=== PATIENT | female | born 1995 | race Caucasian/White ===

== ENCOUNTER 2019-05-27 12:17 | Inpatient (IN) | payer BC, MEDICAID, SELFPAY ==
[2019-05-27] VITALS (9 sets, daily range): BP systolic 90–124; BP diastolic 60–85; PULSE 72–114; RESP 14–21; TEMP 36.8–38.2; O2SAT 94–100; BMI 23.8
--- NOTE | 2019-05-27 12:23 | ED_ITS ---
Documented by User: ERIN Kee 06/01/19 07:03 HPI - Nausea/Vomiting/Diarrhea General: Chief complaint: Nausea/Vomiting/Diarrhea Stated complaint: Sick, weak, throwing up Time Seen by Provider: 05/27/19 12:22 Source: patient and family Mode of arrival: ambulatory Limitations: no limitations History of Present Illness: HPI Narrative: Patient is a 24-year-old female with a history of lupus who presents to ED today along with her mother for complaints of nausea, vomiting, diarrhea, and pain all over that has been present over the past week; patient was apparently recently evaluated by her PCP Dr. Ramirez who diagnosed her with gastroenteritis and prescribed her Zofran; patient states she has had 7-8 episodes of vomiting so far today; she reports a diarrhea stool every 30 to 45 minutes over the past week MD elicited complaint: nausea, vomiting, diarrhea and abdominal pain Pertinent past history: other (lupus) Onset (ago): day(s) Description of diarrhea: watery Associated nausea: Yes Associated abdominal pain: Yes Location of pain: Diffuse Pain consistency: constant Quality: cramping and aching Relieving factors: none Associated symtoms: Reports no associated symptoms and nausea; Denies change in vision, chest pain, dysuria, headache(s), palpitations or syncope Review of Systems Const: Reports: body aches; Denies: fever, chills or night sweats Eyes: Denies: change in vision or blurry vision ENMT: Denies: throat pain, enlarged tonsils or painful swallowing Card: Denies: chest pain, palpitations, irregular heart rhythm, edema, lightheadedness, syncope or pre-syncope Resp: Denies: shortness of breath or productive cough GI: Reports: abdominal pain, nausea, vomiting and diarrhea; Denies: vomiting blood, coffee grounds in vomit, difficulty swallowing, heartburn/indigestion, constipation, excessive passing of gas or painful bowel movements : Denies: flank pain, difficulty urinating, painful urination, urinary frequency, urinary urgency or urinary hesitancy Musc: Reports: other (Patient reports she hurts everywhere ) Neuro: Denies: headache PFSH ED PFSH: Statuses (acute, chronic, etc) shown below reflect problem list status as previously entered and may not be historically accurate Social History Smoking and tobacco status: never smoked Alcohol intake: never Substance/Drug Use: never Household members: family Housing: House Physical Exam Const: COMMON NORMALS: average body habitus, oriented x3, no limitations, healthy appearing, alert and well nourished GENERAL APPEARANCE: in distress (Pain/anxiety) HENMT: COMMON NORMALS: normocephalic, head/scalp atraumatic, EAC's normal and TM's normal bilaterally HEAD & SCALP: normocephalic and atraumatic EXTERNAL AUDITORY CANAL: EAC's normal TYMPANIC MEMBRANE: TM's normal bilaterally THROAT: posterior oropharynx normal, tonsils normal and uvula midline Eye: COMMON NORMALS: PERRL and EOMs intact bilaterally PUPIL: Yes PERRL Neck/C-Spine: COMMON NORMALS: no lymphadenopathy Chest: COMMONS NORMALS: inspection of chest normal Resp: COMMON NORMALS: normal respiratory effort and clear to auscultation bilaterally AUSCULTATION: clear to auscultation bilaterally Cardio: COMMON NORMALS: regular rhythm RATE: tachycardic (mild) RHYTHM: regular rhythm GI: AUSCULTATION: Yes normoactive bowel sounds PALPATION: Yes tender (diffuse with guarding) : COMMON NORMALS: Yes no CVA tenderness BLADDER/KIDNEY EXAM: Yes no CVA tenderness Back/Pelvis: COMMON NORMALS: no CVA tenderness Extremity: COMMON NORMALS: normal to inspection Neuro: COMMON NORMALS: oriented x3 SENSORIUM/ORIENTATION: Yes alert Skin: COMMON NORMALS: no rashes or lesions noted GENERAL SKIN EXAM: no rashes or lesions noted Course Vital Signs: Vital signs: Vital Signs Temperature 98.3 F 05/30/19 10:10 Pulse Rate 77 05/30/19 10:10 Respiratory Rate 20 H 05/30/19 10:10 Blood Pressure 95/58 05/30/19 10:10 Pulse Oximetry 98 05/30/19 04:00 MDM - Nausea/Vomiting/Diarrhea MDM Narrative: Medical decision making narrative: pts nausea/abdominal pain improved after nausea meds and pain meds; she has had two liters of fluids and remains tachycardic; CT showing diffuse distention of her colon; CT also commented on bilateral small pleural effusions and bilateral pneumonia; will obtain CXR; spoke to Dr. Alexandra who feels given her hx of lupus, might need an obs stay; he will evaluate her and speak to hospitalist if necessary Lab Data: Labs: Lab Results 05/27/19 05/27/19 05/27/19 Range/Units 12:45 12:45 12:45 WBC 11.1 H (4.0-10.0) 10^3/ uL RBC 4.80 (4.1-5.3) 10^6/u L Hgb 13.5 (11.5-15.3) g/dL Hct 40.6 (37.0-47.0) % MCV 84.6 (81-99) fL MCH 28.1 (28.0-34.0) pg MCHC 33.3 (30.0-36.0) g/dL RDW 13.4 (12.1-15.1) % Plt Count 296 (130-400) 10^3/c mm MPV 10.4 (7.4-10.4) fL Neut % (Auto) 90.7 % Lymph % (Auto) 4.4 % Carter % (Auto) 4.2 % Eos % (Auto) 0.2 % Baso % (Auto) 0.3 % Neut # (Auto) 10.1 H (1.8-7.7) 10^3/u L Lymph # (Auto) 0.5 L (0.8-4.8) 10^3/u L Carter # (Auto) 0.5 (0.2-0.9) 10^3/u L Eos # (Auto) 0.0 (0.0-0.8) 10^3/u L Baso # (Auto) 0.0 (0.0-0.1) 10^3/u L Nucleated RBC % (a uto) 0 % Nucleated RBCs # 0.0 /100WBC Sodium 139 (136-145) mmol/L Potassium 3.3 L (3.5-5.1) mmol/L Chloride 103 (98-107) mmol/L Carbon Dioxide 19 L (22-29) mmol/L Anion Gap 20.3 H (5-19) BUN 8 (6-20) mg/dL Creatinine 0.9 (0.5-0.9) mg/dL GFR Calculation 76.9 L (90-130) mL/min Glucose 105 (74-109) mg/dL Calcium 10.2 H (8.6-10.0) mg/Dl Magnesium 1.7 (1.7-2.3) mg/dL Total Bilirubin 0.5 (0.15-1.2) mg/dL AST 16 (0-32) U/L ALT 7 (0-33) U/L Alkaline Phosphata se 76 (35-105) IU/L Total Protein 7.4 (6.6-8.7) g/dL Albumin 4.8 (3.5-5.2) g/dL Globulin 2.6 (1.3-4.6) g/dL Lipase 46 (13-60) U/L Urine Color (Yellow) Urine Appearance (CLEAR) Urine pH (5-7) Ur Specific Gravit y (1.005-1.030) Urine Protein (Negative) Urine Glucose (UA) (Normal) Urine Ketones (Negative) Urine Occult Blood (Negative) Urine Nitrate (Negative) Urine Bilirubin (NEGATIVE) Urine Urobilinogen (Negative) mg/dL Ur Leukocyte Natalie ase (Negative) Urine RBC (0-2) /hpf Urine WBC (0-5) /hpf Ur Squamous Epith Cells (0-5) Urine Bacteria (NONE) Urine Mucus Urine HCG, Qual (Negative) Influenza Type A A g (Negative) POC Influenza B Ag (Negative) 05/27/19 05/27/19 05/27/19 Range/Units 12:52 12:52 13:55 WBC (4.0-10.0) 10^3/ uL RBC (4.1-5.3) 10^6/u L Hgb (11.5-15.3) g/dL Hct (37.0-47.0) % MCV (81-99) fL MCH (28.0-34.0) pg MCHC (30.0-36.0) g/dL RDW (12.1-15.1) % Plt Count (130-400) 10^3/c mm MPV (7.4-10.4) fL Neut % (Auto) % Lymph % (Auto) % Carter % (Auto) % Eos % (Auto) % Baso % (Auto) % Neut # (Auto) (1.8-7.7) 10^3/u L Lymph # (Auto) (0.8-4.8) 10^3/u L Carter # (Auto) (0.2-0.9) 10^3/u L Eos # (Auto) (0.0-0.8) 10^3/u L Baso # (Auto) (0.0-0.1) 10^3/u L Nucleated RBC % (a uto) % Nucleated RBCs # /100WBC Sodium (136-145) mmol/L Potassium (3.5-5.1) mmol/L Chloride (98-107) mmol/L Carbon Dioxide (22-29) mmol/L Anion Gap (5-19) BUN (6-20) mg/dL Creatinine (0.5-0.9) mg/dL GFR Calculation (90-130) mL/min Glucose (74-109) mg/dL Calcium (8.6-10.0) mg/Dl Magnesium (1.7-2.3) mg/dL Total Bilirubin (0.15-1.2) mg/dL AST (0-32) U/L ALT (0-33) U/L Alkaline Phosphata se (35-105) IU/L Total Protein (6.6-8.7) g/dL Albumin (3.5-5.2) g/dL Globulin (1.3-4.6) g/dL Lipase (13-60) U/L Urine Color Yellow (Yellow) Urine Appearance Cloudy (CLEAR) Urine pH 5 (5-7) Ur Specific Gravit y 1.020 (1.005-1.030) Urine Protein 1+ H (Negative) Urine Glucose (UA) Norm (Normal) Urine Ketones 2+ H (Negative) Urine Occult Blood 3+ H (Negative) Urine Nitrate Negative (Negative) Urine Bilirubin Neg (NEGATIVE) Urine Urobilinogen Norm (Negative) mg/dL Ur Leukocyte Natalie ase Negative (Negative) Urine RBC 25-40 H (0-2) /hpf Urine WBC None (0-5) /hpf Ur Squamous Epith Cells 10-15 H (0-5) Urine Bacteria 2+ H (NONE) Urine Mucus 2+ Urine HCG, Qual Negative (Negative) Influenza Type A A g Negative (Negative) POC Influenza B Ag Negative (Negative) 05/28/19 05/28/19 Range/Units 05:42 05:42 WBC 3.8 L (4.0-10.0) 10^3/ uL RBC 3.58 L (4.1-5.3) 10^6/u L Hgb 10.0 L (11.5-15.3) g/dL Hct 29.9 L (37.0-47.0) % MCV 83.5 (81-99) fL MCH 27.9 L (28.0-34.0) pg MCHC 33.4 (30.0-36.0) g/dL RDW 13.1 (12.1-15.1) % Plt Count 244 (130-400) 10^3/c mm MPV 10.8 H (7.4-10.4) fL Neut % (Auto) 72.2 % Lymph % (Auto) 19.4 % Carter % (Auto) 7.3 % Eos % (Auto) 0.3 % Baso % (Auto) 0.5 % Neut # (Auto) 2.8 (1.8-7.7) 10^3/u L Lymph # (Auto) 0.7 L (0.8-4.8) 10^3/u L Carter # (Auto) 0.3 (0.2-0.9) 10^3/u L Eos # (Auto) 0.0 (0.0-0.8) 10^3/u L Baso # (Auto) 0.0 (0.0-0.1) 10^3/u L Nucleated RBC % (a uto) 0 % Nucleated RBCs # 0.0 /100WBC Sodium 138 (136-145) mmol/L Potassium 3.4 L (3.5-5.1) mmol/L Chloride 108 H (98-107) mmol/L Carbon Dioxide 19 L (22-29) mmol/L Anion Gap 14.4 (5-19) BUN 4 L (6-20) mg/dL Creatinine 0.5 (0.5-0.9) mg/dL GFR Calculation 151.6 H (90-130) mL/min Glucose 99 (74-109) mg/dL Calcium 8.7 (8.6-10.0) mg/Dl Magnesium (1.7-2.3) mg/dL Total Bilirubin (0.15-1.2) mg/dL AST (0-32) U/L ALT (0-33) U/L Alkaline Phosphata se (35-105) IU/L Total Protein (6.6-8.7) g/dL Albumin (3.5-5.2) g/dL Globulin (1.3-4.6) g/dL Lipase (13-60) U/L Urine Color (Yellow) Urine Appearance (CLEAR) Urine pH (5-7) Ur Specific Gravit y (1.005-1.030) Urine Protein (Negative) Urine Glucose (UA) (Normal) Urine Ketones (Negative) Urine Occult Blood (Negative) Urine Nitrate (Negative) Urine Bilirubin (NEGATIVE) Urine Urobilinogen (Negative) mg/dL Ur Leukocyte Natalie ase (Negative) Urine RBC (0-2) /hpf Urine WBC (0-5) /hpf Ur Squamous Epith Cells (0-5) Urine Bacteria (NONE) Urine Mucus Urine HCG, Qual (Negative) Influenza Type A A g (Negative) POC Influenza B Ag (Negative) Imaging Data^: CT Abd/Pel: Radiologist's impression: [place] [address] CT Scan Report Signed Patient: Joe Eisenberg Unit #: [id number] : 1995 Age/Sex: 24 / F ADM Date: 05/27/19 Loc: ER Room/Bed: Attending Dr: Ordering Provider/Ordering MD: Maegan Chapman Date of Service: 05/27/19 Procedure(s): CT abdomen pelvis w con* [id number] Accession Number(s): [id number] Report Number: [id number] WS: [id number] CT ABDOMEN AND PELVIS WITH CONTRAST HISTORY: pain, N/V/D TECHNIQUE: Imaging performed of the abdomen and pelvis with IV contrast. Single phase imaging of the abdomen. Coronal and sagittal reformats are submitted. All CT scans at [facility] use at least one of these dose optimization techniques: automated exposure control; mA and/or kV adjustment per patient size (includes targeted exams where dose is matched to clinical indication); or iterative reconstruction. IV CONTRAST: Visipaque 320; 95 mL IV. Oral contrast: No DLP: 591.64 mGy.cm COMPARISON: 10/23/2018 Lower thorax: Bilateral lower lobe opacifications are new. Very small pleural effusion noted anteriorly. Small hiatal hernia. Liver/biliary system: Normal size liver with mild intrahepatic duct dilatation which is probably physiologic. Gallbladder: Prior cholecystectomy. Pancreas: Normal. Spleen: Normal. Adrenal glands: Normal. Right kidney: Normal. Left kidney: Normal. Aorta: Normal. Lymphadenopathy: None. Free fluid: None. GI tract: There is diffuse fluid distention of the colon. No wall thickening. Mildly distended central small bowel loops with no obstructive pattern. There are a few areas of luminal narrowing involving the small bowel which could be due to peristalsis. The most significant as noted on image 61 of series 2. No obstruction. The appendix is not identified. Abdominal wall: Unremarkable abdominal wall. No hernia. Pelvis: Urinary bladder is negative. Visualized uterus and adnexa within normal limits by CT. Bones: Unremarkable. Notified ERIN Kee at 05/27/2019 3:[address]/CT abdomen pelvis w con* [id number] IMPRESSION: 1. Moderate diffuse distention of the colon with fluid. Probably due to gastroenteritis. At this time there is no obstruction or significant wall thickening. To a lesser extent mild fluid distention of small bowel. 2. Bibasilar lower lobe opacifications likely pneumonia. 3. Prior cholecystectomy. 4. The appendix is not visualized. 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 Resume sulfamethoxazole following completion of Levaquin Discharge Date/Time: 05/27/19 21:17 Sign Out Sign Out Data: Patient Sign Out occurred on 05/27/19 at 17:19. Patient's care was discussed, and care was transferred from to Preet Alexandra DO. Coding Level of Care Code ED Fire Technology Instructor for Chg Fwd Documented by User: Preet Alexandra DO 05/28/19 08:20 HPI - Nausea/Vomiting/Diarrhea General: Chief complaint: Nausea/Vomiting/Diarrhea Stated complaint: Sick, weak, throwing up Time Seen by Provider: 05/27/19 12:22 PFSH ED PFSH: Statuses (acute, chronic, etc) shown below reflect problem list status as previously entered and may not be historically accurate Social History Smoking and tobacco status: never smoked Alcohol intake: never Substance/Drug Use: never Household members: family Housing: House Course ED course: Reviewed case with ERIN Chapman. Given her history of lupus and her findings of pneumonia and diffuse distention of her colon with diarrhea nausea and vomiting unable to maintain fluid intakes recommend that she be placed on observation IV antibiotics and fluid support discussed Dr. Werner. Vital Signs: Vital signs: Vital Signs Temperature 98.3 F 05/30/19 10:10 Pulse Rate 77 05/30/19 10:10 Respiratory Rate 20 H 05/30/19 10:10 Blood Pressure 95/58 05/30/19 10:10 Pulse Oximetry 98 05/30/19 04:00 MDM - Nausea/Vomiting/Diarrhea Lab Data: Labs: Lab Results 05/27/19 05/27/19 05/27/19 Range/Units 12:45 12:45 12:45 WBC 11.1 H (4.0-10.0) 10^3/ uL RBC 4.80 (4.1-5.3) 10^6/u L Hgb 13.5 (11.5-15.3) g/dL Hct 40.6 (37.0-47.0) % MCV 84.6 (81-99) fL MCH 28.1 (28.0-34.0) pg MCHC 33.3 (30.0-36.0) g/dL RDW 13.4 (12.1-15.1) % Plt Count 296 (130-400) 10^3/c mm MPV 10.4 (7.4-10.4) fL Neut % (Auto) 90.7 % Lymph % (Auto) 4.4 % Carter % (Auto) 4.2 % Eos % (Auto) 0.2 % Baso % (Auto) 0.3 % Neut # (Auto) 10.1 H (1.8-7.7) 10^3/u L Lymph # (Auto) 0.5 L (0.8-4.8) 10^3/u L Carter # (Auto) 0.5 (0.2-0.9) 10^3/u L Eos # (Auto) 0.0 (0.0-0.8) 10^3/u L Baso # (Auto) 0.0 (0.0-0.1) 10^3/u L Nucleated RBC % (a uto) 0 % Nucleated RBCs # 0.0 /100WBC Sodium 139 (136-145) mmol/L Potassium 3.3 L (3.5-5.1) mmol/L Chloride 103 (98-107) mmol/L Carbon Dioxide 19 L (22-29) mmol/L Anion Gap 20.3 H (5-19) BUN 8 (6-20) mg/dL Creatinine 0.9 (0.5-0.9) mg/dL GFR Calculation 76.9 L (90-130) mL/min Glucose 105 (74-109) mg/dL Calcium 10.2 H (8.6-10.0) mg/Dl Magnesium 1.7 (1.7-2.3) mg/dL Total Bilirubin 0.5 (0.15-1.2) mg/dL AST 16 (0-32) U/L ALT 7 (0-33) U/L Alkaline Phosphata se 76 (35-105) IU/L Total Protein 7.4 (6.6-8.7) g/dL Albumin 4.8 (3.5-5.2) g/dL Globulin 2.6 (1.3-4.6) g/dL Lipase 46 (13-60) U/L Urine Color (Yellow) Urine Appearance (CLEAR) Urine pH (5-7) Ur Specific Gravit y (1.005-1.030) Urine Protein (Negative) Urine Glucose (UA) (Normal) Urine Ketones (Negative) Urine Occult Blood (Negative) Urine Nitrate (Negative) Urine Bilirubin (NEGATIVE) Urine Urobilinogen (Negative) mg/dL Ur Leukocyte Natalie ase (Negative) Urine RBC (0-2) /hpf Urine WBC (0-5) /hpf Ur Squamous Epith Cells (0-5) Urine Bacteria (NONE) Urine Mucus Urine HCG, Qual (Negative) Influenza Type A A g (Negative) POC Influenza B Ag (Negative) 05/27/19 05/27/19 05/27/19 Range/Units 12:52 12:52 13:55 WBC (4.0-10.0) 10^3/ uL RBC (4.1-5.3) 10^6/u L Hgb (11.5-15.3) g/dL Hct (37.0-47.0) % MCV (81-99) fL MCH (28.0-34.0) pg MCHC (30.0-36.0) g/dL RDW (12.1-15.1) % Plt Count (130-400) 10^3/c mm MPV (7.4-10.4) fL Neut % (Auto) % Lymph % (Auto) % Carter % (Auto) % Eos % (Auto) % Baso % (Auto) % Neut # (Auto) (1.8-7.7) 10^3/u L Lymph # (Auto) (0.8-4.8) 10^3/u L Carter # (Auto) (0.2-0.9) 10^3/u L Eos # (Auto) (0.0-0.8) 10^3/u L Baso # (Auto) (0.0-0.1) 10^3/u L Nucleated RBC % (a uto) % Nucleated RBCs # /100WBC Sodium (136-145) mmol/L Potassium (3.5-5.1) mmol/L Chloride (98-107) mmol/L Carbon Dioxide (22-29) mmol/L Anion Gap (5-19) BUN (6-20) mg/dL Creatinine (0.5-0.9) mg/dL GFR Calculation (90-130) mL/min Glucose (74-109) mg/dL Calcium (8.6-10.0) mg/Dl Magnesium (1.7-2.3) mg/dL Total Bilirubin (0.15-1.2) mg/dL AST (0-32) U/L ALT (0-33) U/L Alkaline Phosphata se (35-105) IU/L Total Protein (6.6-8.7) g/dL Albumin (3.5-5.2) g/dL Globulin (1.3-4.6) g/dL Lipase (13-60) U/L Urine Color Yellow (Yellow) Urine Appearance Cloudy (CLEAR) Urine pH 5 (5-7) Ur Specific Gravit y 1.020 (1.005-1.030) Urine Protein 1+ H (Negative) Urine Glucose (UA) Norm (Normal) Urine Ketones 2+ H (Negative) Urine Occult Blood 3+ H (Negative) Urine Nitrate Negative (Negative) Urine Bilirubin Neg (NEGATIVE) Urine Urobilinogen Norm (Negative) mg/dL Ur Leukocyte Natalie ase Negative (Negative) Urine RBC 25-40 H (0-2) /hpf Urine WBC None (0-5) /hpf Ur Squamous Epith Cells 10-15 H (0-5) Urine Bacteria 2+ H (NONE) Urine Mucus 2+ Urine HCG, Qual Negative (Negative) Influenza Type A A g Negative (Negative) POC Influenza B Ag Negative (Negative) 05/28/19 05/28/19 Range/Units 05:42 05:42 WBC 3.8 L (4.0-10.0) 10^3/ uL RBC 3.58 L (4.1-5.3) 10^6/u L Hgb 10.0 L (11.5-15.3) g/dL Hct 29.9 L (37.0-47.0) % MCV 83.5 (81-99) fL MCH 27.9 L (28.0-34.0) pg MCHC 33.4 (30.0-36.0) g/dL RDW 13.1 (12.1-15.1) % Plt Count 244 (130-400) 10^3/c mm MPV 10.8 H (7.4-10.4) fL Neut % (Auto) 72.2 % Lymph % (Auto) 19.4 % Carter % (Auto) 7.3 % Eos % (Auto) 0.3 % Baso % (Auto) 0.5 % Neut # (Auto) 2.8 (1.8-7.7) 10^3/u L Lymph # (Auto) 0.7 L (0.8-4.8) 10^3/u L Carter # (Auto) 0.3 (0.2-0.9) 10^3/u L Eos # (Auto) 0.0 (0.0-0.8) 10^3/u L Baso # (Auto) 0.0 (0.0-0.1) 10^3/u L Nucleated RBC % (a uto) 0 % Nucleated RBCs # 0.0 /100WBC Sodium 138 (136-145) mmol/L Potassium 3.4 L (3.5-5.1) mmol/L Chloride 108 H (98-107) mmol/L Carbon Dioxide 19 L (22-29) mmol/L Anion Gap 14.4 (5-19) BUN 4 L (6-20) mg/dL Creatinine 0.5 (0.5-0.9) mg/dL GFR Calculation 151.6 H (90-130) mL/min Glucose 99 (74-109) mg/dL Calcium 8.7 (8.6-10.0) mg/Dl Magnesium (1.7-2.3) mg/dL Total Bilirubin (0.15-1.2) mg/dL AST (0-32) U/L ALT (0-33) U/L Alkaline Phosphata se (35-105) IU/L Total Protein (6.6-8.7) g/dL Albumin (3.5-5.2) g/dL Globulin (1.3-4.6) g/dL Lipase (13-60) U/L Urine Color (Yellow) Urine Appearance (CLEAR) Urine pH (5-7) Ur Specific Gravit y (1.005-1.030) Urine Protein (Negative) Urine Glucose (UA) (Normal) Urine Ketones (Negative) Urine Occult Blood (Negative) Urine Nitrate (Negative) Urine Bilirubin (NEGATIVE) Urine Urobilinogen (Negative) mg/dL Ur Leukocyte Natalie ase (Negative) Urine RBC (0-2) /hpf Urine WBC (0-5) /hpf Ur Squamous Epith Cells (0-5) Urine Bacteria (NONE) Urine Mucus Urine HCG, Qual (Negative) Influenza Type A A g (Negative) POC Influenza B Ag (Negative) Discharge Plan Discharge Patient Disposition: Admitted As Inpatient Admit Provider: Federica Roberson Clinical Impression: Gastroenteritis Pneumonia Qualifiers: Pneumonia type: due to unspecified organism Laterality: left Lung location: lower lobe of lung Qualified Code(s): J18.9 - Pneumonia, unspecified organism Lupus (systemic lupus erythematosus) Qualifiers: Systemic lupus erythematosus type: other 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 Qualified Code(s): 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 Resume sulfamethoxazole following completion of Levaquin Discharge Date/Time: 05/27/19 21:17 Sign Out Sign Out Data: Patient Sign Out occurred on 05/27/19 at 17:19. Patient's care was discussed, and care was transferred from to Preet Alexandra DO. Coding Level of Care Code ED Fire Technology Instructor for Erin Machado
[2019-05-27 12:51] LABS: Basophils % 0.3 %; Eosinophils % 0.2 %; Hematocrit 40.6 % (37.0-47.0); Hemoglobin 13.5 g/dL (11.5-15.3); Lymphocytes # 0.5 10^3/uL (0.8-4.8); Lymphocytes % 4.4 %; Mean Corpuscular HGB Conc 33.3 g/dL (30.0-36.0); Mean Corpuscular Hemoglobin 28.1 pg (28.0-34.0); Mean Corpuscular Volume 84.6 fL (81-99); Mean Platelet Volume 10.4 fL (7.4-10.4); Monocytes # 0.5 10^3/uL (0.2-0.9); Monocytes % 4.2 %; Neutrophils # 10.1 10^3/uL (1.8-7.7); Neutrophils % 90.7 %; Nucleated Red Blood Cells % 0 %; Platelet Count 296 10^3/cmm (130-400); Red Cell Distribution Width 13.4 % (12.1-15.1); White Blood Count 11.1 10^3/uL (4.0-10.0)
[2019-05-27 13:02] LABS: Add Urine Microscopic? YES; Bilirubin Urine Neg (NEGATIVE); Blood Urine 3+ (Negative); Glucose Urine UA Norm (Normal); Ketones Urine 2+ (Negative); Leukocyte Esterase Urine Negative (Negative); Nitrate Urine Negative (Negative); Protein Urine 1+ (Negative); Urine Appearance Cloudy (CLEAR); Urine Color Yellow (Yellow); Urobilinogen Urine Norm (Negative); pH Urine 5 (5-7)
[2019-05-27] MEDS: sodium chloride 0.9% 1,000 ML 999 ML IV ×2 (13:10→14:43)
[2019-05-27] MEDS: ondansetron 2 mg/ML SDV 2 mL 4 MG IVP ×3 (13:10→23:22)
[2019-05-27 13:19] LABS: Alanine Aminotransferase 7 U/L (0-33); Albumin Level 4.8 g/dL (3.5-5.2); Alkaline Phosphatase 76 IU/L (35-105); Anion Gap 20.3 (5-19); Aspartate Amino Transferase 16 U/L (0-32); Blood Urea Nitrogen 8 mg/dL (6-20); Calcium 10.2 mg/Dl (8.6-10.0); Carbon Dioxide 19 mmol/L (22-29); Chloride 103 mmol/L (98-107); Globulin 2.6 g/dL (1.3-4.6); Glomerular Filtration Rate 76.9 mL/min (90-130); Glucose 105 mg/dL (74-109); Lipase 46 U/L (13-60); Potassium 3.3 mmol/L (3.5-5.1); Sodium 139 mmol/L (136-145); Total Bilirubin 0.5 mg/dL (0.15-1.2); Total Protein 7.4 g/dL (6.6-8.7)
[2019-05-27 13:20] LABS: Add Urine Culture? No; Bacteria Urine 2+; Mucus Urine 2+; RBC Urine 25-40 /hpf (0-2)
[2019-05-27 13:51] LABS: Magnesium 1.7 mg/dL (1.7-2.3)
[2019-05-27] MEDS: fentaNYL 50 mcg/mL INJ 2mL IVP (13:56)
--- NOTE | 2019-05-27 14:48 | CT_ITS ---
WS: [id number] CT ABDOMEN AND PELVIS WITH CONTRAST HISTORY: pain, N/V/D TECHNIQUE: Imaging performed of the abdomen and pelvis with IV contrast. Single phase imaging of the abdomen. Coronal and sagittal reformats are submitted. All CT scans at [facility] use at least one of these dose optimization techniques: automated exposure control; mA and/or kV adjustment per patient size (includes targeted exams where dose is matched to clinical indication); or iterativ e reconstruction. IV CONTRAST: Visipaque 320; 95 mL IV. Oral contrast: No DLP: 591.64 mGy.cm COMPARISON: 10/23/2018 Lower thorax: Bilateral lower lobe opacifications are new. Very small pleural effusion noted anterior ly. Small hiatal hernia. Liver/biliary system: Normal size liver with mild intrahepatic duct dilatation which is probably phys iologic. Gallbladder: Prior cholecystectomy. Pancreas: Normal. Spleen: Normal. Adrenal glands: Normal. Right kidney: Normal. Left kidney: Normal. Aorta: Normal. Lymphadenopathy: None. Free fluid: None. GI tract: There is diffuse fluid distention of the colon. No wall thickening. Mildly distended centra l small bowel loops with no obstructive pattern. There are a few areas of luminal narrowing involving the small bowel which could be due to peristalsis. The most significant as noted on image 61 of seri es 2. No obstruction. The appendix is not identified. Abdominal wall: Unremarkable abdominal wall. No hernia. Pelvis: Urinary bladder is negative. Visualized uterus and adnexa within normal limits by CT. Bones: Unremarkable. Notified ERIN Kee at 05/27/2019 3:[address]/CT abdomen pelvis w con* [id number] IMPRESSION: 1. Moderate diffuse distention of the colon with fluid. Probably due to gastro enteritis. At this time there is no obstruction or significant wall thickening. To a lesser extent mild fluid distention of small bowel. 2. Bibasilar lower lobe opacifications likely pneumonia. 3. Prior cholecystectomy. 4. The appendix is not visualized.
[2019-05-27 15:01] LABS: Influenza A by IFA Negative (Negative); Influenza B by IFA Negative (Negative)
[2019-05-27] MEDS: fentaNYL 50 mcg/mL INJ 2mL 25 MCG IVP (15:01)
[2019-05-27] MEDS: iodixanol 320 mg/mL 100mL Btl IV (15:32)
--- NOTE | 2019-05-27 16:19 | XR_ITS ---
WS: [id number] Portable AP upright chest, 05/27/2019 Clinical Data: cough/congestion Comparison: PA and lateral chest, 04/20/2019 Findings: No nodules, masses or effusions are seen. The heart is normal. The pulmonary vascularity is not increased. Is a patchy opacity in the left lower lobe which could represent minimal pneumonia. N o pneumothorax is seen. Contrast material in the kidneys is from a prior CT abdomen pelvis. XR/XR chest 1V portable [id number] Impression: Patchy left lower lobe opacification could represent minimal pneumonia.
[2019-05-27] MEDS: cefTRIAXone 1,000 MG in sodium chloride 0.9% (plus) 50 ML 100 MG IV (17:43)
[2019-05-27] MEDS: azithromycin 500 MG in sodium chloride 0.9% 250 ML 250 MG IV (18:15)
[2019-05-27] MEDS: LORazepam 2 mg/mL INJ 1 mL 1 MG IVP (18:26)
[2019-05-27] MEDS: levofloxacin-dextrose 5 % 750 MG/150 ML PREMIX 150 MG IV (19:45)
--- NOTE | 2019-05-27 20:10 | ECG_ITS ---
Measurements Intervals [place] Rate: 118 P: 45 GA: 157 QRS: 21 QRSD: 93 T: -11 QT: 340 QTc: 478 SINUS TACHYCARDIA NONSPECIFIC T-WAVE ABNORMALITY ABNORMAL RHYTHM ECG Compared to ECG 10/27/2017 10:48:14 T-wave abnormality now present Electronically Signed On 05-27-2019 22:25:57 CONCRETE SWIMMING POOL INSTALLER by La Pop M.D. [email or web address]
--- NOTE | 2019-05-27 20:24 | PM.HP ---
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 Patient is seen in the ER with parents at bedside. Due to her history of SLE she follows up at [facility]. She does states that her lupus has been complicated by kidney disease though details are unavailable currently. She appears quite weak and somewhat ill-appearing. Has a persistent dry cough particularly during my respiratory examination. Has had loose and watery stool, denies any blood. Appetite has been mediocre so oral intake has been minimal. She has had chest pain with cough, and cough has been dry. Her medication list reflects that she is on prophylactic dose of Bactrim. She denies any sick contacts. Her labs indicate mild leukocytosis with a white count of 11.1, normal hemoglobin at 13.5, potassium of 3.3, normal renal function, anion gap of 20.3, calcium of 10.2, magnesium of 1.7, urinalysis that is positive for ketones and blood. She had a chest x-ray which shows patchy left lower lobe opacification and a CT of the abdomen and pelvis showing moderate fluid distention of the colon and bibasilar lower lobe opacifications reflective of a pneumonia. Stool studies have been ordered and are pending though FOBT is negative. She has received doses of ceftriaxone, azithromycin, Levaquin as well as 2 L normal saline boluses. She has not had any urine output so far and is minimally hypotensive, tachycardic in the 120s. She is currently on room air and saturating at 95%. Her clinical presentation seems more consistent with bronchitis and gastroenteritis. Due to her history of immunocompromise secondary to lupus as well as persistent nausea and vomiting patient has been admitted for further hydration and antibiotic treatment. Review of Systems Const: Reports: chills, body aches, change in appetite (decreased appetite), fatigue and malaise; Denies: fever Eyes: Denies: change in vision ENMT: Reports: dry mouth Card: Denies: chest pain, swelling of feet/ankles or lightheadedness Resp: Reports: shortness of breath, non-productive cough and other (Pleuritic pain); Denies: coughing up blood GI: Reports: abdominal pain, nausea, vomiting and diarrhea; Denies: vomiting blood or blood in stool : Denies: difficulty urinating, painful urination or urinary frequency Musc: Reports: extremity pain (Bilateral lower extremities); Denies: back pain Skin/Breast: Denies: rash Neuro: Denies: numbness in extremities or weakness in extremities Psych: Denies: anxiety Medications/Allergies Home Medications Medication Instructions Recorded Confirmed Last Taken Type calcium carbonate-vitamin D3 1 tab PO DAILY 05/27/19 05/27/19 05/26/19 History [Calcium 500 + D] ergocalciferol (vitamin D2) See Rx Instructions .ROUTE .COMPLEX 05/27/19 05/27/19 05/26/19 History [Vitamin D2] hydroxychloroquine 200 mg PO BID 05/27/19 05/27/19 05/26/19 History iron aspgly,[id number] 150 cap PO BID 05/27/19 05/27/19 05/26/19 History [Ferrex 150 Forte Plus] lorazepam 1 mg PO BID PRN 05/27/19 05/27/19 Unknown History mycophenolate mofetil See Rx Instructions .ROUTE .COMPLEX 05/27/19 05/27/19 05/26/19 History ondansetron HCl 8 mg PO Q6H PRN 05/27/19 05/27/19 Unknown History pantoprazole 40 mg PO DAILY 05/27/19 05/27/19 05/26/19 History paroxetine HCl 20 mg PO BEDTIME 05/27/19 05/27/19 05/26/19 History sulfamethoxazole-trimethoprim See Rx Instructions .ROUTE .COMPLEX 05/27/19 05/27/19 05/25/19 History Allergies Allergy/AdvReac Type Severity Reaction Status Date / Time metoclopramide [From Reglan] Allergy ADR-Anxiety Verified 05/27/19 12:32 morphine Allergy ADR-Chest Verified 05/27/19 12:32 Pain PFSH Acute PFSH: Statuses (acute, chronic, etc) shown below reflect problem list status as previously entered and may not be historically accurate Medical History (Updated 05/27/19 @ 20:32 by Federica Roberson MD) Lupus (systemic lupus erythematosus) (Acute) complicated by nephropathy, follows up at [facility] Surgical History (Updated 05/27/19 @ 20:26 by Federica Roberson MD) History of appendectomy (Acute) Hx of cholecystectomy (Acute) Status post tonsillectomy and adenoidectomy (Acute) Family History (Updated 05/27/19 @ 20:26 by Federica Roberson MD) Mother Juvenile rheumatoid arthritis Social History (Updated 05/27/19 @ 20:27 by Federica Roberson MD) Smoking and tobacco status: never smoked Alcohol intake: never Substance/Drug Use: never Household members: family Housing: House Female Reporductive History: Date of last menstrual period: 05/27/19 Vitals/I&O/Wt Last Vital Signs Temp 98.5 F 05/27/19 12:24 Pulse 102 H 05/27/19 13:45 Resp 16 05/27/19 18:44 BP 113/82 05/27/19 18:44 Pulse Ox 99 05/27/19 18:44 05/27/19 05/27/19 05/27/19 06:59 14:59 22:59 Intake Total 2300 / 2300 Balance 2300 / 2300 Weight last 48 hrs Weight 58.967 kg Physical Exam Const: COMMON NORMALS: oriented x3 GENERAL APPEARANCE: cooperative and anxious; not comfortable NUTRITIONAL APPEARANCE: thin ORIENTATION/CONSCIOUSNESS: Yes awake HENMT: COMMON NORMALS: normocephalic, head/scalp atraumatic and hearing grossly normal bilaterally HEAD & SCALP: normocephalic and atraumatic MOUTH: moist mucous membranes abnormal Details: parched Eye: COMMON NORMALS: PERRL, EOMs intact bilaterally and conjunctivae normal CONJUNCTIVA: Yes conjunctivae normal PUPIL: Yes PERRL Neck/C-Spine: COMMON NORMALS: full ROM GENERAL: Yes normal visual inspection and Yes trachea midline Resp: COMMON NORMALS: normal respiratory effort, no retractions, no use of accessory muscles and clear to auscultation bilaterally EFFORT & INSPECTION: Yes able to speak in complete sentences, Yes symmetric chest movement, No tachypneic and Yes actively coughing dry AUSCULTATION: clear to auscultation bilaterally OTHER: -Pleuritic pain Cardio: COMMON NORMALS: regular rate, regular rhythm, S1 normal heart sound, S2 normal heart sound and no murmurs RATE: regular rate RHYTHM: regular rhythm HEART SOUNDS: S1 normal and S2 normal GI: COMMON NORMALS: normal to inspection, nondistended, normoactive bowel sounds, soft to palpation and non-tender PALPATION: Yes soft Back/Pelvis: COMMON NORMALS: thoracic and lumbar spine normal to inspection Extremity: COMMON NORMALS: normal to inspection, full ROM and no clubbing, cyanosis or edema; negative for no pedal edema Neuro: COMMON NORMALS: oriented x3, moves all extremities, no focal motor deficits and no sensory deficits noted Psych: COMMON NORMALS: mental status grossly normal, thought process normal, cooperative, affect normal and speech normal SPEECH: Yes normal speech THOUGHT PROCESS: normal thought process Skin: COMMON NORMALS: no rashes or lesions noted, no jaundice, no petechiae and no mottling GENERAL SKIN EXAM: no rashes or lesions noted Data : 05/27/19 12:45 05/27/19 12:45 Micro: Microbiology 05/27/19 17:37 Stool Lactoferrin - Final Stool Occult Blood (FIT) - Final A&P Assessment and plan (1) Pneumonia: -Noted findings of a left lower lobe opacifications on imaging; appears to be more consistent with bronchitis but due to underlying immunocompromised state secondary to SLE will treat like pneumonia -Has received dose of ceftriaxone, azithromycin, Levaquin. We will continue Levaquin for now -Influenza negative; Legionella screening ordered -Noted mild leukocytosis, repeat labs in a.m. -Slightly hypotensive and tachycardic likely secondary to dehydration. Continue to monitor vital signs -Continue IV fluid hydration, has received 2 L NS boluses so far -Currently not requiring oxygen, supplemental oxygen as needed -Continue to monitor respiratory status Status: Acute Qualifiers: Laterality: left Lung location: lower lobe of lung Pneumonia type: due to unspecified organism Qualified Code(s): J18.9 - Pneumonia, unspecified organism Code(s): J18.9 - Pneumonia, unspecified organism (2) Lupus (systemic lupus erythematosus): -Patient has known SLE complicated by nephropathy; details unclear. 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 difficile. FOBT negative -Per medication list patient has been on Bactrim for prophylaxis; hold this for now -Clear liquid diet for now; advance diet as tolerated -IV fluid hydration -Replace electrolytes as needed particularly potassium -Antiemetics, pain control as needed Status: Acute Code(s): K52.9 - Noninfective gastroenteritis and colitis, unspecified Additional A&P Information -GI ppx with PPI -low risk for DVT so no ppx needed -fall precautions as is quite weak currently -Dispo: home, lives with parents -Code status: FULL code Attestations Medical Necessity Statement*: Joe Eisenberg's hospital stay will be less than 2 midnights for management of gastroenteritis and pneumonia in immunocompromised state requiring close monitoring of hemodynamic and respiratory status as well as IV fluid hydration and antibiotics. Time Spent in Patient Care: Greater than 35 minutes (>than 50% of time spent in counselling and/or direct pt care on unit). 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
--- NOTE | 2019-05-27 20:56 | PC.NURSE ---
Report given to KARAN Barrera
[2019-05-27] MEDS: sodium chlor 0.45% +KCl 20 mEq 20 MEQ/1,000 ML BAG 100 MEQ IV (22:22)
[2019-05-27] MEDS: PARoxetine 20 mg Tablet PO (22:23)
[2019-05-28 04:00] VITALS: BP 104/65; PULSE 88; RESP 18; TEMP 36.9; O2SAT 96
[2019-05-28 05:17] VITALS: BMI 23.8
[2019-05-28 06:26] LABS: Basophils % 0.5 %; Eosinophils % 0.3 %; Hematocrit 29.9 % (37.0-47.0); Lymphocytes # 0.7 10^3/uL (0.8-4.8); Lymphocytes % 19.4 %; Mean Corpuscular HGB Conc 33.4 g/dL (30.0-36.0); Mean Corpuscular Hemoglobin 27.9 pg (28.0-34.0); Mean Corpuscular Volume 83.5 fL (81-99); Mean Platelet Volume 10.8 fL (7.4-10.4); Monocytes # 0.3 10^3/uL (0.2-0.9); Monocytes % 7.3 %; Neutrophils # 2.8 10^3/uL (1.8-7.7); Neutrophils % 72.2 %; Nucleated Red Blood Cells % 0 %; Platelet Count 244 10^3/cmm (130-400); Red Blood Count 3.58 10^6/uL (4.1-5.3); Red Cell Distribution Width 13.1 % (12.1-15.1); White Blood Count 3.8 10^3/uL (4.0-10.0)
[2019-05-28 06:51] LABS: Anion Gap 14.4 (5-19); Blood Urea Nitrogen 4 mg/dL (6-20); Calcium 8.7 mg/Dl (8.6-10.0); Carbon Dioxide 19 mmol/L (22-29); Chloride 108 mmol/L (98-107); Glomerular Filtration Rate 151.6 mL/min (90-130); Glucose 99 mg/dL (74-109); Potassium 3.4 mmol/L (3.5-5.1); Sodium 138 mmol/L (136-145)
[2019-05-28 07:49] VITALS: BP 90/56; PULSE 77; RESP 17; TEMP 37.1; O2SAT 95
[2019-05-28] MEDS: sodium chlor 0.45% +KCl 20 mEq 20 MEQ/1,000 ML BAG 100 MEQ IV ×2 (09:01→21:16)
[2019-05-28] MEDS: pantoprazole DR 40 mg Tablet PO (09:01)
[2019-05-28] MEDS: ondansetron 2 mg/ML SDV 2 mL 4 MG IVP ×2 (09:01→14:37)
--- NOTE | 2019-05-28 11:26 | P.PN_ITS ---
Subjective Subjective: Interval history: History and physical was reviewed in detail. Patient reports still continued loose stools and has had 3-4 already this morning. She feels nauseated but has been drinking liquids. She reports she coughs quite frequently. Medications: Reviewed: Yes Vitals/I&O/Wt Last Vital Signs Temp 98.7 F 05/28/19 07:49 Pulse 77 05/28/19 07:49 Resp 17 05/28/19 07:49 BP 90/56 05/28/19 07:49 Pulse Ox 95 05/28/19 07:49 05/27/19 05/28/19 05/28/19 22:59 06:59 14:59 Intake Total 2400 / 2400 100 / 2500 1000 / 1000 Output Total 400 / 400 Balance 2400 / 2400 -300 / 2100 1000 / 1000 Weight last 48 hrs Weight 58.967 kg Weight 58.967 kg Physical Exam Narrative: EXAM NARRATIVE: General exam is an ill-appearing white female in no apparent distress Cardiovascular regular rate and rhythm without murmur Lungs clear, coughs with full inspiration Abdomen is soft, positive bowel sounds Extremities no cyanosis clubbing or edema Data : 05/28/19 05:42 05/28/19 05:42 Micro: Microbiology 05/27/19 17:37 Stool Lactoferrin - Final Stool Enteric Pathogens (PCR) - Final C.difficile Toxin B Gene (PCR) - Final Occult Blood (FIT) - Final 05/27/19 23:10 Legionella Urinary Antigen - Final Urine,Voided A&P Assessment and plan (1) Pneumonia: Left lower lobe pneumonia. Legionella urinary antigen negative. Placed on Levaquin. Influenza screening negative. Status: Acute Qualifiers: Laterality: left Lung location: lower lobe of lung Pneumonia type: due to unspecified organism Qualified Code(s): J18.9 - Pneumonia, unspecified organism Code(s): J18.9 - Pneumonia, unspecified organism (2) Lupus (systemic lupus erythematosus): Renal function currently stable. 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 On Levaquin for pneumonia. C. difficile negative Status: Acute Code(s): K52.9 - Noninfective gastroenteritis and colitis, unspecified Additional A&P Information Dehydration, resolved Anemia, leukopenia likely related to lupus, immunosuppressant drugs, infection Mild hypokalemia Low risk, no DVT prophylaxis ordered Attestations Medical Necessity Statement*: Needs continued hospitalization for IV anti biotics related to pneumonia. At this time persistent diarrhea and high risk for recurrent dehydration. 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
[2019-05-28 12:00] VITALS: BP 97/62; PULSE 74; RESP 18; TEMP 36.7; O2SAT 94
[2019-05-28] MEDS: HYDROmorphone 1 mg/mL INJ 1 mL 0.4 MG IVP ×3 (13:57→22:23)
[2019-05-28] MEDS: ibuprofen 600 mg Tablet PO (14:19)
[2019-05-28 15:59] VITALS: BP 105/70; PULSE 83; RESP 18; TEMP 37.1; O2SAT 97
[2019-05-28] MEDS: levofloxacin-dextrose 5 % 750 MG/150 ML PREMIX 150 MG IV (17:51)
[2019-05-28 19:54] VITALS: BP 102/66; PULSE 69; RESP 20; TEMP 36.6; O2SAT 99
[2019-05-28] MEDS: LORazepam 1 mg Tablet PO (21:15)
[2019-05-28 22:23] VITALS: RESP 16
[2019-05-28] MEDS: PARoxetine 20 mg Tablet PO (22:23)
[2019-05-29] VITALS (8 sets, daily range): BP systolic 101–112; BP diastolic 50–75; PULSE 61–88; RESP 16–19; TEMP 36.4–36.8; O2SAT 96–99
[2019-05-29] MEDS: sodium chlor 0.45% +KCl 20 mEq 20 MEQ/1,000 ML BAG 100 MEQ IV ×2 (02:31→15:55)
[2019-05-29] MEDS: HYDROmorphone 1 mg/mL INJ 1 mL 0.4 MG IVP ×3 (02:35→22:17)
[2019-05-29 06:14] LABS: Basophils % 0.8 %; Eosinophils # 0.1 10^3/uL (0.0-0.8); Eosinophils % 3.4 %; Hematocrit 31.1 % (37.0-47.0); Hemoglobin 10.4 g/dL (11.5-15.3); Lymphocytes # 1.3 10^3/uL (0.8-4.8); Lymphocytes % 49.2 %; Mean Corpuscular HGB Conc 33.4 g/dL (30.0-36.0); Mean Corpuscular Hemoglobin 29.1 pg (28.0-34.0); Mean Corpuscular Volume 87.1 fL (81-99); Mean Platelet Volume 10.5 fL (7.4-10.4); Monocytes # 0.3 10^3/uL (0.2-0.9); Monocytes % 10.3 %; Neutrophils % 35.9 %; Nucleated Red Blood Cells % 0 %; Platelet Count 261 10^3/cmm (130-400); Red Blood Count 3.57 10^6/uL (4.1-5.3); Red Cell Distribution Width 13.3 % (12.1-15.1); White Blood Count 2.6 10^3/uL (4.0-10.0)
[2019-05-29 06:23] LABS: Neutrophils # 0.9 10^3/uL (1.8-7.7)
[2019-05-29 06:36] LABS: Anion Gap 13.1 (5-19); Blood Urea Nitrogen 2 mg/dL (6-20); Calcium 8.8 mg/Dl (8.6-10.0); Carbon Dioxide 20 mmol/L (22-29); Chloride 111 mmol/L (98-107); Glomerular Filtration Rate 122.8 mL/min (90-130); Glucose 96 mg/dL (74-109); Potassium 4.1 mmol/L (3.5-5.1); Sodium 140 mmol/L (136-145)
[2019-05-29] MEDS: pantoprazole DR 40 mg Tablet PO (08:36)
--- NOTE | 2019-05-29 13:37 | PM.PN ---
Subjective Subjective: Interval history: Oliva reports she feels a little bit better. She is still having some diarrhea. Slight nausea. No vomiting. Tolerating clear liquids. She does not feel like she can keep hydrated at this point. Medications: Reviewed: Yes Vitals/I&O/Wt Last Vital Signs Temp 97.9 F 05/29/19 11:42 Pulse 68 05/29/19 11:42 Resp 18 05/29/19 11:42 BP 109/73 05/29/19 11:42 Pulse Ox 98 05/29/19 11:42 05/28/19 05/29/19 05/29/19 22:59 06:59 14:59 Intake Total 1000 / 2460 525 / 2985 Output Total 600 / 900 350 / 1250 Balance 400 / 1560 175 / 1735 Weight last 48 hrs Weight 60.146 kg Weight 58.967 kg Physical Exam Narrative: EXAM NARRATIVE: General exam is an ill-appearing white female in no apparent distress Cardiovascular regular rate and rhythm without murmur Lungs clear, no cough with inspiring Abdomen is soft, positive bowel sounds Extremities no cyanosis clubbing or edema Data : 05/29/19 05:54 05/29/19 05:54 Micro: Microbiology 05/27/19 17:37 Stool Lactoferrin - Final Stool Enteric Pathogens (PCR) - Final Parasite Antigen Panel - Final C.difficile Toxin B Gene (PCR) - Final Occult Blood (FIT) - Final A&P Assessment and plan (1) Pneumonia: Left lower lobe pneumonia. Legionella urinary antigen negative. Placed on Levaquin. Influenza screening negative. Improving Status: Acute Qualifiers: Laterality: left Lung location: lower lobe of lung Pneumonia type: due to unspecified organism Qualified Code(s): J18.9 - Pneumonia, unspecified organism Code(s): J18.9 - Pneumonia, unspecified organism (2) Lupus (systemic lupus erythematosus): Renal function currently stable. 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 On Levaquin for pneumonia. C. difficile negative. Still with diarrhea. Concerned she may not be able to keep hydrated Status: Acute Code(s): K52.9 - Noninfective gastroenteritis and colitis, unspecified Additional A&P Information Dehydration, resolved Anemia, leukopenia likely related to lupus, immunosuppressant drugs, infection Mild hypokalemia Low risk, no DVT prophylaxis ordered Attestations Medical Necessity Statement*: Needs continued hospitalization for IV fluids, supportive treatment for gastroenteritis/Campylobacter. Will review course again this afternoon but I suspect she will need to be in the hospital until tomorrow. Coding Level of Care Code Acute Psychiatric Mental Health Nurse for g Fwd Diagnoses Pneumonia J18.9 Laterality: left Lung location: lower lobe of lung Pneumonia type: due to unspecified organism Lupus (systemic lupus erythematosus) M32.15 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 Systemic lupus erythematosus type: other Gastroenteritis K52.9
[2019-05-29] MEDS: ondansetron 2 mg/ML SDV 2 mL 4 MG IVP ×2 (15:56→20:14)
[2019-05-29 15:58] LABS: Basophils % 0.7 %; Eosinophils # 0.1 10^3/uL (0.0-0.8); Eosinophils % 1.8 %; Hematocrit 32.4 % (37.0-47.0); Hemoglobin 10.8 g/dL (11.5-15.3); Lymphocytes # 0.9 10^3/uL (0.8-4.8); Lymphocytes % 30.5 %; Mean Corpuscular HGB Conc 33.3 g/dL (30.0-36.0); Mean Corpuscular Hemoglobin 27.8 pg (28.0-34.0); Mean Corpuscular Volume 83.5 fL (81-99); Mean Platelet Volume 10.6 fL (7.4-10.4); Monocytes # 0.2 10^3/uL (0.2-0.9); Monocytes % 7.1 %; Neutrophils # 1.7 10^3/uL (1.8-7.7); Neutrophils % 59.9 %; Nucleated Red Blood Cells % 0 %; Platelet Count 276 10^3/cmm (130-400); Red Blood Count 3.88 10^6/uL (4.1-5.3); Red Cell Distribution Width 13.2 % (12.1-15.1); White Blood Count 2.8 10^3/uL (4.0-10.0)
[2019-05-29] MEDS: levofloxacin-dextrose 5 % 750 MG/150 ML PREMIX 150 MG IV (17:17)
[2019-05-29] MEDS: PARoxetine 20 mg Tablet PO (22:17)
[2019-05-30] VITALS (7 sets, daily range): BP systolic 95–116; BP diastolic 58–78; PULSE 67–88; RESP 16–20; TEMP 36.7–37; O2SAT 97–99
[2019-05-30] MEDS: LORazepam 1 mg Tablet PO (00:32)
[2019-05-30] MEDS: alum-mag-hydroxide-sime 30 mL UDC 15 ML PO (02:11)
[2019-05-30] MEDS: HYDROmorphone 1 mg/mL INJ 1 mL 0.4 MG IVP (02:11)
[2019-05-30 06:46] LABS: Anion Gap 14.3 (5-19); Blood Urea Nitrogen 2 mg/dL (6-20); Calcium 9.1 mg/Dl (8.6-10.0); Carbon Dioxide 22 mmol/L (22-29); Chloride 105 mmol/L (98-107); Glomerular Filtration Rate 102.8 mL/min (90-130); Glucose 104 mg/dL (74-109); Potassium 3.3 mmol/L (3.5-5.1); Sodium 138 mmol/L (136-145)
[2019-05-30] MEDS: sodium chlor 0.45% +KCl 20 mEq 20 MEQ/1,000 ML BAG 100 MEQ IV (07:50)
[2019-05-30] MEDS: pantoprazole DR 40 mg Tablet PO (09:54)
--- NOTE | 2019-05-30 09:55 | P.DS_ITS ---
Discharge Providers Date of Admission: 05/28/19 11:33 Date of Discharge: 05/30/19 Attending Provider at Admission: Federica Roberson MD Attending Provider at Discharge: Alfie Werner MD Primary Care Provider: Kam Ramirez MD Diagnoses at Discharge Discharge Diagnosis (1) Pneumonia: Status: Acute Problem details: Will complete 6 more days of Levaquin Qualifiers: Laterality: left Lung location: lower lobe of lung Pneumonia type: due to unspecified organism Qualified Code(s): J18.9 - Pneumonia, unspecified organism (2) Lupus (systemic lupus erythematosus): Status: Acute Problem details: complicated by nephropathy, follows up at [facility] Qualifiers: 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 Systemic lupus erythematosus type: other Qualified Code(s): M32.15 - Tubulo-interstitial nephropathy in systemic lupus erythematosus (3) Gastroenteritis: Status: Acute Problem details: To resume her medications when cleared by primary care provider Reason for Visit Reason for Visit: Reason For Visit: BRONCHITIS, GASTROENTERITIS Hospital Course Hospital Course: Patient presented to hospital with diarrhea, as well as cough. She was found to have a left lower lobe pneumonia. Stool culture ultimately came back positive for Campylobacter. She was placed on Levaquin and followed closely in the hospital. C. difficile was negative. During her hospital stay she slowly recovered. By time of discharge she was afebrile for greater than 48 hours, and diarrhea had slowed down substantially. She was able to take p.o. It was thought it was time to discharge. She was instructed to hold her mycophenolate, Bactrim, hydroxychloroquine on discharge. She can resume her Bactrim when Levaquin is discontinued. Other medications I asked that her primary care provider clear her prior to restarting. Physical Exam Narrative: EXAM NARRATIVE: General exam no apparent distress Cardiovascular regular in rhythm without murmur Lungs clear Abdomen is soft positive bowel sounds Extremities no cyanosis clubbing or edema Discharge Data Data Completed and Pending: Completed Studies During Hospitalization Category Date Time Status CT abdomen pelvis w con* [id number] Urge nt Cat Scan 05/27/19 14:48 Completed XR chest 1V gisela ble [id number] Urgent Exams 05/27/19 16:19 Completed Pending at discharge Category Date Time Status C. DIFF BY PCR Ro utine Lab 05/27/19 17:37 Results Enteric Bacterial Panel by PCR Rout ine Lab 05/27/19 17:37 Results Enteric Parasite Panel Routine Lab 05/27/19 17:37 Results Immunochemical Fe ysabel OCB Routine Lab 05/27/19 17:37 Results Lactoferrin Routi ne Lab 05/27/19 17:37 Results Ova and Parasite Exam Routine Lab 05/27/19 17:37 Results Labs from last 24 hours 05/30/19 05/29/19 06:02 15:23 WBC 2.8 L RBC 3.88 L Hgb 10.8 L Hct 32.4 L MCV 83.5 MCH 27.8 L MCHC 33.3 RDW 13.2 Plt Count 276 MPV 10.6 H Neut % (Auto) 59.9 Lymph % (Auto) 30.5 [place] % (Auto) 7.1 Eos % (Auto) 1.8 Baso % (Auto) 0.7 Neut # (Auto) 1.7 L Lymph # (Auto) 0.9 [place] # (Auto) 0.2 Eos # (Auto) 0.1 Baso # (Auto) 0.0 Nucleated RBC % (a uto) 0 Nucleated RBCs # 0.0 Sodium 138 Potassium 3.3 L Chloride 105 Carbon Dioxide 22 Anion Gap 14.3 BUN 2 L Creatinine 0.7 GFR Calculation 102.8 Glucose 104 Calcium 9.1 Vitals: Last Vital Signs Temp 98.3 F 05/30/19 07:20 Pulse 77 05/30/19 07:20 Resp 20 H 05/30/19 07:20 BP 95/58 05/30/19 07:20 Pulse Ox 98 05/30/19 04:00 Discharge Plan Discharge Patient Disposition: Home, Self-Care Condition: Stable Prescriptions: New levofloxacin [Levaquin] 750 mg tablet 750 mg PO DAILY 6 Days Qty: 6 RF: 0 Continued ondansetron HCl 8 mg tablet 8 mg PO Q6H PRN (Reason: Nausea) RF: 0 paroxetine HCl 20 mg tablet 20 mg PO BEDTIME RF: 0 pantoprazole 40 mg tablet,delayed release (DR/EC) 40 mg PO DAILY RF: 0 Vitamin D2 50,000 unit capsule See Rx Instructions .ROUTE .COMPLEX RF: 0 lorazepam 1 mg tablet 1 mg PO BID PRN (Reason: Nausea) RF: 0 Ferrex 150 Forte Plus 150-60-25-1 cj-ni-tau-mg capsule 150 cap PO BID RF: 0 Calcium 500 + D 500 mg(1,250mg) -400 unit Tablet 1 tab PO DAILY RF: 0 Discontinued sulfamethoxazole-trimethoprim 400-80 mg tablet See Rx Instructions .ROUTE .COMPLEX RF: 0 mycophenolate mofetil 500 mg tablet See Rx Instructions .ROUTE .COMPLEX RF: 0 hydroxychloroquine 200 mg Tablet 200 mg PO BID RF: 0 Referrals: Kam Ramirez MD [Primary Care Provider] - 4-7 days Discharge Diet: Advance as tolerated Discharge Activity: Resume usual activity Activity Restrictions/Additional Instructions: Hold your mycophenolate, hydroxychloroquine until primary care provider or search manager restarts, secondary to recent pneumonia. Resume sulfamethoxazole following completion of Levaquin Discharge Attestations Time Spent in Discharge Care*: greater than 30 min Quality Metrics Clinical Quality Measures During this hospital stay, did patient experience: None Coding Level of Care Code Acute Computational Chemist for [facility] Fwd Diagnoses Pneumonia J18.9 Laterality: left Lung location: lower lobe of lung Pneumonia type: due to unspecified organism Lupus (systemic lupus erythematosus) M32.15 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 Systemic lupus erythematosus type: other Gastroenteritis K52.9
== END 2019-05-30 11:52 | disposition home or self-care (01) | DRG 194 ==
LOC: ER 18:23 → MEDSURG 20:52
PROVIDERS: Physician Assistant; Admitting Provider Family Medicine; Emergency Provider Family Medicine; Family Provider Family Medicine; PCP Family Medicine; Visit Provider Internal Medicine
DX: J18.9 Pneumonia, unspecified organism (principal); A04.5 Campylobacter enteritis; M32.15 Tubulo-interstitial nephropathy in systemic lupus erythematosus; Z79.899 Other long term (current) drug therapy; Z88.5 Allergy status to narcotic agent; Z88.8 Allergy status to other drugs, medicaments and biological substances; E86.0 Dehydration; D63.8 Anemia in other chronic diseases classified elsewhere; D64.81 Anemia due to antineoplastic chemotherapy; T45.1X5A Adverse effect of antineoplastic and immunosuppressive drugs, initial encounter; E87.6 Hypokalemia; D72.819 Decreased white blood cell count, unspecified
CPT/HCPCS: 12345; 36415; 71045; 74177; 80048; 80053; 81003; 81025; 82274; 83630; 83690; 83735; 85025; 87177; 87209; 87449; 87493; 87505; 87804; 93005; 94640; 96361; 96365; 96366; 96374; 96375; 99283; A9270; G0378; J0456; J0696; J1170; J1956; J2060; J2405; J3010; J7030; J7050; J7611; Q9967

== ENCOUNTER 2019-06-22 09:43 | Outpatient (CLI) | payer BC, MEDICAID, SELFPAY ==
--- NOTE | 2019-06-22 | XR_ITS ---
WS: [id number] CHEST 2 VIEWS HISTORY: COUGH COMPARISON: 05/27/2019 Lungs: Clear with no abnormality. No pleural effusion or pneumothorax. Cardiac size: Normal. Mediastinum/Aorta: Normal mediastinum. Bones: Normal. XR/XR chest 2V* [id number] IMPRESSION: Normal chest.
== END 2019-06-22 09:44 | disposition home or self-care (01) ==
LOC: RADOUTREAD 10:53
PROVIDERS: Family Provider Family Medicine; PCP Family Medicine; Visit Provider Family Medicine
DX: Z76.89 Persons encountering health services in other specified circumstances (principal)

== ENCOUNTER → 2019-07-13 09:24 | Outpatient (BNVA) | payer BC, MEDICAID, SELFPAY | PROVIDERS: Family Provider Family Medicine; PCP Family Medicine; Visit Provider Nurse Practitioner | DX: F41.1 Generalized anxiety disorder (principal); F41.0 Panic disorder [episodic paroxysmal anxiety] | CPT/HCPCS: 99213 ==

== ENCOUNTER 2019-09-22 00:01 | Emergency (ER) | payer BC, MEDICAID, SELFPAY ==
[2019-09-22 00:28] VITALS: BP 129/96; PULSE 81; RESP 16; TEMP 36.9; O2SAT 98; BMI 22.8
--- NOTE | 2019-09-22 00:56 | ED_ITS ---
HPI - Nausea/Vomiting/Diarrhea General: Chief complaint: Nausea/Vomiting/Diarrhea Stated complaint: severe nausea Time Seen by Provider: 09/22/19 00:39 Source: patient Mode of arrival: ambulatory Limitations: no limitations History of Present Illness: HPI Narrative: 24-year-old female has a history of lupus that she states caused vomiting diarrhea and chronic abdominal pain. She states she has had nausea over the last 2 days it is been severe in nature with no vomiting. She states she had diarrhea along with abdominal cramping. She denies any worsening improving factors. She denies any fevers. MD elicited complaint: nausea, diarrhea and abdominal pain Onset (ago): day(s) Associated nausea: Yes Location of pain: Diffuse Severity: mild Quality: cramping Exacerbating factors: none Relieving factors: none Associated symtoms: Reports nausea; Denies chest pain, dysuria or headache(s) Review of Systems Const: Denies: fever, chills, body aches or change in appetite Eyes: Denies: blurry vision or eye discomfort ENMT: Denies: throat pain or dental pain Card: Denies: chest pain Resp: Denies: shortness of breath GI: Reports: abdominal pain, nausea and diarrhea : Denies: painful urination Musc: Denies: neck pain or back pain Skin/Breast: Denies: rash Neuro: Denies: headache Psych: Denies: depression Bobby/Lymph: Denies: easy bruising All/Imm: Denies: hives PFSH ED PFSH: Medical History Generalized anxiety disorder 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, follows up at [facility] Panic disorder [episodic paroxysmal anxiety] Surgical History History of appendectomy Hx of cholecystectomy Status post tonsillectomy and adenoidectomy Family History Mother Juvenile rheumatoid arthritis Social History Smoking and tobacco status: never smoked Alcohol intake: never Household members: family Housing: House Female Reproductive History: Date of last menstrual period: 08/22/19 Physical Exam Const: COMMON NORMALS: no apparent distress, oriented x3 and healthy appearing HENMT: COMMON NORMALS: normocephalic and head/scalp atraumatic HEAD & SCALP: normocephalic and atraumatic Eye: COMMON NORMALS: PERRL and EOMs intact bilaterally PUPIL: Yes PERRL Neck/C-Spine: COMMON NORMALS: full ROM and supple Chest: COMMONS NORMALS: inspection of chest normal and palpation of chest normal Resp: COMMON NORMALS: normal respiratory effort, no retractions, no use of accessory muscles and clear to auscultation bilaterally AUSCULTATION: clear to auscultation bilaterally Cardio: COMMON NORMALS: regular rate, regular rhythm and no murmurs RATE: regular rate RHYTHM: regular rhythm GI: COMMON NORMALS: normal to inspection, nondistended, normoactive bowel sounds, soft to palpation, non-tender and no masses PALPATION: Yes soft Extremity: COMMON NORMALS: normal to inspection and full ROM Neuro: COMMON NORMALS: oriented x3, moves all extremities and no focal motor deficits Psych: COMMON NORMALS: mental status grossly normal, thought process normal and cooperative THOUGHT PROCESS: normal thought process Skin: COMMON NORMALS: no rashes or lesions noted and no wounds GENERAL SKIN EXAM: no rashes or lesions noted Course Vital Signs: Vital signs: Vital Signs Temperature 98.4 F 09/22/19 00:28 Pulse Rate 81 09/22/19 00:28 Respiratory Rate 16 09/22/19 00:28 Blood Pressure 129/96 09/22/19 00:28 Pulse Oximetry 98 09/22/19 00:28 MDM - Nausea/Vomiting/Diarrhea MDM Narrative: Medical decision making narrative: Patient presents with nausea along with diarrhea. Patient does have dehydration and given 2 L of IV fluids. Patient has no signs of infectious diarrhea and white count is normal. She feels improved after Zofran and pain meds. Patient is stable for discharge at this time. She is to follow-up with her primary care doctor in 3 to 5 days return if worsening. Lab Data: Labs: Lab Results 09/22/19 09/22/19 09/22/19 Range/Units 01:15 01:15 01:15 WBC 6.3 (4.0-10.0) 10^3/ uL RBC 4.30 (4.1-5.3) 10^6/u L Hgb 12.6 (11.5-15.3) g/dL Hct 37.5 (37.0-47.0) % MCV 87.2 (81-99) fL MCH 29.3 (28.0-34.0) pg MCHC 33.6 (30.0-36.0) g/dL RDW 12.9 (12.1-15.1) % Plt Count 354 (130-400) 10^3/c mm MPV 10.9 H (7.4-10.4) fL Neut % (Auto) 55.1 % Lymph % (Auto) 37.4 % [place] % (Auto) 5.8 % Eos % (Auto) 0.8 % Baso % (Auto) 0.6 % Neut # (Auto) 3.5 (1.8-7.7) 10^3/u L Lymph # (Auto) 2.4 (0.8-4.8) 10^3/u L [place] # (Auto) 0.4 (0.2-0.9) 10^3/u L Eos # (Auto) 0.1 (0.0-0.8) 10^3/u L Baso # (Auto) 0.0 (0.0-0.1) 10^3/u L Nucleated RBC % (a uto) 0 % Nucleated RBCs # 0.0 /100WBC Sodium 137 (136-145) mmol/L Chloride 102 (98-107) mmol/L Carbon Dioxide 18 L (22-29) mmol/L BUN 10 (6-20) mg/dL Creatinine 0.7 (0.5-0.9) mg/dL GFR Calculation 102.8 (90-130) mL/min Glucose 95 (65-115) mg/dL Calculated Osmolal ity 280 L (285-295) mOsm/k g Calcium 9.1 (8.5-10.5) mg/dL Total Bilirubin 0.4 (0.15-1.2) mg/dL Alkaline Phosphata se 43 (35-105) IU/L Total Protein 6.5 L (6.6-8.7) g/dL Albumin 4.5 (3.5-5.2) g/dL Globulin 2.0 (1.3-4.6) g/dL Lipase 76 H (13-60) U/L HCG, Qual Negative (Negative) Urine Color (Yellow) Urine Appearance (CLEAR) Urine pH (5-7) Ur Specific Gravit y (1.005-1.030) Urine Protein (Negative) Urine Glucose (UA) (Normal) Urine Ketones (Negative) Urine Blood (Negative) Urine Nitrate (Negative) Urine Bilirubin (NEGATIVE) Urine Urobilinogen (Negative) mg/dL Ur Leukocyte Natalie ase (Negative) Urine RBC (0-2) /hpf Urine WBC (0-5) /hpf Ur Squamous Epith Cells (0-5) Calcium Oxalate Cr ystal /hpf Urine Bacteria (NONE) Urine Mucus 09/22/19 Range/Units 01:15 WBC (4.0-10.0) 10^3/ uL RBC (4.1-5.3) 10^6/u L Hgb (11.5-15.3) g/dL Hct (37.0-47.0) % MCV (81-99) fL MCH (28.0-34.0) pg MCHC (30.0-36.0) g/dL RDW (12.1-15.1) % Plt Count (130-400) 10^3/c mm MPV (7.4-10.4) fL Neut % (Auto) % Lymph % (Auto) % [place] % (Auto) % Eos % (Auto) % Baso % (Auto) % Neut # (Auto) (1.8-7.7) 10^3/u L Lymph # (Auto) (0.8-4.8) 10^3/u L [place] # (Auto) (0.2-0.9) 10^3/u L Eos # (Auto) (0.0-0.8) 10^3/u L Baso # (Auto) (0.0-0.1) 10^3/u L Nucleated RBC % (a uto) % Nucleated RBCs # /100WBC Sodium (136-145) mmol/L Chloride (98-107) mmol/L Carbon Dioxide (22-29) mmol/L BUN (6-20) mg/dL Creatinine (0.5-0.9) mg/dL GFR Calculation (90-130) mL/min Glucose (65-115) mg/dL Calculated Osmolal ity (285-295) mOsm/k g Calcium (8.5-10.5) mg/dL Total Bilirubin (0.15-1.2) mg/dL Alkaline Phosphata se (35-105) IU/L Total Protein (6.6-8.7) g/dL Albumin (3.5-5.2) g/dL Globulin (1.3-4.6) g/dL Lipase (13-60) U/L HCG, Qual (Negative) Urine Color Yellow (Yellow) Urine Appearance Sl hazy (CLEAR) Urine pH 6 (5-7) Ur Specific Gravit y 1.020 (1.005-1.030) Urine Protein 1+ H (Negative) Urine Glucose (UA) Norm (Normal) Urine Ketones 1+ H (Negative) Urine Blood 2+ H (Negative) Urine Nitrate Negative (Negative) Urine Bilirubin Neg (NEGATIVE) Urine Urobilinogen Norm (Negative) mg/dL Ur Leukocyte Natalie ase Negative (Negative) Urine RBC 0-4 H (0-2) /hpf Urine WBC 0-4 H (0-5) /hpf Ur Squamous Epith Cells 0-4 H (0-5) Calcium Oxalate Cr ystal 0-4 H /hpf Urine Bacteria 1+ H (NONE) Urine Mucus 1+ Discharge Plan Discharge Patient Disposition: Home, Self-Care Clinical Impression: Nausea Diarrhea Qualifiers: Diarrhea type: unspecified type Qualified Code(s): R19.7 - Diarrhea, unspecified Abdominal pain Qualifiers: Abdominal location: generalized Qualified Code(s): R10.84 - Generalized abdominal pain Condition: Stable Prescriptions: New Zofran 4 mg tablet 4 mg PO QID PRN (Reason: nausea and vomiting) Qty: 14 RF: 0 No Action paroxetine HCl 20 mg tablet 20 mg PO BEDTIME Qty: 30 RF: 2 lorazepam 1 mg tablet 1 mg PO BID PRN (Reason: Nausea) Qty: 45 RF: 2 ondansetron HCl 8 mg tablet 8 mg PO Q6H PRN (Reason: Nausea) RF: 0 pantoprazole 40 mg tablet,delayed release (DR/EC) 40 mg PO DAILY RF: 0 Vitamin D2 50,000 unit capsule See Rx Instructions .ROUTE .COMPLEX RF: 0 Ferrex 150 Forte Plus 150-60-25-1 gj-[id number]-mg capsule 150 cap PO BID RF: 0 Calcium 500 + D 500 mg(1,250mg) -400 unit Tablet 1 tab PO DAILY RF: 0 Discharge Orders: Discharge Order (Routine); Ordered 09/22/19 Ordered By: Mela Johnson Referrals: Kam Ramirez MD [Primary Care Provider] - 4-7 days Discharge Diet: Advance as tolerated Discharge Activity: Resume usual activity Patient Instructions: Acute Diarrhea (ED), Abdominal Pain (ED) Coding Level of Care Code ED Head Gauge Unit Operator for Chg Fwd Exam Comprehensive
[2019-09-22] MEDS: diphenhydrAMINE 50 mg/mL SDV 1mL IVP (01:10)
[2019-09-22] MEDS: sodium chloride 0.9% 1,000 ML 999 ML IV ×2 (01:10→02:25)
[2019-09-22] MEDS: ondansetron 2 mg/ML SDV 2 mL 4 MG IVP (01:18)
[2019-09-22 01:51] LABS: Basophils % 0.6 %; Eosinophils # 0.1 10^3/uL (0.0-0.8); Eosinophils % 0.8 %; Hematocrit 37.5 % (37.0-47.0); Hemoglobin 12.6 g/dL (11.5-15.3); Lymphocytes # 2.4 10^3/uL (0.8-4.8); Lymphocytes % 37.4 %; Mean Corpuscular HGB Conc 33.6 g/dL (30.0-36.0); Mean Corpuscular Hemoglobin 29.3 pg (28.0-34.0); Mean Corpuscular Volume 87.2 fL (81-99); Mean Platelet Volume 10.9 fL (7.4-10.4); Monocytes # 0.4 10^3/uL (0.2-0.9); Monocytes % 5.8 %; Neutrophils # 3.5 10^3/uL (1.8-7.7); Neutrophils % 55.1 %; Nucleated Red Blood Cells % 0 %; Platelet Count 354 10^3/cmm (130-400); Red Cell Distribution Width 12.9 % (12.1-15.1); White Blood Count 6.3 10^3/uL (4.0-10.0)
[2019-09-22 02:01] LABS: Add Urine Microscopic? YES; Bilirubin Urine Neg (NEGATIVE); Blood Urine 2+ (Negative); Glucose Urine UA Norm (Normal); Ketones Urine 1+ (Negative); Leukocyte Esterase Urine Negative (Negative); Nitrate Urine Negative (Negative); Protein Urine 1+ (Negative); Urine Appearance SL Hazy (CLEAR); Urine Color Yellow (Yellow); Urobilinogen Urine Norm (Negative); pH Urine 6 (5-7)
[2019-09-22 02:02] LABS: Bacteria Urine 1+; Calcium Oxalate Crystals Urine 0-4 /hpf; HCG Qualitative Urine. Negative (Negative); Mucus Urine 1+; RBC Urine 0-4 /hpf (0-2); Squamous Epithelial Cell Urine 0-4 (0-5); WBC Urine 0-4 /hpf (0-5)
[2019-09-22 02:07] LABS: Albumin Level 4.5 g/dL (3.5-5.2); Alkaline Phosphatase 43 IU/L (35-105); Blood Urea Nitrogen 10 mg/dL (6-20); Calcium 9.1 mg/dL (8.5-10.5); Carbon Dioxide 18 mmol/L (22-29); Chloride 102 mmol/L (98-107); Glomerular Filtration Rate 102.8 mL/min (90-130); Glucose 95 mg/dL (65-115); Lipase 76 U/L (13-60); Osmolality Calculated 280 mOsm/kg (285-295); Sodium 137 mmol/L (136-145); Total Bilirubin 0.4 mg/dL (0.15-1.2); Total Protein 6.5 g/dL (6.6-8.7)
[2019-09-22 02:30] LABS: Alanine Aminotransferase 7 U/L (0-33); Anion Gap 20.5 (5-19); Aspartate Amino Transferase 19 U/L (0-32); Potassium 3.5 mmol/L (3.5-5.1)
[2019-09-22] MEDS: LORazepam 2 mg/mL INJ 1 mL 1 MG IVP (02:39)
== END 2019-09-22 03:55 | disposition home or self-care (01) ==
PROVIDERS: Emergency Provider Emergency Medicine; PCP Family Medicine
DX: R11.0 Nausea (principal); R19.7 Diarrhea, unspecified; R10.84 Generalized abdominal pain
CPT/HCPCS: 12345; 36415; 80053; 81001; 81025; 83690; 85025; 96361; 96374; 96375; 99282; 99284; J1200; J2060; J2405; J7030

== ENCOUNTER 2019-10-05 20:21 | Emergency (ER) | payer BC, MEDICAID, SELFPAY | END 2019-10-05 20:45 | disposition left against medical advice (07) | LOC: ER 21:09 | PROVIDERS: Emergency Provider Emergency Medicine; PCP Family Medicine | DX: Z53.21 Procedure and treatment not carried out due to patient leaving prior to being seen by health care provider (principal) | CPT/HCPCS: 99281 ==

== ENCOUNTER → 2019-10-12 08:27 | Outpatient (BNVA) | payer BC, MEDICAID, SELFPAY | PROVIDERS: PCP Family Medicine; Visit Provider Nurse Practitioner | DX: F41.0 Panic disorder [episodic paroxysmal anxiety] (principal); F41.1 Generalized anxiety disorder | CPT/HCPCS: 99213 ==

== ENCOUNTER → 2019-10-13 08:04 | Outpatient (BNVA) | payer BC, MEDICAID, SELFPAY | PROVIDERS: PCP Family Medicine; Visit Provider Counselor Professional | DX: F41.0 Panic disorder [episodic paroxysmal anxiety] (principal); F41.1 Generalized anxiety disorder | CPT/HCPCS: 90834 ==

== ENCOUNTER 2019-11-03 07:48 | Outpatient (CLI) | payer MEDICARE, MEDICAID, SELFPAY ==
--- NOTE | 2019-11-03 08:01 | MR_ITS ---
WS: [id number] MRI HEAD AND ORBITS WITHOUT AND WITH GADOLINIUM ENHANCEMENT TECHNIQUE: Noncontrast axial T1, axial T2 FSE fat sat, coronal T2 fat sat, coronal T1, coronal T1 fat sat, sagittal T2 fat sat, plus contrast enhanced coronal, sagittal, and axial T1 fat sat images obta ined. Pre and post gadolinium imaging with attention to the orbits with fat saturation technique. Hig h-resolution coronal T1 and T2 imaging. CLINICAL INFORMATION: MIGRAINES COMPARISON: None. FINDINGS: No evidence of restricted diffusion to suggest acute ischemia. Ventricular system and basal cisterns are patent. A few tiny foci of T2 hyperintensity in the periventricular white matter can be seen with migraine headaches. No suspicious intracranial signal abnormalities. No hemosiderin on the susceptib ly weighted images. Paranasal sinuses and mastoid air cells are well aerated. Normal vascular flow vo ids at the skull base. Normal optic chiasm and pituitary infundibulum. Meckel's cave and cavernous sinuses are normal in dominic earance. Prechiasmatic and intraorbital optic nerves are normal in appearance. No evidence of optic n euritis. Rectus muscles are symmetric and normal in appearance. Normal lacrimal glands. Normal intrac onal fat. The globes are symmetric and normal in appearance. No abnormal intracranial enhancement. Normal dural venous sinuses. MR/MR orbit face neck wo/w* [id number] IMPRESSION: 1. No evidence of optic nerve edema or optic neuritis. 2. Normal optic chiasm and pituitary infundibulum. Normal prechiasmatic and in traorbital optic nerves. Optic nerves are symmetric and normal in appearance. 3. Normal intraorbital contents. Normal rectus muscles. Normal symmetric globe s. 4. Meckel's cave and cavernous sinuses are normal in appearance. Normal pituit soco infundibulum. 5. 2 or 3 tiny foci of T2 hyperintensity in the periventricular white matter c an be seen with migraine headaches. No suspicious intracranial signal abnormali ties. 6. No abnormal intracranial enhancement.
== END 2019-11-03 07:49 | disposition home or self-care (01) ==
LOC: RADWPI 07:55
PROVIDERS: Family Provider Family Medicine; PCP Family Medicine; Visit Provider Ophthalmology
DX: G43.909 Migraine, unspecified, not intractable, without status migrainosus (principal)
CPT/HCPCS: 70543; A9579

== ENCOUNTER 2019-11-05 13:56 | Outpatient (CLI) | payer BC, MEDICARE, MEDICAID, SELFPAY | END 2019-11-05 13:57 | disposition home or self-care (01) | LOC: LAB 14:03 | PROVIDERS: PCP Family Medicine; Visit Provider Family Medicine | DX: R19.7 Diarrhea, unspecified (principal) | CPT/HCPCS: 83630; 87493; 87506 ==

== ENCOUNTER 2019-11-08 09:22 | Emergency (ER) | payer BC, MEDICARE, MEDICAID, SELFPAY ==
[2019-11-08 09:26] VITALS: BP 139/87; PULSE 79; RESP 16; TEMP 37.2; O2SAT 97; BMI 23.8
--- NOTE | 2019-11-08 09:43 | W.ED.NAVMDI ---
HPI - Nausea/Vomiting/Diarrhea General: Chief complaint: Abdominal Pain Stated complaint: nausea/diarrhea Time Seen by Provider: 11/08/19 09:25 History of Present Illness: HPI Narrative: Patient presents here was referred by urgent care because she had a fever this past weekend. Patient says she feels nauseous aches and has had some diarrhea. Said fevers been up to 101 at home couple days ago. She is able to eat and drink. Denies any other problems. No COVID exposure history Campylobacter infection has had some blood in stool x3 weeks MD elicited complaint: nausea and diarrhea Pertinent past history: other (Diarrhea) Onset (ago): day(s) Description of diarrhea: semi-solid Associated nausea: Yes Associated abdominal pain: No Associated symtoms: Reports nausea; Denies anxiety, change in vision, chest pain or headache(s) Review of Systems Const: Reports: fever(s); Denies: chills or body aches Eyes: Denies: change in vision or blurry vision ENMT: Denies: throat pain or nasal congestion Card: Denies: chest pain or dyspnea on exertion Resp: Denies: dyspnea, productive cough or non-productive cough GI: Reports: abdominal pain (Mild), nausea, diarrhea and hematochezia Musc: Denies: extremity pain Skin/Breast: Denies: rash Neuro: Denies: headache(s) Psych: Denies: anxiety or depression Bobby/Lymph: Denies: easy bruising PFS ED PFSH: Medical History (Updated 09/30/19 @ 00:00 by ) Generalized anxiety disorder 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, follows up at [facility] Panic disorder [episodic paroxysmal anxiety] Surgical History History of appendectomy Hx of cholecystectomy Status post tonsillectomy and adenoidectomy Family History Mother Juvenile rheumatoid arthritis Social History Smoking and tobacco status: never smoked Alcohol intake: never Household members: family Housing: House Female Reproductive History: Date of last menstrual period: 10/22/19 Physical Exam Const: COMMON NORMALS: no acute distress, average body habitus and patient oriented x3 HENMT: COMMON NORMALS: normocephalic HEAD & SCALP: normal to inspection and normocephalic FACE & SINUS: normal facial exam Eye: COMMON NORMALS: conjunctivae normal GENERAL EYE: appearance normal, both eyes and all related structures CONJUNCTIVA: Yes conjunctivae normal Neck/C-Spine: COMMON NORMALS: no JVD Chest: COMMONS NORMALS: normal inspection of the chest Resp: COMMON NORMALS: normal respiratory effort and clear to auscultation bilaterally AUSCULTATION: clear to auscultation bilaterally Cardio: COMMON NORMALS: no JVD, regular rate and regular rhythm RATE: regular rate RHYTHM: regular rhythm GI: COMMON NORMALS: Normal to inspection, nondistended, normoactive bowel sounds present Extremity: COMMON NORMALS: normal to inspection and full ROM Neuro: COMMON NORMALS: patient oriented x3 Course Vital Signs: Vital signs: Vital Signs Temperature 98.9 F 11/08/19 09:26 Pulse Rate 79 11/08/19 09:26 Respiratory Rate 16 11/08/19 09:26 Blood Pressure 139/87 11/08/19 09:26 Pulse Oximetry 97 11/08/19 09:26 Discharge Plan Discharge Prescriptions: No Action lorazepam 1 mg tablet 1 mg PO BID PRN (Reason: Nausea) Qty: 45 RF: 2 paroxetine HCl 20 mg tablet 20 mg PO BEDTIME Qty: 30 RF: 2 Zofran 4 mg tablet 4 mg PO QID PRN (Reason: nausea and vomiting) Qty: 14 RF: 0 ondansetron HCl 8 mg tablet 8 mg PO Q6H PRN (Reason: Nausea) RF: 0 pantoprazole 40 mg tablet,delayed release (DR/EC) 40 mg PO DAILY RF: 0 Vitamin D2 50,000 unit capsule See Rx Instructions .ROUTE .COMPLEX RF: 0 Ferrex 150 Forte Plus 150-60-25-1 fu-[id number]-yxy-mg capsule 150 cap PO BID RF: 0 Calcium 500 + D 500 mg(1,250mg) -400 unit Tablet 1 tab PO DAILY RF: 0 Coding Level of Care Code ED Strategic Sourcing Specialist for Chg Fwd Exam Comprehensive
[2019-11-08] MEDS: ondansetron 4 MG Tablet PO (10:17)
[2019-11-08 10:31] LABS: Basophils # 0.1 10^3/uL (0.0-0.1); Basophils % 1.3 %; Eosinophils % 0.8 %; Hematocrit 38.7 % (37.0-47.0); Hemoglobin 12.5 g/dL (11.5-15.3); Lymphocytes # 1.1 10^3/uL (0.8-4.8); Lymphocytes % 23.5 %; Mean Corpuscular HGB Conc 32.3 g/dL (30.0-36.0); Mean Corpuscular Hemoglobin 28.7 pg (28.0-34.0); Mean Platelet Volume 10.8 fL (7.4-10.4); Monocytes # 0.3 10^3/uL (0.2-0.9); Monocytes % 7.1 %; Neutrophils # 3.2 10^3/uL (1.8-7.7); Neutrophils % 67.1 %; Nucleated Red Blood Cells % 0 %; Platelet Count 267 10^3/cmm (130-400); Red Blood Count 4.35 10^6/uL (4.1-5.3); Red Cell Distribution Width 11.9 % (12.1-15.1); White Blood Count 4.8 10^3/uL (4.0-10.0)
[2019-11-08] MEDS: ciprofloxacin 500 mg Tablet PO (10:34)
[2019-11-08] MEDS: HYDROcodone-acetaminophen 5-325 mg Tablet 1 TAB PO (10:34)
[2019-11-08 10:36] LABS: HCG, Serum Qual Negative (Negative)
[2019-11-08 10:42] LABS: Alanine Aminotransferase < 5 U/L (0-33); Albumin Level 4.3 g/dL (3.5-5.2); Alkaline Phosphatase 44 IU/L (35-105); Anion Gap 13.9 (5-19); Aspartate Amino Transferase 11 U/L (0-32); Blood Urea Nitrogen 10 mg/dL (6-20); Calcium 9.3 mg/dL (8.5-10.5); Carbon Dioxide 25 mmol/L (22-29); Chloride 107 mmol/L (98-107); Creatinine Clr Calc Pharmacy 104.9519; Globulin 2.1 g/dL (1.3-4.6); Glomerular Filtration Rate 102.8 mL/min (90-130); Glucose 88 mg/dL (65-115); Osmolality Calculated 289 mOsm/kg (285-295); Potassium 3.9 mmol/L (3.5-5.1); Sodium 142 mmol/L (136-145); Total Bilirubin 0.3 mg/dL (0.15-1.2); Total Protein 6.4 g/dL (6.6-8.7)
[2019-11-08 11:27] VITALS: BP 110/80; PULSE 76; RESP 18; O2SAT 97
[2019-11-08 11:37] LABS: Add Urine Microscopic? YES; Bilirubin Urine Neg (NEGATIVE); Blood Urine Neg (Negative); Glucose Urine UA Norm (Normal); Ketones Urine Negative (Negative); Leukocyte Esterase Urine Negative (Negative); Nitrate Urine Negative (Negative); Protein Urine Trace (Negative); Urine Appearance Clear (CLEAR); Urine Color Yellow (Yellow); Urobilinogen Urine Norm (Negative); WBC Urine 0-4 /hpf (0-5)
[2019-11-08 11:38] LABS: Add Urine Culture? No; Bacteria Urine 1+; Mucus Urine 2+
[2019-11-08 11:41] LABS: Amphetamines Screen Urine Negative (Negative); Barbiturates Screen Urine Negative (Negative); Benzodiazepines Screen Urine Positive (Negative); Cocaine Screen Urine Negative (Negative); Opiate Screen Urine Negative (Negative); PCP Screen Urine Negative (Negative); THC Screen Urine Negative (Negative)
== END 2019-11-08 11:29 | disposition home or self-care (01) ==
PROVIDERS: Emergency Provider Nurse Practitioner Family; PCP Family Medicine
DX: R10.9 Unspecified abdominal pain (principal); R50.9 Fever, unspecified; M32.9 Systemic lupus erythematosus, unspecified
CPT/HCPCS: 12345; 36415; 80053; 80306; 81001; 84703; 85025; 99282; 99283; Q0162

== ENCOUNTER 2019-11-18 10:31 | Emergency (ER) | payer BC, MEDICARE, MEDICAID, SELFPAY ==
[2019-11-18 11:00] VITALS: BP 123/81; PULSE 83; RESP 16; TEMP 36.7; O2SAT 100; BMI 24.1
[2019-11-18 11:55] LABS: Basophils # 0.1 10^3/uL (0.0-0.1); Basophils % 0.9 %; Eosinophils % 0.2 %; Hematocrit 40.1 % (37.0-47.0); Hemoglobin 13.3 g/dL (11.5-15.3); Lymphocytes # 0.7 10^3/uL (0.8-4.8); Lymphocytes % 10.4 %; Mean Corpuscular HGB Conc 33.2 g/dL (30.0-36.0); Mean Corpuscular Hemoglobin 29.1 pg (28.0-34.0); Mean Corpuscular Volume 87.7 fL (81-99); Mean Platelet Volume 11.3 fL (7.4-10.4); Monocytes # 0.4 10^3/uL (0.2-0.9); Neutrophils % 82.2 %; Nucleated Red Blood Cells % 0 %; Platelet Count 259 10^3/cmm (130-400); Red Blood Count 4.57 10^6/uL (4.1-5.3); Red Cell Distribution Width 12.1 % (12.1-15.1); White Blood Count 6.5 10^3/uL (4.0-10.0)
[2019-11-18 12:12] LABS: Alanine Aminotransferase 6 U/L (0-33); Albumin Level 4.6 g/dL (3.5-5.2); Alkaline Phosphatase 46 IU/L (35-105); Anion Gap 15.5 (5-19); Aspartate Amino Transferase 15 U/L (0-32); Blood Urea Nitrogen 6 mg/dL (6-20); Calcium 9.6 mg/dL (8.5-10.5); Carbon Dioxide 20 mmol/L (22-29); Chloride 109 mmol/L (98-107); Globulin 1.9 g/dL (1.3-4.6); Glomerular Filtration Rate 122.8 mL/min (90-130); Glucose 105 mg/dL (65-115); Osmolality Calculated 288 mOsm/kg (285-295); Potassium 3.5 mmol/L (3.5-5.1); Sodium 141 mmol/L (136-145); Total Bilirubin 0.4 mg/dL (0.15-1.2); Total Protein 6.5 g/dL (6.6-8.7)
[2019-11-18 12:41] LABS: Add Urine Microscopic? YES; Bilirubin Urine Neg (NEGATIVE); Blood Urine 2+ (Negative); Glucose Urine UA Norm (Normal); Ketones Urine Negative (Negative); Leukocyte Esterase Urine Negative (Negative); Nitrate Urine Negative (Negative); Protein Urine 1+ (Negative); Specific Gravity, Urine 1.015 (1.005-1.030); Urine Appearance Clear (CLEAR); Urine Color Yellow (Yellow); Urobilinogen Urine Norm (Negative); pH Urine 6.5 (5-7)
[2019-11-18 12:52] LABS: Add Urine Culture? Yes; Bacteria Urine 2+; Mucus Urine TRACE; RBC Urine 15-25 /hpf (0-2); Squamous Epithelial Cell Urine 0-4 (0-5); WBC Urine 0-4 /hpf (0-5)
--- NOTE | 2019-11-18 13:31 | W.ED.GENADLT ---
HPI - General Adult General: Chief complaint: Nausea/Vomiting/Diarrhea Stated complaint: N/V Time Seen by Provider: 11/18/19 13:31 Source: patient Mode of arrival: ambulatory Limitations: no limitations History of Present Illness: HPI narrative: Patient is a 24-year-old female who presents to ED today with complaints of abdominal pain, nausea, vomiting that began around midnight last night. Patient states she has had about 10 episodes of nonbloody vomit since onset. She complains of mid abdominal pain. She has some lower abdominal cramping that she attributes to currently being on her menstrual cycle. Patient tells me she feels weak and worn out . She 1 point tells me she is having normal bowel movements however later tells me that she is alternating between diarrhea and constipation which is not overly abnormal however does report some dark red blood mixed in with her stools. Patient tells me she recently underwent stool sampling which came back completely normal. Patient is not having any fevers. Denies urinary symptoms. Pain Consistency: constant Relieving factors: none Associated symptoms: Reports nausea and vomiting; Deny chest pain, dyspnea, headache(s), rash, palpitations or syncope Review of Systems Const: Reports: fever(s) ( all last week but states afebrile for the last two days) Eyes: Denies: change in vision, blurry vision, photophobia, floaters or seeing flashes ENMT: Denies: throat pain or odynophagia Card: Denies: chest pain, palpitations, irregular heart rhythm, edema, swelling of feet/ankles, lightheadedness, syncope, pre-syncope, dyspnea on exertion, orthopnea or leg pain with exertion Resp: Denies: dyspnea, productive cough, non-productive cough, hemoptysis or chest congestion GI: Reports: abdominal pain, nausea, vomiting, diarrhea, constipation, GI cramping and hematochezia; Denies: hematemesis, coffee ground emesis, rectal pain or melena : Reports: vaginal bleeding (currently on menstrual cycle); Denies: flank pain, difficulty voiding, dysuria, urinary frequency, urinary urgency, urinary hesitancy, hematuria, genital lesions, genital pruritis, vaginal odor or vaginal discharge Musc: Denies: neck pain, back pain, extremity pain, extremity swelling, joint pain or joint swelling Skin/Breast: Denies: rash Neuro: Denies: headache(s), numbness in extremities, weakness in extremities or sensory changes PFSH ED PFSH: Medical History (Updated 11/18/19 @ 15:54 by ERIN Kee) Generalized anxiety disorder 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, follows up at [facility] Panic disorder [episodic paroxysmal anxiety] Surgical History History of appendectomy Hx of cholecystectomy Status post tonsillectomy and adenoidectomy Family History Mother Juvenile rheumatoid arthritis Social History Smoking and tobacco status: never smoked Alcohol intake: never Household members: family Housing: House Female Reproductive History: Date of last menstrual period: 11/17/19 Physical Exam Const: COMMON NORMALS: no acute distress, average body habitus, patient oriented x3, no limitations, healthy appearing, alert and well nourished ORIENTATION/CONSCIOUSNESS: Yes oriented to person, Yes oriented to place and Yes oriented to time HENMT: COMMON NORMALS: normocephalic and atraumatic HEAD & SCALP: normocephalic and atraumatic Neck/C-Spine: COMMON NORMALS: full ROM, no lymphadenopathy and no meningeal signs Resp: COMMON NORMALS: normal respiratory effort and clear to auscultation bilaterally AUSCULTATION: clear to auscultation bilaterally Cardio: COMMON NORMALS: regular rate and regular rhythm RATE: regular rate RHYTHM: regular rhythm GI: COMMON NORMALS: Normal to inspection, nondistended, normoactive bowel sounds present, No hepatosplenomegaly present and no masses PALPATION: Yes Tenderness to palpation present (GI) (diffuse), Yes Guarding due to palpation present (GI) and Yes No hepatosplenomegaly present : COMMON NORMALS: Yes no CVA tenderness BLADDER/KIDNEY EXAM: Yes no CVA tenderness Back/Pelvis: COMMON NORMALS: no CVA tenderness Extremity: COMMON NORMALS: normal to inspection, capillary refill normal, no clubbing, cyanosis or edema and no pedal edema Neuro: COMMON NORMALS: patient oriented x3, moves all extremities, no focal motor deficits, no sensory deficits noted and gait normal SENSORIUM/ORIENTATION: Yes alert, Yes oriented to person, Yes oriented to place and Yes oriented to time MENINGEAL SIGNS: Yes no meningeal signs Skin: COMMON NORMALS: no rashes or lesions noted and turgor normal GENERAL SKIN EXAM: no rashes or lesions noted and turgor normal Course Vital Signs: Vital signs: Vital Signs Temperature 98.1 F 11/18/19 11:00 Pulse Rate 85 11/18/19 15:41 Respiratory Rate 18 11/18/19 15:41 Blood Pressure 121/84 11/18/19 15:41 Pulse Oximetry 100 11/18/19 15:41 MDM - General Adult MDM Narrative: Medical decision making narrative: Patient reporting relief from pain and nausea with medications here. She has not had any active episodes of vomiting throughout her stay. Patient's labs look non-concerning at this time. Urine does have some blood in it however patient is currently on her menstrual cycle. She is negative leuks/nitrites. She has absolutely no UTI symptoms. Her vital signs are completely stable. Patient seen here a few times since May for intermittent abdominal pain, bloody stools, nausea, vomiting. CT scan today showing possible mild acute inflammatory bowel disease such as Crohn's. She states Dr. Ramirez has set her up with a GI specialty appointment in [place] for Friday. Recommend she keep this appointment for further evaluation. Patient states she has Zofran at home she may use for the nausea. She is not requesting pain medications to go home with. Do not feel we need to place patient on antibiotics at this time. I will place her on a small tapering steroid dose for the possible inflammatory bowel disease flare. Return to ED precautions given. Lab Data: Labs: Lab Results 11/18/19 11/18/19 11/18/19 Range/Units 11:10 11:36 11:36 WBC 6.5 (4.0-10.0) 10^3/ uL RBC 4.57 (4.1-5.3) 10^6/u L Hgb 13.3 (11.5-15.3) g/dL Hct 40.1 (37.0-47.0) % MCV 87.7 (81-99) fL MCH 29.1 (28.0-34.0) pg MCHC 33.2 (30.0-36.0) g/dL RDW 12.1 (12.1-15.1) % Plt Count 259 (130-400) 10^3/c mm MPV 11.3 H (7.4-10.4) fL Neut % (Auto) 82.2 % Lymph % (Auto) 10.4 % Caroline % (Auto) 6.0 % Eos % (Auto) 0.2 % Baso % (Auto) 0.9 % Neut # (Auto) 5.30 (1.8-7.7) 10^3/u L Lymph # (Auto) 0.7 L (0.8-4.8) 10^3/u L Caroline # (Auto) 0.4 (0.2-0.9) 10^3/u L Eos # (Auto) 0.0 (0.0-0.8) 10^3/u L Baso # (Auto) 0.1 (0.0-0.1) 10^3/u L Nucleated RBC % (a uto) 0 % Nucleated RBCs # 0.0 /100WBC Sodium 141 (136-145) mmol/L Potassium 3.5 (3.5-5.1) mmol/L Chloride 109 H (98-107) mmol/L Carbon Dioxide 20 L (22-29) mmol/L Anion Gap 15.5 (5-19) BUN 6 (6-20) mg/dL Creatinine 0.6 (0.5-0.9) mg/dL GFR Calculation 122.8 (90-130) mL/min Glucose 105 (65-115) mg/dL Calculated Osmolal ity 288 (285-295) mOsm/k g Calcium 9.6 (8.5-10.5) mg/dL Total Bilirubin 0.4 (0.15-1.2) mg/dL AST 15 (0-32) U/L ALT 6 (0-33) U/L Alkaline Phosphata se 46 (35-105) IU/L Total Protein 6.5 L (6.6-8.7) g/dL Albumin 4.6 (3.5-5.2) g/dL Globulin 1.9 (1.3-4.6) g/dL Lipase (13-60) U/L Urine Color Yellow (Yellow) Urine Appearance Clear (CLEAR) Urine pH 6.5 (5-7) Ur Specific Gravit y 1.015 (1.005-1.030) Urine Protein 1+ H (Negative) Urine Glucose (UA) Norm (Normal) Urine Ketones Negative (Negative) Urine Blood 2+ H (Negative) Urine Nitrate Negative (Negative) Urine Bilirubin Neg (NEGATIVE) Urine Urobilinogen Norm (Negative) mg/dL Ur Leukocyte Natalie ase Negative (Negative) Urine RBC 15-25 H (0-2) /hpf Urine WBC 0-4 H (0-5) /hpf Ur Squamous Epith Cells 0-4 H (0-5) Amorphous Sediment Not Reportable Urine Bacteria 2+ H (NONE) Urine Mucus Trace 11/18/19 Range/Units 11:36 WBC (4.0-10.0) 10^3/ uL RBC (4.1-5.3) 10^6/u L Hgb (11.5-15.3) g/dL Hct (37.0-47.0) % MCV (81-99) fL MCH (28.0-34.0) pg MCHC (30.0-36.0) g/dL RDW (12.1-15.1) % Plt Count (130-400) 10^3/c mm MPV (7.4-10.4) fL Neut % (Auto) % Lymph % (Auto) % Caroline % (Auto) % Eos % (Auto) % Baso % (Auto) % Neut # (Auto) (1.8-7.7) 10^3/u L Lymph # (Auto) (0.8-4.8) 10^3/u L Caroline # (Auto) (0.2-0.9) 10^3/u L Eos # (Auto) (0.0-0.8) 10^3/u L Baso # (Auto) (0.0-0.1) 10^3/u L Nucleated RBC % (a uto) % Nucleated RBCs # /100WBC Sodium (136-145) mmol/L Potassium (3.5-5.1) mmol/L Chloride (98-107) mmol/L Carbon Dioxide (22-29) mmol/L Anion Gap (5-19) BUN (6-20) mg/dL Creatinine (0.5-0.9) mg/dL GFR Calculation (90-130) mL/min Glucose (65-115) mg/dL Calculated Osmolal ity (285-295) mOsm/k g Calcium (8.5-10.5) mg/dL Total Bilirubin (0.15-1.2) mg/dL AST (0-32) U/L ALT (0-33) U/L Alkaline Phosphata se (35-105) IU/L Total Protein (6.6-8.7) g/dL Albumin (3.5-5.2) g/dL Globulin (1.3-4.6) g/dL Lipase 54 (13-60) U/L Urine Color (Yellow) Urine Appearance (CLEAR) Urine pH (5-7) Ur Specific Gravit y (1.005-1.030) Urine Protein (Negative) Urine Glucose (UA) (Normal) Urine Ketones (Negative) Urine Blood (Negative) Urine Nitrate (Negative) Urine Bilirubin (NEGATIVE) Urine Urobilinogen (Negative) mg/dL Ur Leukocyte Natalie ase (Negative) Urine RBC (0-2) /hpf Urine WBC (0-5) /hpf Ur Squamous Epith Cells (0-5) Amorphous Sediment Urine Bacteria (NONE) Urine Mucus Imaging Data^: CT Abd/Pel: Radiologist's impression: [place] [address] CT Scan Report Signed Patient: Joe Eisenberg Unit #: [id number] : 1995 Age/Sex: 24 / F ADM Date: 11/18/19 Loc: ER Room/Bed: Attending Dr: Ordering Provider/Ordering MD: Maegan Chapman Date of Service: 11/18/19 Procedure(s): CT abdomen pelvis w con* [id number] Accession Number(s): [id number] Report Number: [id number] WS: [id number] CT ABDOMEN AND PELVIS WITH CONTRAST HISTORY: abdominal pain, N/V, bloody stools TECHNIQUE: Imaging performed of the abdomen and pelvis with IV contrast. Single phase imaging of the abdomen. Coronal and sagittal reformats are submitted. All CT scans at [facility] use at least one of these dose optimization techniques: automated exposure control; mA and/or kV adjustment per patient size (includes targeted exams where dose is matched to clinical indication); or iterative reconstruction. IV CONTRAST: Omnipaque 300; 95 mL IV. Oral contrast: No DLP: 546.24 mGy.cm COMPARISON: 05/27/2019 Lower thorax: Mild patchy opacifications at the lung bases, RIGHT greater than LEFT. Mild groundglass attenuation with improvement since 05/27/2019. Heart is normal size. No hiatal hernia. Liver/biliary system: Mild bile duct dilatation with no mass. Gallbladder: Status post cholecystectomy. Pancreas: Normal. Spleen: Normal. Adrenal glands: Normal. Right kidney: Wedge-shaped areas of decreased attenuation in the mid to lower RIGHT kidney. There is no obstruction or stone. Left kidney: Normal. Aorta: Normal. Lymphadenopathy: None. Free fluid: None. GI tract: The appendix has been removed. There is mild thickening of the terminal ileum and very mild fluid distention of the more proximal small bowel. There is no obstruction. Mild mucosal edema due to the transverse colon. Increased fecal material in the RIGHT colon. Abdominal wall: Small umbilical hernia. Pelvis: RIGHT ovarian cyst measures 2.1 cm. There is a small amount of adjacent soft tissue thickening and fluid. Bones: Unremarkable. CT/CT abdomen pelvis w con* [id number] IMPRESSION: 1. Mild thickening of the terminal ileum. Correlate for possible mild acute inflammatory bowel disease such as Crohn's. No obstruction. Additional mild mucosal edema in the transverse colon. 2. Wedge-shaped areas of decreased attenuation in the RIGHT kidney. Suspect polynephritis. 3. Prior cholecystectomy. 4. RIGHT ovarian cyst. Dictated By: Kim Duff DO Signed By: Kim Duff DO Signed Date/Time: 11/18/19 1525 DD/ 1517 Discharge Plan Discharge Patient Disposition: Home, Self-Care Clinical Impression: Bowel disease, inflammatory Lupus (systemic lupus erythematosus) Qualifiers: Systemic lupus erythematosus type: unspecified Systemic lupus erythematosus organ involvement: unspecified Qualified Code(s): M32.9 - Systemic lupus erythematosus, unspecified Condition: Stable Prescriptions: New methylprednisolone [Medrol (Ever)] 4 mg tablets,dose pack See Rx Instructions .ROUTE .COMPLEX Qty: 21 RF: 0 No Action lorazepam 1 mg tablet 1 mg PO BID PRN (Reason: Nausea) Qty: 45 RF: 2 paroxetine HCl 20 mg tablet 20 mg PO BEDTIME Qty: 30 RF: 2 ondansetron HCl [Zofran] 4 mg tablet 4 mg PO QID PRN (Reason: nausea and vomiting) Qty: 14 RF: 0 mycophenolate mofetil 500 mg tablet 1,500 mg PO BID RF: 0 Aleve 220 mg Tablet 440 mg PO PRN RF: 0 amoxicillin-pot clavulanate 875-125 mg tablet 1 tab PO BID RF: 0 Vitamin D3 50 mcg (2,000 unit) Tablet 50 mcg PO DAILY RF: 0 ondansetron HCl 8 mg tablet 8 mg PO Q6H PRN (Reason: Nausea) RF: 0 pantoprazole 40 mg tablet,delayed release (DR/EC) 40 mg PO DAILY RF: 0 ergocalciferol (vitamin D2) [Vitamin D2] 50,000 unit capsule See Rx Instructions .ROUTE .COMPLEX RF: 0 Ferrex 150 Forte Plus 150-60-25-1 pf-ha-jds-mg capsule 150 cap PO BID RF: 0 calcium carbonate-vitamin D3 [Calcium 500 + D] 500 mg(1,250mg) -400 unit Tablet 1 tab PO DAILY RF: 0 hydrocodone-acetaminophen 5-325 mg tablet 1 tab PO Q6H PRN (Reason: pain) Qty: 7 RF: 0 Discharge Orders: Discharge Order (Routine); Ordered 11/18/19 Ordered By: Maegan Chapman Referrals: Kam Ramirez MD [Primary Care Provider] - Activity Restrictions/Additional Instructions: You may take your Zofran as needed for nausea/vomiting. As discussed please keep your appointment with GI on Friday for further evaluation. Return to the emergency department for worsening pain, intractable vomiting or diarrhea, fevers, or any other concerns you may have. Coding Level of Care Code ED [employer]er for Eirn Fwd Exam Comprehensive
[2019-11-18 13:34] VITALS: BP 139/87; PULSE 80; RESP 18; O2SAT 100
--- NOTE | 2019-11-18 14:06 | CT_ITS ---
WS: [id number] CT ABDOMEN AND PELVIS WITH CONTRAST HISTORY: abdominal pain, N/V, bloody stools TECHNIQUE: Imaging performed of the abdomen and pelvis with IV contrast. Single phase imaging of the abdomen. Coronal and sagittal reformats are submitted. All CT scans at [facility] use at least one of these dose optimization techniques: automated exposure control; mA and/or kV adjustment per patient size (includes targeted exams where dose is matched to clinical indication); or iterativ e reconstruction. IV CONTRAST: Omnipaque 300; 95 mL IV. Oral contrast: No DLP: 546.24 mGy.cm COMPARISON: 05/27/2019 Lower thorax: Mild patchy opacifications at the lung bases, RIGHT greater than LEFT. Mild groundglass attenuation with improvement since 05/27/2019. Heart is normal size. No hiatal hernia. Liver/biliary system: Mild bile duct dilatation with no mass. Gallbladder: Status post cholecystectomy. Pancreas: Normal. Spleen: Normal. Adrenal glands: Normal. Right kidney: Wedge-shaped areas of decreased attenuation in the mid to lower RIGHT kidney. There is no obstruction or stone. Left kidney: Normal. Aorta: Normal. Lymphadenopathy: None. Free fluid: None. GI tract: The appendix has been removed. There is mild thickening of the terminal ileum and very mild fluid distention of the more proximal small bowel. There is no obstruction. Mild mucosal edema due t o the transverse colon. Increased fecal material in the RIGHT colon. Abdominal wall: Small umbilical hernia. Pelvis: RIGHT ovarian cyst measures 2.1 cm. There is a small amount of adjacent soft tissue thickenin g and fluid. Bones: Unremarkable. CT/CT abdomen pelvis w con* [id number] IMPRESSION: 1. Mild thickening of the terminal ileum. Correlate for possible mild acute in flammatory bowel disease such as Crohn's. No obstruction. Additional mild mucos al edema in the transverse colon. 2. Wedge-shaped areas of decreased attenuation in the RIGHT kidney. Suspect po lynephritis. 3. Prior cholecystectomy. 4. RIGHT ovarian cyst.
[2019-11-18] MEDS: fentaNYL 50 mcg/mL INJ 2mL IVP ×2 (14:23→15:39)
[2019-11-18] MEDS: sodium chloride 0.9% 1,000 ML 999 ML IV (14:23)
[2019-11-18] MEDS: promethazine 25 mg/mL SDV 1 mL IM (14:23)
[2019-11-18 14:35] LABS: Lipase 54 U/L (13-60)
[2019-11-18] MEDS: iohexol 300 mg/mL 100 mL Btl IV (15:15)
[2019-11-18 15:39] VITALS: RESP 18; O2SAT 100
[2019-11-18 15:41] VITALS: BP 121/84; PULSE 85; RESP 18; O2SAT 100
[2019-11-18 16:07] VITALS: BP 116/79; PULSE 89; RESP 18; O2SAT 98
== END 2019-11-18 16:14 | disposition home or self-care (01) ==
PROVIDERS: Family Medicine; Emergency Provider Physician Assistant; PCP Family Medicine
DX: K63.89 Other specified diseases of intestine (principal); M32.9 Systemic lupus erythematosus, unspecified
CPT/HCPCS: 12345; 36415; 74177; 80053; 81001; 81003; 83690; 85025; 87086; 96361; 96372; 96374; 96375; 96376; 99283; 99284; J2550; J3010; J7030; Q9967

== ENCOUNTER 2019-12-25 08:50 | Emergency (ER) | payer BC, MEDICARE, MEDICAID, SELFPAY ==
[2019-12-25 08:53] VITALS: BMI 23.8
[2019-12-25 08:58] VITALS: BP 126/88; PULSE 91; RESP 16; TEMP 36.6; O2SAT 99
--- NOTE | 2019-12-25 09:10 | W.ED.NAVMDI ---
HPI - Nausea/Vomiting/Diarrhea General: Chief complaint: Nausea/Vomiting/Diarrhea Stated complaint: N/V Time Seen by Provider: 12/25/19 08:57 History of Present Illness: HPI Narrative: 24-year-old female patient presents to the emergency department with onset of dysuria, urinary frequency, nausea vomiting diarrhea that started around midnight last night. Last ate at 11 PM last night. Attempted Zofran without improvement at home. She denies hematochezia, hematemesis. Reports last menstrual cycle 12/11/2019. Reports history of lupus. Previous appendectomy and cholecystectomy. States has history of lupus, denies ill exposures or family members with similar symptoms. MD elicited complaint: nausea, vomiting, diarrhea and abdominal pain Pertinent past history: anorexia Onset (ago): hour(s) (8-9) Description of vomiting: food contents and bilious Description of diarrhea: semi-solid and lose Associated nausea: Yes Associated abdominal pain: Yes Location of pain: Suprapubic Pain consistency: intermittent Severity: moderate Quality: cramping Relieving factors: vomiting Associated symtoms: Reports nausea; Denies chest pain, diaphoresis, dysuria, headache(s) or palpitations Treatment prior to arrival: other (Zofran) Review of Systems General: Reports: 10 or more systems reviewed and unremarkable except in HPI and below Const: Denies: fever(s), chills or diaphoresis Eyes: Denies: blurry vision or eye redness ENMT: Denies: throat pain, dental pain or disequilibrium Card: Denies: chest pain, palpitations or irregular heart rhythm Resp: Denies: dyspnea, productive cough, non-productive cough or wheezing GI: Reports: abdominal pain, nausea and vomiting : Denies: difficulty voiding or dysuria Musc: Denies: back pain Skin/Breast: Denies: rash or pruritus Neuro: Denies: headache(s), weakness in extremities or behavioral changes Bobby/Lymph: Denies: easy bruising PFSH ED PFSH: Medical History Generalized anxiety disorder 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, follows up at [facility] Panic disorder [episodic paroxysmal anxiety] Surgical History History of appendectomy Hx of cholecystectomy Status post tonsillectomy and adenoidectomy Family History Mother Juvenile rheumatoid arthritis Social History Smoking and tobacco status: never smoked Alcohol intake: never Household members: family Housing: House Female Reproductive History: Date of last menstrual period: 12/11/19 Physical Exam Const: COMMON NORMALS: no acute distress, patient oriented x3, healthy appearing and alert GENERAL APPEARANCE: cooperative and well developed HENMT: COMMON NORMALS: normocephalic, Normal external nose present and moist oral mucous membranes HEAD & SCALP: normocephalic NOSE: Normal external nose present Eye: COMMON NORMALS: Equal, round and reactive pupils present and EOMs intact bilaterally GENERAL EYE: appearance normal, both eyes and all related structures PUPIL: Yes Equal, round and reactive pupils present Neck/C-Spine: COMMON NORMALS: full ROM and no lymphadenopathy GENERAL: Yes normal visual inspection and Yes trachea midline CERVICAL SPINE: Yes cervical ROM normal Lymph: LYMPHATIC: no lymphadenopathy noted Chest: COMMONS NORMALS: normal inspection of the chest Resp: COMMON NORMALS: normal respiratory effort and clear to auscultation bilaterally AUSCULTATION: clear to auscultation bilaterally Cardio: COMMON NORMALS: regular rhythm, S1 normal heart sound present and S2 normal heart sound present RHYTHM: regular rhythm HEART SOUNDS: S1 normal heart sound present and S2 normal heart sound present GI: COMMON NORMALS: Soft to palpation INSPECTION: Yes normal to inspection and No abdominal distension AUSCULTATION: Yes normoactive bowel sounds PALPATION: Yes Soft to palpation and Yes Tenderness to palpation present (GI) Details: other (Suprapubic) PERCUSSION: normal to percussion : COMMON NORMALS: Yes no CVA tenderness BLADDER/KIDNEY EXAM: Yes no CVA tenderness Back/Pelvis: COMMON NORMALS: no CVA tenderness and thoracic and lumbar spine normal to inspection Extremity: COMMON NORMALS: normal to inspection and capillary refill normal Neuro: COMMON NORMALS: patient oriented x3 and no focal motor deficits SENSORIUM/ORIENTATION: Yes alert Psych: COMMON NORMALS: mental status grossly normal, Normal thought process present and cooperative ACTIVITY/MOTOR BEHAVIOR: Yes appropriate eye contact THOUGHT PROCESS: Normal thought process present Skin: COMMON NORMALS: no rashes or lesions noted and turgor normal GENERAL SKIN EXAM: no rashes or lesions noted and turgor normal Course ED course: 24-year-old female patient presents to the emergency department with complaints of nausea vomiting and lower suprapubic pain, urine positive for urinary tract infection, was administered Rocephin IV, she was able to tolerate p.o. fluids in the emergency department, she has not exhibited vomiting here in the ED, she request refill of Zofran, nausea improved - received IV fluid. She reports wants to go home and is willing to follow-up with her primary care provider this week. Vital Signs: Vital signs: Vital Signs Temperature 97.8 F 12/25/19 08:58 Pulse Rate 88 12/25/19 12:05 Respiratory Rate 18 12/25/19 12:05 Blood Pressure 122/81 12/25/19 12:05 Pulse Oximetry 98 12/25/19 12:05 MDM - Nausea/Vomiting/Diarrhea Lab Data: Labs: Lab Results 12/25/19 12/25/19 12/25/19 Range/Units 09:15 09:15 09:23 WBC 8.0 (4.0-10.0) 10^3/ uL RBC 4.52 (4.1-5.3) 10^6/u L Hgb 13.1 (11.5-15.3) g/dL Hct 38.2 (37.0-47.0) % MCV 84.5 (81-99) fL MCH 29.0 (28.0-34.0) pg MCHC 34.3 (30.0-36.0) g/dL RDW 12.5 (12.1-15.1) % Plt Count 344 (130-400) 10^3/c mm MPV 10.6 H (7.4-10.4) fL Neut % (Auto) 79.2 % Lymph % (Auto) 12.9 % [place] % (Auto) 6.5 % Eos % (Auto) 0.0 % Baso % (Auto) 1.0 % Neut # (Auto) 6.31 (1.8-7.7) 10^3/u L Lymph # (Auto) 1.0 (0.8-4.8) 10^3/u L [place] # (Auto) 0.5 (0.2-0.9) 10^3/u L Eos # (Auto) 0.0 (0.0-0.8) 10^3/u L Baso # (Auto) 0.1 (0.0-0.1) 10^3/u L Nucleated RBC % (a uto) 0 % Nucleated RBCs # 0.0 /100WBC Sodium (136-145) mmol/L Potassium (3.5-5.1) mmol/L Chloride (98-107) mmol/L Carbon Dioxide (22-29) mmol/L Anion Gap (5-19) BUN (6-20) mg/dL Creatinine (0.5-0.9) mg/dL GFR Calculation (90-130) mL/min Glucose (65-115) mg/dL Calculated Osmolal ity (285-295) mOsm/k g Calcium (8.5-10.5) mg/dL Total Bilirubin (0.15-1.2) mg/dL AST (0-32) U/L ALT (0-33) U/L Alkaline Phosphata se (35-105) IU/L Total Protein (6.6-8.7) g/dL Albumin (3.5-5.2) g/dL Globulin (1.3-4.6) g/dL Lipase (13-60) U/L Urine Color Yellow (Yellow) Urine Appearance Sl hazy (CLEAR) Urine pH 7 (5-7) Ur Specific Gravit y 1.025 (1.005-1.030) Urine Protein 1+ H (Negative) Urine Glucose (UA) Trace H (Normal) Urine Ketones Negative (Negative) Urine Blood Neg (Negative) Urine Nitrate Positive H (Negative) Urine Bilirubin Neg (NEGATIVE) Urine Urobilinogen Norm (Negative) mg/dL Ur Leukocyte Natalie ase 1+ H (Negative) Urine RBC None (0-2) /hpf Urine WBC 10-15 H (0-5) /hpf Ur Squamous Epith Cells 0-4 H (0-5) Calcium Oxalate Cr ystal 0-4 H /hpf Amorphous Sediment Not Reportable Urine Bacteria 2+ H (NONE) Urine Mucus 1+ Urine HCG, Qual Negative (Negative) 12/25/19 Range/Units 09:23 WBC (4.0-10.0) 10^3/ uL RBC (4.1-5.3) 10^6/u L Hgb (11.5-15.3) g/dL Hct (37.0-47.0) % MCV (81-99) fL MCH (28.0-34.0) pg MCHC (30.0-36.0) g/dL RDW (12.1-15.1) % Plt Count (130-400) 10^3/c mm MPV (7.4-10.4) fL Neut % (Auto) % Lymph % (Auto) % [place] % (Auto) % Eos % (Auto) % Baso % (Auto) % Neut # (Auto) (1.8-7.7) 10^3/u L Lymph # (Auto) (0.8-4.8) 10^3/u L [place] # (Auto) (0.2-0.9) 10^3/u L Eos # (Auto) (0.0-0.8) 10^3/u L Baso # (Auto) (0.0-0.1) 10^3/u L Nucleated RBC % (a uto) % Nucleated RBCs # /100WBC Sodium 139 (136-145) mmol/L Potassium 3.5 (3.5-5.1) mmol/L Chloride 105 (98-107) mmol/L Carbon Dioxide 20 L (22-29) mmol/L Anion Gap 17.5 (5-19) BUN 10 (6-20) mg/dL Creatinine 0.7 (0.5-0.9) mg/dL GFR Calculation 102.8 (90-130) mL/min Glucose 98 (65-115) mg/dL Calculated Osmolal ity 284 L (285-295) mOsm/k g Calcium 9.2 (8.5-10.5) mg/dL Total Bilirubin 0.3 (0.15-1.2) mg/dL AST 15 (0-32) U/L ALT 7 (0-33) U/L Alkaline Phosphata se 47 (35-105) IU/L Total Protein 6.5 L (6.6-8.7) g/dL Albumin 4.5 (3.5-5.2) g/dL Globulin 2.0 (1.3-4.6) g/dL Lipase 66 H (13-60) U/L Urine Color (Yellow) Urine Appearance (CLEAR) Urine pH (5-7) Ur Specific Gravit y (1.005-1.030) Urine Protein (Negative) Urine Glucose (UA) (Normal) Urine Ketones (Negative) Urine Blood (Negative) Urine Nitrate (Negative) Urine Bilirubin (NEGATIVE) Urine Urobilinogen (Negative) mg/dL Ur Leukocyte Natalie ase (Negative) Urine RBC (0-2) /hpf Urine WBC (0-5) /hpf Ur Squamous Epith Cells (0-5) Calcium Oxalate Cr ystal /hpf Amorphous Sediment Urine Bacteria (NONE) Urine Mucus Urine HCG, Qual (Negative) Discharge Plan Discharge Patient Disposition: Home Clinical Impression: UTI (urinary tract infection) Qualifiers: Urinary tract infection type: acute cystitis Hematuria presence: without hematuria Qualified Code(s): N30.00 - Acute cystitis without hematuria Nausea & vomiting Qualifiers: Vomiting type: unspecified Vomiting Intractability: unspecified Qualified Code(s): R11.2 - Nausea with vomiting, unspecified Condition: Stable Prescriptions: New cefdinir 300 mg capsule 300 mg PO BID 10 Days Qty: 20 RF: 0 Pyridium 200 mg tablet 200 mg PO Q8H PRN (Reason: pain) Qty: 7 RF: 0 Zofran 4 mg tablet 4 mg PO Q6H PRN (Reason: nausea and vomiting) Qty: 10 RF: 0 No Action lorazepam 1 mg tablet 1 mg PO BID PRN (Reason: Nausea) Qty: 45 RF: 2 paroxetine HCl 20 mg tablet 20 mg PO BEDTIME Qty: 30 RF: 2 mycophenolate mofetil 500 mg tablet See Rx Instructions .ROUTE .COMPLEX RF: 0 naproxen sodium [Aleve] 220 mg Tablet 440 mg PO Q6H PRN (Reason: Pain) RF: 0 cholecalciferol (vitamin D3) [Vitamin D3] 50 mcg (2,000 unit) Tablet 50 mcg PO DAILY RF: 0 ondansetron HCl 8 mg tablet 8 mg PO Q6H PRN (Reason: Nausea) RF: 0 pantoprazole 40 mg tablet,delayed release (DR/EC) 40 mg PO DAILY RF: 0 ergocalciferol (vitamin D2) [Vitamin D2] 50,000 unit capsule See Rx Instructions .ROUTE .COMPLEX RF: 0 Ferrex 150 Forte Plus 150-60-25-1 pf-ub-fns-mg capsule 150 cap PO BID RF: 0 calcium carbonate-vitamin D3 [Calcium 500 + D] 500 mg(1,250mg) -400 unit Tablet 1 tab PO DAILY RF: 0 sulfamethoxazole-trimethoprim 400-80 mg tablet See Rx Instructions .ROUTE .COMPLEX RF: 0 hydroxychloroquine 200 mg Tablet 200 mg PO BID RF: 0 loratadine 10 mg Tablet 10 mg PO DAILY RF: 0 Discharge Orders: Discharge Order (Routine); Ordered 12/25/19 Ordered By: Jayda Kearney Referrals: Kam Ramirez MD [Primary Care Provider] - Discharge Diet: Advance as tolerated and Clear Liquid Discharge Activity: Limit activity as instructed Patient Instructions: Urinary Tract Infection in Women (ED), Acute Nausea and Vomiting (ED), Dysuria (ED) Activity Restrictions/Additional Instructions: Rest at home today and tomorrow. May take 24 hours for antibiotics to start working. If bacteria in the urine is not sensitive to antibiotic prescribed today, you will be contacted and antibiotic will be changed. If you develop worsening abdominal pain, nausea vomiting that does not resolve with use of Zofran, visible blood in your urine, fever that is not controlled with Tylenol or Motrin, you will need to return to the emergency department for reevaluation. Make sure you follow-up with your primary care physician this week without fail, a repeat urinalysis will be needed. Stand Alone Forms: Work/School Release Discharge Date/Time: 12/25/19 12:06 Coding Level of Care Code ED Public Administration Teacher for Erin Fwd Exam Comprehensive
[2019-12-25 09:33] LABS: Basophils # 0.1 10^3/uL (0.0-0.1); Hematocrit 38.2 % (37.0-47.0); Hemoglobin 13.1 g/dL (11.5-15.3); Lymphocytes % 12.9 %; Mean Corpuscular HGB Conc 34.3 g/dL (30.0-36.0); Mean Corpuscular Volume 84.5 fL (81-99); Mean Platelet Volume 10.6 fL (7.4-10.4); Monocytes # 0.5 10^3/uL (0.2-0.9); Monocytes % 6.5 %; Neutrophils # 6.31 10^3/uL (1.8-7.7); Neutrophils % 79.2 %; Nucleated Red Blood Cells % 0 %; Platelet Count 344 10^3/cmm (130-400); Red Blood Count 4.52 10^6/uL (4.1-5.3); Red Cell Distribution Width 12.5 % (12.1-15.1)
[2019-12-25 09:42] LABS: Add Urine Microscopic? YES; Bilirubin Urine Neg (NEGATIVE); Blood Urine Neg (Negative); Glucose Urine UA Trace (Normal); Ketones Urine Negative (Negative); Leukocyte Esterase Urine 1+ (Negative); Nitrate Urine Positive (Negative); Protein Urine 1+ (Negative); Specific Gravity, Urine 1.025 (1.005-1.030); Urine Appearance SL Hazy (CLEAR); Urine Color Yellow (Yellow); Urobilinogen Urine Norm (Negative); pH Urine 7 (5-7)
[2019-12-25 09:44] LABS: Add Urine Culture? Yes; Bacteria Urine 2+; Calcium Oxalate Crystals Urine 0-4 /hpf; Mucus Urine 1+; Squamous Epithelial Cell Urine 0-4 (0-5)
[2019-12-25 09:59] LABS: Alanine Aminotransferase 7 U/L (0-33); Albumin Level 4.5 g/dL (3.5-5.2); Alkaline Phosphatase 47 IU/L (35-105); Anion Gap 17.5 (5-19); Aspartate Amino Transferase 15 U/L (0-32); Blood Urea Nitrogen 10 mg/dL (6-20); Calcium 9.2 mg/dL (8.5-10.5); Carbon Dioxide 20 mmol/L (22-29); Chloride 105 mmol/L (98-107); Creatinine Clr Calc Pharmacy 104.9519; Glomerular Filtration Rate 102.8 mL/min (90-130); Glucose 98 mg/dL (65-115); Lipase 66 U/L (13-60); Osmolality Calculated 284 mOsm/kg (285-295); Potassium 3.5 mmol/L (3.5-5.1); Sodium 139 mmol/L (136-145); Total Bilirubin 0.3 mg/dL (0.15-1.2); Total Protein 6.5 g/dL (6.6-8.7)
[2019-12-25] MEDS: ondansetron 2 mg/ML SDV 2 mL 4 MG IVP (10:00)
[2019-12-25] MEDS: sodium chloride 0.9% 500 ML 999 ML IV (10:07)
[2019-12-25] MEDS: cefTRIAXone 1,000 MG in sodium chloride 0.9% (plus) 50 ML 100 MG IV (10:08)
[2019-12-25] MEDS: ketorolac 30 mg/mL INJ IVP (10:24)
[2019-12-25 12:05] VITALS: BP 122/81; PULSE 88; RESP 18; O2SAT 98
== END 2019-12-25 12:06 | disposition home or self-care (01) ==
PROVIDERS: Emergency Provider Nurse Practitioner Family; PCP Family Medicine
DX: N30.00 Acute cystitis without hematuria (principal); R11.2 Nausea with vomiting, unspecified; M32.9 Systemic lupus erythematosus, unspecified
CPT/HCPCS: 12345; 80053; 81001; 81025; 83690; 85025; 87086; 96365; 96375; 99282; 99283; J0696; J1885; J2405; J7040

== ENCOUNTER 2019-12-29 20:55 | Emergency (ER) | payer BC, MEDICARE, MEDICAID, SELFPAY ==
[2019-12-29 21:08] VITALS: BP 114/85; PULSE 100; RESP 18; TEMP 36.8; O2SAT 97; BMI 23.8
[2019-12-29 21:46] LABS: Add Urine Microscopic? NO
[2019-12-29 22:06] LABS: Bilirubin Urine Neg (NEGATIVE); Blood Urine Neg (Negative); Glucose Urine UA Norm (Normal); Ketones Urine Negative (Negative); Leukocyte Esterase Urine Negative (Negative); Nitrate Urine Negative (Negative); Protein Urine Neg (Negative); Urine Appearance Clear (CLEAR); Urine Color Yellow (Yellow); Urobilinogen Urine Norm (Negative); pH Urine 7 (5-7)
== END 2019-12-29 22:43 | disposition left against medical advice (07) ==
LOC: ER 21:03
PROVIDERS: Emergency Provider Emergency Medicine; PCP Family Medicine
DX: Z53.21 Procedure and treatment not carried out due to patient leaving prior to being seen by health care provider (principal)
CPT/HCPCS: 81003; 99281

== ENCOUNTER 2020-01-20 05:29 | Inpatient (IN) | payer BC, MEDICARE, MEDICAID, SELFPAY ==
[2020-01-20] VITALS (9 sets, daily range): BP systolic 112–144; BP diastolic 57–86; PULSE 43–107; RESP 14–17; TEMP 36.4–37; O2SAT 97–100
--- NOTE | 2020-01-20 05:45 | W.ED.NAVMDI ---
HPI - Nausea/Vomiting/Diarrhea General: Chief complaint: Nausea/Vomiting/Diarrhea Stated complaint: nausea/dizziness Time Seen by Provider: 01/20/20 05:42 Source: patient Mode of arrival: ambulatory Limitations: no limitations History of Present Illness: HPI Narrative: 24-year-old female presents to the emergency room with complaints of nausea vomiting. Began about 4 hours ago. No hematochezia melena hematemesis or coffee-ground emesis. She has a history of inflammatory bowel disease. She been seen several times this year for abdominal pain nausea follow-up type visits. 2 months ago she had a CT that was suggestive of an inflammatory bowel process and she was referred to GI by her primary care doctor. MD elicited complaint: nausea and vomiting Pertinent past history: other (Possible inflammatory bowel disease evaluation is pending) Onset (ago): day(s) Description of vomiting: watery and blood-streaked Description of diarrhea: semi-solid Associated nausea: Yes Associated abdominal pain: Yes Location of pain: Diffuse Pain consistency: constant Severity: moderate Quality: cramping and stabbing Exacerbating factors: eating Relieving factors: none Associated symtoms: Reports nausea; Denies anxiety, change in vision, chest pain, cough, diaphoresis, decreased urine output, dizziness, dysuria, epistaxis, fatigue, fecal incontinence, fevers/chills, headache(s), anorexia, malaise, myalgias, numbness, palpitations, rash, short of breath, syncope, tenesmus, tinnitus or weakness Review of Systems Const: Denies: fatigue, malaise or diaphoresis Eyes: Denies: change in vision ENMT: Denies: tinnitus or epistaxis Card: Denies: chest pain, palpitations or syncope Resp: Denies: dyspnea, productive cough, non-productive cough or wheezing GI: Reports: abdominal pain, nausea, vomiting and diarrhea; Denies: fecal incontinence : Denies: dysuria Musc: Denies: neck pain, back pain, extremity pain, extremity swelling, joint pain or joint swelling Skin/Breast: Denies: rash, pruritus or erythema Neuro: Denies: headache(s) or dizziness Psych: Denies: anxiety, depression, loss of interest, visual hallucinations, auditory hallucinations, suicidal ideation or homicidal ideation Endo: Denies: polyuria, polydipsia, tired all the time or cold intolerance Bobby/Lymph: Denies: easy bruising, easy bleeding, petechiae, enlarged lymph nodes or tender lymph nodes PFSH ED PFSH: Medical History (Updated 01/21/20 @ 14:07 by Preet Alexandra DO) Generalized anxiety disorder Inflammatory bowel disease 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, follows up at [facility] Lupus nephritis Panic disorder [episodic paroxysmal anxiety] Surgical History (Updated 01/21/20 @ 11:28 by John Fabian MD) History of appendectomy [place] Hx of cholecystectomy [place] Status post biopsy of kidney Multiple percutaneous biopsies Status post tonsillectomy and adenoidectomy Family History Mother Juvenile rheumatoid arthritis Social History Smoking and tobacco status: never smoked Alcohol intake: never Substance/Drug Use: never Household members: family Housing: House Sexually active: Yes Female Reproductive History: Date of last menstrual period: 12/11/19 Physical Exam Const: COMMON NORMALS: no acute distress GENERAL APPEARANCE: cooperative and comfortable ORIENTATION/CONSCIOUSNESS: Yes awake, Yes oriented to person, Yes oriented to place and Yes oriented to time HENMT: COMMON NORMALS: normocephalic, atraumatic and hearing grossly normal bilaterally HEAD & SCALP: normocephalic and atraumatic Eye: COMMON NORMALS: Equal, round and reactive pupils present, EOMs intact bilaterally, conjunctivae normal and no scleral icterus CONJUNCTIVA: Yes conjunctivae normal PUPIL: Yes Equal, round and reactive pupils present Neck/C-Spine: COMMON NORMALS: full ROM, no lymphadenopathy, supple and no JVD Lymph: LYMPHATIC: no lymphadenopathy noted and no lymphedema noted Resp: COMMON NORMALS: normal respiratory effort, No retractions, No use of accessory muscles and clear to auscultation bilaterally AUSCULTATION: clear to auscultation bilaterally Cardio: COMMON NORMALS: no JVD, regular rate, regular rhythm and No murmurs present (Cardio) RATE: regular rate RHYTHM: regular rhythm GI: COMMON NORMALS: Soft to palpation and No hepatosplenomegaly present AUSCULTATION: Yes normoactive bowel sounds PALPATION: Yes Soft to palpation, No Tenderness to palpation present (GI), No Guarding due to palpation present (GI) and Yes No hepatosplenomegaly present Extremity: COMMON NORMALS: normal to inspection, capillary refill normal, no clubbing, cyanosis or edema, no calf tenderness and no pedal edema Neuro: SENSORIUM/ORIENTATION: Yes oriented to person, Yes oriented to place and Yes oriented to time Skin: COMMON NORMALS: no rashes or lesions noted GENERAL SKIN EXAM: no rashes or lesions noted Course Vital Signs: Vital signs: Vital Signs Temperature 98.1 F 01/21/20 07:46 Pulse Rate 63 01/21/20 07:46 Respiratory Rate 15 01/21/20 07:46 Blood Pressure 113/63 01/21/20 07:46 Pulse Oximetry 98 01/21/20 07:46 MDM - Nausea/Vomiting/Diarrhea MDM Narrative: Medical decision making narrative: Attempted to rehydrate patient discharged home however she had difficulty with persistent nausea vomiting abdominal pain and then began develop vomiting with streaks of blood. We will go ahead and admit her given her history of lupus with the persistent nausea and vomiting Lab Data: Labs: Lab Results 01/20/20 01/20/20 01/20/20 Range/Units 06:06 06:06 06:06 WBC 9.0 (4.0-10.0) 10^3/ uL RBC 4.93 (4.1-5.3) 10^6/u L Hgb 14.6 (11.5-15.3) g/dL Hct 42.2 (37.0-47.0) % MCV 85.6 (81-99) fL MCH 29.6 (28.0-34.0) pg MCHC 34.6 (30.0-36.0) g/dL RDW 12.3 (12.1-15.1) % Plt Count 332 (130-400) 10^3/c mm MPV 11.0 H (7.4-10.4) fL Neut % (Auto) 86.5 % Lymph % (Auto) 7.2 % [place] % (Auto) 5.1 % Eos % (Auto) 0.3 % Baso % (Auto) 0.6 % Neut # (Auto) 7.81 H (1.8-7.7) 10^3/u L Lymph # (Auto) 0.7 L (0.8-4.8) 10^3/u L [place] # (Auto) 0.5 (0.2-0.9) 10^3/u L Eos # (Auto) 0.0 (0.0-0.8) 10^3/u L Baso # (Auto) 0.1 (0.0-0.1) 10^3/u L Nucleated RBC % (a uto) 0 % Nucleated RBCs # 0.0 /100WBC Sodium 135 L (136-145) mmol/L Potassium 3.4 L (3.5-5.1) mmol/L Chloride 103 (98-107) mmol/L Carbon Dioxide 18 L (22-29) mmol/L Anion Gap 17.4 (5-19) BUN 11 (6-20) mg/dL Creatinine 0.7 (0.5-0.9) mg/dL GFR Calculation 102.8 (90-130) mL/min Glucose 120 H (65-115) mg/dL Calculated Osmolal ity 277 L (285-295) mOsm/k g Lactic Acid 1.5 (0.5-2.2) mmol/L Calcium 9.2 (8.5-10.5) mg/dL Total Bilirubin 0.6 (0.15-1.2) mg/dL AST 14 (0-32) U/L ALT 7 (0-33) U/L Alkaline Phosphata se 53 (35-105) IU/L Total Protein 7.4 (6.6-8.7) g/dL Albumin 4.7 (3.5-5.2) g/dL Globulin 2.7 (1.3-4.6) g/dL Lipase 58 (13-60) U/L Procalcitonin (0-0.5) ng/mL TSH (0.27-4.20) uIU/ mL HCG, Qual (Negative) Urine Color (Yellow) Urine Appearance (CLEAR) Urine pH (5-7) Ur Specific Gravit y (1.005-1.030) Urine Protein (Negative) Urine Glucose (UA) (Normal) Urine Ketones (Negative) Urine Blood (Negative) Urine Nitrate (Negative) Urine Bilirubin (Negative) Urine Urobilinogen (Negative) mg/dL Ur Leukocyte Natalie ase (Negative) Urine RBC (0-2) /hpf Urine WBC (0-5) /hpf Ur Squamous Epith Cells (0-5) /hpf Amorphous Sediment Urine Bacteria (NONE) /hpf Urine Mucus /hpf SARS-CoV-2 Ag (Rap id) (Negative) 01/20/20 01/20/20 01/20/20 Range/Units 06:06 06:06 06:06 WBC (4.0-10.0) 10^3/ uL RBC (4.1-5.3) 10^6/u L Hgb (11.5-15.3) g/dL Hct (37.0-47.0) % MCV (81-99) fL MCH (28.0-34.0) pg MCHC (30.0-36.0) g/dL RDW (12.1-15.1) % Plt Count (130-400) 10^3/c mm MPV (7.4-10.4) fL Neut % (Auto) % Lymph % (Auto) % [place] % (Auto) % Eos % (Auto) % Baso % (Auto) % Neut # (Auto) (1.8-7.7) 10^3/u L Lymph # (Auto) (0.8-4.8) 10^3/u L [place] # (Auto) (0.2-0.9) 10^3/u L Eos # (Auto) (0.0-0.8) 10^3/u L Baso # (Auto) (0.0-0.1) 10^3/u L Nucleated RBC % (a uto) % Nucleated RBCs # /100WBC Sodium (136-145) mmol/L Potassium (3.5-5.1) mmol/L Chloride (98-107) mmol/L Carbon Dioxide (22-29) mmol/L Anion Gap (5-19) BUN (6-20) mg/dL Creatinine (0.5-0.9) mg/dL GFR Calculation (90-130) mL/min Glucose (65-115) mg/dL Calculated Osmolal ity (285-295) mOsm/k g Lactic Acid (0.5-2.2) mmol/L Calcium (8.5-10.5) mg/dL Total Bilirubin (0.15-1.2) mg/dL AST (0-32) U/L ALT (0-33) U/L Alkaline Phosphata se (35-105) IU/L Total Protein (6.6-8.7) g/dL Albumin (3.5-5.2) g/dL Globulin (1.3-4.6) g/dL Lipase (13-60) U/L Procalcitonin 0.02 (0-0.5) ng/mL TSH 2.30 (0.27-4.20) uIU/ mL HCG, Qual Negative (Negative) Urine Color Yellow (Yellow) Urine Appearance Clear (CLEAR) Urine pH 5.0 (5-7) Ur Specific Gravit y 1.020 (1.005-1.030) Urine Protein 1+ H (Negative) Urine Glucose (UA) Norm (Normal) Urine Ketones 1+ H (Negative) Urine Blood 2+ H (Negative) Urine Nitrate Negative (Negative) Urine Bilirubin Neg (Negative) Urine Urobilinogen Norm (Negative) mg/dL Ur Leukocyte Natalie ase Trace (Negative) Urine RBC 5-10 H (0-2) /hpf Urine WBC 5-10 H (0-5) /hpf Ur Squamous Epith Cells 0-4 H (0-5) /hpf Amorphous Sediment Not Reportable Urine Bacteria 1+ H (NONE) /hpf Urine Mucus 1+ /hpf SARS-CoV-2 Ag (Rap id) (Negative) 01/20/20 Range/Units 10:50 WBC (4.0-10.0) 10^3/ uL RBC (4.1-5.3) 10^6/u L Hgb (11.5-15.3) g/dL Hct (37.0-47.0) % MCV (81-99) fL MCH (28.0-34.0) pg MCHC (30.0-36.0) g/dL RDW (12.1-15.1) % Plt Count (130-400) 10^3/c mm MPV (7.4-10.4) fL Neut % (Auto) % Lymph % (Auto) % [place] % (Auto) % Eos % (Auto) % Baso % (Auto) % Neut # (Auto) (1.8-7.7) 10^3/u L Lymph # (Auto) (0.8-4.8) 10^3/u L [place] # (Auto) (0.2-0.9) 10^3/u L Eos # (Auto) (0.0-0.8) 10^3/u L Baso # (Auto) (0.0-0.1) 10^3/u L Nucleated RBC % (a uto) % Nucleated RBCs # /100WBC Sodium (136-145) mmol/L Potassium (3.5-5.1) mmol/L Chloride (98-107) mmol/L Carbon Dioxide (22-29) mmol/L Anion Gap (5-19) BUN (6-20) mg/dL Creatinine (0.5-0.9) mg/dL GFR Calculation (90-130) mL/min Glucose (65-115) mg/dL Calculated Osmolal ity (285-295) mOsm/k g Lactic Acid (0.5-2.2) mmol/L Calcium (8.5-10.5) mg/dL Total Bilirubin (0.15-1.2) mg/dL AST (0-32) U/L ALT (0-33) U/L Alkaline Phosphata se (35-105) IU/L Total Protein (6.6-8.7) g/dL Albumin (3.5-5.2) g/dL Globulin (1.3-4.6) g/dL Lipase (13-60) U/L Procalcitonin (0-0.5) ng/mL TSH (0.27-4.20) uIU/ mL HCG, Qual (Negative) Urine Color (Yellow) Urine Appearance (CLEAR) Urine pH (5-7) Ur Specific Gravit y (1.005-1.030) Urine Protein (Negative) Urine Glucose (UA) (Normal) Urine Ketones (Negative) Urine Blood (Negative) Urine Nitrate (Negative) Urine Bilirubin (Negative) Urine Urobilinogen (Negative) mg/dL Ur Leukocyte Natalie ase (Negative) Urine RBC (0-2) /hpf Urine WBC (0-5) /hpf Ur Squamous Epith Cells (0-5) /hpf Amorphous Sediment Urine Bacteria (NONE) /hpf Urine Mucus /hpf SARS-CoV-2 Ag (Rap id) Negative (Negative) Discharge Plan Discharge Patient Disposition: Admitted As Inpatient Admit Provider: Luna Kamara Clinical Impression: Inflammatory bowel disease, Lupus (systemic lupus erythematosus), Lupus nephritis, Abnormal CT scan, gastrointestinal tract, Hematochezia, Abdominal pain Condition: Stable Interventions: ED Discharge Assessment Last Done: 01/20/20 13:21 ED Charges Last Done: 01/20/20 13:21 Discharge Date/Time: 01/20/20 13:23 Coding Level of Care Code ED Television Station Manager for Erin Machado
[2020-01-20] MEDS: sodium chloride 0.9% 1,000 ML 999 ML IV ×2 (06:20→08:00)
[2020-01-20] MEDS: ondansetron 2 mg/ML SDV 2 mL 4 MG IVP ×2 (06:20→07:44)
[2020-01-20 06:44] LABS: Basophils # 0.1 10^3/uL (0.0-0.1); Basophils % 0.6 %; Eosinophils % 0.3 %; Hematocrit 42.2 % (37.0-47.0); Hemoglobin 14.6 g/dL (11.5-15.3); Lymphocytes # 0.7 10^3/uL (0.8-4.8); Lymphocytes % 7.2 %; Mean Corpuscular HGB Conc 34.6 g/dL (30.0-36.0); Mean Corpuscular Hemoglobin 29.6 pg (28.0-34.0); Mean Corpuscular Volume 85.6 fL (81-99); Monocytes # 0.5 10^3/uL (0.2-0.9); Monocytes % 5.1 %; Neutrophils # 7.81 10^3/uL (1.8-7.7); Neutrophils % 86.5 %; Nucleated Red Blood Cells % 0 %; Platelet Count 332 10^3/cmm (130-400); Red Blood Count 4.93 10^6/uL (4.1-5.3); Red Cell Distribution Width 12.3 % (12.1-15.1)
[2020-01-20 07:02] LABS: Lactic Sepsis W/Reflex 1.5 mmol/L (0.5-2.2)
[2020-01-20 07:07] LABS: HCG, Serum Qual Negative (Negative)
[2020-01-20 07:24] LABS: Add Urine Culture? No; Add Urine Microscopic? YES; Bacteria Urine 1+ /hpf; Bilirubin Urine Neg (Negative); Blood Urine 2+ (Negative); Glucose Urine UA Norm (Normal); Ketones Urine 1+ (Negative); Leukocyte Esterase Urine Trace (Negative); Mucus Urine 1+ /hpf; Nitrate Urine Negative (Negative); Protein Urine 1+ (Negative); Squamous Epithelial Cell Urine 0-4 /hpf (0-5); Urine Appearance Clear (CLEAR); Urine Color Yellow (Yellow); Urobilinogen Urine Norm (Negative)
[2020-01-20] MEDS: cefTRIAXone 1,000 MG in sodium chloride 0.9% (plus) 50 ML 100 MG IV ×2 (07:43→18:03)
[2020-01-20] MEDS: ketorolac 30 mg/mL INJ IVP (07:51)
[2020-01-20 07:56] LABS: Alanine Aminotransferase 7 U/L (0-33); Albumin Level 4.7 g/dL (3.5-5.2); Alkaline Phosphatase 53 IU/L (35-105); Anion Gap 17.4 (5-19); Aspartate Amino Transferase 14 U/L (0-32); Carbon Dioxide 18 mmol/L (22-29); Chloride 103 mmol/L (98-107); Globulin 2.7 g/dL (1.3-4.6); Glucose 120 mg/dL (65-115); Lipase 58 U/L (13-60); Potassium 3.4 mmol/L (3.5-5.1); Sodium 135 mmol/L (136-145); Total Bilirubin 0.6 mg/dL (0.15-1.2); Total Protein 7.4 g/dL (6.6-8.7)
[2020-01-20 08:02] LABS: Blood Urea Nitrogen 11 mg/dL (6-20); Glomerular Filtration Rate 102.8 mL/min (90-130); Osmolality Calculated 277 mOsm/kg (285-295)
[2020-01-20 08:03] LABS: Calcium 9.2 mg/dL (8.5-10.5)
--- NOTE | 2020-01-20 08:35 | CT_ITS ---
WS: [id number] CT ABDOMEN PELVIS TECHNIQUE: Contrast-enhanced CT of the abdomen and pelvis with coronal and sagittal reformatted image s. CLINICAL INFORMATION: abd pain with vomitting COMPARISON: CT abdomen pelvis November 18, 2019 DLP: 398.[address] scans at [facility] use at least one of these dose optimization techniques: automat ed exposure control; mA and/or kV adjustment per patient size (includes targeted exams where dose is matched to clinical indication); or iterative reconstruction. FINDINGS: Normal liver. Prior cholecystectomy. Normal portal vein and splenic vein. Normal spleen. Adrenal glan ds are normal. Normal GE junction. Lung bases are well aerated. Normal caliber abdominal aorta. Normal sigmoid colon. Prior appendectomy. Heterogeneously enhancing uterus and cervix likely physiolo gic. Peripheral enhancing left ovarian cyst measuring 12 mm. Right adnexal cyst measuring 2.1 CCM. Previous described striated renal parenchymal enhancement is again seen today and can be seen with py elonephritis. Recommend correlation for UTI.Again seen is mild thickening involving the terminal ileu m and transverse colon. This is nonspecific but can be seen with inflammatory bowel disease. No evide nce of small or large bowel obstruction. CT/CT abdomen pelvis w con* [id number] IMPRESSION: 1. Bilateral enhancing ovarian cysts larger on the right measuring 2.1 CM. Thi s can be followed up with ultrasound. 2. Prior appendectomy. 3. Again seen is mild thickening involving the terminal ileum and transverse c olon. This is nonspecific but can be seen with inflammatory bowel disease. 4. Persistent striated enhancement involving both kidneys can be seen with pul monary nephritis. Recommend correlation for UTI. 5. Prior cholecystectomy. Notified Preet Alexandra DO at 01/20/2020 10:20 AM.
[2020-01-20] MEDS: pantoprazole 40 mg SDV IVP (09:02)
--- NOTE | 2020-01-20 09:20 | PC.NURSE ---
pt to CT by stretcher with tech
[2020-01-20] MEDS: iohexol 300 mg/mL 100 mL Btl IV (09:28)
[2020-01-20] MEDS: morphine 4 mg/mL SDV 1 mL IVP (10:48)
[2020-01-20 11:17] LABS: SARS Covid-2 Antigen Negative (Negative)
--- NOTE | 2020-01-20 12:12 | P.HP_ITS ---
Providers/Chief Complaint Primary Care Provider: Kam Ramirez MD Chief Complaint: nausea/dizziness History of Present Illness Joe Eisenberg is a 24 year old female with a past medical history of systemic lupus erythematosus and immunocompromise state that is undergoing work- up in an outside facility for Crohn's disease that presented to the emergency department for abdominal pain intractable nausea vomiting. She reported that her symptoms started suddenly last night, accompanied with body aches and generalized malaise. She reports that she has had increased mucus in her stools occasional bright red blood per rectum, occasional dark and tarry like stools that have intermittently occurred over the past several months. She reports that she has gastroenterology follow-up scheduled in [place] in [place], has not seen them. She reports being diagnosed with lupus and on Plaquenil and CellCept. She reports that she is followed by center line cutter operator, demurrage clerk and evaluation engineer in [place]. 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 She reports following up with her primary care provider last week had started on Mucinex for sinus congestion. Patient reports that she has not had any fevers or chills. No exposure to anyone under investigation are positive for COVID-19. Patient was seen and evaluated in the emergency department tested for COVID-19. Given IV fluids and IV opioids for pain control. She was admitted for observation due to concern for intractable nausea vomiting and diarrhea Review of Systems Const: Reports: body aches and malaise; Denies: fever(s) or chills Eyes: Denies: change in vision ENMT: Denies: nasal congestion Card: Denies: chest pain, palpitations or edema Resp: Denies: dyspnea, productive cough or hemoptysis GI: Reports: abdominal pain, nausea, vomiting, diarrhea, hematochezia and melena; Denies: constipation : Denies: dysuria or hematuria Musc: Denies: extremity pain or muscle cramps Skin/Breast: Denies: rash or new lesions Neuro: Denies: headache(s) or dizziness Psych: Denies: anxiety or depression Endo: Denies: polyuria or hot flashes Bobby/Lymph: Denies: easy bruising or easy bleeding Medications/Allergies Home Medications Medication Instructions Recorded Confirmed Last Taken Type Ferrex 150 Forte Plus 150 cap PO BID 05/27/19 01/20/20 01/20/20 History calcium carbonate-vitamin D3 1 tab PO DAILY 05/27/19 01/20/20 01/20/20 History [Calcium 500 + D] ergocalciferol (vitamin D2) See Rx Instructions .ROUTE .COMPLEX 05/27/19 01/20/20 01/19/20 History [Vitamin D2] ondansetron HCl 8 mg PO Q6H PRN 05/27/19 01/20/20 11/16/19 History pantoprazole 40 mg PO DAILY 05/27/19 01/20/20 01/20/20 History lorazepam 1 mg tablet 1 mg PO BID PRN #45 tab 10/12/19 01/20/20 01/20/20 Rx paroxetine HCl 20 mg tablet 20 mg PO BEDTIME #30 tab 10/12/19 01/20/20 01/19/20 Rx cholecalciferol (vitamin D3) 50 mcg PO DAILY 11/18/19 01/20/20 01/20/20 History [Vitamin D3] mycophenolate mofetil See Rx Instructions .ROUTE .COMPLEX 11/18/19 01/20/20 01/20/20 History naproxen sodium [Aleve] 440 mg PO Q6H PRN 11/18/19 01/20/20 11/16/19 History hydroxychloroquine 200 mg PO BID 12/25/19 01/20/20 01/20/20 History loratadine 10 mg PO DAILY 12/25/19 01/20/20 01/20/20 History sulfamethoxazole-trimethoprim See Rx Instructions .ROUTE .COMPLEX 12/25/1901/1901/20/20 History pseudoephedrine-guaifenesin [Mucus 1 tab PO BID PRN 01/20/20 01/20/20 Unknown History D] Allergies Allergy/AdvReac Type Severity Reaction Status Date / Time metoclopramide [From Reglan] Allergy ADR-Anxiety Verified 12/25/19 08:59 morphine Allergy ADR-Chest Verified 12/25/19 08:59 Pain PFSH Acute PFSH: Medical History (Updated 01/20/20 @ 12:15 by Luna Kamara DO) Generalized anxiety disorder Inflammatory bowel disease 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, follows up at [facility] Lupus nephritis Panic disorder [episodic paroxysmal anxiety] Surgical History History of appendectomy Hx of cholecystectomy Status post tonsillectomy and adenoidectomy Family History Mother Juvenile rheumatoid arthritis Social History (Updated 01/20/20 @ 12:16 by Luna Kamara DO) Smoking and tobacco status: never smoked Alcohol intake: never Substance/Drug Use: never Household members: family Housing: House Sexually active: Yes Female Reproductive History: Date of last menstrual period: 01/11/20 Vitals/I&O/Wt Last Vital Signs Temp 97.6 F 01/20/20 05:38 Pulse 98 01/20/20 10:58 Resp 14 01/20/20 08:35 BP 128/76 01/20/20 10:58 Pulse Ox 100 01/20/20 10:58 01/19/20 01/20/20 01/20/20 22:59 06:59 14:59 Intake Total 3050 / 3050 Balance 3050 / 3050 Weight last 48 hrs Weight 45.359 kg Physical Exam Const: COMMON NORMALS: patient oriented x3 and alert GENERAL APPEARANCE: cooperative ORIENTATION/CONSCIOUSNESS: Yes awake, Yes oriented to person, Yes oriented to place and Yes oriented to time HENMT: COMMON NORMALS: normocephalic and atraumatic HEAD & SCALP: normocep halic and atraumatic Eye: COMMON NORMALS: Equal, round and reactive pupils present PUPIL: Yes E qual, round and reactive pupils present Neck/C-Spine: COMMON NORMALS: supple GENERAL: Yes normal visual inspection Resp: COMMON NORMALS: normal respiratory effort and clear to auscultation bilaterally EFFORT & INSPECTION: Yes able to speak in complete sentences AUSCULTATION: clear to auscultation bilaterally, no rhonchi and no wheezes Cardio: COMMON NORMALS: regular rate, regular rhythm and No murmurs present (Cardio) RATE: regular rate RHYTHM: regular rhythm GI: COMMON NORMALS: Soft to palpation INSPECTION: No abdominal distension AUSCULTATION: Yes normoactive bowel sounds PALPATION: Yes Soft to palpation OTHER: Tenderness to palpation in the epigastric region, no guarding or rigidity : COMMON NORMALS: Yes no CVA tenderness BLADDER/KIDNEY EXAM: Yes no CVA t enderness Back/Pelvis: COMMON NORMALS: no CVA tenderness Extremity: COMMON NORMALS: no clubbing, cyanosis or edema and no calf tenderness Neuro: COMMON NORMALS: patient oriented x3, CN's II-XII intact bilaterally, moves all extremities and no focal motor deficits SENSORIUM/ORIENTATION: Yes alert, Yes oriented to person, Yes oriented to place and Yes oriented to time SPEECH: speech normal Psych: COMMON NORMALS: mental status grossly normal and cooperative Skin: COMMON NORMALS: no rashes or lesions noted GENERAL SKIN EXAM: no rashes or lesions noted Data : 01/20/20 14:15 01/20/20 06:06 CT Abd/Pel: I personally reviewed and interpreted this imaging study as follows: Radiologist's impression: 1. Bilateral enhancing ovarian cysts larger on the right measuring 2.1 CM. This can be followed up with ultrasound. 2. Prior appendectomy. 3. Again seen is mild thickening involving the terminal ileum and transverse colon. This is nonspecific but can be seen with inflammatory bowel disease. 4. Persistent striated enhancement involving both kidneys can be seen with pulmonary nephritis. Recommend correlation for UTI. 5. Prior cholecystectomy. A&P Assessment and plan (1) Inflammatory bowel disease: With concern for an acute flare, concern for underlying Crohn's disease Would recommend further outpatient follow-up, scheduled at [facility] We will start on steroid burst Monitoring stools and nausea closely, IV fluids and antiemetics Status: Acute (2) Lupus nephritis: History of lupus nephritis Chronic findings on CT scan, will continue to monitor closely and continue on IV Rocephin until urine culture returns Followed by nephrology in [place] Status: Acute (3) Lupus (systemic lupus erythematosus): Currently on Plaquenil, continued but will continue to monitor QT closely Holding CellCept due to concern for COVID testing and did not wish to continue with immunocompromising medications Status: Acute Qualifiers: Systemic lupus erythematosus organ involvement: unspecified Systemic lupus erythematosus type: unspecified Qualified Code(s): M32.9 - Systemic lupus erythematosus, unspecified Additional A&P Information Patient with myalgias, nasal congestion and diarrhea: Testing for COVID-19, rapid is negative however will remain on contact and isolation precautions with PCR testing ordered and pending DVT prophylaxis: SCDs Diet: Clear liquid, gradually increase as tolerated CODE STATUS: Full code Attestations Medical Necessity Statement*: Observation placement due to concern for intractable nausea vomiting abdominal pain with concern for flare of inf lammatory bowel disease, expected stay less than 2 midnights Coding Level of Care Code Acute Hide Selector for Chg Fwd Exam Comprehensive Diagnoses Inflammatory bowel disease K52.9 Lupus nephritis M32.14 Lupus (systemic lupus erythematosus) M32.9 Systemic lupus erythematosus organ involvement: unspecified Systemic lupus erythematosus type: unspecified
[2020-01-20 13:03] LABS: Procalcitonin 0.02 ng/mL (0-0.5)
[2020-01-20 14:33] LABS: Hematocrit 34.5 % (37.0-47.0); Hemoglobin 11.8 g/dL (11.5-15.3)
[2020-01-20] MEDS: sulfamethoxazole-trimeth DS 160-800 mg Tablet 0.5 TAB PO (15:00)
[2020-01-20] MEDS: prochlorperazine 10 mg Tablet 5 MG PO (15:00)
[2020-01-20] MEDS: HYDROcodone-acetaminophen 5-325 mg Tablet 1 TAB PO ×2 (15:00→22:04)
[2020-01-20] MEDS: iron complex forte Capsule 1 EACH PO (18:02)
[2020-01-20] MEDS: hydroxychloroquine 200 mg Tablet PO (18:02)
[2020-01-20] MEDS: predniSONE 20 mg Tablet 40 MG PO (18:02)
[2020-01-20] MEDS: PARoxetine 20 mg Tablet PO (20:18)
[2020-01-20] MEDS: LORazepam 1 mg Tablet PO (20:18)
[2020-01-20 21:47] LABS: Hematocrit 37.6 % (37.0-47.0); Hemoglobin 12.6 g/dL (11.5-15.3)
[2020-01-21] VITALS: BP 119/75; PULSE 87; RESP 17; TEMP 37.1; O2SAT 98
[2020-01-21 02:32] LABS: Alanine Aminotransferase 6 U/L (0-33); Albumin Level 3.8 g/dL (3.5-5.2); Alkaline Phosphatase 42 IU/L (35-105); Blood Urea Nitrogen 6 mg/dL (6-20); Calcium 8.6 mg/dL (8.5-10.5); Carbon Dioxide 18 mmol/L (22-29); Chloride 112 mmol/L (98-107); Glomerular Filtration Rate 122.8 mL/min (90-130); Glucose 145 mg/dL (65-115); Osmolality Calculated 284 mOsm/kg (285-295); Sodium 138 mmol/L (136-145); Total Bilirubin 0.3 mg/dL (0.15-1.2); Total Protein 5.8 g/dL (6.6-8.7)
[2020-01-21 02:33] LABS: Anion Gap 12.4 (5-19); Aspartate Amino Transferase 15 U/L (0-32); Potassium 4.4 mmol/L (3.5-5.1)
[2020-01-21 04:00] VITALS: BP 105/58; PULSE 60; RESP 16; TEMP 36.7; O2SAT 95
[2020-01-21 06:05] LABS: Basophils % 0.3 %; Hematocrit 37.4 % (37.0-47.0); Hemoglobin 12.1 g/dL (11.5-15.3); Lymphocytes # 0.6 10^3/uL (0.8-4.8); Lymphocytes % 9.4 %; Mean Corpuscular HGB Conc 32.4 g/dL (30.0-36.0); Mean Corpuscular Hemoglobin 29.3 pg (28.0-34.0); Mean Corpuscular Volume 90.6 fL (81-99); Mean Platelet Volume 10.9 fL (7.4-10.4); Monocytes # 0.3 10^3/uL (0.2-0.9); Monocytes % 4.5 %; Neutrophils # 5.53 10^3/uL (1.8-7.7); Neutrophils % 85.6 %; Nucleated Red Blood Cells % 0 %; Platelet Count 271 10^3/cmm (130-400); Red Blood Count 4.13 10^6/uL (4.1-5.3); Red Cell Distribution Width 12.5 % (12.1-15.1); White Blood Count 6.5 10^3/uL (4.0-10.0)
[2020-01-21] MEDS: cefTRIAXone 1,000 MG in sodium chloride 0.9% (plus) 50 ML 100 MG IV ×2 (06:35→18:12)
[2020-01-21 07:46] VITALS: BP 113/63; PULSE 63; RESP 15; TEMP 36.7; O2SAT 98
[2020-01-21] MEDS: calcium carb-vit d 500mg-200unit 1 Tablet 1 EACH PO (08:34)
[2020-01-21] MEDS: hydroxychloroquine 200 mg Tablet PO ×2 (08:34→18:12)
[2020-01-21] MEDS: ergocalciferol (vitamin D2) 50,000 Unit Capsule 50000 UNIT PO (08:34)
[2020-01-21] MEDS: predniSONE 20 mg Tablet 40 MG PO (08:34)
[2020-01-21] MEDS: cholecalciferol (vitamin D3) 1,000 unit Tablet 2000 UNIT PO (08:35)
[2020-01-21] MEDS: iron complex forte Capsule 1 EACH PO ×2 (08:35→18:12)
--- NOTE | 2020-01-21 10:29 | PM.PN ---
Subjective Subjective: Interval history: Patient resting in bed at time of exam this morning. Reported that her abdominal pain is slowly improving, reports continued intermittent nausea. Discussed with patient conversation with her primary care provider about the possibility of inpatient EGD and colonoscopy due to her continued issues with abdominal pain intermittently, she verbalized understanding and agreed with plan. Patient denied any chest pain or shortness of breath Vitals/I&O/Wt Last Vital Signs Temp 98.1 F 01/21/20 07:46 Pulse 63 01/21/20 07:46 Resp 15 01/21/20 07:46 BP 113/63 01/21/20 07:46 Pulse Ox 98 01/21/20 07:46 01/20/20 01/21/20 01/21/20 22:59 06:59 14:59 Intake Total 290 / 3340 250 / 250 Output Total 200 / 200 500 / 500 Balance 290 / 3340 -200 / 3140 -250 / -250 Weight last 48 hrs Weight 62.766 kg Weight 45.359 kg Physical Exam Const: COMMON NORMALS: patient oriented x3 and alert GENERAL APPEARANCE: cooperative ORIENTATION/CONSCIOUSNESS: Yes awake, Yes oriented to person, Yes oriented to place and Yes oriented to time HENMT: COMMON NORMALS: normocephalic and atraumatic HEAD & SCALP: normocephalic and atraumatic Eye: COMMON NORMALS: Equal, round and reactive pupils present PUPIL: Yes Equal, round and reactive pupils present Neck/C-Spine: COMMON NORMALS: supple GENERAL: Yes normal visual inspection Resp: COMMON NORMALS: normal respiratory effort and clear to auscultation bilaterally EFFORT & INSPECTION: Yes able to speak in complete sentences AUSCULTATION: clear to auscultation bilaterally, no rhonchi and no wheezes Cardio: COMMON NORMALS: regular rate, regular rhythm and No murmurs present (Cardio) RATE: regular rate RHYTHM: regular rhythm GI: COMMON NORMALS: Soft to palpation INSPECTION: No abdominal distension AUSCULTATION: Yes normoactive bowel sounds PALPATION: Yes Soft to palpation OTHER: Soft, nontender, nondistended, normal bowel sounds, tenderness to palpation in the epigastric region has now improved Extremity: COMMON NORMALS: no clubbing, cyanosis or edema and no calf tenderness Neuro: COMMON NORMALS: patient oriented x3, CN's II-XII intact bilaterally, moves all extremities and no focal motor deficits SENSORIUM/ORIENTATION: Yes alert, Yes oriented to person, Yes oriented to place and Yes oriented to time SPEECH: speech normal Psych: COMMON NORMALS: mental status grossly normal and cooperative Skin: COMMON NORMALS: no rashes or lesions noted GENERAL SKIN EXAM: no rashes or lesions noted Data : 01/21/20 05:28 01/21/20 01:56 A&P Assessment and plan (1) Inflammatory bowel disease: With concern for an acute flare, concern for underlying Crohn's disease Would recommend further outpatient follow-up, scheduled at [facility], discussed with Dr. Ramirez, her primary care provider Discussion with Dr. Fabian today for consultation after discussion with PCP to consider inpatient EGD and colonoscopy due to continued issues with intermittent abdominal pain and nausea. Stool studies ordered, however diarrhea has improved with no reported bowel movements overnight. Appreciate consultation and assistance in patient's care Remains on prednisone burst treatment Status: Acute (2) Lupus nephritis: History of lupus nephritis Chronic findings on CT scan, will continue to monitor closely and continue on IV Rocephin until urine culture returns Followed by nephrology in [place] Status: Acute (3) Lupus (systemic lupus erythematosus): Currently on Plaquenil, continued but will continue to monitor QT closely Holding CellCept due to concern for COVID testing and did not wish to continue with immunocompromising medications Status: Acute Qualifiers: Systemic lupus erythematosus organ involvement: unspecified Systemic lupus erythematosus type: unspecified Qualified Code(s): M32.9 - Systemic lupus erythematosus, unspecified Additional A&P Information Patient with myalgias, nasal congestion and diarrhea: Testing for COVID-19, rapid is negative however will remain on contact and isolation precautions with PCR testing remains pending history of campylobacter in May with repeat testing in October that was negative. Repeat stool studies ordered. DVT prophylaxis: SCDs Diet: Full liquid CODE STATUS: Full code Attestations Medical Necessity Statement*: Continued hospitalization due to concern for inflammatory bowel disease with acute flare up. Coding Level of Care Code Acute Benefit Specialist for Chg Fwd Diagnoses Inflammatory bowel disease K52.9 Lupus nephritis M32.14 Lupus (systemic lupus erythematosus) M32.9 Systemic lupus erythematosus organ involvement: unspecified Systemic lupus erythematosus type: unspecified
--- NOTE | 2020-01-21 11:15 | PM.CONSULT ---
Providers/Reason For Consult Consulting Physican/Specialty*: General Surgery John Fabian MD Reason for Consult*: Request for EGD and colonoscopy. Attending Physician: Luna Kamara DO Primary Care Provider: Kam Ramirez MD History of Present Illness History of Present Illness Joe Eisenberg is a 24 year old female with a past medical history of systemic lupus erythematosus and associated nephritis who was admitted yesterday with nausea and vomiting. She feels much better today. She has apparently been worked up as an outpatient for possible inflammatory bowel disease. She was set up with a ergonomist at [facility] in [place] last month and a colonoscopy was attempted. She says the endoscopist told her her colon was twisted and he wanted her to return the next day for another attempt at colonoscopy. She got frustrated and never went back. She was thinking about trying to get set up with a ergonomist at [facility] in [place] where her therapeutic dietitian and bakery and deli sales manager are. Apparently this has taken some time and I have been asked to discuss possible endoscopy with the patient while she is currently hospitalized. On admission yesterday she had a CAT scan which showed changes of terminal ileum thickening as well as some possible similar changes in the transverse colon. At least some of these changes have been seen on previous imaging. She does admit that over the past 5 or 6 months she has had episodic abdominal pain and points to her epigastrium as well as her suprapubic region. In addition, she says she has had some bright red blood with bowel movements very regularly over the past 6 months, although interestingly she has not seen any now for about 10 days. She also has dark stools at times, but denies that these are as dark as black in color. She does have a history of gastric irritation but she says that has been attributed to the immunologic agents that she has to take for her lupus; she has been on Protonix for about 3 years. She denies any evidence of hematemesis. Review of Systems General: Reports: 10 or more systems reviewed and unremarkable except in HPI and below Const: Denies: fever(s) GI: Reports: abdominal pain, nausea, vomiting and hematochezia Psych: Reports: anxiety Meds/Allergies Home Medications and Allergies Home Medications Medication Instructions Recorded Confirmed Last Taken Type Ferrex 150 Forte Plus 150 cap PO BID 05/27/19 01/20/20 01/20/20 History calcium carbonate-vitamin D3 1 tab PO DAILY 05/27/19 01/20/20 01/20/20 History [Calcium 500 + D] ergocalciferol (vitamin D2) See Rx Instructions .ROUTE .COMPLEX 05/27/19 01/20/20 01/19/20 History [Vitamin D2] ondansetron HCl 8 mg PO Q6H PRN 05/27/19 01/20/20 11/16/19 History pantoprazole 40 mg PO DAILY 05/27/19 01/20/20 01/20/20 History lorazepam 1 mg tablet 1 mg PO BID PRN #45 tab 10/12/19 01/20/20 01/20/20 Rx paroxetine HCl 20 mg tablet 20 mg PO BEDTIME #30 tab 10/12/19 01/20/20 01/19/20 Rx cholecalciferol (vitamin D3) 50 mcg PO DAILY 11/18/19 01/20/20 01/20/20 History [Vitamin D3] mycophenolate mofetil See Rx Instructions .ROUTE .COMPLEX 11/18/19 01/20/20 01/20/20 History naproxen sodium [Aleve] 440 mg PO Q6H PRN 11/18/19 01/20/20 11/16/19 History hydroxychloroquine 200 mg PO BID 12/25/19 01/20/20 01/20/20 History loratadine 10 mg PO DAILY 12/25/19 01/20/20 01/20/20 History sulfamethoxazole-trimethoprim See Rx Instructions .ROUTE .COMPLEX 12/25/19 01/20/20 01/20/20 History pseudoephedrine-guaifenesin [Mucus 1 tab PO BID PRN 01/20/20 01/20/20 Unknown History D] Allergies Allergy/AdvReac Type Severity Reaction Status Date / Time metoclopramide [From Reglan] Allergy ADR-Anxiety Verified 12/25/19 08:59 morphine Allergy ADR-Chest Verified 12/25/19 08:59 Pain Current Medications Current Medications Generic Name Dose Route Start Last Admin Trade Name Freq PRN Reason Stop Dose Admin Hydrocodone Bitart/Acetaminophen 1 tab 01/20/20 12:04 01/20/20 22:04 [place] 5-325 Mg PO 1 tab Q4H PRN Administration MODERATE TO SEVERE PAIN Calcium Carbonate 1 each 01/21/20 09:00 01/21/20 08:34 Oyster Shell 500mg-Vit D 200unit PO 1 each DAILY RHIANNON Administration Ergocalciferol 50,000 unit 01/21/20 09:00 01/21/20 08:34 Vitamin D2 PO 50,000 unit [id number] RHIANNON Administration Folic Acid/Iron/Vitamin B12 1 each 01/20/20 18:00 01/21/20 08:35 Ferrex 150 Forte PO 1 each BID RHIANNON Administration Hydroxychloroquine Sulfate 200 mg 01/20/20 18:00 01/21/20 08:34 Plaquenil PO 200 mg BID RHIANNON Administration Ceftriaxone Sodium 1,000 mg/ 50 mls @ 100 mls/hr 01/20/20 19:00 01/21/20 07:05 Sodium Chloride IV Infused Q12H RHIANNON Infusion Protocol Lorazepam 1 mg 01/20/20 12:01 01/20/20 20:18 Ativan PO 1 mg BID PRN Administration Nausea Paroxetine HCl 20 mg 01/20/20 21:00 01/20/20 20:18 Paxil PO 20 mg BEDTIME RHIANNON Administration Prednisone 40 mg 01/20/20 16:40 01/21/20 08:34 Prednisone PO 40 mg DAILY RHIANNON Administration Prochlorperazine 5 mg 01/20/20 12:04 01/20/20 15:00 Compazine PO 5 mg Q8H PRN Administration N/V Trimethoprim/Sulfamethoxazole 0.5 tab 01/20/20 15:00 01/20/20 15:00 Bactrim Ds PO 0.5 tab TuThSa RHIANNON Administration Vitamin D 2,000 unit 01/21/20 09:00 01/21/20 08:35 Vitamin D3 PO 2,000 unit DAILY RHIANNON Administration PFSH Acute PFSH: Medical History Generalized anxiety disorder Inflammatory bowel disease 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, follows up at [facility] Lupus nephritis Panic disorder [episodic paroxysmal anxiety] Surgical History (Updated 01/21/20 @ 11:28 by John Fabian MD) History of appendectomy [place] Hx of cholecystectomy [place] Status post biopsy of kidney Multiple percutaneous biopsies Status post tonsillectomy and adenoidectomy Family History Mother Juvenile rheumatoid arthritis Social History Smoking and tobacco status: never smoked Alcohol intake: never Substance/Drug Use: never Household members: family Housing: House Sexually active: Yes Female Reproductive History: Date of last menstrual period: 01/12/20 Vitals/I&O/Wt Last Vital Signs Temp 98.1 F 01/21/20 07:46 Pulse 63 01/21/20 07:46 Resp 15 01/21/20 07:46 BP 113/63 01/21/20 07:46 Pulse Ox 98 01/21/20 07:46 01/20/20 01/21/20 01/21/20 22:59 06:59 14:59 Intake Total 290 / 3340 250 / 250 Output Total 200 / 200 500 / 500 Balance 290 / 3140 -200 / 3140 -250 / -250 Weight last 48 hrs Weight 138 lb 6 oz Weight 100 lb Physical Exam Narrative: EXAM NARRATIVE: The patient was examined in her hospital room. She was initially sleeping but was easily arousable. She is in no distress. The pupils are equal. No neck masses are palpated. The chest is clear anteriorly. The heart is regular. The abdomen reveals bowel sounds and is soft. She does not have any significant tenderness on my exam. No obvious masses are palpated. The extremities reveal no edema. Neurologically the patient appears to be grossly intact. Data Imaging^: CT Abd/Pel: Radiologist's impression: CT abdomen/pelvis 01/20/2020 iMPRESSION: 1. Bilateral enhancing ovarian cysts larger on the right measuring 2.1 CM. This can be followed up with ultrasound. 2. Prior appendectomy. 3. Again seen is mild thickening involving the terminal ileum and transverse colon. This is nonspecific but can be seen with inflammatory bowel disease. 4. Persistent striated enhancement involving both kidneys can be seen with pulmonary nephritis. Recommend correlation for UTI. 5. Prior cholecystectomy. A&P Assessment and plan (1) Abnormal CT scan, gastrointestinal tract: CT reviewed. I agree with the finding of changes of the terminal ileum, but the transverse colon changes are little bit more difficult for me to identify. Obviously, both of these areas could be consistent with inflammatory bowel disease. The patient has been counseled regarding an EGD and colonoscopy. Endoscopic risks of bleeding, perforation, possible need for surgery, etc. were all gone over. The patient seems to understand and is agreeable to proceeding with an EGD and colonoscopy tomorrow morning. Status: Acute (2) Hematochezia: This has been going on fairly regularly for 5 to 6 months, but the patient says she has not had any bleeding over the past week and a half or so. Status: Acute (3) Abdominal pain: This has been intermittent over the past 5 to 6 months. Currently she is feeling well, but has had some steroids, etc. Status: Acute Consult Attestations Medical Necessity Statement: See admitting service's notation. Coding Level of Care Code Acute Customer Care Manager for [facility] Jeannette Diagnoses Abnormal CT scan, gastrointestinal tract R93.3 Hematochezia K92.1 Abdominal pain R10.9
[2020-01-21 12:00] VITALS: BP 112/60; PULSE 63; RESP 15; TEMP 36.7; O2SAT 98
[2020-01-21] MEDS: LORazepam 1 mg Tablet PO (12:10)
--- NOTE | 2020-01-21 12:32 | P.ANESASSM_ITS ---
Pre-Anesthetic Assessment Pre-Anesthetic Assessment: Height/Weight: Height 1.57 m Weight 62.766 kg Temp Pulse Resp BP Pulse Ox 98.1 F 63 15 113/63 98 01/21/20 07:46 01/21/20 07:46 01/21/20 07:46 01/21/20 07:46 01/21/20 07:46 Preop Diagnosis: Abdominal pain Proposed Procedure: Operation Date: 01/22/20 08:00 Proposed Procedures p EGD(Not Applicable) - John Fabian MD s Colonoscopy(Not Applicable) - John Fabian MD Familial anesthetic complications: none Was Beta Lena taken within 24 hours: N/A Social: Social History: No alcohol and No tobacco Exam: Pre-Anes Outpt Exam: alert, oriented x 3, clear to auscultation bilaterally and regular rate & rhythm Airway: Cervical ROM: WNL MP: 1 Dentition: Full : : Chronic renal Insufficiency Comments: lupus Anesthetic Plan: ASA status: 2 Anesthesia: MAC Risk of > 500 ml blood loss (7ml/kg in children): No Meds/Allergies Current Medications: Current Medications Generic Name Dose Route Start Last Admin Trade Name Freq PRN Reason Stop Dose Admin Hydrocodone Bitart /Acetaminophen 1 tab 01/20/20 12:04 01/20/20 22:04 [place] 5-325 Mg PO 1 tab Q4H PRN Administration MODERATE TO SEVER E PAIN Calcium Carbonate 1 each 01/21/20 09:00 01/21/20 08:34 Oyster Shell 500 mg-Vit D 200unit PO 1 each DAILY RHIANNON Administration Ergocalciferol 50,000 unit 01/21/20 09:00 01/21/20 08:34 Vitamin D2 PO 50,000 unit [id number] RHIANNON Administration Folic Acid/Iron/Vi tamin B12 1 each 01/20/20 18:00 01/21/20 08:35 Ferrex 150 Forte PO 1 each BID RHIANNON Administration Hydroxychloroquine Sulfate 200 mg 01/20/20 18:00 01/21/20 08:34 Plaquenil PO 200 mg BID RHIANNON Administration Ceftriaxone Sodium 1,000 mg/ 50 mls @ 100 mls/ hr 01/20/20 19:00 01/21/20 07:05 Sodium Chloride IV Infused Q12H RHIANNON Infusion Protocol Lorazepam 1 mg 01/20/20 12:01 01/21/20 12:10 Ativan PO 1 mg BID PRN Administration Nausea Paroxetine HCl 20 mg 01/20/20 21:00 01/20/20 20:18 Paxil PO 20 mg BEDTIME RHIANNON Administration Prednisone 40 mg 01/20/20 16:40 01/21/20 08:34 Prednisone PO 40 mg DAILY RHIANNON Administration Prochlorperazine 5 mg 01/20/20 12:04 01/20/20 15:00 Compazine PO 5 mg Q8H PRN Administration N/V Trimethoprim/Sulfa methoxazole 0.5 tab 01/20/20 15:00 01/20/20 15:00 Bactrim Ds PO 0.5 tab TuThSa RHIANNON Administration Vitamin D 2,000 unit 01/21/20 09:00 01/21/20 08:35 Vitamin D3 PO 2,000 unit DAILY RHIANNON Administration PFSH Anesthesia PFSH: Medical History Generalized anxiety disorder Inflammatory bowel disease 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, follows up at [facility] Lupus nephritis Panic disorder [episodic paroxysmal anxiety] Surgical History (Updated 01/21/20 @ 11:28 by John Fabian MD) History of appendectomy [place] Hx of cholecystectomy Christina Status post biopsy of kidney Multiple percutaneous biopsies Status post tonsillectomy and adenoidectomy Family History Mother Juvenile rheumatoid arthritis Social History Smoking and tobacco status: never smoked Alcohol intake: never Substance/Drug Use: never Household members: family Housing: House Sexually active: Yes Female Reproductive History: Date of last menstrual period: 01/12/20 Data Anesthesia CBC & Chem 7: 01/21/20 05:28 01/21/20 01:56 Other Labs: Laboratory Results - last 48 hr 01/20/20 01/20/20 01/20/20 06:06 06:06 06:06 WBC 9.0 Corrected WBC RBC 4.93 Hgb 14.6 Hct 42.2 MCV 85.6 MCH 29.6 MCHC 34.6 RDW 12.3 Plt Count 332 MPV 11.0 H Gran % Neut % (Auto) 86.5 Lymph % (Auto) 7.2 [place] % (Auto) 5.1 Eos % (Auto) 0.3 Baso % (Auto) 0.6 Neut # (Auto) 7.81 H Lymph # (Auto) 0.7 L [place] # (Auto) 0.5 Eos # (Auto) 0.0 Baso # (Auto) 0.1 Absolute Gran (auto) Nucleated RBC % (auto) 0 Nucleated RBCs # 0.0 Sodium 135 L Potassium 3.4 L Chloride 103 Carbon Dioxide 18 L Anion Gap 17.4 BUN 11 Creatinine 0.7 GFR Calculation 102.8 Glucose 120 H Calculated Osmolality 277 L Lactic Acid 1.5 Calcium 9.2 Total Bilirubin 0.6 AST 14 ALT 7 Alkaline Phosphatase 53 Total Protein 7.4 Albumin 4.7 Globulin 2.7 Lipase 58 Procalcitonin TSH HCG, Qual Urine Color Urine Appearance Urine pH Ur Specific [place] Urine Protein Urine Glucose (UA) Urine Ketones Urine Blood Urine Nitrate Urine Bilirubin Urine Urobilinogen Ur Leukocyte Esterase Urine RBC Urine WBC Ur Squamous Epith Cells Amorphous Sediment Urine Bacteria Urine Mucus SARS-CoV-2 Ag (Rapid) 01/20/20 01/20/20 01/20/20 06:06 06:06 06:06 WBC Corrected WBC RBC Hgb Hct MCV MCH MCHC RDW Plt Count MPV Gran % Neut % (Auto) Lymph % (Auto) [place] % (Auto) Eos % (Auto) Baso % (Auto) Neut # (Auto) Lymph # (Auto) [place] # (Auto) Eos # (Auto) Baso # (Auto) Absolute Gran (auto) Nucleated RBC % (auto) Nucleated RBCs # Sodium Potassium Chloride Carbon Dioxide Anion Gap BUN Creatinine GFR Calculation Glucose Calculated Osmolality Lactic Acid Calcium Total Bilirubin AST ALT Alkaline Phosphatase Total Protein Albumin Globulin Lipase Procalcitonin 0.02 TSH 2.30 HCG, Qual Negative Urine Color Yellow Urine Appearance Clear Urine pH 5.0 Ur Specific [place] 1.020 Urine Protein 1+ H Urine Glucose (UA) Norm Urine Ketones 1+ H Urine Blood 2+ H Urine Nitrate Negative Urine Bilirubin Neg Urine Urobilinogen Norm Ur Leukocyte Esterase Trace Urine RBC 5-10 H Urine WBC 5-10 H Ur Squamous Epith Cells 0-4 H Amorphous Sediment Not Reportable Urine Bacteria 1+ H Urine Mucus 1+ SARS-CoV-2 Ag (Rapid) 01/20/20 01/20/20 01/20/20 10:50 14:15 21:41 WBC Corrected WBC RBC Hgb 11.8 12.6 Hct 34.5 L 37.6 MCV MCH MCHC RDW Plt Count MPV Gran % Neut % (Auto) Lymph % (Auto) [place] % (Auto) Eos % (Auto) Baso % (Auto) Neut # (Auto) Lymph # (Auto) [place] # (Auto) Eos # (Auto) Baso # (Auto) Absolute Gran (auto) Nucleated RBC % (auto) Nucleated RBCs # Sodium Potassium Chloride Carbon Dioxide Anion Gap BUN Creatinine GFR Calculation Glucose Calculated Osmolality Lactic Acid Calcium Total Bilirubin AST ALT Alkaline Phosphatase Total Protein Albumin Globulin Lipase Procalcitonin TSH HCG, Qual Urine Color Urine Appearance Urine pH Ur Specific [place] Urine Protein Urine Glucose (UA) Urine Ketones Urine Blood Urine Nitrate Urine Bilirubin Urine Urobilinogen Ur Leukocyte Esterase Urine RBC Urine WBC Ur Squamous Epith Cells Amorphous Sediment Urine Bacteria Urine Mucus SARS-CoV-2 Ag (Rapid) Negative 01/21/20 01/21/20 01/21/20 01:56 01:56 05:28 WBC Cancelled 6.5 Corrected WBC Cancelled RBC Cancelled 4.13 Hgb Cancelled 12.1 Hct Cancelled 37.4 MCV Cancelled 90.6 D MCH Cancelled 29.3 MCHC Cancelled 32.4 D RDW Cancelled 12.5 Plt Count Cancelled 271 MPV Cancelled 10.9 H Gran % Cancelled Neut % (Auto) Cancelled 85.6 Lymph % (Auto) Cancelled 9.4 [place] % (Auto) Cancelled 4.5 Eos % (Auto) Cancelled 0.0 Baso % (Auto) Cancelled 0.3 Neut # (Auto) Cancelled 5.53 Lymph # (Auto) Cancelled 0.6 L [place] # (Auto) Cancelled 0.3 Eos # (Auto) Cancelled 0.0 Baso # (Auto) Cancelled 0.0 Absolute Gran (auto) Cancelled Nucleated RBC % (auto) Cancelled 0 Nucleated RBCs # Cancelled 0.0 Sodium 138 Potassium 4.4 Chloride 112 H Carbon Dioxide 18 L Anion Gap 12.4 BUN 6 Creatinine 0.6 GFR Calculation 122.8 Glucose 145 H Calculated Osmolality 284 L Lactic Acid Calcium 8.6 Total Bilirubin 0.3 AST 15 ALT 6 Alkaline Phosphatase 42 Total Protein 5.8 L D Albumin 3.8 Globulin 2.0 Lipase Procalcitonin TSH HCG, Qual Urine Color Urine Appearance Urine pH Ur Specific [place] Urine Protein Urine Glucose (UA) Urine Ketones Urine Blood Urine Nitrate Urine Bilirubin Urine Urobilinogen Ur Leukocyte Esterase Urine RBC Urine WBC Ur Squamous Epith Cells Amorphous Sediment Urine Bacteria Urine Mucus SARS-CoV-2 Ag (Rapid) Cardiac Studies: No Data to Display
[2020-01-21] MEDS: magnesium citrate Btl 296 mL PO ×2 (12:34→16:26)
[2020-01-21] MEDS: HYDROcodone-acetaminophen 5-325 mg Tablet 1 TAB PO ×3 (14:24→22:58)
[2020-01-21 16:00] VITALS: BP 123/79; PULSE 85; RESP 18; TEMP 36.8; O2SAT 97
[2020-01-21] MEDS: morphine 4 mg/mL SDV 1 mL 2 MG IVP (16:32)
[2020-01-21] MEDS: prochlorperazine 10 mg Tablet 5 MG PO (18:07)
--- NOTE | 2020-01-21 18:31 | PC.NURSE ---
END OF SHIFT SUMMARY pt has been able to rest well today. pt has voiced complaints of nausea and pain. pain has been controlled with hydro and morphine. nausea has been controlled with ativan and compazine. pt is a/ox4 and has been very pleasant.
[2020-01-21 20:00] VITALS: BP 118/75; PULSE 70; RESP 18; TEMP 37; O2SAT 98
[2020-01-21] MEDS: PARoxetine 20 mg Tablet PO (20:53)
[2020-01-21] MEDS: acetaminophen 325 mg Tablet 650 MG PO (20:53)
[2020-01-21 22:17] LABS: Quest SARS-CoV-2 RNA NOT DETECTED (NOT DETECTED)
[2020-01-22] VITALS (10 sets, daily range): BP systolic 97–130; BP diastolic 59–78; PULSE 57–74; RESP 16–18; TEMP 36.4–36.9; O2SAT 96–100
[2020-01-22] MEDS: morphine 4 mg/mL SDV 1 mL 2 MG IVP (00:32)
[2020-01-22 04:10] LABS: Basophils # 0.1 10^3/uL (0.0-0.1); Basophils % 0.9 %; Eosinophils # 0.1 10^3/uL (0.0-0.8); Eosinophils % 1.8 %; Hematocrit 35.8 % (37.0-47.0); Hemoglobin 11.8 g/dL (11.5-15.3); Lymphocytes # 2.1 10^3/uL (0.8-4.8); Lymphocytes % 30.4 %; Mean Corpuscular Hemoglobin 29.5 pg (28.0-34.0); Mean Corpuscular Volume 89.5 fL (81-99); Mean Platelet Volume 11.2 fL (7.4-10.4); Monocytes # 0.5 10^3/uL (0.2-0.9); Neutrophils # 3.96 10^3/uL (1.8-7.7); Neutrophils % 58.8 %; Nucleated Red Blood Cells % 0 %; Platelet Count 246 10^3/cmm (130-400); Red Cell Distribution Width 12.5 % (12.1-15.1); White Blood Count 6.7 10^3/uL (4.0-10.0)
[2020-01-22 04:31] LABS: Alanine Aminotransferase 6 U/L (0-33); Albumin Level 3.8 g/dL (3.5-5.2); Alkaline Phosphatase 37 IU/L (35-105); Aspartate Amino Transferase 12 U/L (0-32); Blood Urea Nitrogen 7 mg/dL (6-20); Calcium 8.6 mg/dL (8.5-10.5); Carbon Dioxide 23 mmol/L (22-29); Chloride 108 mmol/L (98-107); Glomerular Filtration Rate 102.8 mL/min (90-130); Glucose 103 mg/dL (65-115); Osmolality Calculated 286 mOsm/kg (285-295); Sodium 140 mmol/L (136-145); Total Bilirubin 0.2 mg/dL (0.15-1.2); Total Protein 5.8 g/dL (6.6-8.7)
[2020-01-22 04:35] LABS: Anion Gap 12.4 (5-19); Potassium 3.4 mmol/L (3.5-5.1)
[2020-01-22] MEDS: cefTRIAXone 1,000 MG in sodium chloride 0.9% (plus) 50 ML 100 MG IV (06:14)
--- NOTE | 2020-01-22 07:20 | PC.NURSE ---
Pt stated she had six to seven bowel movements last night that were not observed. Pt stated her bowels were pretty clear and it was wuite a bit each time she went.
[2020-01-22] MEDS: sodium chloride 0.9% 1,000 ML 30 ML IV (07:39)
--- NOTE | 2020-01-22 07:50 | PM.PN ---
Subjective Subjective: Interval history: The patient says her bowel prep yesterday seemed to work well. She is still feeling well this morning and is ready to proceed with endoscopy. Vitals/I&O/Wt Last Vital Signs Temp 98.4 F 01/22/20 07:39 Pulse 60 01/22/20 07:39 Resp 18 01/22/20 07:39 BP 119/74 01/22/20 07:39 Pulse Ox 96 01/22/20 07:39 01/21/20 01/22/20 01/22/20 22:59 06:59 14:59 Intake Total 150 / 600 Output Total 1050 / 1630 80 / 1630 Balance -900 / -1030 -80 / -1030 Weight last 48 hrs Weight 136 lb Weight 138 lb 6 oz Physical Exam Narrative: EXAM NARRATIVE: Abdomen remains with no significant appreciable tenderness.. Data : 01/22/20 03:45 01/22/20 03:45 A&P Assessment and plan (1) Abnormal CT scan, gastrointestinal tract: CT reviewed. I agree with the finding of changes of the terminal ileum, but the transverse colon changes are little bit more difficult for me to identify. Obviously, both of these areas could be consistent with inflammatory bowel disease. Proceeding with upper and lower endoscopy today. Status: Acute (2) Hematochezia: This has been going on fairly regularly for 5 to 6 months, but the patient says she has not had any bleeding over the past week and a half or so. Status: Acute (3) Abdominal pain: This has been intermittent over the past 5 to 6 months. Currently she is feeling well, but has had some steroids, etc. Status: Acute Attestations Medical Necessity Statement*: See admitting service's notation. Coding Level of Care Code Acute Veterinary Surgery Technologist for [facility] Jeannette Diagnoses Abnormal CT scan, gastrointestinal tract R93.3 Hematochezia K92.1 Abdominal pain R10.9
--- NOTE | 2020-01-22 08:29 | ANE.PACU2 ---
Inpatient post-anesthesia follow up: Airway intact: Yes Vital signs: Temperature 98.4 F Pulse Rate [Monito r] 107 Pulse Rate 60 Respiratory Rate 18 Blood Pressure [Ri ght Arm] 144/84 Blood Pressure 119/74 Pulse Oximetry 96 Oxygen Delivery Me thod Room Air Oxygen Flow Rate Fraction of Inspir ed Oxygen Hydration adequate: Yes Nausea and vomiting: No Pain level: 1 Mental status: Baseline (drowsy) Additional Comments: Return to floor
--- NOTE | 2020-01-22 08:35 | SUR.PHASEI ---
DR BOONE AT BEDSIDE TALKATIVE WITH PT, PT AWAKE ALERT ASKING QUIESTONS PT HAD HICCUPS ON ARRIVAL BUT ARE GONE NOW, IV PATENT REPORT CALLED TO FLOOR NURSE KASH.
[2020-01-22] MEDS: pantoprazole DR 40 mg Tablet PO (10:44)
--- NOTE | 2020-01-22 12:29 | P.DS_ITS ---
Discharge Providers Date of Admission: 01/21/20 15:51 Date of Discharge: January 22, 2020 Attending Provider at Admission: Luna Kamara DO Attending Provider at Discharge: Luna Kamara DO Primary Care Provider: Kam Ramirez MD Diagnoses at Discharge Discharge Diagnosis (1) Abnormal CT scan, gastrointestinal tract: Status: Acute (2) Hematochezia: Status: Acute (3) Abdominal pain: Status: Acute (4) Lupus (systemic lupus erythematosus): Status: Chronic Problem details: complicated by nephropathy, follows up at [facility] (5) Lupus nephritis: Status: Chronic Reason for Visit Reason for Visit: nausea/dizziness Hospital Course Hospital Course: 24 year old female with a past medical history of systemic lupus erythematosus and immunocompromise state that is undergoing work-up in an outside facility for Crohn's disease that presented to the emergency department for abdominal pain intractable nausea vomiting. She was managed for possible Crohn's flare she was started on steroids to which she responded well. At the time of discharge she was not complaining of any nausea, vomiting, diarrhea abdominal pain. She also received an EGD and colonoscopy while inpatient. EGD was suggestive of antral gastritis. Antral biopsies were taken.Colonoscopy revealed limited area of very mild inflammation in the transverse colon. Biopsies taken. Random biopsies were also taken of the terminal ileum, although no appreciable mucosal abnormalities were present. CT abdomen pelvis w con was done mild thickening involving the terminal ileum and transverse colon. This is nonspecific but can be seen with inflammatory bowel disease. She will continue to follow Dr. Ramirez as outpatient. They are trying to set up an appointment with a GI doc [facility]. Patient is being discharged in stable condition Physical Exam Const: COMMON NORMALS: patient oriented x3 HENMT: COMMON NORMALS: normocephalic, atraumatic, hearing grossly normal bilaterally and external ears normal HEAD & SCALP: normocephalic and atraumatic EXTERNAL EAR: Yes external ears normal Eye: COMMON NORMALS: no scleral icterus GENERAL EYE: appearance normal, both eyes and all related structures Chest: COMMONS NORMALS: normal inspection of the chest and normal palpation of entire chest wall CHEST: Yes Symmetrical chest wall rise Resp: COMMON NORMALS: normal respiratory effort, No retractions, No use of accessory muscles and clear to auscultation bilaterally EFFORT & INSPECTION: Yes symmetric chest movement AUSCULTATION: clear to auscultation bilaterally Cardio: COMMON NORMALS: regular rate, regular rhythm, S1 normal heart sound present, S2 normal heart sound present, No gallops present (Cardio), No murmurs present (Cardio), No rub (Cardio) and Peripheral pulses 2+ throughout RATE: regular rate RHYTHM: regular rhythm HEART SOUNDS: S1 normal heart sound present and S2 normal heart sound present PERIPHERAL PULSES: Peripheral pulses 2+ throughout GI: COMMON NORMALS: Normal to inspection, nondistended, normoactive bowel sounds present, Soft to palpation, non-tender, No hepatosplenomegaly present and no masses AUSCULTATION: Yes normoactive bowel sounds PALPATION: Yes Soft to palpation and Yes No hepatosplenomegaly present RECTAL EXAM: deferred : COMMON NORMALS: Yes no CVA tenderness BLADDER/KIDNEY EXAM: Yes no CVA tenderness Back/Pelvis: COMMON NORMALS: no CVA tenderness Extremity: COMMON NORMALS: no clubbing, cyanosis or edema and no pedal edema Neuro: COMMON NORMALS: patient oriented x3 Discharge Data Data Completed and Pending: Completed Studies During Hospitalization Category Date Time Status CT abdomen pelvis w con* [id number] Urge nt Cat Scan 01/20/20 08:35 Completed Pending at discharge Category Date Time Status ES surgery / GI i mages Routine Exams 01/22/20 10:08 Ordered COVID [Coronaviru s Lab Test PTC] Ro utine Lab 01/20/20 12:05 Received Clostridioides Di fficile PCR Routin e Lab 01/21/20 10:28 Ordered Complete Blood Co unt w/Auto AM LABS Lab 01/23/20 04:00 Ordered Comprehensive Met abolic Panel AM LA BS Lab 01/23/20 04:00 Ordered Enteric Bacterial Panel by PCR Rout ine Lab 01/21/20 10:28 Ordered Enteric Parasite Panel by PCR Routi ne Lab 01/21/20 10:28 Ordered Gastricult Occult BLD Stat Lab 01/20/20 08:34 Ordered H. Pylori / TAINA T est Routine Lab 01/22/20 07:57 Ordered Immunochemical Fe ysabel OCB Routine Lab 01/21/20 10:28 Ordered Lactoferrin Routi ne Lab 01/21/20 10:28 Ordered Pathology: Surgic al [PTH] Routine Pth 01/22/20 08:29 Ordered Labs from last 24 hours 01/22/20 01/22/20 01/20/20 03:45 03:45 06:15 WBC 6.7 RBC 4.00 L Hgb 11.8 Hct 35.8 L MCV 89.5 MCH 29.5 MCHC 33.0 RDW 12.5 Plt Count 246 MPV 11.2 H Neut % (Auto) 58.8 Lymph % (Auto) 30.4 Trigg % (Auto) 8.0 Eos % (Auto) 1.8 Baso % (Auto) 0.9 Neut # (Auto) 3.96 Lymph # (Auto) 2.1 Trigg # (Auto) 0.5 Eos # (Auto) 0.1 Baso # (Auto) 0.1 Nucleated RBC % (a uto) 0 Nucleated RBCs # 0.0 Sodium 140 Potassium 3.4 L Chloride 108 H Carbon Dioxide 23 Anion Gap 12.4 BUN 7 Creatinine 0.7 GFR Calculation 102.8 Glucose 103 Calculated Osmolal ity 286 Calcium 8.6 Total Bilirubin 0.2 AST 12 ALT 6 Alkaline Phosphata se 37 Total Protein 5.8 L Albumin 3.8 Globulin 2.0 SARS-CoV-2 RNA (RT -PCR) Not detected Vitals: Last Vital Signs Temp 97.6 F 01/22/20 08:30 Pulse 57 L 01/22/20 08:30 Resp 18 01/22/20 08:30 BP 119/72 01/22/20 08:30 Pulse Ox 99 01/22/20 08:30 Discharge Plan Discharge Patient Disposition: Home Condition: Stable Prescriptions: Continued lorazepam 1 mg tablet 1 mg PO BID PRN (Reason: Nausea) Qty: 45 RF: 2 paroxetine HCl 20 mg tablet 20 mg PO BEDTIME Qty: 30 RF: 2 mycophenolate mofetil 500 mg tablet See Rx Instructions .ROUTE .COMPLEX RF: 0 naproxen sodium [Aleve] 220 mg Tablet 440 mg PO Q6H PRN (Reason: Pain) RF: 0 cholecalciferol (vitamin D3) [Vitamin D3] 50 mcg (2,000 unit) Tablet 50 mcg PO DAILY RF: 0 Mucus D 60-600 mg Tablet Extended Release 12 Hr 1 tab PO BID PRN (Reason: Congestion) RF: 0 ondansetron HCl 8 mg tablet 8 mg PO Q6H PRN (Reason: Nausea) RF: 0 pantoprazole 40 mg tablet,delayed release (DR/EC) 40 mg PO DAILY RF: 0 ergocalciferol (vitamin D2) [Vitamin D2] 50,000 unit capsule See Rx Instructions .ROUTE .COMPLEX RF: 0 Ferrex 150 Forte Plus 150-60-25-1 xw-qf-mvw-mg capsule 150 cap PO BID RF: 0 calcium carbonate-vitamin D3 [Calcium 500 + D] 500 mg(1,250mg) -400 unit Tablet 1 tab PO DAILY RF: 0 sulfamethoxazole-trimethoprim 400-80 mg tablet See Rx Instructions .ROUTE .COMPLEX RF: 0 hydroxychloroquine 200 mg Tablet 200 mg PO BID RF: 0 loratadine 10 mg Tablet 10 mg PO DAILY RF: 0 Discharge Orders: Discharge Order (Routine); Ordered 01/22/20 Ordered By: Arian Angeles Discharge Diet: Advance as tolerated Discharge Activity: Resume usual activity Discharge Attestations Time Spent in Discharge Care*: greater than 30 min Specific Discharge Activities: Specific discharge activities: educating patient, discussing with wrapper caser/social workers/dc planners, documenting/other paperwork and evaluating patient/reviewing data Quality Metrics Clinical Quality Measures During this hospital stay, did patient experience: None Coding Level of Care Code Acute Machine Operator Hop Worker for jovanna Fwd Exam Comprehensive Diagnoses Abnormal CT scan, gastrointestinal tract R93.3 Hematochezia K92.1 Abdominal pain R10.9 Lupus (systemic lupus erythematosus) M32.9 Lupus nephritis M32.14
[2020-01-22] MEDS: sulfamethoxazole-trimeth DS 160-800 mg Tablet 0.5 TAB PO (15:38)
[2020-01-22] MEDS: acetaminophen 325 mg Tablet 650 MG PO (15:38)
[2020-01-22 17:29] LABS: Coronavirus Lab Test PTC Negative
[2020-01-24 07:13] LABS: H. Pylori / CLO Test Negative
== END 2020-01-22 17:18 | disposition home or self-care (01) | DRG 392 ==
LOC: ER 05:42 → MEDSURG 13:14
PROVIDERS: Family Medicine; Surgery; Admitting Provider Family Medicine; PCP Family Medicine; Visit Provider Family Medicine
PROC: 0DJ08ZZ Inspection of Upper Intestinal Tract, Via Natural or Artificial Opening Endoscopic (ICD-10-PCS; CPT 43235; principal; 2020-01-22 08:00)
PROC: 0DJD8ZZ Inspection of Lower Intestinal Tract, Via Natural or Artificial Opening Endoscopic (ICD-10-PCS; CPT 45378; 2020-01-22 08:00)
DX: K29.70 Gastritis, unspecified, without bleeding (principal); K92.1 Melena; M32.15 Tubulo-interstitial nephropathy in systemic lupus erythematosus; F41.1 Generalized anxiety disorder; F41.0 Panic disorder [episodic paroxysmal anxiety]; M32.14 Glomerular disease in systemic lupus erythematosus; R93.3 Abnormal findings on diagnostic imaging of other parts of digestive tract; K64.8 Other hemorrhoids; K52.9 Noninfective gastroenteritis and colitis, unspecified; K21.9 Gastro-esophageal reflux disease without esophagitis
CPT/HCPCS: 12345; 36415; 43239; 45380; 74177; 80053; 81001; 83605; 83690; 84145; 84443; 84703; 85014; 85018; 85025; 87077; 87086; 87426; 87635; 88305; 96375; 99283; C9113; G0378; J0696; J1885; J2270; J2405; J2704; J7030; J7512; Q0164; Q9967

== ENCOUNTER → 2020-01-24 08:22 | Outpatient (BNVA) | payer BC, MEDICARE, MEDICAID, SELFPAY | PROVIDERS: PCP Family Medicine; Visit Provider Nurse Practitioner | DX: F41.0 Panic disorder [episodic paroxysmal anxiety] (principal); F41.1 Generalized anxiety disorder | CPT/HCPCS: 99213 ==

== ENCOUNTER → 2020-01-27 08:30 | Outpatient (BNVA) | payer BC, MEDICARE, MEDICAID, SELFPAY | PROVIDERS: PCP Family Medicine; Visit Provider Counselor Professional | DX: F41.0 Panic disorder [episodic paroxysmal anxiety] (principal); F41.1 Generalized anxiety disorder | CPT/HCPCS: 90834 ==

== ENCOUNTER 2020-02-03 21:45 | Emergency (ER) | payer BC, MEDICARE, MEDICAID, SELFPAY ==
[2020-02-03 21:56] VITALS: BP 120/80; PULSE 93; RESP 16; TEMP 36.4; O2SAT 98; BMI 24.7
--- NOTE | 2020-02-03 22:13 | XR_ITS ---
WS: [id number] Portable AP upright chest, 02/03/2020 Clinical Data: cough, wheezing Comparison: PA and lateral chest, 06/22/2019. Findings: No nodules, masses or effusions are seen. The heart is normal. The pulmonary vascularity is not increased. No pneumonia or pneumothorax is seen. There are clips in the right upper quadrant fro m a cholecystectomy. XR/XR chest 1V portable [id number] Impression: Negative chest.
--- NOTE | 2020-02-03 22:13 | W.ED.SOB ---
HPI - SOB/Dyspnea General: Chief Complaint: Shortness of Breath/Dyspnea Stated Complaint: covid symptoms Time Seen by Provider: 02/03/20 22:03 Source: patient Mode of arrival: ambulatory Limitations: no limitations History of Present Illness: HPI Narrative: Patient comes in with a two-week history of cough and wheezing. Patient has a history of asthma and allergic rhinitis. Patient appears well. No acute distress is noted. Patient appears in no pain. Review of Systems General: Reports: 10 or more systems reviewed and unremarkable except in HPI and below Resp: Reports: dyspnea and wheezing PFSH ED PFSH: Medical History (Updated 02/03/20 @ 22:21 by MAI Wolfe) Generalized anxiety disorder Inflammatory bowel disease 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, follows up at [facility] Lupus nephritis Panic disorder [episodic paroxysmal anxiety] Surgical History (Updated 01/21/20 @ 11:28 by John Fabian MD) History of appendectomy [place]x of cholecystectomy [place] Status post biopsy of kidney Multiple percutaneous biopsies Status post tonsillectomy and adenoidectomy Family History Mother Juvenile rheumatoid arthritis Social History Smoking and tobacco status: never smoked Alcohol intake: never Household members: family Housing: House Sexually active: Yes Female Reproductive History: Date of last menstrual period: 01/31/20 Physical Exam Const: COMMON NORMALS: no acute distress and patient oriented x3 GENERAL APPEARANCE: cooperative HENMT: COMMON NORMALS: normocephalic, TM's normal bilaterally and Normal external nose present HEAD & SCALP: normal to inspection and normocephalic NOSE: Normal external nose present TYMPANIC MEMBRANE: TM's normal bilaterally MOUTH: Normal oral and palatal mucosa present Eye: GENERAL EYE: appearance normal, both eyes and all related structures Neck/C-Spine: COMMON NORMALS: full ROM Chest: COMMONS NORMALS: normal inspection of the chest Resp: COMMON NORMALS: normal respiratory effort EFFORT & INSPECTION: Yes able to speak in complete sentences Cardio: COMMON NORMALS: regular rate and regular rhythm RATE: regular rate RHYTHM: regular rhythm GI: COMMON NORMALS: non-tender : COMMON NORMALS: Yes no CVA tenderness BLADDER/KIDNEY EXAM: Yes no CVA tenderness Back/Pelvis: COMMON NORMALS: no CVA tenderness and thoracic and lumbar spine normal to inspection Extremity: COMMON NORMALS: normal to inspection Neuro: COMMON NORMALS: patient oriented x3 and moves all extremities Psych: COMMON NORMALS: mental status grossly normal and cooperative Skin: COMMON NORMALS: no rashes or lesions noted GENERAL SKIN EXAM: no rashes or lesions noted Course Vital Signs: Vital signs: Vital Signs Temperature 97.6 F 02/03/20 21:56 Pulse Rate 93 02/03/20 21:56 Respiratory Rate 16 02/03/20 21:56 Blood Pressure 120/80 02/03/20 21:56 Pulse Oximetry 98 02/03/20 21:56 MDM - SOB/Dyspnea MDM Narrative: Medical decision making narrative: Patient presents with 2-week history of cough and wheezing. On exam patient has wheezing on inspiratory and expiration. Patient has some mild rhonchi. Vital signs are normal. Differential diagnosis includes pneumonia, bronchitis, exacerbation of asthma. Reviewed exam with patient with recommendations for treatment and follow-up. Chest x-ray noted no pneumonia. Recommended continued medications with use of albuterol, steroid, and azithromycin. Patient reported understanding agreed to plan. Discharge Plan Discharge Patient Disposition: Home Clinical Impression: Bronchitis Condition: Stable Prescriptions: New azithromycin 250 mg tablet 250 mg PO DAILY 4 Days Qty: 4 RF: 0 albuterol sulfate 90 mcg/actuation HFA aerosol inhaler 2 inh INHALATION Q4H PRN (Reason: shortness of breath or wheezing) Qty: 8.5 RF: 0 prednisone 20 mg tablet 20 mg PO BID Qty: 6 RF: 0 No Action lorazepam 1 mg tablet 1 mg PO BID PRN (Reason: Nausea) Qty: 45 RF: 2 paroxetine HCl 20 mg tablet 20 mg PO BEDTIME Qty: 30 RF: 2 mycophenolate mofetil 500 mg tablet See Rx Instructions .ROUTE .COMPLEX RF: 0 naproxen sodium [Aleve] 220 mg Tablet 440 mg PO Q6H PRN (Reason: Pain) RF: 0 cholecalciferol (vitamin D3) [Vitamin D3] 50 mcg (2,000 unit) Tablet 50 mcg PO DAILY RF: 0 Mucus D 60-600 mg Tablet Extended Release 12 Hr 1 tab PO BID PRN (Reason: Congestion) RF: 0 ondansetron HCl 8 mg tablet 8 mg PO Q6H PRN (Reason: Nausea) RF: 0 pantoprazole 40 mg tablet,delayed release (DR/EC) 40 mg PO DAILY RF: 0 ergocalciferol (vitamin D2) [Vitamin D2] 50,000 unit capsule See Rx Instructions .ROUTE .COMPLEX RF: 0 Ferrex 150 Forte Plus 150-60-25-1 vo-ju-hds-mg capsule 150 cap PO BID RF: 0 calcium carbonate-vitamin D3 [Calcium 500 + D] 500 mg(1,250mg) -400 unit Tablet 1 tab PO DAILY RF: 0 sulfamethoxazole-trimethoprim 400-80 mg tablet See Rx Instructions .ROUTE .COMPLEX RF: 0 hydroxychloroquine 200 mg Tablet 200 mg PO BID RF: 0 loratadine 10 mg Tablet 10 mg PO DAILY RF: 0 Discharge Orders: Discharge Order (Routine); Ordered 02/03/20 Ordered By: Aryan Gale Referrals: Kam Ramirez MD [Primary Care Provider] - Discharge Diet: Usual diet Discharge Activity: Increase activity as tolerated Patient Instructions: Acute Bronchitis (ED) Activity Restrictions/Additional Instructions: Drink plenty of fluids. Medications as directed. Follow-up with primary care for worsening symptoms. Return to the emergency department as needed. Coding Level of Care Code ED Door Frame Assembler Machine for Erin Fwdamian Exam Comprehensive
[2020-02-03] MEDS: azithromycin 250 mg Tablet 500 MG PO (22:30)
[2020-02-03] MEDS: dexamethasone 4 mg Tablet 8 MG PO (22:36)
== END 2020-02-03 22:58 | disposition home or self-care (01) ==
PROVIDERS: Emergency Provider Nurse Practitioner Family; PCP Family Medicine
DX: J40 Bronchitis, not specified as acute or chronic (principal); M32.9 Systemic lupus erythematosus, unspecified
CPT/HCPCS: 12345; 71045; 99281; 99283; J3535; J8540; Q0144

== ENCOUNTER 2020-03-04 15:15 | Emergency (ER) | payer BC, MEDICARE, MEDICAID, SELFPAY ==
[2020-03-04 16:01] VITALS: BP 113/72; PULSE 117; RESP 18; TEMP 36.8; O2SAT 96; BMI 23.8
[2020-03-04 16:52] LABS: Basophils # 0.1 10^3/uL (0.0-0.1); Eosinophils % 0.4 %; Hematocrit 40.5 % (37.0-47.0); Hemoglobin 13.7 g/dL (11.5-15.3); Lymphocytes # 0.1 10^3/uL (0.8-4.8); Lymphocytes % 2.7 %; Mean Corpuscular HGB Conc 33.8 g/dL (30.0-36.0); Mean Corpuscular Volume 88.6 fL (81-99); Mean Platelet Volume 10.8 fL (7.4-10.4); Monocytes # 0.4 10^3/uL (0.2-0.9); Monocytes % 7.5 %; Neutrophils # 4.21 10^3/uL (1.8-7.7); Neutrophils % 88.2 %; Nucleated Red Blood Cells % 0 %; Platelet Count 222 10^3/cmm (130-400); Red Blood Count 4.57 10^6/uL (4.1-5.3); Red Cell Distribution Width 12.3 % (12.1-15.1); White Blood Count 4.8 10^3/uL (4.0-10.0)
[2020-03-04 17:09] LABS: HCG, Serum Qual Negative (Negative)
[2020-03-04 17:14] LABS: Alanine Aminotransferase 8 U/L (0-33); Albumin Level 4.5 g/dL (3.5-5.2); Alkaline Phosphatase 57 IU/L (35-105); Anion Gap 13.6 (5-19); Aspartate Amino Transferase 13 U/L (0-32); Blood Urea Nitrogen 14 mg/dL (6-20); Calcium 9.7 mg/dL (8.5-10.5); Carbon Dioxide 21 mmol/L (22-29); Chloride 108 mmol/L (98-107); Globulin 2.3 g/dL (1.3-4.6); Glomerular Filtration Rate 76.9 mL/min (90-130); Glucose 124 mg/dL (65-115); Lipase 60 U/L (13-60); Osmolality Calculated 290 mOsm/kg (285-295); Potassium 3.6 mmol/L (3.5-5.1); Sodium 139 mmol/L (136-145); Total Bilirubin 0.5 mg/dL (0.15-1.2); Total Protein 6.8 g/dL (6.6-8.7)
[2020-03-04] MEDS: sodium chloride 0.9% 500 ML 999 ML IV (18:35)
[2020-03-04] MEDS: ondansetron 2 mg/ML SDV 2 mL 4 MG IVP (18:35)
[2020-03-04 18:53] VITALS: BP 118/78; PULSE 68; RESP 18; O2SAT 96
[2020-03-04 18:59] LABS: Glucose Urine UA Norm (Normal); Ketones Urine 1+ (Negative); Protein Urine 1+ (Negative); Urine Appearance Clear (CLEAR); Urine Color Yellow (Yellow); pH Urine 5 (5-7)
[2020-03-04 19:00] LABS: Bilirubin Urine 1+ (Negative); Blood Urine 2+ (Negative); Leukocyte Esterase Urine Negative (Negative); Nitrate Urine Negative (Negative); Urobilinogen Urine 1 mg/dL (Negative)
[2020-03-04 19:01] LABS: Add Urine Culture? No; Bacteria Urine TRACE /hpf; Hyaline Casts Urine 0-4 /lpf; Mucus Urine 2+ /hpf; RBC Urine 0-4 /hpf (0-2); WBC Urine 0-4 /hpf (0-5)
--- NOTE | 2020-03-04 19:04 | W.ED.ABDPA2 ---
HPI - Abdominal Pain General: Chief Complaint: Abdominal Pain Stated Complaint: abd pain Time Seen by Provider: 03/04/20 17:59 History of Present Illness: HPI narrative: 24-year-old female patient presents to the emergency department with back pain that radiates around the pelvis. She reports back pain with bilateral thigh pain. Reports walking makes it worse. She reports nausea today. Reports last menstrual period 02/23/2020. She denies falls or trauma. She reports nothing makes it better. She has not taken anything for pain. MD elicited complaint: other (back apin) Pertinent past history: other (SLE, colitis) Onset (ago): hour(s) (6) Pain Consistency: intermittent Location: Other (middle back) Severity: moderate Quality: aching and dull Radiation: bilateral flank Migration to: other (bilateral upper legs) Exacerbating factors: movement Relieving factors: nothing Associated Symptoms: Reports diarrhea, nausea and other (IBS); Denies chills, GI cramping, dysuria, fever(s) and vomiting Related Data: Date of Last Menstrual Period: 01/31/20 Review of Systems General: Reports: 10 or more systems reviewed and unremarkable except in HPI and below Const: Denies: fever(s), chills or diaphoresis Eyes: Denies: blurry vision or eye redness ENMT: Denies: throat pain, dental pain or disequilibrium Card: Denies: chest pain, palpitations or irregular heart rhythm Resp: Denies: dyspnea, productive cough, non-productive cough or wheezing GI: Reports: nausea, diarrhea and other (IBS); Denies: abdominal pain, vomiting or GI cramping : Denies: difficulty voiding or dysuria Musc: Denies: neck pain, back pain, joint pain, muscle cramps or muscle weakness Skin/Breast: Denies: rash or pruritus Neuro: Denies: headache(s), weakness in extremities or behavioral changes Bobby/Lymph: Denies: easy bruising PFSH ED PFSH: Medical History (Updated 03/04/20 @ 21:29 by KANE Dewitt) Generalized anxiety disorder Inflammatory bowel disease 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, follows up at [facility] Lupus nephritis Panic disorder [episodic paroxysmal anxiety] Surgical History (Updated 01/21/20 @ 11:28 by John Fabian MD) History of appendectomy [place] Hx of cholecystectomy [place] Status post biopsy of kidney Multiple percutaneous biopsies Status post tonsillectomy and adenoidectomy Family History Mother Juvenile rheumatoid arthritis Social History Smoking and tobacco status: never smoked Alcohol intake: never Household members: family Housing: House Sexually active: Yes Female Reproductive History: Date of last menstrual period: 01/31/20 Physical Exam Const: COMMON NORMALS: no acute distress, patient oriented x3, healthy appearing and alert GENERAL APPEARANCE: cooperative, comfortable and well hydrated ORIENTATION/CONSCIOUSNESS: Yes oriented to person, Yes oriented to place and Yes oriented to time HENMT: COMMON NORMALS: normocephalic, Normal external nose present and moist oral mucous membranes HEAD & SCALP: normocephalic NOSE: Normal external nose present Eye: COMMON NORMALS: Equal, round and reactive pupils present and EOMs intact bilaterally GENERAL EYE: appearance normal, both eyes and all related structures PUPIL: Yes Equal, round and reactive pupils present Neck/C-Spine: COMMON NORMALS: full ROM and no lymphadenopathy GENERAL: Yes normal visual inspection and Yes trachea midline CERVICAL SPINE: Yes cervical ROM normal Lymph: LYMPHATIC: no lymphadenopathy noted Chest: COMMONS NORMALS: normal inspection of the chest Resp: COMMON NORMALS: normal respiratory effort and clear to auscultation bilaterally AUSCULTATION: clear to auscultation bilaterally Cardio: COMMON NORMALS: regular rhythm, S1 normal heart sound present, S2 normal heart sound present and Peripheral pulses 2+ throughout RHYTHM: regular rhythm HEART SOUNDS: S1 normal heart sound present and S2 normal heart sound present PERIPHERAL PULSES: Peripheral pulses 2+ throughout GI: COMMON NORMALS: Normal to inspection, nondistended, normoactive bowel sounds present, Soft to palpation and non-tender INSPECTION: Yes normal to inspection PALPATION: Yes Soft to palpation : COMMON NORMALS: Yes no CVA tenderness BLADDER/KIDNEY EXAM: Yes no CVA tenderness Back/Pelvis: COMMON NORMALS: no CVA tenderness and thoracic and lumbar spine normal to inspection THORACIC SPINE/UPPER BACK: Yes normal to inspection, Yes thoracic ROM normal, Yes paraspinal muscle tenderness and Yes paraspinal muscle spasm LUMBAR SPINE/LOWER BACK: Yes normal to inspection, Yes lumbar ROM normal, Yes paraspinal muscle tenderness, Yes paraspinal muscle spasm, Yes straight leg raise positive right and Yes straight leg raise positive left PELVIS: Yes buttocks normal SACROILIAC JOINTS: Yes SI joints normal Extremity: COMMON NORMALS: normal to inspection and capillary refill normal Neuro: COMMON NORMALS: patient oriented x3 and no focal motor deficits SENSORIUM/ORIENTATION: Yes alert, Yes oriented to person, Yes oriented to place and Yes oriented to time SPEECH: speech normal GAIT: Yes Normal gait present MOTOR EXAM: 5/5 motor strength present throughout and No Abnormal motor strength present Psych: COMMON NORMALS: mental status grossly normal, Normal thought process present and cooperative ACTIVITY/MOTOR BEHAVIOR: Yes appropriate eye contact THOUGHT PROCESS: Normal thought process present Skin: COMMON NORMALS: no rashes or lesions noted and turgor normal GENERAL SKIN EXAM: no rashes or lesions noted and turgor normal Course ED course: 24-year-old female patient presents to the emergency department with back pain that radiates to the pelvis. She was tender to the thoracic spine, para spinal tenderness noted. Zofran was administered for nausea, she was able to tolerate p.o. fluids here in the ED, nausea resolved. ESR 6, serology testing unremarkable. Urine did not reveal urinary tract infection, renal ultrasound with bladder views completed due to her history of nephritis. She has had several CT scans in the past with most recent January 2020. Pain controlled with Toradol, discussed findings of serology and ultrasound results with her tonight. She states feels better and wants to go home. Agrees to follow-up with her primary care physician next week. Agrees to return to the emergency department if she develops concerning symptoms such as fever, abdominal pain, urinary symptoms. Vital Signs: Vital signs: Vital Signs Temperature 98.1 F 03/04/20 21:53 Pulse Rate 83 03/04/20 21:53 Respiratory Rate 16 03/04/20 21:53 Blood Pressure 122/80 03/04/20 21:53 Pulse Oximetry 97 03/04/20 21:53 MDM - Abdominal Pain Lab Data: Labs: Lab Results 03/04/20 03/04/20 03/04/20 Range/Units 16:31 16:31 16:31 WBC 4.8 (4.0-10.0) 10^3/ uL RBC 4.57 (4.1-5.3) 10^6/u L Hgb 13.7 (11.5-15.3) g/dL Hct 40.5 (37.0-47.0) % MCV 88.6 (81-99) fL MCH 30.0 (28.0-34.0) pg MCHC 33.8 (30.0-36.0) g/dL RDW 12.3 (12.1-15.1) % Plt Count 222 (130-400) 10^3/c mm MPV 10.8 H (7.4-10.4) fL Neut % (Auto) 88.2 % Lymph % (Auto) 2.7 % Lane % (Auto) 7.5 % Eos % (Auto) 0.4 % Baso % (Auto) 1.0 % Neut # (Auto) 4.21 (1.8-7.7) 10^3/u L Lymph # (Auto) 0.1 L (0.8-4.8) 10^3/u L Lane # (Auto) 0.4 (0.2-0.9) 10^3/u L Eos # (Auto) 0.0 (0.0-0.8) 10^3/u L Baso # (Auto) 0.1 (0.0-0.1) 10^3/u L Nucleated RBC % (a uto) 0 % Nucleated RBCs # 0.0 /100WBC ESR (0-15) mm/hr Sodium 139 (136-145) mmol/L Potassium 3.6 (3.5-5.1) mmol/L Chloride 108 H (98-107) mmol/L Carbon Dioxide 21 L (22-29) mmol/L Anion Gap 13.6 (5-19) BUN 14 (6-20) mg/dL Creatinine 0.9 (0.5-0.9) mg/dL GFR Calculation 76.9 L (90-130) mL/min Glucose 124 H (65-115) mg/dL Calculated Osmolal ity 290 (285-295) mOsm/k g Calcium 9.7 (8.5-10.5) mg/dL Total Bilirubin 0.5 (0.15-1.2) mg/dL AST 13 (0-32) U/L ALT 8 (0-33) U/L Alkaline Phosphata se 57 (35-105) IU/L Total Protein 6.8 (6.6-8.7) g/dL Albumin 4.5 (3.5-5.2) g/dL Globulin 2.3 (1.3-4.6) g/dL Lipase 60 (13-60) U/L HCG, Qual Negative (Negative) Urine Color (Yellow) Urine Appearance (CLEAR) Urine pH (5-7) Ur Specific Gravit y (1.005-1.030) Urine Protein (Negative) Urine Glucose (UA) (Normal) Urine Ketones (Negative) Urine Blood (Negative) Urine Nitrate (Negative) Urine Bilirubin (Negative) Urine Urobilinogen (Negative) mg/dL Ur Leukocyte Natalie ase (Negative) Urine RBC (0-2) /hpf Urine WBC (0-5) /hpf Ur Squamous Epith Cells (0-5) /hpf Amorphous Sediment Urine Bacteria (NONE) /hpf Hyaline Casts /lpf Urine Mucus /hpf 03/04/20 03/04/20 Range/Units 16:31 17:30 WBC (4.0-10.0) 10^3/ uL RBC (4.1-5.3) 10^6/u L Hgb (11.5-15.3) g/dL Hct (37.0-47.0) % MCV (81-99) fL MCH (28.0-34.0) pg MCHC (30.0-36.0) g/dL RDW (12.1-15.1) % Plt Count (130-400) 10^3/c mm MPV (7.4-10.4) fL Neut % (Auto) % Lymph % (Auto) % Lane % (Auto) % Eos % (Auto) % Baso % (Auto) % Neut # (Auto) (1.8-7.7) 10^3/u L Lymph # (Auto) (0.8-4.8) 10^3/u L Lane # (Auto) (0.2-0.9) 10^3/u L Eos # (Auto) (0.0-0.8) 10^3/u L Baso # (Auto) (0.0-0.1) 10^3/u L Nucleated RBC % (a uto) % Nucleated RBCs # /100WBC ESR 6 (0-15) mm/hr Sodium (136-145) mmol/L Potassium (3.5-5.1) mmol/L Chloride (98-107) mmol/L Carbon Dioxide (22-29) mmol/L Anion Gap (5-19) BUN (6-20) mg/dL Creatinine (0.5-0.9) mg/dL GFR Calculation (90-130) mL/min Glucose (65-115) mg/dL Calculated Osmolal ity (285-295) mOsm/k g Calcium (8.5-10.5) mg/dL Total Bilirubin (0.15-1.2) mg/dL AST (0-32) U/L ALT (0-33) U/L Alkaline Phosphata se (35-105) IU/L Total Protein (6.6-8.7) g/dL Albumin (3.5-5.2) g/dL Globulin (1.3-4.6) g/dL Lipase (13-60) U/L HCG, Qual (Negative) Urine Color Yellow (Yellow) Urine Appearance Clear (CLEAR) Urine pH 5 (5-7) Ur Specific Gravit y 1.020 (1.005-1.030) Urine Protein 1+ H (Negative) Urine Glucose (UA) Norm (Normal) Urine Ketones 1+ H (Negative) Urine Blood 2+ H (Negative) Urine Nitrate Negative (Negative) Urine Bilirubin 1+ H (Negative) Urine Urobilinogen 1 H (Negative) mg/dL Ur Leukocyte Natalie ase Negative (Negative) Urine RBC 0-4 H (0-2) /hpf Urine WBC 0-4 H (0-5) /hpf Ur Squamous Epith Cells 5-10 H (0-5) /hpf Amorphous Sediment Not Reportable Urine Bacteria Trace (NONE) /hpf Hyaline Casts 0-4 H /lpf Urine Mucus 2+ /hpf Imaging Data ^: CT Abd/Pel: Radiologist's impression: [address] [address] Ultrasound Report Signed Patient: Joe Eisenberg Unit #: [id number] : 1995 Age/Sex: 24 / F ADM Date: 03/04/20 Loc: ER Room/Bed: Attending Dr: Ordering Provider/Ordering MD: Jayda Kearney Date of Service: 03/04/20 Procedure(s): US renal BI* [id number] Accession Number(s): [id number] Report Number: [id number] PROCEDURE INFORMATION: Exam: US Retroperitoneal; Complete; Kidneys and Bladder Exam date and time: 03/04/2020 8:37 PM Age: 24 years old Clinical indication: Abdominal pain; Prior surgery; Surgery date: 6+ months; Surgery type: Appy, adiel; Additional info: Hematuria TECHNIQUE: Imaging protocol: Real-time ultrasound of the retroperitoneum with image documentation. Complete exam focused on the kidneys and bladder. COMPARISON: US transvaginal [id number] 05/01/2018 12:53 AM FINDINGS: Right kidney: Normal. No stones. No hydronephrosis. Left kidney: Normal. No stones. No hydronephrosis. Bladder: Unremarkable. US/US renal BI* [id number] IMPRESSION: Negative for hydronephrosis or renal calculus Dictated By: Jose Willis MD Signed By: Jose Willis MD Signed Date/Time: 03/04/202114 DD/ 13 Discharge Plan Discharge Patient Disposition: Home Clinical Impression: Nausea Back pain Qualifiers: Back pain location: thoracic back pain Chronicity: acute Back pain laterality: bilateral Qualified Code(s): M54.6 - Pain in thoracic spine Condition: Stable Prescriptions: New cyclobenzaprine 10 mg tablet 10 mg PO TID PRN (Reason: muscle spasm) Qty: 10 RF: 0 No Action lorazepam 1 mg tablet 1 mg PO BID PRN (Reason: Nausea) Qty: 45 RF: 2 paroxetine HCl 20 mg tablet 20 mg PO BEDTIME Qty: 30 RF: 2 mycophenolate mofetil 500 mg tablet See Rx Instructions .ROUTE .COMPLEX RF: 0 naproxen sodium [Aleve] 220 mg Tablet 440 mg PO Q6H PRN (Reason: Pain) RF: 0 cholecalciferol (vitamin D3) [Vitamin D3] 50 mcg (2,000 unit) Tablet 50 mcg PO DAILY RF: 0 Mucus D 60-600 mg Tablet Extended Release 12 Hr 1 tab PO BID PRN (Reason: Congestion) RF: 0 albuterol sulfate 90 mcg/actuation HFA aerosol inhaler 2 inh INHALATION Q4H PRN (Reason: shortness of breath or wheezing) Qty: 8.5 RF: 0 prednisone 20 mg tablet 20 mg PO BID Qty: 6 RF: 0 ondansetron HCl 8 mg tablet 8 mg PO Q6H PRN (Reason: Nausea) RF: 0 pantoprazole 40 mg tablet,delayed release (DR/EC) 40 mg PO DAILY RF: 0 ergocalciferol (vitamin D2) [Vitamin D2] 50,000 unit capsule See Rx Instructions .ROUTE .COMPLEX RF: 0 Ferrex 150 Forte Plus 150-60-25-1 lv-ru-jer-mg capsule 150 cap PO BID RF: 0 calcium carbonate-vitamin D3 [Calcium 500 + D] 500 mg(1,250mg) -400 unit Tablet 1 tab PO DAILY RF: 0 sulfamethoxazole-trimethoprim 400-80 mg tablet See Rx Instructions .ROUTE .COMPLEX RF: 0 hydroxychloroquine 200 mg Tablet 200 mg PO BID RF: 0 loratadine 10 mg Tablet 10 mg PO DAILY RF: 0 Discharge Orders: Discharge Order (Routine); Ordered 03/04/20 Ordered By: Jayda Kearney Referrals: Kam Ramirez MD [Primary Care Provider] - Discharge Diet: Advance as tolerated Discharge Activity: Limit activity as instructed Patient Instructions: Muscle Strain (ED), Back Pain (ED) Activity Restrictions/Additional Instructions: Return to the emergency department if you develop weakness to the bilateral lower extremities Continue Zofran you have at home as needed for nausea Follow-up with your primary care physician next week May apply warm compresses alternate with cool compresses as needed for pain May apply topical pain relief medication such as Salonpas to the area as needed for pain Return to the emergency department if you develop fever, increased back pain, difficulty urinating or development of abdominal pain. Do not bend or twist -no lifting greater than 10 pounds until released by your primary care provider Return to the emergency department if you develop bowel or bladder incontinence, inability to feel your legs, or other concerning symptoms. Stand Alone Forms: Work/School Release Discharge Date/Time: 03/04/20 21:53 Coding Level of Care Code ED [employer] for [employer] Fwd Exam Comprehensive
--- NOTE | 2020-03-04 19:11 | USR_ITS ---
PROCEDURE INFORMATION: Exam: US Retroperitoneal; Complete; Kidneys and Bladder Exam date and time: 03/04/2020 8:37 PM Age: 24 years old Clinical indication: Abdominal pain; Prior surgery; Surgery date: 6+ months; Surgery type: Appy, adiel; Additional info: Hematuria TECHNIQUE: Imaging protocol: Real-time ultrasound of the retroperitoneum with image documentation. Complete exam focused on the kidneys and bladder. COMPARISON: US transvaginal [id number] 05/01/2018 12:53 AM FINDINGS: Right kidney: Normal. No stones. No hydronephrosis. Left kidney: Normal. No stones. No hydronephrosis. Bladder: Unremarkable. US/US renal BI* [id number] IMPRESSION: Negative for hydronephrosis or renal calculus
[2020-03-04 19:41] VITALS: BP 125/83; PULSE 74; RESP 16; O2SAT 95
[2020-03-04 20:00] VITALS: BP 106/80; PULSE 85; RESP 16; O2SAT 95
[2020-03-04 20:18] LABS: Erythrocyte Sedimentation Rate 6 mm/hr (0-15)
[2020-03-04 21:00] VITALS: BP 119/90; PULSE 92; RESP 17; O2SAT 97
[2020-03-04] MEDS: ketorolac 30 mg/mL INJ IVP (21:07)
[2020-03-04 21:53] VITALS: BP 122/80; PULSE 83; RESP 16; TEMP 36.7; O2SAT 97
== END 2020-03-04 21:53 | disposition home or self-care (01) ==
PROVIDERS: Physician Assistant; Emergency Provider Nurse Practitioner Family; PCP Family Medicine
DX: M54.6 Pain in thoracic spine (principal); R11.0 Nausea; M32.9 Systemic lupus erythematosus, unspecified
CPT/HCPCS: 12345; 36415; 76770; 80053; 81001; 83690; 84703; 85025; 85651; 96374; 96375; 99283; J0131; J1885; J2405; J7040

== ENCOUNTER → 2020-05-18 08:13 | Outpatient (BNVA) | payer BC, MEDICARE, MEDICAID, SELFPAY | PROVIDERS: PCP Family Medicine; Visit Provider Nurse Practitioner | DX: F41.0 Panic disorder [episodic paroxysmal anxiety] (principal); F41.1 Generalized anxiety disorder | CPT/HCPCS: 99214 ==

== ENCOUNTER 2020-05-30 22:21 | Emergency (ER) | payer BC, MEDICARE, MEDICAID, SELFPAY ==
[2020-05-30 22:33] VITALS: BP 131/83; PULSE 82; RESP 18; TEMP 36.6; O2SAT 99; BMI 25.6
--- NOTE | 2020-05-30 22:59 | ED_ITS ---
HPI - General Adult General: Chief complaint: General Medical Stated complaint: PAIN ALL OVER, NAUSEAS Time Seen by Provider: 05/30/20 22:51 Source: patient Mode of arrival: ambulatory Limitations: no limitations History of Present Illness: HPI narrative: 25-year-old female who is here with multiple complaints. She states over the last 4 days she has been having generalized weakness along with myalgias and feeling quite tired. She states she is also had nausea along with diarrhea and constipation. She does have a history of lupus along with irritable bowel disease. She denies any vomiting. She had Covid back in April. She had no fevers. Denies any cough. Denies any chest pain. Associated symptoms: Reports nausea; Deny chest pain, dyspnea, headache(s), rash or vomiting Review of Systems Const: Reports: body aches; Denies: fever(s), chills or change in appetite Eyes: Denies: blurry vision or eye discomfort ENMT: Denies: throat pain or dental pain Card: Denies: chest pain Resp: Denies: dyspnea GI: Reports: abdominal pain, nausea, diarrhea and constipation; Denies: vomiting : Denies: dysuria Musc: Denies: neck pain or back pain Skin/Breast: Denies: rash Neuro: Denies: headache(s) Psych: Denies: depression Bobby/Lymph: Denies: easy bruising All/Imm: Denies: urticaria PFSH ED PFSH: Medical History Generalized anxiety disorder Inflammatory bowel disease 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, follows up at [facility] Lupus nephritis Panic disorder [episodic paroxysmal anxiety] Surgical History History of appendectomy [place] Hx of cholecystectomy [place] Status post biopsy of kidney Multiple percutaneous biopsies Status post tonsillectomy and adenoidectomy Family History Mother Juvenile rheumatoid arthritis Social History Smoking and tobacco status: never smoked Alcohol intake: never Household members: family Housing: House Sexually active: Yes Female Reproductive History: Date of last menstrual period: 05/15/20 Physical Exam Const: COMMON NORMALS: no acute distress, patient oriented x3 and healthy appearing HENMT: COMMON NORMALS: normocephalic and atraumatic HEAD & SCALP: normocephalic and atraumatic Eye: COMMON NORMALS: Equal, round and reactive pupils present and EOMs intact bilaterally PUPIL: Yes Equal, round and reactive pupils present Neck/C-Spine: COMMON NORMALS: full ROM and supple Chest: COMMONS NORMALS: normal inspection of the chest and normal palpation of entire chest wall Resp: COMMON NORMALS: normal respiratory effort, No retractions, No use of accessory muscles and clear to auscultation bilaterally AUSCULTATION: clear to auscultation bilaterally Cardio: COMMON NORMALS: regular rate, regular rhythm and No murmurs present (Cardio) RATE: regular rate RHYTHM: regular rhythm GI: COMMON NORMALS: Normal to inspection, nondistended, normoactive bowel sounds present, Soft to palpation, non-tender and no masses PALPATION: Yes Soft to palpation Extremity: COMMON NORMALS: normal to inspection and full ROM Neuro: COMMON NORMALS: patient oriented x3, moves all extremities and no focal motor deficits Psych: COMMON NORMALS: mental status grossly normal, Normal thought process present and cooperative THOUGHT PROCESS: Normal thought process present Skin: COMMON NORMALS: no rashes or lesions noted and no wounds GENERAL SKIN EXAM: no rashes or lesions noted Course Vital Signs: Vital signs: Vital Signs Temperature 97.8 F 05/30/20 22:33 Pulse Rate 82 05/30/20 22:33 Respiratory Rate 18 05/30/20 22:33 Blood Pressure 131/83 05/30/20 22:33 Pulse Oximetry 99 05/30/20 22:33 MDM - General Adult MDM Narrative: Medical decision making narrative: Max presents here with diffuse pain consistent with her previous lupus. She is well-appearing here and blood work is all normal. She is stable for discharge and will prescribe her pain meds. She is to follow-up with her PCP and return if worsening. Lab Data: Labs: Lab Results 05/30/20 05/30/20 05/30/20 Range/Units 22:49 22:49 22:49 WBC (4.0-10.0) 10^3/ uL RBC (4.1-5.3) 10^6/u L Hgb (11.5-15.3) g/dL Hct (37.0-47.0) % MCV (81-99) fL MCH (28.0-34.0) pg MCHC (30.0-36.0) g/dL RDW (12.1-15.1) % Plt Count (130-400) 10^3/c mm MPV (7.4-10.4) fL Neut % (Auto) % Lymph % (Auto) % [place] % (Auto) % Eos % (Auto) % Baso % (Auto) % Neut # (Auto) (1.8-7.7) 10^3/u L Lymph # (Auto) (0.8-4.8) 10^3/u L [place] # (Auto) (0.2-0.9) 10^3/u L Eos # (Auto) (0.0-0.8) 10^3/u L Baso # (Auto) (0.0-0.1) 10^3/u L Nucleated RBC % (a uto) % Nucleated RBCs # /100WBC Sodium (136-145) mmol/L Potassium (3.5-5.1) mmol/L Chloride (98-107) mmol/L Carbon Dioxide (22-29) mmol/L Anion Gap (5-19) BUN (6-20) mg/dL Creatinine (0.5-0.9) mg/dL GFR Calculation (90-130) mL/min Glucose (65-115) mg/dL Calculated Osmolal ity (285-295) mOsm/k g Calcium (8.5-10.5) mg/dL Total Bilirubin (0.15-1.2) mg/dL AST (0-32) U/L ALT (0-33) U/L Alkaline Phosphata se (35-105) IU/L Total Protein (6.6-8.7) g/dL Albumin (3.5-5.2) g/dL Globulin (1.3-4.6) g/dL Lipase (13-60) U/L HCG, Qual Negative (Negative) Urine Color Yellow Cancelled (Yellow) Urine Appearance Clear Cancelled (CLEAR) Urine pH 7.0 Cancelled (5-7) Ur Specific Gravit y 1.005 Cancelled (1.005-1.030) Urine Protein Neg Cancelled (Negative) Urine Glucose (UA) Norm Cancelled (Normal) Urine Ketones Negative Cancelled (Negative) Urine Blood Neg Cancelled (Negative) Urine Nitrate Negative Cancelled (Negative) Urine Bilirubin Neg Cancelled (Negative) Prot Sulfosalicyli c Acd Cancelled Urine Urobilinogen Norm Cancelled (Negative) mg/dL Ur Leukocyte Natalie ase Negative Cancelled (Negative) Urine RBC 0-4 H (0-2) /hpf Urine WBC 0-4 H (0-5) /hpf Ur Squamous Epith Cells 5-10 H (0-5) /hpf Amorphous Sediment Not Reportable Urine Bacteria Trace (NONE) /hpf 05/30/20 05/30/20 Range/Units 23:21 23:21 WBC 6.7 (4.0-10.0) 10^3/ uL RBC 4.60 (4.1-5.3) 10^6/u L Hgb 13.6 (11.5-15.3) g/dL Hct 39.9 (37.0-47.0) % MCV 86.7 (81-99) fL MCH 29.6 (28.0-34.0) pg MCHC 34.1 (30.0-36.0) g/dL RDW 12.1 (12.1-15.1) % Plt Count 284 (130-400) 10^3/c mm MPV 10.8 H (7.4-10.4) fL Neut % (Auto) 62.8 % Lymph % (Auto) 28.0 % [place] % (Auto) 7.2 % Eos % (Auto) 1.0 % Baso % (Auto) 0.7 % Neut # (Auto) 4.19 (1.8-7.7) 10^3/u L Lymph # (Auto) 1.9 (0.8-4.8) 10^3/u L [place] # (Auto) 0.5 (0.2-0.9) 10^3/u L Eos # (Auto) 0.1 (0.0-0.8) 10^3/u L Baso # (Auto) 0.1 (0.0-0.1) 10^3/u L Nucleated RBC % (a uto) 0 % Nucleated RBCs # 0.0 /100WBC Sodium 136 (136-145) mmol/L Potassium 4.1 (3.5-5.1) mmol/L Chloride 101 (98-107) mmol/L Carbon Dioxide 25 (22-29) mmol/L Anion Gap 14.1 (5-19) BUN 9 (6-20) mg/dL Creatinine 0.7 (0.5-0.9) mg/dL GFR Calculation 102.0 (90-130) mL/min Glucose 101 (65-115) mg/dL Calculated Osmolal ity 281 L (285-295) mOsm/k g Calcium 9.6 (8.5-10.5) mg/dL Total Bilirubin 0.2 (0.15-1.2) mg/dL AST 16 (0-32) U/L ALT 7 (0-33) U/L Alkaline Phosphata se 53 (35-105) IU/L Total Protein 6.5 L (6.6-8.7) g/dL Albumin 4.2 (3.5-5.2) g/dL Globulin 2.3 (1.3-4.6) g/dL Lipase 84 H (13-60) U/L HCG, Qual (Negative) Urine Color (Yellow) Urine Appearance (CLEAR) Urine pH (5-7) Ur Specific Gravit y (1.005-1.030) Urine Protein (Negative) Urine Glucose (UA) (Normal) Urine Ketones (Negative) Urine Blood (Negative) Urine Nitrate (Negative) Urine Bilirubin (Negative) Prot Sulfosalicyli c Acd Urine Urobilinogen (Negative) mg/dL Ur Leukocyte Natalie ase (Negative) Urine RBC (0-2) /hpf Urine WBC (0-5) /hpf Ur Squamous Epith Cells (0-5) /hpf Amorphous Sediment Urine Bacteria (NONE) /hpf Discharge Plan Discharge Patient Disposition: Home Clinical Impression: Myalgia, Nausea Condition: Stable Prescriptions: [place] 5-325 mg tablet 1 tab PO Q6H PRN (Reason: pain) Qty: 14 RF: 0 ondansetron 4 mg tablet,disintegrating 4 mg PO Q6H PRN (Reason: nausea and vomiting) Qty: 14 RF: 0 No Action lorazepam 1 mg tablet 1 mg PO BID PRN (Reason: anxiety) Qty: 45 RF: 2 citalopram [Celexa] 20 mg tablet 20 mg PO DAILY Qty: 30 RF: 1 mycophenolate mofetil 500 mg tablet See Rx Instructions .ROUTE .COMPLEX RF: 0 naproxen sodium [Aleve] 220 mg Tablet 440 mg PO Q6H PRN (Reason: Pain) RF: 0 cholecalciferol (vitamin D3) [Vitamin D3] 50 mcg (2,000 unit) Tablet 50 mcg PO DAILY RF: 0 Mucus D 60-600 mg Tablet Extended Release 12 Hr 1 tab PO BID PRN (Reason: Congestion) RF: 0 albuterol sulfate 90 mcg/actuation HFA aerosol inhaler 2 inh INHALATION Q4H PRN (Reason: shortness of breath or wheezing) Qty: 8.5 RF: 0 prednisone 20 mg tablet 20 mg PO BID Qty: 6 RF: 0 cyclobenzaprine 10 mg tablet 10 mg PO TID PRN (Reason: muscle spasm) Qty: 10 RF: 0 ondansetron HCl 8 mg tablet 8 mg PO Q6H PRN (Reason: Nausea) RF: 0 pantoprazole 40 mg tablet,delayed release (DR/EC) 40 mg PO DAILY RF: 0 ergocalciferol (vitamin D2) [Vitamin D2] 50,000 unit capsule See Rx Instructions .ROUTE .COMPLEX RF: 0 Ferrex 150 Forte Plus 150-60-25-1 [id number]-ix-aji-mg capsule 150 cap PO BID RF: 0 calcium carbonate-vitamin D3 [Calcium 500 + D] 500 mg(1,250mg) -400 unit Tablet 1 tab PO DAILY RF: 0 sulfamethoxazole-trimethoprim 400-80 mg tablet See Rx Instructions .ROUTE .COMPLEX RF: 0 hydroxychloroquine 200 mg Tablet 200 mg PO BID RF: 0 loratadine 10 mg Tablet 10 mg PO DAILY RF: 0 Discharge Orders: Discharge ED (Routine); Ordered 05/31/20 Ordered By: Mela Johnson Referrals: Kam Ramirez MD [Primary Care Provider] - 1-3 days Discharge Diet: Advance as tolerated Discharge Activity: Resume usual activity Coding Level of Care Code ED Inventory Control Coordinator for Chg Fwd Exam Comprehensive
[2020-05-30 23:05] LABS: Bilirubin Urine Neg (Negative); Blood Urine Neg (Negative); Glucose Urine UA Norm (Normal); Ketones Urine Negative (Negative); Leukocyte Esterase Urine Negative (Negative); Nitrate Urine Negative (Negative); Protein Urine Neg (Negative); Specific Gravity, Urine 1.005 (1.005-1.030); Urine Appearance Clear (CLEAR); Urine Color Yellow (Yellow); Urobilinogen Urine Norm (Negative)
[2020-05-30 23:06] LABS: RBC Urine 0-4 /hpf (0-2); WBC Urine 0-4 /hpf (0-5)
[2020-05-30 23:07] LABS: Add Urine Culture? No; Bacteria Urine TRACE /hpf
[2020-05-30] MEDS: morphine 4 mg/mL SDV 1 mL IVP (23:25)
[2020-05-30] MEDS: sodium chloride 0.9% 1,000 ML 999 ML IV (23:25)
[2020-05-30 23:30] LABS: Basophils # 0.1 10^3/uL (0.0-0.1); Basophils % 0.7 %; Eosinophils # 0.1 10^3/uL (0.0-0.8); Hematocrit 39.9 % (37.0-47.0); Hemoglobin 13.6 g/dL (11.5-15.3); Lymphocytes # 1.9 10^3/uL (0.8-4.8); Mean Corpuscular HGB Conc 34.1 g/dL (30.0-36.0); Mean Corpuscular Hemoglobin 29.6 pg (28.0-34.0); Mean Corpuscular Volume 86.7 fL (81-99); Mean Platelet Volume 10.8 fL (7.4-10.4); Monocytes # 0.5 10^3/uL (0.2-0.9); Monocytes % 7.2 %; Neutrophils # 4.19 10^3/uL (1.8-7.7); Neutrophils % 62.8 %; Nucleated Red Blood Cells % 0 %; Platelet Count 284 10^3/cmm (130-400); Red Cell Distribution Width 12.1 % (12.1-15.1); White Blood Count 6.7 10^3/uL (4.0-10.0)
[2020-05-30 23:44] LABS: Alanine Aminotransferase 7 U/L (0-33); Albumin Level 4.2 g/dL (3.5-5.2); Alkaline Phosphatase 53 IU/L (35-105); Anion Gap 14.1 (5-19); Aspartate Amino Transferase 16 U/L (0-32); Blood Urea Nitrogen 9 mg/dL (6-20); Calcium 9.6 mg/dL (8.5-10.5); Carbon Dioxide 25 mmol/L (22-29); Chloride 101 mmol/L (98-107); Globulin 2.3 g/dL (1.3-4.6); Glucose 101 mg/dL (65-115); Lipase 84 U/L (13-60); Osmolality Calculated 281 mOsm/kg (285-295); Potassium 4.1 mmol/L (3.5-5.1); Sodium 136 mmol/L (136-145); Total Bilirubin 0.2 mg/dL (0.15-1.2); Total Protein 6.5 g/dL (6.6-8.7)
[2020-05-31 00:27] LABS: HCG Qualitative Urine. Negative (Negative)
[2020-05-31] MEDS: ondansetron 2 mg/ML SDV 2 mL 4 MG IVP (01:16)
[2020-05-31] MEDS: LORazepam 2 mg/mL INJ 1 mL 1 MG IVP (01:29)
[2020-05-31 01:30] VITALS: BP 120/73; PULSE 84; RESP 18; O2SAT 97
== END 2020-05-31 01:30 | disposition home or self-care (01) ==
PROVIDERS: Emergency Provider Emergency Medicine; PCP Family Medicine
DX: M79.10 Myalgia, unspecified site (principal); R11.0 Nausea; M32.9 Systemic lupus erythematosus, unspecified
CPT/HCPCS: 12345; 80053; 81001; 81003; 81025; 83690; 85025; 96361; 96374; 96375; 99282; 99283; J2060; J2270; J2405; J7030

== ENCOUNTER 2020-06-13 12:11 | Inpatient (IN) | payer BC, MEDICARE, MEDICAID, SELFPAY ==
[2020-06-13] VITALS (15 sets, daily range): BP systolic 94–136; BP diastolic 47–95; PULSE 62–93; RESP 16–24; TEMP 36.8; O2SAT 96–100; BMI 25.6
--- NOTE | 2020-06-13 12:20 | ECG_ITS ---
[facility] Test Date: 2020-06-13 Pat Name: Joe Eisenberg Department: Room: Gender: Female Nursing Admin: : 1995 Requested By: Ceasar Lema I Order Number: [id number] Reading MD: JIMY UNDERWOOD Measurements Intervals [place] Rate: 60 P: 7 NE: 126 QRS: 28 QRSD: 101 T: 34 QT: 439 QTc: 442 Interpretive Statements SINUS RHYTHM INCOMPLETE RIGHT BUNDLE BRANCH BLOCK [90+ ms QRS DURATION, TERMINAL R IN V1/V2, 40+ ms S IN I/aVL/V4/V5/V6] Compared to ECG 05/27/2019 20:45:14 Incomplete right bundle-branch block now present Sinus tachycardia no longer present T-wave abnormality no longer present Electronically Signed On 06-13-2020 18:02:06 AGRISCI[employer] TECH[employer]OLOGY INSTRUCTOR by JIMY UNDERWOOD [id number]
--- NOTE | 2020-06-13 12:21 | CT_ITS ---
WS: [id number] CT HEAD NONCONTRAST HISTORY: multiple syncopal episodes TECHNIQUE: Contiguous axial imaging performed through the brain in 2.5 mm imaging. Bone and soft tiss ue windows. Sagittal and coronal reformats reviewed. All CT scans at [facility] use at le ast one of these dose optimization techniques: automated exposure control; mA and/or kV adjustment pe r patient size (includes targeted exams where dose is matched to clinical indication); or iterative r econstruction. DLP: 814.48 mGy.cm COMPARISON: None available. No acute intracranial hemorrhage, midline shift or mass effect. No atrophy or prior infarcts or herniation. Ventricles: Normal size with no hydrocephalus. Paranasal sinuses: Small air-fluid levels in the sphenoid sinuses bilaterally. Increased mucoperioste al thickening in the posterior ethmoid air cells bilaterally. Mastoid air cells: Well pneumatized. Calvarium and scalp: Skull is intact with no soft tissue edema or swelling. CT/CT head wo con* [id number] IMPRESSION: 1. Negative noncontrast head CT. 2. Maxillary and ethmoid sinusitis.
--- NOTE | 2020-06-13 12:23 | W.ED.SYNCOPE ---
HPI - Syncope General: Chief Complaint: Syncope Stated Complaint: SYNCOPE Time Seen by Provider: 06/13/20 12:12 Source: patient, old records reviewed and other (her PCP, Dr. Ramirez) Mode of arrival: EMS Limitations: no limitations History of Present Illness: HPI narrative: This is a 25-year-old female patient with a history of lupus and lupus nephritis who presents to the emergency department with complaints of multiple syncopal episodes in the last 48 hours. She has had at least 7 and they have been witnessed by her family. She also had one in her primary care provider's office today. The patient says she feels lightheaded and the world seems far away prior to each event and the last for about 10 to 15 seconds.. In her PCPs office this morning she actually never had a complete syncopal event but was drifting in and out of consciousness. She however was responsive and answering questions throughout the events. Her primary care provider states that her pulse was steady throughout and there was no arrhythmia during the event. She was therefore brought in for evaluation. MD complaint: loss of consciousness Onset (ago): day(s) (2) Duration of episode: 15 -: second(s) Prodromal symptoms: lightheaded Witnessed: Yes - by Other (her family and her PCP) Context: at rest Injuries sustained associated with event: none Associated symptoms: Reports headache(s); Deny abdominal pain, chest pain, fever(s), lightheadedness, nausea, short of breath, vertigo or weakness Review of Systems General: Reports: 10 or more systems reviewed and unremarkable except in HPI and below Const: Denies: fever(s) Eyes: Denies: change in vision or blurry vision ENMT: Denies: throat pain, enlarged tonsils, odynophagia, hoarseness, mouth pain or swelling of lips/tongue Card: Denies: chest pain or lightheadedness Resp: Denies: dyspnea, productive cough or non-productive cough GI: Denies: abdominal pain or nausea : Denies: flank pain, difficulty voiding, dysuria, urinary frequency, urinary urgency or urinary hesitancy Musc: Denies: neck pain, back pain or extremity swelling Skin/Breast: Denies: rash, pruritus or erythema Neuro: Reports: headache(s); Denies: vertigo Endo: Denies: polyuria, polydipsia or tired all the time [facility] ED PFSH: Medical History (Updated 06/18/20 @ 10:15 by Ceasar Lema MD, [facility]) Generalized anxiety disorder Inflammatory bowel disease 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, follows up at [facility] Lupus nephritis Panic disorder [episodic paroxysmal anxiety] Surgical History History of appendectomy [place] Hx of cholecystectomy [place] Status post biopsy of kidney Multiple percutaneous biopsies Status post tonsillectomy and adenoidectomy Family History Mother Juvenile rheumatoid arthritis Social History Smoking and tobacco status: never smoked Alcohol intake: never Household members: family Housing: House Sexually active: Yes Female Reproductive History: Date of last menstrual period: 05/15/20 Physical Exam Const: COMMON NORMALS: no acute distress, average body habitus, patient oriented x3, no limitations, healthy appearing, alert and well nourished HENMT: COMMON NORMALS: normocephalic, atraumatic and moist oral mucous membranes HEAD & SCALP: normocephalic and atraumatic Eye: COMMON NORMALS: Equal, round and reactive pupils present, EOMs intact bilaterally, conjunctivae normal and no scleral icterus CONJUNCTIVA: Yes conjunctivae normal PUPIL: Yes Equal, round and reactive pupils present Neck/C-Spine: COMMON NORMALS: full ROM, supple, no meningeal signs, no JVD and No carotid bruits Resp: COMMON NORMALS: normal respiratory effort, No retractions, No use of accessory muscles, clear to auscultation bilaterally and percussion normal AUSCULTATION: clear to auscultation bilaterally PERCUSSION: percussion normal Cardio: COMMON NORMALS: no JVD, regular rate, regular rhythm, S1 normal heart sound present, S2 normal heart sound present, No gallops present (Cardio), No clicks present (Cardio), No murmurs present (Cardio), No rub (Cardio) and Peripheral pulses 2+ throughout RATE: regular rate RHYTHM: regular rhythm HEART SOUNDS: S1 normal heart sound present and S2 normal heart sound present PERIPHERAL PULSES: Peripheral pulses 2+ throughout GI: COMMON NORMALS: Normal to inspection, nondistended, normoactive bowel sounds present, Soft to palpation, non-tender, No hepatosplenomegaly present, no masses and no bruits PALPATION: Yes Soft to palpation and Yes No hepatosplenomegaly present Extremity: COMMON NORMALS: normal to inspection, full ROM, capillary refill normal, no calf tenderness and no pedal edema Neuro: COMMON NORMALS: patient oriented x3 SENSORIUM/ORIENTATION: Yes alert MENINGEAL SIGNS: Yes no meningeal signs Skin: COMMON NORMALS: no rashes or lesions noted, no wounds, turgor normal, no jaundice, no petechiae and no mottling GENERAL SKIN EXAM: no rashes or lesions noted and turgor normal Course Consultations: Consultation #1: Discussed the patient with Dr. Deluca, neurologist at [facility] and she kindly accepted the patient to her service. Time: 15:47 Vital Signs: Vital signs: Vital Signs Temperature 98.6 F 06/15/20 02:19 Pulse Rate 67 06/15/20 02:19 Respiratory Rate 22 H 06/15/20 02:19 Blood Pressure 115/67 06/15/20 02:19 Pulse Oximetry 95 06/15/20 02:19 MDM - Syncope MDM Narrative: Medical decision making narrative: This 25 year old female with a history of SLE and lupus nephritis who presented to the ED with what was thought to be syncopal episodes for 2 days, multiple episodes before today, about 7. She had an episode in her PCP's office and he wanted her evaluated. In the ED she also had several episodes, preceded by an aura and during the episode that i witnessed she had tongue smacking, lasting about 45 seconds. She then had back to back tonic clonic seizures just as we initiated keppra and before it had infused. She was given a dose of IV lorazepam which aborted the seizure and she remained seizure free for the rest of the day. When she gets a bed, she will be transferred to [facility]. Medical Records: Attestation: I reviewed the patient's medical records. Lab Data: Attestation: I reviewed the patient's lab results. Labs: Lab Results 06/13/20 06/13/20 06/13/20 Range/Units 13:20 13:20 13:20 WBC (4.0-10.0) 10^3/ uL RBC (4.1-5.3) 10^6/u L Hgb (11.5-15.3) g/dL Hct (37.0-47.0) % MCV (81-99) fL MCH (28.0-34.0) pg MCHC (30.0-36.0) g/dL RDW (12.1-15.1) % Plt Count (130-400) 10^3/c mm MPV (7.4-10.4) fL Neut % (Auto) % Lymph % (Auto) % [place] % (Auto) % Eos % (Auto) % Baso % (Auto) % Neut # (Auto) (1.8-7.7) 10^3/u L Lymph # (Auto) (0.8-4.8) 10^3/u L [place] # (Auto) (0.2-0.9) 10^3/u L Eos # (Auto) (0.0-0.8) 10^3/u L Baso # (Auto) (0.0-0.1) 10^3/u L Nucleated RBC % (a uto) % Nucleated RBCs # /100WBC Sodium (136-145) mmol/L Potassium (3.5-5.1) mmol/L Chloride (98-107) mmol/L Carbon Dioxide (22-29) mmol/L Anion Gap (5-19) BUN (6-20) mg/dL Creatinine (0.5-0.9) mg/dL GFR Calculation (90-130) mL/min Glucose (65-115) mg/dL Calculated Osmolal ity (285-295) mOsm/k g Calcium (8.5-10.5) mg/dL Magnesium (1.7-2.3) mg/dL Total Bilirubin (0.15-1.2) mg/dL AST (0-32) U/L ALT (0-33) U/L Alkaline Phosphata se (35-105) IU/L Creatine Kinase (26-192) U/L C-Reactive Protein (0.0-4.9) mg/L Total Protein (6.6-8.7) g/dL Albumin (3.5-5.2) g/dL Globulin (1.3-4.6) g/dL HCG, Qual Negative (Negative) Urine Color Straw (Yellow) Urine Appearance Clear (CLEAR) Urine pH 6.5 (5-7) Ur Specific Gravit y 1.005 (1.005-1.030) Urine Protein Neg (Negative) Urine Glucose (UA) Norm (Normal) Urine Ketones Negative (Negative) Urine Blood Neg (Negative) Urine Nitrate Negative (Negative) Urine Bilirubin Neg (Negative) Urine Urobilinogen Norm (Negative) mg/dL Ur Leukocyte Natalie ase Negative (Negative) Urine Opiates Scre en Negative (Negative) ng/mL Ur Barbiturates Sc reen Negative (Negative) ng/mL Ur Phencyclidine S crn Negative (Negative) ng/mL Ur Amphetamines Sc reen Negative (Negative) ng/mL U Benzodiazepines Scrn Positive H (Negative) ng/mL Urine Cocaine Scre en Negative (Negative) ng/mL U Marijuana (THC) Screen Negative (Negative) ng/mL SARS-CoV-2 Ag (Rap id) (Negative) 06/13/20 06/13/20 06/13/20 Range/Units 13:53 13:53 15:10 WBC 5.0 (4.0-10.0) 10^3/ uL RBC 4.59 (4.1-5.3) 10^6/u L Hgb 13.6 (11.5-15.3) g/dL Hct 39.9 (37.0-47.0) % MCV 86.9 (81-99) fL MCH 29.6 (28.0-34.0) pg MCHC 34.1 (30.0-36.0) g/dL RDW 12.4 (12.1-15.1) % Plt Count 319 (130-400) 10^3/c mm MPV 10.8 H (7.4-10.4) fL Neut % (Auto) 63.5 % Lymph % (Auto) 27.7 % [place] % (Auto) 6.6 % Eos % (Auto) 0.8 % Baso % (Auto) 1.2 % Neut # (Auto) 3.17 (1.8-7.7) 10^3/u L Lymph # (Auto) 1.4 (0.8-4.8) 10^3/u L [place] # (Auto) 0.3 (0.2-0.9) 10^3/u L Eos # (Auto) 0.0 (0.0-0.8) 10^3/u L Baso # (Auto) 0.1 (0.0-0.1) 10^3/u L Nucleated RBC % (a uto) 0 % Nucleated RBCs # 0.0 /100WBC Sodium 143 (136-145) mmol/L Potassium 3.8 (3.5-5.1) mmol/L Chloride 108 H (98-107) mmol/L Carbon Dioxide 24 (22-29) mmol/L Anion Gap 14.8 (5-19) BUN 8 (6-20) mg/dL Creatinine 0.6 (0.5-0.9) mg/dL GFR Calculation 121.8 (90-130) mL/min Glucose 75 (65-115) mg/dL Calculated Osmolal ity 293 (285-295) mOsm/k g Calcium 9.5 (8.5-10.5) mg/dL Magnesium 2.0 (1.7-2.3) mg/dL Total Bilirubin 0.3 (0.15-1.2) mg/dL AST 15 (0-32) U/L ALT 8 (0-33) U/L Alkaline Phosphata se 57 (35-105) IU/L Creatine Kinase (26-192) U/L C-Reactive Protein 0.4 (0.0-4.9) mg/L Total Protein 6.5 L (6.6-8.7) g/dL Albumin 4.2 (3.5-5.2) g/dL Globulin 2.3 (1.3-4.6) g/dL HCG, Qual (Negative) Urine Color (Yellow) Urine Appearance (CLEAR) Urine pH (5-7) Ur Specific Gravit y (1.005-1.030) Urine Protein (Negative) Urine Glucose (UA) (Normal) Urine Ketones (Negative) Urine Blood (Negative) Urine Nitrate (Negative) Urine Bilirubin (Negative) Urine Urobilinogen (Negative) mg/dL Ur Leukocyte Natalie ase (Negative) Urine Opiates Scre en (Negative) ng/mL Ur Barbiturates Sc reen (Negative) ng/mL Ur Phencyclidine S crn (Negative) ng/mL Ur Amphetamines Sc reen (Negative) ng/mL U Benzodiazepines Scrn (Negative) ng/mL Urine Cocaine Scre en (Negative) ng/mL U Marijuana (THC) Screen (Negative) ng/mL SARS-CoV-2 Ag (Rap id) Negative (Negative) 06/14/20 06/14/20 Range/Units 08:59 08:59 WBC 3.8 L (4.0-10.0) 10^3/ uL RBC 4.02 L (4.1-5.3) 10^6/u L Hgb 12.0 (11.5-15.3) g/dL Hct 35.4 L (37.0-47.0) % MCV 88.1 (81-99) fL MCH 29.9 (28.0-34.0) pg MCHC 33.9 (30.0-36.0) g/dL RDW 12.3 (12.1-15.1) % Plt Count 251 (130-400) 10^3/c mm MPV 10.4 (7.4-10.4) fL Neut % (Auto) 61.6 % Lymph % (Auto) 28.5 % [place] % (Auto) 8.0 % Eos % (Auto) 0.8 % Baso % (Auto) 0.8 % Neut # (Auto) 2.32 (1.8-7.7) 10^3/u L Lymph # (Auto) 1.1 (0.8-4.8) 10^3/u L [place] # (Auto) 0.3 (0.2-0.9) 10^3/u L Eos # (Auto) 0.0 (0.0-0.8) 10^3/u L Baso # (Auto) 0.0 (0.0-0.1) 10^3/u L Nucleated RBC % (a uto) 0 % Nucleated RBCs # 0.0 /100WBC Sodium 140 (136-145) mmol/L Potassium 3.9 (3.5-5.1) mmol/L Chloride 109 H (98-107) mmol/L Carbon Dioxide 24 (22-29) mmol/L Anion Gap 10.9 (5-19) BUN 10 (6-20) mg/dL Creatinine 0.6 (0.5-0.9) mg/dL GFR Calculation 121.8 (90-130) mL/min Glucose 86 (65-115) mg/dL Calculated Osmolal ity 288 (285-295) mOsm/k g Calcium 8.3 L (8.5-10.5) mg/dL Magnesium (1.7-2.3) mg/dL Total Bilirubin 0.5 (0.15-1.2) mg/dL AST 13 (0-32) U/L ALT 7 (0-33) U/L Alkaline Phosphata se 48 (35-105) IU/L Creatine Kinase 50 (26-192) U/L C-Reactive Protein (0.0-4.9) mg/L Total Protein 5.5 L (6.6-8.7) g/dL Albumin 3.5 (3.5-5.2) g/dL Globulin 2.0 (1.3-4.6) g/dL HCG, Qual (Negative) Urine Color (Yellow) Urine Appearance (CLEAR) Urine pH (5-7) Ur Specific Gravit y (1.005-1.030) Urine Protein (Negative) Urine Glucose (UA) (Normal) Urine Ketones (Negative) Urine Blood (Negative) Urine Nitrate (Negative) Urine Bilirubin (Negative) Urine Urobilinogen (Negative) mg/dL Ur Leukocyte Natalie ase (Negative) Urine Opiates Scre en (Negative) ng/mL Ur Barbiturates Sc reen (Negative) ng/mL Ur Phencyclidine S crn (Negative) ng/mL Ur Amphetamines Sc reen (Negative) ng/mL U Benzodiazepines Scrn (Negative) ng/mL Urine Cocaine Scre en (Negative) ng/mL U Marijuana (THC) Screen (Negative) ng/mL SARS-CoV-2 Ag (Rap id) (Negative) Imaging Data^: CT Head: Attestation: I personally reviewed and interpreted this imaging study as follows: Radiologist's impression: [address] [address] [address] Scan Report Signed Patient: Joe Eisenberg #: [id number] : 1995Acct#:[id number] Age/Sex: 25 / FADM Date: 06/13/20 Loc: ERRoom/Bed: Attending Dr: Ordering Provider/Ordering MD: Ceasar Lema MD, [facility] Date of Service: 06/13/20 Procedure(s): CT head wo con* [id number] Accession Number(s): [id number] Report Number: [id number] WS: [id number] CT HEAD NONCONTRAST HISTORY: multiple syncopal episodes TECHNIQUE: Contiguous axial imaging performed through the brain in 2.5 mm imaging. Bone and soft tissue windows. Sagittal and coronal reformats reviewed. All CT scans at [facility] use at least one of these dose optimization techniques: automated exposure control; mA and/or kV adjustment per patient size (includes targeted exams where dose is matched to clinical indication); or iterative reconstruction. DLP: 814.48 mGy.cm COMPARISON: None available. No acute intracranial hemorrhage, midline shift or mass effect. No atrophy or prior infarcts or herniation. Ventricles: Normal size with no hydrocephalus. Paranasal sinuses: Small air-fluid levels in the sphenoid sinuses bilaterally. Increased mucoperiosteal thickening in the posterior ethmoid air cells bilaterally. Mastoid air cells: Well pneumatized. Calvarium and scalp: Skull is intact with no soft tissue edema or swelling. CT/CT head wo con* [id number] IMPRESSION: 1. Negative noncontrast head CT. 2. Maxillary and ethmoid sinusitis. Dictated By:Kim Duff DO Signed By:Kim Duff DOSigned Date/Time:06/13/20 1256 DD/ 1251 CXR: Attestation: I personally reviewed and interpreted this imaging study as follows: Radiologist's impression: [address] [address] XRay Report Signed Patient: Joe Eisenberg #: [id number] : 1995Acct#:[id number] Age/Sex: 25 / FADM Date: 06/13/20 Loc: ERRoom/Bed: Attending Dr: Ordering Provider/Ordering MD: Ceasar Lema MD, [facility] [place] Date of Service: 06/13/20 Procedure(s): XR chest 1V portable [id number] Accession Number(s): [id number] Report Number: [id number] WS: [id number] PORTABLE CHEST HISTORY: syncope COMPARISON: 02/03/2020 Lungs are clear and well expanded. No pleural effusion or pneumothorax. Cardiac size: Normal. Mediastinum/Aorta: Normal mediastinum. No osseous abnormality seen. XR/XR chest 1V portable [id number] IMPRESSION: Unremarkable portable chest. Dictated By:Kim Duff DO Signed By:Kim Duff DOSigned Date/Time:06/13/20 1257 DD/ 1256 EKG Data^: EKG 1: Attestation: I personally reviewed and interpreted this EKG as follows: EKG interpretation date: 06/13/20 EKG interpretation time: 12:25 Prior EKG tracings: available for review Interpretation: Normal sinus rhythm. Heart rate [address] changes. Unremarkable EKG Discharge Plan Discharge Patient Disposition: Xfer Short-Term Hosp Admit Provider: Alfie Werner Clinical Impression: New onset seizure Discharge Orders: Transfer Out of Facility (Order); Ordered 06/14/20 Ordered By: Alfie Werner Coding Level of Care Code ED Senior Living Advisor for Chg Fwd Exam Comprehensive
--- NOTE | 2020-06-13 12:29 | XR_ITS ---
WS: [id number] PORTABLE CHEST HISTORY: syncope COMPARISON: 02/03/2020 Lungs are clear and well expanded. No pleural effusion or pneumothorax. Cardiac size: Normal. Mediastinum/Aorta: Normal mediastinum. No osseous abnormality seen. XR/XR chest 1V portable [id number] IMPRESSION: Unremarkable portable chest.
[2020-06-13 13:41] LABS: Add Urine Microscopic? NO
[2020-06-13 13:47] LABS: HCG Qualitative Urine. Negative (Negative)
[2020-06-13 13:48] LABS: Bilirubin Urine Neg (Negative); Blood Urine Neg (Negative); Glucose Urine UA Norm (Normal); Ketones Urine Negative (Negative); Leukocyte Esterase Urine Negative (Negative); Nitrate Urine Negative (Negative); Protein Urine Neg (Negative); Specific Gravity, Urine 1.005 (1.005-1.030); Urine Appearance Clear (CLEAR); Urine Color Straw (Yellow); Urobilinogen Urine Norm (Negative); pH Urine 6.5 (5-7)
--- NOTE | 2020-06-13 13:50 | PC.NURSE ---
Was notified by patients mother that she had another fainting spell, RN responded with two other nurses to assist in starting an IV on the patient. While nurse was starting IV patient was unresponsive to verbal commands and had a blank space. Patient awoke and was groggy, speaking softly in small sentences. IV attempt successful, blood drawn. Provider was notified concerning patients change in condition. Explained to provider concerning the patients condition was instructed to keep monitoring.
[2020-06-13 14:12] LABS: Amphetamines Screen Urine Negative (Negative); Barbiturates Screen Urine Negative (Negative); Benzodiazepines Screen Urine Positive (Negative); Cocaine Screen Urine Negative (Negative); Opiate Screen Urine Negative (Negative); PCP Screen Urine Negative (Negative); THC Screen Urine Negative (Negative)
[2020-06-13] MEDS: sodium chloride 0.9% 1,000 ML 999 ML IV (14:17)
[2020-06-13 14:18] LABS: Basophils # 0.1 10^3/uL (0.0-0.1); Basophils % 1.2 %; Eosinophils % 0.8 %; Hematocrit 39.9 % (37.0-47.0); Hemoglobin 13.6 g/dL (11.5-15.3); Lymphocytes # 1.4 10^3/uL (0.8-4.8); Lymphocytes % 27.7 %; Mean Corpuscular HGB Conc 34.1 g/dL (30.0-36.0); Mean Corpuscular Hemoglobin 29.6 pg (28.0-34.0); Mean Corpuscular Volume 86.9 fL (81-99); Mean Platelet Volume 10.8 fL (7.4-10.4); Monocytes # 0.3 10^3/uL (0.2-0.9); Monocytes % 6.6 %; Neutrophils # 3.17 10^3/uL (1.8-7.7); Neutrophils % 63.5 %; Nucleated Red Blood Cells % 0 %; Platelet Count 319 10^3/cmm (130-400); Red Blood Count 4.59 10^6/uL (4.1-5.3); Red Cell Distribution Width 12.4 % (12.1-15.1)
[2020-06-13] MEDS: LORazepam 2 mg/mL INJ 1 mL (14:18)
[2020-06-13 14:21] LABS: Alanine Aminotransferase 8 U/L (0-33); Albumin Level 4.2 g/dL (3.5-5.2); Alkaline Phosphatase 57 IU/L (35-105); Anion Gap 14.8 (5-19); Aspartate Amino Transferase 15 U/L (0-32); Blood Urea Nitrogen 8 mg/dL (6-20); C Reactive Protein 0.4 mg/L (0.0-4.9); Calcium 9.5 mg/dL (8.5-10.5); Carbon Dioxide 24 mmol/L (22-29); Chloride 108 mmol/L (98-107); Globulin 2.3 g/dL (1.3-4.6); Glomerular Filtration Rate 121.8 mL/min (90-130); Glucose 75 mg/dL (65-115); Osmolality Calculated 293 mOsm/kg (285-295); Potassium 3.8 mmol/L (3.5-5.1); Sodium 143 mmol/L (136-145); Total Bilirubin 0.3 mg/dL (0.15-1.2); Total Protein 6.5 g/dL (6.6-8.7)
--- NOTE | 2020-06-13 14:32 | PC.NURSE ---
While starting IV fluids, patient explained she felt she was going to pass out again. Patient slumped her head over, RN continued setting up medication. Patient awoke long enough to explain she was going to faint again. She slumped over to her left. RN started Keppra to prevent further episodes. While checking IV patient began to seize, torso and legs began rapidly jerking, patient started making gurgling noises. RN yelled for Dr. Lema. Upon provider entering room patient stopped seizing, and was instructed to give 2mg of Ativan. Upon returning noted patient to be resting. administered medication, and was instructed to get seizure pads. When entering room with seizure pads provider explained that patient had another seizure. Patient is currently resting in bed mother at bedside. No seizure activity noted at this time.
[2020-06-13 15:58] LABS: SARS Covid-2 Antigen Negative (Negative)
[2020-06-13] MEDS: ketorolac 30 mg/mL INJ 15 MG IVP (19:15)
[2020-06-13] MEDS: ondansetron 2 mg/ML SDV 2 mL 4 MG IVP (19:20)
[2020-06-14] VITALS (16 sets, daily range): BP systolic 91–177; BP diastolic 50–99; PULSE 62–93; RESP 16–27; TEMP 36.4–36.9; O2SAT 95–100
--- NOTE | 2020-06-14 07:01 | PC.NURSE ---
Received report assumed care. No changes noted from report. Resting with lights off. Mother at bedside.
--- NOTE | 2020-06-14 07:04 | PC.NURSE ---
Sz pads on bed.
[2020-06-14] MEDS: acetaminophen 325 mg Tablet 650 MG PO (07:41)
--- NOTE | 2020-06-14 09:02 | PC.NURSE ---
Blood Drawn per written order
[2020-06-14 09:18] LABS: Basophils % 0.8 %; Eosinophils % 0.8 %; Hematocrit 35.4 % (37.0-47.0); Lymphocytes # 1.1 10^3/uL (0.8-4.8); Lymphocytes % 28.5 %; Mean Corpuscular HGB Conc 33.9 g/dL (30.0-36.0); Mean Corpuscular Hemoglobin 29.9 pg (28.0-34.0); Mean Corpuscular Volume 88.1 fL (81-99); Mean Platelet Volume 10.4 fL (7.4-10.4); Monocytes # 0.3 10^3/uL (0.2-0.9); Neutrophils # 2.32 10^3/uL (1.8-7.7); Neutrophils % 61.6 %; Nucleated Red Blood Cells % 0 %; Platelet Count 251 10^3/cmm (130-400); Red Blood Count 4.02 10^6/uL (4.1-5.3); Red Cell Distribution Width 12.3 % (12.1-15.1); White Blood Count 3.8 10^3/uL (4.0-10.0)
[2020-06-14 09:31] LABS: Alanine Aminotransferase 7 U/L (0-33); Albumin Level 3.5 g/dL (3.5-5.2); Alkaline Phosphatase 48 IU/L (35-105); Anion Gap 10.9 (5-19); Aspartate Amino Transferase 13 U/L (0-32); Blood Urea Nitrogen 10 mg/dL (6-20); Calcium 8.3 mg/dL (8.5-10.5); Carbon Dioxide 24 mmol/L (22-29); Chloride 109 mmol/L (98-107); Creatine Phosphokinase 50 U/L (26-192); Glomerular Filtration Rate 121.8 mL/min (90-130); Glucose 86 mg/dL (65-115); Osmolality Calculated 288 mOsm/kg (285-295); Potassium 3.9 mmol/L (3.5-5.1); Sodium 140 mmol/L (136-145); Total Bilirubin 0.5 mg/dL (0.15-1.2); Total Protein 5.5 g/dL (6.6-8.7)
--- NOTE | 2020-06-14 10:45 | PC.NURSE ---
Pt had a Seizure with mother and RN witnessed. Notified Dr Portillo , verbal order for Ativan 1 mg,
[2020-06-14] MEDS: LORazepam 2 mg/mL INJ 1 mL 1 MG IVP ×2 (10:49→16:58)
[2020-06-14] MEDS: sodium chloride 0.9% 1,000 ML 999 ML IV (11:54)
--- NOTE | 2020-06-14 12:39 | P.CONIM_ITS ---
Providers/Reason For Consult Consulting Physican/Specialty*: Alfie Werner MD, hospitalist Reason for Consult*: Medical management, possible seizure Requesting Physcian: ED, Dr Mckeon Primary Care Provider: Kam Ramirez MD History of Present Illness History of Present Illness Joe Eisenberg is a 25 year old female who presented to the emergency department on June 13. At that time she had complained of multiple episodes of syncope over the last 48 hours, several of which have been witnessed from the family. These can occur standing, sitting. She has not sustained any injury. Family reports during the events she will go out, and wake back up in less than a minute. She is confused and cannot remember the episodes. In the emergency department apparently there were several episodes that were noted and there was concern of seizure. She has been under a significant amount of stress lately recently with the of her grandfather. She has had some headaches. Apparently at last visit for her lupus 2 months ago she was under good control and had no evidence of flare. She has had no vomiting. She has had no fevers. She has not had any diarrhea lately or recurrent vomiting which have been concerns in the past. She has had some myalgias lately. Review of Systems General: Reports: 10 or more systems reviewed and unremarkable except in HPI and below Const: Denies: fever(s) or chills Eyes: Denies: change in vision ENMT: Denies: throat pain Card: Denies: chest pain Resp: Denies: dyspnea GI: Denies: abdominal pain, nausea or vomiting : Denies: flank pain Musc: Reports: muscle cramps Skin/Breast: Denies: rash Neuro: Reports: headache(s) and seizure-like activity Psych: Denies: anxiety or depression Endo: Denies: polyuria Bobby/Lymph: Denies: easy bruising All/Imm: Denies: urticaria Meds/Allergies Home Medications and Allergies Home Medications Medication Instructions Recorded Confirmed Last Taken Type Ferrex 150 Forte Plus 150 cap PO BID@1000,2200 05/27/19 06/13/20 06/13/20 History calcium carbonate-vitamin D3 1 tab PO DAILY@1000 05/27/19 06/13/20 06/13/20 History [Calcium 500 + D] ergocalciferol (vitamin D2) See Rx Instructions .ROUTE .COMPLEX 05/27/19 06/13/20 06/12/20 History [Vitamin D2] ondansetron HCl 8 mg PO Q6H PRN 05/27/19 06/13/20 11/16/19 History pantoprazole 40 mg PO DAILY@1000 05/27/19 06/13/20 06/13/20 History cholecalciferol (vitamin D3) 50 mcg PO DAILY@1000 11/18/19 06/13/20 06/13/20 History [Vitamin D3] mycophenolate mofetil See Rx Instructions .ROUTE .COMPLEX 11/18/19 06/13/20 06/13/20 History naproxen sodium [Aleve] 440 mg PO Q6H PRN 11/18/19 06/13/20 11/16/19 History hydroxychloroquine 200 mg PO BID@1000,2200 12/25/19 06/13/20 06/13/20 History albuterol sulfate 2 inh INHALATION Q4H PRN #8.5 gm 02/03/20 06/13/20 Unknown Rx cyclobenzaprine 10 mg PO TID PRN #10 tab 03/04/20 06/13/20 Unknown Rx lorazepam 1 mg tablet 1 mg PO BID PRN #45 tab 05/18/20 06/13/20 06/12/20 Rx ondansetron 4 mg PO Q6H PRN #14 tab 05/31/20 06/13/20 Unknown Rx Celexa 20 mg PO DAILY@2200 06/13/20 06/13/20 06/12/20 History Allergies Allergy/AdvReac Type Severity Reaction Status Date / Time metoclopramide [From Reglan] Allergy ADR-Anxiety Verified 06/13/20 12:26 morphine Allergy ADR-Chest Verified 06/13/20 12:26 Pain PFSH Acute PFSH: Medical History (Reviewed 06/13/20 @ 12:28 by Ceasar Lema MD, [facility] [place]) Generalized anxiety disorder Inflammatory bowel disease 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, follows up at [facility] Lupus nephritis Panic disorder [episodic paroxysmal anxiety] Surgical History History of appendectomy Christina Hx of cholecystectomy Christina Status post biopsy of kidney Multiple percutaneous biopsies Status post tonsillectomy and adenoidectomy Family History Mother Juvenile rheumatoid arthritis Social History Smoking and tobacco status: never smoked Alcohol intake: never Household members: family Housing: House Sexually active: Yes Female Reproductive History: Date of last menstrual period: 05/15/20 [facility] Information: Sister with history of seizure disorder. Vitals/I&O/Wt Last Vital Signs Temp 97.9 F 06/14/20 07:00 Pulse 77 06/14/20 11:00 Resp 18 06/14/20 11:00 BP 99/60 06/14/20 11:00 Pulse Ox 97 06/14/20 11:00 06/13/20 06/14/20 06/14/20 22:59 06:59 14:59 Intake Total 1000 / 1110 100 / 1210 Balance 1000 / 1110 100 / 1210 Weight last 48 hrs Weight 63.503 kg Physical Exam Narrative: EXAM NARRATIVE: General exam is a tired appearing female in no apparent distress HEENT: Pupils equally round. Oropharynx clear. Neck is supple no lymphadenopathy or thyromegaly Cardiovascular regular rate and rhythm without murmur, no S3 or S4 Lungs clear no wheezing or crackles Abdomen is soft with positive bowel sounds. No obvious organomegaly was deferred Extremities no cyanosis clubbing or edema, cap refill brisk Skin no rash Neuro no obvious focal deficits. Data Other Data: Other data: LFTs within normal limits. Total protein slightly low at 6.5. Urinalysis negative, no significant proteinuria. Urine drug screen positive for benzodiazepines and otherwise negative. Magnesium level normal. CK checked today normal at 50 Chest x-ray unremarkable CT head noncontrast unremarkable other than some fluid noted in the sinuses. A&P Assessment and plan (1) Syncope: Etiology difficult to tease out currently. Events yesterday concerning the emergency department physician for possible seizure. Keppra was initiated at 1000 mg, and has been ordered for 500 every 12 hours. 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 Secondary to bed availability she is still in the emergency department at [facility]. She has had another episode here this morning despite the Keppra according to nursing lasted about 45 seconds associated with generalized shaking. She immediately got 1 mg of Ativan and was lethargic for a while afterward. Without the ability to do continuous EEG or video EEG cannot really exclude pseudoseizure. Recent stressors include of grandfather. Other possibilities could include lupus related illness although patient does not have any obvious proteinuria suggesting a flare currently. I do believe it is appropriate to proceed with transfer to [place] as was previously arranged. I discussed this with the emergency physician. Agree with continuation of Keppra, Ativan as needed for now CK was checked and normal I agree with transfer is arranged. Status: Acute (2) Lupus (systemic lupus erythematosus): Followed at [place] Status: Inactive (3) Generalized anxiety disorder: On Celexa, Ativan as needed Status: Acute Additional A&P Information History of myalgias. CK is normal. 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
[2020-06-14] MEDS: fentaNYL 50 mcg/mL INJ 2mL 25 MCG IVP (13:54)
--- NOTE | 2020-06-14 15:39 | P.TS_ITS ---
Transfer Summary Providers Date of Discharge: 06/14/20 Primary Care Provider: Kam Ramirez MD Anticipated Date of Transfer: Anticipated date of transfer: 06/14/20 Receiving Facility & Provider: Receiving Provider: [Dr. Deluca] Receiving facility: [[facility] [place]] Diagnoses at Discharge Discharge Diagnosis (1) Syncope: Status: Acute (2) Lupus (systemic lupus erythematosus): Status: Inactive Permanent problem details: complicated by nephropathy, follows up at [facility] (3) Generalized anxiety disorder: Status: Acute Reason for Visit Reason for Visit: SYNCOPE Hospital Course Hospital Course Joe is a 25-year-old white female who presented to the emergency department with some syncopal episodes and concern of seizures noted in the emergency department. 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 She had had a significant amount of stress lately with a in the family. She has multiple specialists at the [facility] 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 The family requested transfer to [place] after ER evaluation. While in the emergency department Keppra was initiated. Even following Keppra, patient continued to have some episodes for which Ativan was given. It was unclear whether these are true seizures or a functional disorder such as pseudoseizures. Complications of her lupus are not excluded such as cerebritis. I was contacted by the emergency department secondary to her prolonged wait in the emergency department regarding transfer to the inpatient side pending her transfer to inpatient neurology unit for her seizure activity under the care of Dr. Deluca. I facilitated this. I believe transfer is still indicated secondary to our inability to provide continuous EEG, video EEG, inpatient rheumatology services. At the time of this transfer summary exact time of transfer is expected to be later tonight. Currently the patient is stable, with stable vital signs, afebrile, and on room air oxygen. She will transition to the ICU, really serving more as a stepdown unit in her case secondary to her new onset seizure disorder. Physical Exam Narrative: EXAM NARRATIVE: General exam no apparent distress Cardiovascular regular in rhythm without murmur Lungs clear Abdomen is soft with positive bowel sounds Extremities no cyanosis clubbing or edema Neuro no obvious focal deficits. TS Data Data Completed and Pending: Completed Studies During Hospitalization Category Date Time Status CT head wo con* 7 0450 Urgent Cat Scan 06/13/20 12:21 Completed XR chest 1V gisela ble [id number] Stat Exams 06/13/20 12:29 Completed Labs from last 24 hours 06/14/20 06/14/20 06/13/20 08:59 08:59 15:10 WBC 3.8 L RBC 4.02 L Hgb 12.0 Hct 35.4 L MCV 88.1 MCH 29.9 MCHC 33.9 RDW 12.3 Plt Count 251 MPV 10.4 Neut % (Auto) 61.6 Lymph % (Auto) 28.5 Finney % (Auto) 8.0 Eos % (Auto) 0.8 Baso % (Auto) 0.8 Neut # (Auto) 2.32 Lymph # (Auto) 1.1 Finney # (Auto) 0.3 Eos # (Auto) 0.0 Baso # (Auto) 0.0 Nucleated RBC % (a uto) 0 Nucleated RBCs # 0.0 Sodium 140 Potassium 3.9 Chloride 109 H Carbon Dioxide 24 Anion Gap 10.9 BUN 10 Creatinine 0.6 GFR Calculation 121.8 Glucose 86 Calculated Osmolal ity 288 Calcium 8.3 L Total Bilirubin 0.5 AST 13 ALT 7 Alkaline Phosphata se 48 Creatine Kinase 50 Total Protein 5.5 L Albumin 3.5 Globulin 2.0 SARS-CoV-2 Ag (Rap id) Negative Vitals: Last Vital Signs Temp 97.9 F 06/14/20 07:00 Pulse 86 06/14/20 13:00 Resp 21 H 06/14/20 13:54 BP 91/55 06/14/20 13:00 Pulse Ox 96 06/14/20 13:00 TS Medications Medications Home Medications Ferrex 150 Forte Plus 150 cap PO BID@1000,2200 05/27/19 [History Confirmed 06/13/20] calcium carbonate-vitamin D3 [Calcium 500 + D] 1 tab PO DAILY@1000 05/27/19 [History Confirmed 06/13/20] ergocalciferol (vitamin D2) [Vitamin D2] See Rx Instructions .ROUTE .COMPLEX 05/27/19 [History Confirmed 06/13/20] ondansetron HCl 8 mg PO Q6H PRN 05/27/19 [History Confirmed 06/13/20] pantoprazole 40 mg PO DAILY@1000 05/27/19 [History Confirmed 06/13/20] cholecalciferol (vitamin D3) [Vitamin D3] 50 mcg PO DAILY@1000 11/18/19 [History Confirmed 06/13/20] mycophenolate mofetil See Rx Instructions .ROUTE .COMPLEX 11/18/19 [History Confirmed 06/13/20] naproxen sodium [Aleve] 440 mg PO Q6H PRN 11/18/19 [History Confirmed 06/13/20] hydroxychloroquine 200 mg PO BID@1000,2200 12/25/19 [History Confirmed 06/13/20] albuterol sulfate 2 inh INHALATION Q4H PRN #8.5 gm 02/03/20 [Rx Confirmed 06/13/20] cyclobenzaprine 10 mg PO TID PRN #10 tab 03/04/20 [Rx Confirmed 06/13/20] lorazepam 1 mg tablet 1 mg PO BID PRN #45 tab 05/18/20 [Rx Confirmed 06/13/20] ondansetron 4 mg PO Q6H PRN #14 tab 05/31/20 [Rx Confirmed 06/13/20] Celexa 20 mg PO DAILY@2200 06/13/20 [History Confirmed 06/13/20] Discharge Plan Discharge Prescriptions: No Action lorazepam 1 mg tablet 1 mg PO BID PRN (Reason: anxiety) Qty: 45 RF: 2 mycophenolate mofetil 500 mg tablet See Rx Instructions .ROUTE .COMPLEX RF: 0 naproxen sodium [Aleve] 220 mg Tablet 440 mg PO Q6H PRN (Reason: Pain) RF: 0 cholecalciferol (vitamin D3) [Vitamin D3] 50 mcg (2,000 unit) Tablet 50 mcg PO DAILY@1000 RF: 0 albuterol sulfate 90 mcg/actuation HFA aerosol inhaler 2 inh INHALATION Q4H PRN (Reason: shortness of breath or wheezing) Qty: 8.5 RF: 0 cyclobenzaprine 10 mg tablet 10 mg PO TID PRN (Reason: muscle spasm) Qty: 10 RF: 0 ondansetron 4 mg tablet,disintegrating 4 mg PO Q6H PRN (Reason: nausea and vomiting) Qty: 14 RF: 0 ondansetron HCl 8 mg tablet 8 mg PO Q6H PRN (Reason: Nausea) RF: 0 pantoprazole 40 mg tablet,delayed release (DR/EC) 40 mg PO DAILY@1000 RF: 0 ergocalciferol (vitamin D2) [Vitamin D2] 50,000 unit capsule See Rx Instructions .ROUTE .COMPLEX RF: 0 Ferrex 150 Forte Plus 150-60-25-1 [id number]-mg capsule 150 cap PO BID@1000,2200 RF: 0 calcium carbonate-vitamin D3 [Calcium 500 + D] 500 mg(1,250mg) -400 unit Tablet 1 tab PO DAILY@1000 RF: 0 hydroxychloroquine 200 mg Tablet 200 mg PO BID@1000,2200 RF: 0 Celexa 20 mg tablet 20 mg PO DAILY@2200 RF: 0 Referrals: Kam Ramirez MD [Primary Care Provider] - Transfer Attestations Time Spent in Transfer Care*: greater than 30 min Status at Transfer: Cognitive status at transfer: cognitively intact , Quality Metrics Clinical Quality Measures: During this hospital stay, did patient experience: None Coding Level of Care Code Acute 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
[2020-06-14] MEDS: LORazepam 2 mg/mL INJ 1 mL 0.5 MG IVP (16:58)
[2020-06-14] MEDS: sodium chloride 0.9% 1,000 ML 500 ML IV (16:59)
--- NOTE | 2020-06-14 17:49 | PC.NURSE ---
At 1626- calling [facility] and giving report to Jasmin RUSSO. While finishing report, the mom comes and gets me to say pt is having a Sz at 1636 which last approx 30-[address] Portillo in room to witness. Verbal order for Ativan 1 mg. Then at 1648- pt had another Sz , lasting approx 20-25 secs , Dr Portillo in room. Verbal order for Ativan 0.5 mg
[2020-06-14] MEDS: LORazepam 2 mg/mL INJ 1 mL 0.5 MG IM (18:40)
[2020-06-14] MEDS: cyclobenzaprine 10 mg Tablet PO (19:29)
--- NOTE | 2020-06-14 19:38 | PC.NURSE ---
AO x4, answers questions appropriately, reported muscle pain PRN Flexeril administered per request, voice is weak, movevents are weak, hog counter to BUE are strong, BLE push is strong, pupils are reactive and equal, Mother at bedside, call light within reach
[2020-06-14] MEDS: hydroxychloroquine 200 mg Tablet PO (21:56)
[2020-06-14] MEDS: citalopram 20 mg Tablet PO (21:56)
--- NOTE | 2020-06-14 22:18 | PC.NURSE ---
C/O pain 9/10 headache and generalized body ache, Dr. Kirkland contacted and gave T.O. for Clyde 5-325 mg PO 1x PRN pain
--- NOTE | 2020-06-14 22:25 | PC.NURSE ---
Allergy to Morphine on chart which Rx reports is similar to Hydrocodone, PAtient reported taking Hydrocodone in the past with no adverse effects, Attempted to contact Dr. Kirkland for approval to continue med
--- NOTE | 2020-06-14 23:05 | PC.NURSE ---
reported increased pain 10/10 generalized at this time, again reported taking Hydrocodone in the past with no adverse effects or issues
[2020-06-14] MEDS: HYDROcodone-acetaminophen 5-325 mg Tablet 1 TAB PO (23:31)
[2020-06-15] VITALS: PULSE 69; RESP 25; TEMP 37; O2SAT 95
--- NOTE | 2020-06-15 00:13 | PC.NURSE ---
Dr. Kirkland notified of [facility] having a bed available, T.O. given to continue NS running at 100 ml/hr from previous shift
[2020-06-15 01:00] VITALS: BP 96/57; PULSE 67; RESP 21; O2SAT 97
[2020-06-15] MEDS: sodium chloride 0.9% 1,000 ML 100 ML IV (01:19)
--- NOTE | 2020-06-15 01:49 | PC.NURSE ---
Report called to Katharine. EMS arrived, patient care transferred to EMS, patient left with EMS [id number] heading to [facility], Mother at bedside
[2020-06-15 02:19] VITALS: BP 115/67; PULSE 67; RESP 22; TEMP 37; O2SAT 95
== END 2020-06-15 02:22 | disposition short-term general hospital (02) | DRG 312 ==
LOC: ER 13:02 → ICU 06-14 17:41
PROVIDERS: Admitting Provider Internal Medicine; Emergency Provider Family Medicine; PCP Family Medicine; Visit Provider Internal Medicine
DX: R55 Syncope and collapse (principal); M32.19 Other organ or system involvement in systemic lupus erythematosus; F41.1 Generalized anxiety disorder; F41.0 Panic disorder [episodic paroxysmal anxiety]; R56.9 Unspecified convulsions; Z63.4 Disappearance and death of family member
CPT/HCPCS: 12345; 70450; 71045; 80053; 80306; 81003; 81025; 82550; 83735; 85025; 86140; 87426; 93005; 96372; 99284; J0131; J1885; J1953; J2060; J2405; J3010; J7030; J7517

== ENCOUNTER 2020-07-19 23:06 | Emergency (ER) | payer BC, MEDICARE, MEDICAID, SELFPAY ==
--- NOTE | 2020-07-19 23:12 | XR_ITS ---
WS: [id number] Portable AP upright chest, 07/19/2020 Clinical Data: sob Comparison: Portable chest, 06/13/2020. Findings: No nodules, masses or effusions are seen. The heart is normal. The pulmonary vascularity is not increased. No pneumonia or pneumothorax is seen. XR/XR chest 1V portable [id number] Impression: Negative chest.
[2020-07-19 23:14] VITALS: BP 138/92; PULSE 79; RESP 18; TEMP 36.8; O2SAT 98; BMI 26.5
--- NOTE | 2020-07-19 23:31 | W.ED.ABDPA2 ---
HPI - Abdominal Pain General: Chief Complaint: Abdominal Pain Stated Complaint: SOB, N/V Time Seen by Provider: 07/19/20 23:11 Source: patient Mode of arrival: ambulatory Limitations: no limitations History of Present Illness: HPI narrative: 25-year-old female patient presents to the emergency department with 3 to 4-day history of nausea vomiting. She states thought she had a virus but now is experiencing abdominal pain. She also reports diarrhea x2 days. She has history of Campylobacter infection, reports similar symptoms with infection she is experiencing today. She denies hematochezia or hematemesis. She denies recent antibiotic use. States diarrhea appears mucousy. States has been able to tolerate some p.o. fluids and meals but becomes nauseated after ingestion. She has history of lupus. MD elicited complaint: abdominal pain Onset (ago): day(s) (3-4) Pain Consistency: constant Location: Epigastric and RUQ Severity: moderate Quality: cramping and aching Exacerbating factors: nothing Relieving factors: nothing Associated Symptoms: Reports change in stool character, diarrhea, heartburn, nausea and vomiting; Denies belching, chills, GI cramping, dysuria and fever(s) Treatments prior to arrival: other Related Data: Date of Last Menstrual Period: 05/15/20 Review of Systems General: Reports: 10 or more systems reviewed and unremarkable except in HPI and below Const: Denies: fever(s), chills or diaphoresis Eyes: Denies: blurry vision or eye redness ENMT: Denies: throat pain, dental pain or disequilibrium Card: Denies: chest pain, palpitations or irregular heart rhythm Resp: Denies: dyspnea, productive cough, non-productive cough or wheezing GI: Reports: abdominal pain, nausea, vomiting, heartburn, diarrhea and change in stool character; Denies: early satiety, GI cramping, belching or pain on defecation : Denies: difficulty voiding or dysuria Musc: Denies: neck pain, back pain, joint pain or joint warmth Skin/Breast: Denies: rash, pruritus, erythema or skin tenderness Neuro: Denies: headache(s), weakness in extremities or behavioral changes Psych: Denies: anxiety or depression Bobby/Lymph: Denies: easy bruising PFSH ED PFSH: Medical History Generalized anxiety disorder Inflammatory bowel disease 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, follows up at [facility] Lupus nephritis Panic disorder [episodic paroxysmal anxiety] Surgical History History of appendectomy [place] Hx of cholecystectomy [place] Status post biopsy of kidney Multiple percutaneous biopsies Status post tonsillectomy and adenoidectomy Family History Mother Juvenile rheumatoid arthritis Social History Smoking and tobacco status: never smoked Alcohol intake: never Household members: family Housing: House Sexually active: Yes Female Reproductive History: Date of last menstrual period: 05/15/20 Physical Exam Const: COMMON NORMALS: no acute distress, average body habitus, patient oriented x3, alert and well nourished GENERAL APPEARANCE: cooperative, well kempt, well developed, ill appearing and well hydrated NUTRITIONAL APPEARANCE: thin ORIENTATION/CONSCIOUSNESS: Yes awake, Yes oriented to person, Yes oriented to place and Yes oriented to time HENMT: COMMON NORMALS: normocephalic, atraumatic, Normal external nose present and moist oral mucous membranes HEAD & SCALP: normal to inspection, normocephalic and atraumatic NOSE: Normal external nose present MOUTH: lip normal, tongue normal and moist mucous membranes abnormal (DRY) THROAT: posterior oropharynx normal and uvula midline Eye: COMMON NORMALS: Equal, round and reactive pupils present and EOMs intact bilaterally GENERAL EYE: appearance normal, both eyes and all related structures PUPIL: Yes Equal, round and reactive pupils present Neck/C-Spine: COMMON NORMALS: full ROM and no lymphadenopathy GENERAL: Yes normal visual inspection and Yes trachea midline CERVICAL SPINE: Yes cervical ROM normal Lymph: LYMPHATIC: no lymphadenopathy noted Chest: COMMONS NORMALS: normal inspection of the chest and normal palpation of entire chest wall Resp: COMMON NORMALS: normal respiratory effort, No retractions, No use of accessory muscles and clear to auscultation bilaterally EFFORT & INSPECTION: Yes able to speak in complete sentences, No labored and No audible wheezes AUSCULTATION: clear to auscultation bilaterally Cardio: COMMON NORMALS: regular rate, regular rhythm, S1 normal heart sound present, S2 normal heart sound present and Peripheral pulses 2+ throughout RATE: regular rate RHYTHM: regular rhythm HEART SOUNDS: S1 normal heart sound present and S2 normal heart sound present PERIPHERAL PULSES: Peripheral pulses 2+ throughout GI: COMMON NORMALS: Normal to inspection, nondistended, normoactive bowel sounds present and Soft to palpation INSPECTION: Yes normal to inspection, No abdominal wall ecchymosis, No abdominal distension and No central obesity PALPATION: Yes Soft to palpation and Yes Tenderness to palpation present (GI) Details: other (EPIGASTRIC) OTHER: ACTIVELY VOMITING : COMMON NORMALS: Yes no CVA tenderness BLADDER/KIDNEY EXAM: Yes no CVA tenderness Back/Pelvis: COMMON NORMALS: no CVA tenderness and thoracic and lumbar spine normal to inspection Extremity: COMMON NORMALS: normal to inspection and capillary refill normal Neuro: COMMON NORMALS: patient oriented x3 and no focal motor deficits SENSORIUM/ORIENTATION: Yes alert, Yes oriented to person, Yes oriented to place and Yes oriented to time Psych: COMMON NORMALS: mental status grossly normal, Normal thought process present and cooperative APPEARANCE: Yes well kempt ACTIVITY/MOTOR BEHAVIOR: Yes appropriate eye contact THOUGHT PROCESS: Normal thought process present Skin: COMMON NORMALS: no rashes or lesions noted and turgor normal GENERAL SKIN EXAM: no rashes or lesions noted and turgor normal Course Vital Signs: Vital signs: Vital Signs Temperature 98.2 F 07/19/20 23:14 Pulse Rate 106 H 07/20/20 02:30 Respiratory Rate 18 07/20/20 02:30 Blood Pressure 129/76 07/20/20 02:30 Pulse Oximetry 98 07/20/20 02:30 MDM - Abdominal Pain MDM Narrative: Medical decision making narrative: 25-year-old female patient presents to the emergency department with complaints of nausea vomiting diarrhea. She reported epigastric pain, previous cholecystectomy. She has history of Campylobacter infection, history of lupus. Active therapy includes hydrochloric when for lupus. She denies hematemesis or hematochezia. During her stay in the ED, she did not exhibit diarrhea. She received IV fluids Zofran Benadryl and Pepcid. Carafate was administered orally which resolved epigastric pain. Nausea and vomiting resolved. She was able to tolerate p.o. fluids here in the ED. Lipase slightly elevated 72, CMP unremarkable. C-reactive protein and sed rate within normal limits. She was prescribed Zofran for home and to continue pantoprazole, advised to engage in clear liquid diet and advance as tolerated. Doubtful she is experiencing Campylobacter infection as she is not exhibiting bloody diarrhea or inflammatory markers/white blood count not elevated. No complaints of abdominal pain after Carafate administered. Advised to follow-up with her primary care next several days to ensure she is improving. Lab Data: Labs: Lab Results 07/20/20 07/20/20 07/20/20 Range/Units 00:11 00:11 00:11 WBC 7.2 (4.0-10.0) 10^3/ uL RBC 5.38 H (4.1-5.3) 10^6/u L Hgb 15.9 H (11.5-15.3) g/dL Hct 46.1 (37.0-47.0) % MCV 85.7 (81-99) fL MCH 29.6 (28.0-34.0) pg MCHC 34.5 (30.0-36.0) g/dL RDW 12.0 L (12.1-15.1) % Plt Count 321 (130-400) 10^3/c mm MPV 10.5 H (7.4-10.4) fL Neut % (Auto) 61.0 % Lymph % (Auto) 29.2 % [place] % (Auto) 8.2 % Eos % (Auto) 0.7 % Baso % (Auto) 0.8 % Neut # (Auto) 4.37 (1.8-7.7) 10^3/u L Lymph # (Auto) 2.1 (0.8-4.8) 10^3/u L [place] # (Auto) 0.6 (0.2-0.9) 10^3/u L Eos # (Auto) 0.1 (0.0-0.8) 10^3/u L Baso # (Auto) 0.1 (0.0-0.1) 10^3/u L Nucleated RBC % (a uto) 0 % Nucleated RBCs # 0.0 /100WBC ESR (0-15) mm/hr Sodium 139 (136-145) mmol/L Potassium 3.7 (3.5-5.1) mmol/L Chloride 104 (98-107) mmol/L Carbon Dioxide 23 (22-29) mmol/L Anion Gap 15.7 (5-19) BUN 10 (6-20) mg/dL Creatinine 0.7 (0.5-0.9) mg/dL GFR Calculation 102.0 (90-130) mL/min Glucose 102 (65-115) mg/dL Calculated Osmolal ity 287 (285-295) mOsm/k g Calcium 9.6 (8.5-10.5) mg/dL Total Bilirubin 0.3 (0.15-1.2) mg/dL AST 18 (0-32) U/L ALT < 5 (0-33) U/L Alkaline Phosphata se 63 (35-105) IU/L C-Reactive Protein 0.3 (0.0-4.9) mg/L Total Protein 7.5 (6.6-8.7) g/dL Albumin 4.7 (3.5-5.2) g/dL Globulin 2.8 (1.3-4.6) g/dL Lipase 72 H (13-60) U/L HCG, Qual Negative (Negative) Urine Color (Yellow) Urine Appearance (CLEAR) Urine pH (5-7) Ur Specific Gravit y (1.005-1.030) Urine Protein (Negative) Urine Glucose (UA) (Normal) Urine Ketones (Negative) Urine Blood (Negative) Urine Nitrate (Negative) Urine Bilirubin (Negative) Urine Urobilinogen (Negative) mg/dL Ur Leukocyte Natalie ase (Negative) 07/20/20 07/20/20 Range/Units 00:11 01:16 WBC (4.0-10.0) 10^3/ uL RBC (4.1-5.3) 10^6/u L Hgb (11.5-15.3) g/dL Hct (37.0-47.0) % MCV (81-99) fL MCH (28.0-34.0) pg MCHC (30.0-36.0) g/dL RDW (12.1-15.1) % Plt Count (130-400) 10^3/c mm MPV (7.4-10.4) fL Neut % (Auto) % Lymph % (Auto) % [place] % (Auto) % Eos % (Auto) % Baso % (Auto) % Neut # (Auto) (1.8-7.7) 10^3/u L Lymph # (Auto) (0.8-4.8) 10^3/u L [place] # (Auto) (0.2-0.9) 10^3/u L Eos # (Auto) (0.0-0.8) 10^3/u L Baso # (Auto) (0.0-0.1) 10^3/u L Nucleated RBC % (a uto) % Nucleated RBCs # /100WBC ESR 5 (0-15) mm/hr Sodium (136-145) mmol/L Potassium (3.5-5.1) mmol/L Chloride (98-107) mmol/L Carbon Dioxide (22-29) mmol/L Anion Gap (5-19) BUN (6-20) mg/dL Creatinine (0.5-0.9) mg/dL GFR Calculation (90-130) mL/min Glucose (65-115) mg/dL Calculated Osmolal ity (285-295) mOsm/k g Calcium (8.5-10.5) mg/dL Total Bilirubin (0.15-1.2) mg/dL AST (0-32) U/L ALT (0-33) U/L Alkaline Phosphata se (35-105) IU/L C-Reactive Protein (0.0-4.9) mg/L Total Protein (6.6-8.7) g/dL Albumin (3.5-5.2) g/dL Globulin (1.3-4.6) g/dL Lipase (13-60) U/L HCG, Qual (Negative) Urine Color Yellow (Yellow) Urine Appearance Clear (CLEAR) Urine pH 7 (5-7) Ur Specific Gravit y 1.005 (1.005-1.030) Urine Protein Neg (Negative) Urine Glucose (UA) Norm (Normal) Urine Ketones Negative (Negative) Urine Blood Neg (Negative) Urine Nitrate Negative (Negative) Urine Bilirubin Neg (Negative) Urine Urobilinogen Norm (Negative) mg/dL Ur Leukocyte Natalie ase Negative (Negative) Discharge Plan Discharge Patient Disposition: Home Clinical Impression: Gastroenteritis Gastritis Qualifiers: Gastritis type: unspecified gastritis Chronicity: acute Gastritis bleeding: without bleeding Qualified Code(s): K29.00 - Acute gastritis without bleeding Condition: Stable Prescriptions: New Zofran 4 mg tablet 4 mg PO Q4H 5 Days Qty: 14 RF: 0 No Action lorazepam 1 mg tablet 1 mg PO BID PRN (Reason: anxiety) Qty: 45 RF: 2 mycophenolate mofetil 500 mg tablet See Rx Instructions .ROUTE .COMPLEX RF: 0 naproxen sodium [Aleve] 220 mg Tablet 440 mg PO Q6H PRN (Reason: Pain) RF: 0 cholecalciferol (vitamin D3) [Vitamin D3] 50 mcg (2,000 unit) Tablet 50 mcg PO DAILY@1000 RF: 0 albuterol sulfate 90 mcg/actuation HFA aerosol inhaler 2 inh INHALATION Q4H PRN (Reason: shortness of breath or wheezing) Qty: 8.5 RF: 0 cyclobenzaprine 10 mg tablet 10 mg PO TID PRN (Reason: muscle spasm) Qty: 10 RF: 0 ondansetron 4 mg tablet,disintegrating 4 mg PO Q6H PRN (Reason: nausea and vomiting) Qty: 14 RF: 0 ondansetron HCl 8 mg tablet 8 mg PO Q6H PRN (Reason: Nausea) RF: 0 pantoprazole 40 mg tablet,delayed release (DR/EC) 40 mg PO DAILY@1000 RF: 0 ergocalciferol (vitamin D2) [Vitamin D2] 50,000 unit capsule See Rx Instructions .ROUTE .COMPLEX RF: 0 Ferrex 150 Forte Plus 150-60-25-1 bj-ds-bei-mg capsule 150 cap PO BID@1000,2200 RF: 0 calcium carbonate-vitamin D3 [Calcium 500 + D] 500 mg(1,250mg) -400 unit Tablet 1 tab PO DAILY@1000 RF: 0 hydroxychloroquine 200 mg Tablet 200 mg PO BID@1000,2200 RF: 0 Celexa 20 mg tablet 20 mg PO DAILY@2200 RF: 0 Discharge Orders: Discharge ED (Routine); Ordered 07/20/20 Ordered By: Jayda Kearney Referrals: Kam Ramirez MD [Primary Care Provider] - Discharge Diet: Advance as tolerated and Clear Liquid Discharge Activity: Limit activity as instructed Patient Instructions: [place] Diet - Adult, Gastroenteritis (ED), Acute Nausea and Vomiting (ED), Opioid Safety Activity Restrictions/Additional Instructions: Push fluids to avoid dehydration, clear liquid diet for the next 12 to 24 hours then may advance to full liquid diet. Encourage bland diet if tolerating full liquid diet without difficulty. Avoid fried greasy fatty spicy foods for the next 7 days. Follow-up with your primary care provider in 2 to 3 days to ensure you are improving Return to the emergency department if you develop continued nausea vomiting despite use of Zofran, continue pantoprazole as prescribed as this will help with your stomach May take [id number] Pepcid/Tums as needed for heartburn symptoms Return to the emergency department if you develop fever, increased abdominal pain or continued nausea vomiting or other concerning symptoms. Coding Level of Care Code ED Window Shade Cutter for Erin Fwd Exam Comprehensive
[2020-07-20] MEDS: sodium chloride 0.9% 1,000 ML 999 ML IV (00:03)
[2020-07-20] MEDS: ondansetron 2 mg/ML SDV 2 mL 4 MG IVP (00:04)
[2020-07-20] MEDS: diphenhydrAMINE 50 mg/mL SDV 1mL 25 MG IVP (00:04)
[2020-07-20] MEDS: famotidine 20 mg/2 mL INJ 40 MG IVP (00:05)
[2020-07-20 00:15] LABS: Basophils # 0.1 10^3/uL (0.0-0.1); Basophils % 0.8 %; Eosinophils # 0.1 10^3/uL (0.0-0.8); Eosinophils % 0.7 %; Hematocrit 46.1 % (37.0-47.0); Hemoglobin 15.9 g/dL (11.5-15.3); Lymphocytes # 2.1 10^3/uL (0.8-4.8); Lymphocytes % 29.2 %; Mean Corpuscular HGB Conc 34.5 g/dL (30.0-36.0); Mean Corpuscular Hemoglobin 29.6 pg (28.0-34.0); Mean Corpuscular Volume 85.7 fL (81-99); Mean Platelet Volume 10.5 fL (7.4-10.4); Monocytes # 0.6 10^3/uL (0.2-0.9); Monocytes % 8.2 %; Neutrophils # 4.37 10^3/uL (1.8-7.7); Nucleated Red Blood Cells % 0 %; Platelet Count 321 10^3/cmm (130-400); Red Blood Count 5.38 10^6/uL (4.1-5.3); White Blood Count 7.2 10^3/uL (4.0-10.0)
[2020-07-20 00:27] LABS: HCG, Serum Qual Negative (Negative)
[2020-07-20 00:34] LABS: Alanine Aminotransferase < 5 U/L (0-33); Albumin Level 4.7 g/dL (3.5-5.2); Alkaline Phosphatase 63 IU/L (35-105); Anion Gap 15.7 (5-19); Aspartate Amino Transferase 18 U/L (0-32); Blood Urea Nitrogen 10 mg/dL (6-20); C Reactive Protein 0.3 mg/L (0.0-4.9); Calcium 9.6 mg/dL (8.5-10.5); Carbon Dioxide 23 mmol/L (22-29); Chloride 104 mmol/L (98-107); Globulin 2.8 g/dL (1.3-4.6); Glucose 102 mg/dL (65-115); Lipase 72 U/L (13-60); Osmolality Calculated 287 mOsm/kg (285-295); Potassium 3.7 mmol/L (3.5-5.1); Sodium 139 mmol/L (136-145); Total Bilirubin 0.3 mg/dL (0.15-1.2); Total Protein 7.5 g/dL (6.6-8.7)
[2020-07-20 01:07] LABS: Erythrocyte Sedimentation Rate 5 mm/hr (0-15)
[2020-07-20 01:17] VITALS: BP 125/72; PULSE 88; RESP 18; O2SAT 98
[2020-07-20] MEDS: sucralfate 1 gm/10 mL Oral Liq UDC PO (01:17)
[2020-07-20] MEDS: LORazepam 2 mg/mL INJ 1 mL 1 MG IVP (01:18)
[2020-07-20 01:21] LABS: Add Urine Microscopic? NO
[2020-07-20 01:31] LABS: Bilirubin Urine Neg (Negative); Blood Urine Neg (Negative); Glucose Urine UA Norm (Normal); Ketones Urine Negative (Negative); Leukocyte Esterase Urine Negative (Negative); Nitrate Urine Negative (Negative); Protein Urine Neg (Negative); Specific Gravity, Urine 1.005 (1.005-1.030); Urine Appearance Clear (CLEAR); Urine Color Yellow (Yellow); Urobilinogen Urine Norm (Negative); pH Urine 7 (5-7)
[2020-07-20 02:30] VITALS: BP 129/76; PULSE 106; RESP 18; O2SAT 98
[2020-07-20 03:08] VITALS: BP 110/62; PULSE 80; RESP 17; O2SAT 95
== END 2020-07-20 03:08 | disposition home or self-care (01) ==
PROVIDERS: Emergency Provider Nurse Practitioner Family; PCP Family Medicine
DX: K52.9 Noninfective gastroenteritis and colitis, unspecified (principal); K29.00 Acute gastritis without bleeding; M32.9 Systemic lupus erythematosus, unspecified
CPT/HCPCS: 71045; 80053; 81003; 83690; 84703; 85025; 85651; 86140; 96361; 96374; 96375; 99284; J1200; J2060; J2405; J3490; J7030

== ENCOUNTER 2020-08-23 08:40 | Emergency (ER) | payer BC, MEDICARE, MEDICAID, SELFPAY ==
[2020-08-23 08:46] VITALS: BP 123/85; PULSE 80; RESP 16; TEMP 36.7; O2SAT 100; BMI 26.5
--- NOTE | 2020-08-23 09:06 | ED_ITS ---
HPI - Nausea/Vomiting/Diarrhea General: Chief complaint: Nausea/Vomiting/Diarrhea Stated complaint: N/V/D Time Seen by Provider: 08/23/20 08:52 History of Present Illness: HPI Narrative: Patient presents with vomiting and diarrhea since about 230 this morning's been too numerous times to count. She denies any significant abdominal pain she has had previous gallbladder and appendectomy. Patient has these spells happen every couple of months associated they think with her lupus and/or possibly medications this is been ongoing since she was 13 years old. Denies any blood in her stools or vomit. Denies any fevers denies any loss of taste or smell or cough denies recent Covid exposures. Pertinent past history: cyclical vomiting Onset (ago): hour(s) Description of vomiting: watery and bilious Description of diarrhea: watery Associated nausea: Yes Associated abdominal pain: No Associated symtoms: Reports nausea Review of Systems General: Reports: 10 or more systems reviewed and unremarkable except in HPI and below Narrative: General: denies fatigue, fever or chills HEENT: denies ear pain, denies nasal congestion, denies vision changes, denies sore throat Neck: denies masses or pain Resp: denies cough, denies shortness of breath, denies pleuritic pain Cardio: denies chest pain, denies edema GI: denies abdominal pain, see HPI, denies black/tarry or bloody stools : denies hematuria, denies dysuria Neuro: denies headache, denies dizziness, denies motor or sensory changes Musculoskeletal: denies pain, denies swelling Skin: denies rashes Psych: denies SI or HI Endocrine: denies thyroid symptoms, denies lymphadenopathy all over ROS reviewed and patient denies GI: Reports: nausea PFSH ED PFSH: Medical History Generalized anxiety disorder Inflammatory bowel disease 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, follows up at [facility] Lupus nephritis Panic disorder [episodic paroxysmal anxiety] Surgical History History of appendectomy [place] Hx of cholecystectomy [place] Status post biopsy of kidney Multiple percutaneous biopsies Status post tonsillectomy and adenoidectomy Family History Mother Juvenile rheumatoid arthritis Social History Smoking and tobacco status: never smoked Alcohol intake: never Household members: family Housing: House Sexually active: Yes Female Reproductive History: Date of last menstrual period: 07/26/20 Physical Exam Narrative: EXAM NARRATIVE: General: a/o/3, no distress Head: atraumatic HEENT: normal eyes, normal conjunctiva, normal hearing, normal external nose, normal mouth, mucous membranes moist Neck: FROM, trachea midline Chest: normal expansion, no gross deformities Resp: normal speech, no retractions, no accessory muscle use, CTA bilaterally Cardio: regular rate and rhythm and no murmur, no peripheral edema, normal p eripheral pulses GI: soft, flat non tender, no guarding normal BS : deferred Musculoskeletal: FROM, no pain or gross deformities Neuro: a/o appropriate for age, no gross motor or sensory deficitys, CN II-XII grossly intact, normal coordination, normal speech Skin: no rashes Psych: cooperative, normal mood and effect Course ED course: Patient has no pain on exam has normal bowel sounds she had a bowel movement earlier she denies any history of bowel obstructions will obtain IV fluids and labs patient says she frequently gets low potassiums Vital Signs: Vital signs: Vital Signs Temperature 98.1 F 08/23/20 08:46 Pulse Rate 68 08/23/20 13:07 Respiratory Rate 18 08/23/20 13:07 Blood Pressure 116/70 08/23/20 13:07 Pulse Oximetry 99 08/23/20 13:07 MDM - Nausea/Vomiting/Diarrhea MDM Narrative: Medical decision making narrative: Patient was stable through her stay in the emergency department her laboratory work was unremarkable she was given a liter of fluids and some Zofran she had no vomiting in the ER she requested medication for pain but says it was more of a diffuse body ache and continued to deny any abdominal pain to me She had no vomiting in the ER but said she was started get nauseated again and we gave her oral Phenergan as IV Reglan caused her to have dyskinesiaAnd she has allergies to morphine so hopefully the Phenergan will relax her little bit and we can get her discharge she has been texting on her phone and no toxicity she was given Toradol and was still requesting something for pain however explained to her if she has nausea vomiting did not want a give her pain medication on empty stomach Differential Diagnosis: N/V/D differential diagnosis: Likely gastroenteritis and dehydration Medical Records: Attestation: I reviewed the patient's medical records. Lab Data: Attestation: I reviewed the patient's lab results. Labs: Lab Results 08/23/20 08/23/20 08/23/20 Range/Units 09:13 09:13 10:57 WBC 7.8 (4.0-10.0) 10^3/ uL RBC 4.55 (4.1-5.3) 10^6/u L Hgb 13.5 (11.5-15.3) g/dL Hct 39.1 (37.0-47.0) % MCV 85.9 (81-99) fL MCH 29.7 (28.0-34.0) pg MCHC 34.5 (30.0-36.0) g/dL RDW 12.1 (12.1-15.1) % Plt Count 301 (130-400) 10^3/c mm MPV 10.7 H (7.4-10.4) fL Neut % (Auto) 84.3 % Lymph % (Auto) 10.1 % [place] % (Auto) 4.7 % Eos % (Auto) 0.0 % Baso % (Auto) 0.6 % Neut # (Auto) 6.58 (1.8-7.7) 10^3/u L Lymph # (Auto) 0.8 (0.8-4.8) 10^3/u L [place] # (Auto) 0.4 (0.2-0.9) 10^3/u L Eos # (Auto) 0.0 (0.0-0.8) 10^3/u L Baso # (Auto) 0.1 (0.0-0.1) 10^3/u L Nucleated RBC % (a uto) 0 % Nucleated RBCs # 0.0 /100WBC Sodium 138 (136-145) mmol/L Potassium 3.5 (3.5-5.1) mmol/L Chloride 110 H (98-107) mmol/L Carbon Dioxide 16 L (22-29) mmol/L Anion Gap 15.5 (5-19) BUN 9 (6-20) mg/dL Creatinine 0.6 (0.5-0.9) mg/dL GFR Calculation 121.8 (90-130) mL/min Glucose 109 (65-115) mg/dL Calculated Osmolal ity 285 (285-295) mOsm/k g Calcium 8.8 (8.5-10.5) mg/dL Total Bilirubin 0.5 (0.15-1.2) mg/dL AST 16 (0-32) U/L ALT 9 (0-33) U/L Alkaline Phosphata se 53 (35-105) IU/L Total Protein 6.4 L (6.6-8.7) g/dL Albumin 4.2 (3.5-5.2) g/dL Globulin 2.2 (1.3-4.6) g/dL Lipase 49 (13-60) U/L Urine Color Yellow (Yellow) Urine Appearance Clear (CLEAR) Urine pH 8 H (5-7) Ur Specific Gravit y 1.010 (1.005-1.030) Urine Protein Neg (Negative) Urine Glucose (UA) Norm (Normal) Urine Ketones 1+ H (Negative) Urine Blood Neg (Negative) Urine Nitrate Negative (Negative) Urine Bilirubin Neg (Negative) Prot Sulfosalicyli c Acd Negative (Negative) Urine Urobilinogen Norm (Negative) mg/dL Ur Leukocyte Natalie ase Negative (Negative) Urine RBC None (0-2) /hpf Urine WBC None (0-5) /hpf Ur Squamous Epith Cells 5-10 H (0-5) /hpf Amorphous Sediment Not Reportable Urine Bacteria Trace (NONE) /hpf Urine Mucus 2+ /hpf Discharge Plan Discharge Patient Disposition: Home Clinical Impression: Gastroenteritis Vomiting Qualifiers: Vomiting type: unspecified Vomiting Intractability: unspecified Nausea presence: unspecified Qualified Code(s): R11.10 - Vomiting, unspecified Condition: Stable Prescriptions: No Action lorazepam 1 mg tablet 1 mg PO BID PRN (Reason: anxiety) Qty: 45 RF: 2 mycophenolate mofetil 500 mg tablet See Rx Instructions .ROUTE .COMPLEX RF: 0 naproxen sodium [Aleve] 220 mg Tablet 440 mg PO PRN RF: 0 cholecalciferol (vitamin D3) [Vitamin D3] 50 mcg (2,000 unit) Tablet 50 mcg PO QAM RF: 0 albuterol sulfate 90 mcg/actuation HFA aerosol inhaler 2 inh INHALATION Q4H PRN (Reason: shortness of breath or wheezing) Qty: 8.5 RF: 0 cyclobenzaprine 10 mg tablet 10 mg PO TID PRN (Reason: muscle spasm) Qty: 10 RF: 0 ondansetron 4 mg tablet,disintegrating 4 mg PO Q6H PRN (Reason: nausea and vomiting) Qty: 14 RF: 0 pantoprazole 40 mg tablet,delayed release (DR/EC) 40 mg PO DAILY RF: 0 ergocalciferol (vitamin D2) [Vitamin D2] 50,000 unit capsule See Rx Instructions .ROUTE .COMPLEX RF: 0 calcium carbonate-vitamin D3 [Calcium 500 + D] 500 mg(1,250mg) -400 unit Tablet 1 tab PO DAILY RF: 0 hydroxychloroquine 200 mg Tablet 200 mg PO BID RF: 0 citalopram [Celexa] 20 mg tablet 20 mg PO DAILY@2200 RF: 0 Ferrex 150 Forte 150-25-1 mg-mcg-mg capsule 150 cap PO BID RF: 0 Discharge Orders: Discharge ED (Routine); Ordered 08/23/20 Ordered By: Yanely Vidales Referrals: Kam Ramirez MD [Primary Care Provider] - Discharge Diet: Advance as tolerated Discharge Activity: Increase activity as tolerated Patient Instructions: Acute Nausea and Vomiting (ED) Activity Restrictions/Additional Instructions: Use your home medications as needed return to the emergency department if any abdominal pain Advance her diet as tolerated Monitor for any fevers worsening of symptoms use her home medication up with your provider soon as possible Thank you for choosing [facility] for your healthcare needs today. Please realize this is an emergency room and that we are providing you with a medical screening exam and this may not be complete and all inclusive of all the testing and or work up that you may need to determine your ailment or severity of your illness. It is very important that you follow up as instructed or that you return to the Emergency Department should you have concerns or if your condition changes or worsens in any way. Coding Level of Care Code ED Leather Shaver for Erin Machado
[2020-08-23] MEDS: sodium chloride 0.9% 1,000 ML 999 ML IV (09:17)
[2020-08-23] MEDS: ondansetron 2 mg/ML SDV 2 mL 4 MG IVP (09:18)
[2020-08-23 09:21] LABS: Basophils # 0.1 10^3/uL (0.0-0.1); Basophils % 0.6 %; Hematocrit 39.1 % (37.0-47.0); Hemoglobin 13.5 g/dL (11.5-15.3); Lymphocytes # 0.8 10^3/uL (0.8-4.8); Lymphocytes % 10.1 %; Mean Corpuscular HGB Conc 34.5 g/dL (30.0-36.0); Mean Corpuscular Hemoglobin 29.7 pg (28.0-34.0); Mean Corpuscular Volume 85.9 fL (81-99); Mean Platelet Volume 10.7 fL (7.4-10.4); Monocytes # 0.4 10^3/uL (0.2-0.9); Monocytes % 4.7 %; Neutrophils # 6.58 10^3/uL (1.8-7.7); Neutrophils % 84.3 %; Nucleated Red Blood Cells % 0 %; Platelet Count 301 10^3/cmm (130-400); Red Blood Count 4.55 10^6/uL (4.1-5.3); Red Cell Distribution Width 12.1 % (12.1-15.1); White Blood Count 7.8 10^3/uL (4.0-10.0)
[2020-08-23 09:22] VITALS: BP 128/86; PULSE 77; RESP 18; O2SAT 99
[2020-08-23 10:06] LABS: Alanine Aminotransferase 9 U/L (0-33); Albumin Level 4.2 g/dL (3.5-5.2); Alkaline Phosphatase 53 IU/L (35-105); Anion Gap 15.5 (5-19); Aspartate Amino Transferase 16 U/L (0-32); Blood Urea Nitrogen 9 mg/dL (6-20); Calcium 8.8 mg/dL (8.5-10.5); Carbon Dioxide 16 mmol/L (22-29); Chloride 110 mmol/L (98-107); Creatinine Clr Calc Pharmacy 127.5466; Globulin 2.2 g/dL (1.3-4.6); Glomerular Filtration Rate 121.8 mL/min (90-130); Glucose 109 mg/dL (65-115); Lipase 49 U/L (13-60); Osmolality Calculated 285 mOsm/kg (285-295); Potassium 3.5 mmol/L (3.5-5.1); Sodium 138 mmol/L (136-145); Total Bilirubin 0.5 mg/dL (0.15-1.2); Total Protein 6.4 g/dL (6.6-8.7)
[2020-08-23] MEDS: ketorolac 30 mg/mL INJ IVP (10:22)
[2020-08-23 10:54] VITALS: BP 132/79; PULSE 100; RESP 18; O2SAT 100
[2020-08-23 11:00] VITALS: BP 123/78; PULSE 87; RESP 18; O2SAT 99
[2020-08-23 11:21] LABS: Add Urine Culture? No; Bacteria Urine TRACE /hpf; Bilirubin Urine Neg (Negative); Blood Urine Neg (Negative); Glucose Urine UA Norm (Normal); Ketones Urine 1+ (Negative); Leukocyte Esterase Urine Negative (Negative); Mucus Urine 2+ /hpf; Nitrate Urine Negative (Negative); Protein Urine Neg (Negative); Sulfosalicylic Acid Urine Negative (Negative); Urine Appearance Clear (CLEAR); Urine Color Yellow (Yellow); Urobilinogen Urine Norm (Negative); pH Urine 8 (5-7)
[2020-08-23] MEDS: promethazine 25 mg Tablet PO (11:49)
[2020-08-23 13:07] VITALS: BP 116/70; PULSE 68; RESP 18; O2SAT 99
== END 2020-08-23 13:08 | disposition home or self-care (01) ==
PROVIDERS: Emergency Provider Emergency Medicine; PCP Family Medicine
DX: K52.9 Noninfective gastroenteritis and colitis, unspecified (principal); M32.9 Systemic lupus erythematosus, unspecified
CPT/HCPCS: 80053; 81001; 83690; 85025; 96374; 96375; 99283; 99291; J1885; J2405; J7030; Q0169

== ENCOUNTER 2020-09-05 13:29 | Outpatient (CLI) | payer BC, MEDICARE, MEDICAID, SELFPAY | END 2020-09-05 13:30 | disposition home or self-care (01) | LOC: LAB 13:43 | PROVIDERS: PCP Family Medicine; Visit Provider Family Medicine | DX: R19.7 Diarrhea, unspecified (principal) | CPT/HCPCS: 87493; 87506 ==

== ENCOUNTER → 2020-09-06 07:37 | Outpatient (BNVA) | payer BC, MEDICARE, MEDICAID, SELFPAY | PROVIDERS: PCP Family Medicine; Visit Provider Nurse Practitioner | DX: F41.1 Generalized anxiety disorder (principal); F41.0 Panic disorder [episodic paroxysmal anxiety] | CPT/HCPCS: 99214 ==

== ENCOUNTER 2020-09-11 02:43 | Inpatient (IN) | payer OTHER, MEDICARE, MEDICAID, SELFPAY ==
[2020-09-11 02:48] VITALS: BP 129/89; PULSE 88; RESP 18; TEMP 36.8; O2SAT 96; BMI 26.2
--- NOTE | 2020-09-11 03:09 | W.ED.PSYCH ---
HPI - Psych General: Chief Complaint: Psychiatric Symptoms Stated Complaint: SI/ N/V Time Seen by Provider: 09/11/20 02:51 History of Present Illness: HPI Narrative: 25-year-old female with a history of lupus, and what by history sounds to be cyclic vomiting syndrome. She presents with symptoms of vomiting for the last 2 to 3 hours. She says that she has vomited 4-5 times. She also says that she recently got out of a relationship, and has been significantly depressed. She has had thoughts of harming herself, and thoughts of wanting to . She has no specific plan. She denies any fever. She states she has some diffuse belly pain. No diarrhea. She does state that for the past few days, her fingertips of both hands have been feeling numb. No weakness. complaint: suicidal ideation, feels depressed and other Onset (ago): hour(s) Duration: constant History of same: Yes (Distant past) Relieving factors: none Exacerbating factors: none Associated psychiatric symptoms: depression and suicidal ideation Associated symptoms: Reports depression and suicidal ideation; Deny auditory hallucinations, visual hallucinations or delusions Treatments prior to arrival: none If self harm: admits thoughts of self harm Review of Systems Const: Denies: fever(s) or chills Eyes: Denies: change in vision ENMT: Denies: odynophagia or sinus pain Card: Denies: chest pain, palpitations or irregular heart rhythm Resp: Denies: dyspnea, productive cough, non-productive cough or wheezing GI: Reports: abdominal pain, nausea and vomiting; Denies: hematochezia or melena : Denies: dysuria or urinary frequency Musc: Denies: neck pain Skin/Breast: Denies: rash or erythema Neuro: Denies: dizziness, vertigo, confusion or seizure-like activity Psych: Reports: depression and suicidal ideation; Denies: visual hallucinations or auditory hallucinations PFSH ED PFSH: Medical History Generalized anxiety disorder Inflammatory bowel disease 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, follows up at [facility] Lupus nephritis Panic disorder [episodic paroxysmal anxiety] Surgical History History of appendectomy [place] Hx of cholecystectomy [place] Status post biopsy of kidney Multiple percutaneous biopsies Status post tonsillectomy and adenoidectomy Family History Mother Juvenile rheumatoid arthritis Social History Smoking and tobacco status: never smoked Alcohol intake: never Household members: family Housing: House Sexually active: Yes Female Reproductive History: Date of last menstrual period: 07/26/20 Physical Exam Const: GENERAL APPEARANCE: cooperative, well kempt and well developed ORIENTATION/CONSCIOUSNESS: Yes oriented to person, Yes oriented to place and Yes oriented to time HENMT: COMMON NORMALS: normocephalic, external ears normal and Normal external nose present HEAD & SCALP: normocephalic FACE & SINUS: normal facial exam NOSE: Normal external nose present and No nasal discharge present EXTERNAL EAR: Yes external ears normal Eye: COMMON NORMALS: EOMs intact bilaterally EYELID: eyelids normal Neck/C-Spine: COMMON NORMALS: full ROM GENERAL: No tracheal deviation Chest: COMMONS NORMALS: normal inspection of the chest CHEST: No tenderness Resp: COMMON NORMALS: clear to auscultation bilaterally EFFORT & INSPECTION: No tachypneic, No respiratory distress, No retractions, No uses accessory muscles and No tracheal deviation AUSCULTATION: clear to auscultation bilaterally, no rhonchi, no wheezes and lung sounds not diminished Cardio: COMMON NORMALS: regular rate and regular rhythm RATE: regular rate RHYTHM: regular rhythm HEART SOUNDS: no murmurs PERIPHERAL PULSES: radial pulses present GI: INSPECTION: No abdominal distension AUSCULTATION: No Hyperactive bowel sounds present and No Hypoactive bowel sounds present PALPATION: Yes Tenderness to palpation present (GI) (diffuse), No Guarding due to palpation present (GI) and No Rigid due to palpation PERCUSSION: no dullness to percussion and no tympanic to percussion : COMMON NORMALS: Yes no CVA tenderness BLADDER/KIDNEY EXAM: Yes no CVA tenderness Back/Pelvis: COMMON NORMALS: no CVA tenderness Neuro: SENSORIUM/ORIENTATION: Yes oriented to person, Yes oriented to place and Yes oriented to time Psych: COMMON NORMALS: Normal thought process present, cooperative and speech normal APPEARANCE: Yes well kempt ATTITUDE: Yes calm and Yes Withdrawn affect present ACTIVITY/MOTOR BEHAVIOR: Yes psychomotor slowing SPEECH: Yes normal speech MOOD & AFFECT: Yes depressed mood and Yes Flat affect present THOUGHT PROCESS: Normal thought process present THOUGHT CONTENT: Yes Suicidality present, No delusions and No Hallucination(s) present ATTENTION/CONCENTRATION: Yes attention grossly intact and Yes concentration grossly intact MEMORY/COGNITION: Yes memory grossly intact and Yes cognition grossly intact INSIGHT: Fair insight present (Psych) JUDGEMENT: Fair judgement present (Psych) Skin: COMMON NORMALS: no rashes or lesions noted GENERAL SKIN EXAM: no rashes or lesions noted Course Consultations: Consultation #1: Maco Time: 04:22 Vital Signs: Vital signs: Vital Signs Temperature 98.3 F 09/11/20 02:48 Pulse Rate 88 09/11/20 02:48 Respiratory Rate 18 09/11/20 02:48 Blood Pressure 129/89 09/11/20 02:48 Pulse Oximetry 96 09/11/20 02:48 MDM - Psych MDM Narrative: Medical decision making narrative: 25-year-old female who states she is suicidal. She also has a history of cyclic vomiting, and has vomited a couple times at home. No vomiting at all here. Medically she is stable. Her bicarbonate level was 20, but she has received a liter of fluid now. She will come in voluntarily to the neuro psychiatry unit. Lab Data: Labs: Lab Results 09/11/20 09/11/20 09/11/20 Range/Units 03:12 03:12 03:12 WBC 5.1 (4.0-10.0) 10^3/ uL RBC 4.64 (4.1-5.3) 10^6/u L Hgb 13.7 (11.5-15.3) g/dL Hct 39.8 (37.0-47.0) % MCV 85.8 (81-99) fL MCH 29.5 (28.0-34.0) pg MCHC 34.4 (30.0-36.0) g/dL RDW 12.1 (12.1-15.1) % Plt Count 254 (130-400) 10^3/c mm MPV 10.8 H (7.4-10.4) fL Neut % (Auto) 53.1 % Lymph % (Auto) 37.0 % Jefferson % (Auto) 7.5 % Eos % (Auto) 1.0 % Baso % (Auto) 1.2 % Neut # (Auto) 2.68 (1.8-7.7) 10^3/u L Lymph # (Auto) 1.9 (0.8-4.8) 10^3/u L Jefferson # (Auto) 0.4 (0.2-0.9) 10^3/u L Eos # (Auto) 0.1 (0.0-0.8) 10^3/u L Baso # (Auto) 0.1 (0.0-0.1) 10^3/u L Nucleated RBC % (a uto) 0 % Nucleated RBCs # 0.0 /100WBC Sodium 139 (136-145) mmol/L Potassium 3.5 (3.5-5.1) mmol/L Chloride 109 H (98-107) mmol/L Carbon Dioxide 20 L (22-29) mmol/L Anion Gap 13.5 (5-19) BUN 10 (6-20) mg/dL Creatinine 0.6 (0.5-0.9) mg/dL GFR Calculation 121.8 (90-130) mL/min Glucose 101 (65-115) mg/dL Calculated Osmolal ity 287 (285-295) mOsm/k g Calcium 8.5 (8.5-10.5) mg/dL Total Bilirubin 0.3 (0.15-1.2) mg/dL AST 14 (0-32) U/L ALT 6 (0-33) U/L Alkaline Phosphata se 56 (35-105) IU/L Total Protein 6.5 L (6.6-8.7) g/dL Albumin 4.3 (3.5-5.2) g/dL Globulin 2.2 (1.3-4.6) g/dL Lipase 75 H (13-60) U/L HCG, Qual Negative (Negative) Urine Color (Yellow) Urine Appearance (CLEAR) Urine pH (5-7) Ur Specific Gravit y (1.005-1.030) Urine Protein (Negative) Urine Glucose (UA) (Normal) Urine Ketones (Negative) Urine Blood (Negative) Urine Nitrate (Negative) Urine Bilirubin (Negative) Urine Urobilinogen (Negative) mg/dL Ur Leukocyte Natalie ase (Negative) Urine RBC (0-2) /hpf Urine WBC (0-5) /hpf Ur Squamous Epith Cells (0-5) /hpf Amorphous Sediment Urine Bacteria (NONE) /hpf Urine Mucus /hpf Salicylates < 0.3 L (3-10) mg/dL Urine Opiates Scre en (Negative) ng/mL Acetaminophen < 5.0 L (10-30) ug/mL Ur Barbiturates Sc reen (Negative) ng/mL Ur Phencyclidine S crn (Negative) ng/mL Ur Amphetamines Sc reen (Negative) ng/mL U Benzodiazepines Scrn (Negative) ng/mL Urine Cocaine Scre en (Negative) ng/mL U Marijuana (THC) Screen (Negative) ng/mL Ethyl Alcohol < 10 (0-10) mg/dL 09/11/20 09/11/20 Range/Units 03:48 03:48 WBC (4.0-10.0) 10^3/ uL RBC (4.1-5.3) 10^6/u L Hgb (11.5-15.3) g/dL Hct (37.0-47.0) % MCV (81-99) fL MCH (28.0-34.0) pg MCHC (30.0-36.0) g/dL RDW (12.1-15.1) % Plt Count (130-400) 10^3/c mm MPV (7.4-10.4) fL Neut % (Auto) % Lymph % (Auto) % Jefferson % (Auto) % Eos % (Auto) % Baso % (Auto) % Neut # (Auto) (1.8-7.7) 10^3/u L Lymph # (Auto) (0.8-4.8) 10^3/u L Jefferson # (Auto) (0.2-0.9) 10^3/u L Eos # (Auto) (0.0-0.8) 10^3/u L Baso # (Auto) (0.0-0.1) 10^3/u L Nucleated RBC % (a uto) % Nucleated RBCs # /100WBC Sodium (136-145) mmol/L Potassium (3.5-5.1) mmol/L Chloride (98-107) mmol/L Carbon Dioxide (22-29) mmol/L Anion Gap (5-19) BUN (6-20) mg/dL Creatinine (0.5-0.9) mg/dL GFR Calculation (90-130) mL/min Glucose (65-115) mg/dL Calculated Osmolal ity (285-295) mOsm/k g Calcium (8.5-10.5) mg/dL Total Bilirubin (0.15-1.2) mg/dL AST (0-32) U/L ALT (0-33) U/L Alkaline Phosphata se (35-105) IU/L Total Protein (6.6-8.7) g/dL Albumin (3.5-5.2) g/dL Globulin (1.3-4.6) g/dL Lipase (13-60) U/L HCG, Qual (Negative) Urine Color Yellow (Yellow) Urine Appearance Clear (CLEAR) Urine pH 6 (5-7) Ur Specific Gravit y 1.015 (1.005-1.030) Urine Protein 1+ H (Negative) Urine Glucose (UA) Norm (Normal) Urine Ketones Negative (Negative) Urine Blood 2+ H (Negative) Urine Nitrate Negative (Negative) Urine Bilirubin Neg (Negative) Urine Urobilinogen Norm (Negative) mg/dL Ur Leukocyte Natalie ase Negative (Negative) Urine RBC 0-4 H (0-2) /hpf Urine WBC 0-4 H (0-5) /hpf Ur Squamous Epith Cells 15-25 H (0-5) /hpf Amorphous Sediment Not Reportable Urine Bacteria 1+ H (NONE) /hpf Urine Mucus 1+ /hpf Salicylates (3-10) mg/dL Urine Opiates Scre en Negative (Negative) ng/mL Acetaminophen (10-30) ug/mL Ur Barbiturates Sc reen Negative (Negative) ng/mL Ur Phencyclidine S crn Negative (Negative) ng/mL Ur Amphetamines Sc reen Negative (Negative) ng/mL U Benzodiazepines Scrn Positive H (Negative) ng/mL Urine Cocaine Scre en Negative (Negative) ng/mL U Marijuana (THC) Screen Negative (Negative) ng/mL Ethyl Alcohol (0-10) mg/dL Discharge Plan Discharge Patient Disposition: Admitted As Inpatient Clinical Impression: Suicidal ideation Condition: Stable Coding Level of Care Code ED Boat Carpenter Mechanic for Erin Fwd Exam Comprehensive
[2020-09-11] MEDS: ondansetron 2 mg/ML SDV 2 mL 4 MG IVP ×2 (03:13→07:01)
[2020-09-11] MEDS: sodium chloride 0.9% 1,000 ML 999 ML IV (03:13)
[2020-09-11 03:26] LABS: Basophils # 0.1 10^3/uL (0.0-0.1); Basophils % 1.2 %; Eosinophils # 0.1 10^3/uL (0.0-0.8); Hematocrit 39.8 % (37.0-47.0); Hemoglobin 13.7 g/dL (11.5-15.3); Lymphocytes # 1.9 10^3/uL (0.8-4.8); Mean Corpuscular HGB Conc 34.4 g/dL (30.0-36.0); Mean Corpuscular Hemoglobin 29.5 pg (28.0-34.0); Mean Corpuscular Volume 85.8 fL (81-99); Mean Platelet Volume 10.8 fL (7.4-10.4); Monocytes # 0.4 10^3/uL (0.2-0.9); Monocytes % 7.5 %; Neutrophils # 2.68 10^3/uL (1.8-7.7); Neutrophils % 53.1 %; Nucleated Red Blood Cells % 0 %; Platelet Count 254 10^3/cmm (130-400); Red Blood Count 4.64 10^6/uL (4.1-5.3); Red Cell Distribution Width 12.1 % (12.1-15.1); White Blood Count 5.1 10^3/uL (4.0-10.0)
[2020-09-11 03:39] LABS: HCG, Serum Qual Negative (Negative)
[2020-09-11 03:47] LABS: Alanine Aminotransferase 6 U/L (0-33); Albumin Level 4.3 g/dL (3.5-5.2); Alkaline Phosphatase 56 IU/L (35-105); Anion Gap 13.5 (5-19); Aspartate Amino Transferase 14 U/L (0-32); Blood Urea Nitrogen 10 mg/dL (6-20); Calcium 8.5 mg/dL (8.5-10.5); Carbon Dioxide 20 mmol/L (22-29); Chloride 109 mmol/L (98-107); Creatinine Clr Calc Pharmacy 126.7256; Globulin 2.2 g/dL (1.3-4.6); Glomerular Filtration Rate 121.8 mL/min (90-130); Glucose 101 mg/dL (65-115); Lipase 75 U/L (13-60); Osmolality Calculated 287 mOsm/kg (285-295); Potassium 3.5 mmol/L (3.5-5.1); Sodium 139 mmol/L (136-145); Total Bilirubin 0.3 mg/dL (0.15-1.2); Total Protein 6.5 g/dL (6.6-8.7)
[2020-09-11 03:48] LABS: Acetaminophen < 5.0 ug/mL (10-30); Alcohol Level < 10 mg/dL (0-10); Salicylate < 0.3 mg/dL (3-10)
[2020-09-11] MEDS: fentaNYL 50 mcg/mL INJ 2mL IVP (03:55)
[2020-09-11 04:03] LABS: Add Urine Microscopic? YES; Bilirubin Urine Neg (Negative); Blood Urine 2+ (Negative); Glucose Urine UA Norm (Normal); Ketones Urine Negative (Negative); Leukocyte Esterase Urine Negative (Negative); Nitrate Urine Negative (Negative); Protein Urine 1+ (Negative); Specific Gravity, Urine 1.015 (1.005-1.030); Urine Appearance Clear (CLEAR); Urine Color Yellow (Yellow); Urobilinogen Urine Norm (Negative); pH Urine 6 (5-7)
[2020-09-11 04:10] LABS: Add Urine Culture? No; Amphetamines Screen Urine Negative (Negative); Bacteria Urine 1+ /hpf; Barbiturates Screen Urine Negative (Negative); Benzodiazepines Screen Urine Positive (Negative); Cocaine Screen Urine Negative (Negative); Mucus Urine 1+ /hpf; Opiate Screen Urine Negative (Negative); PCP Screen Urine Negative (Negative); RBC Urine 0-4 /hpf (0-2); Squamous Epithelial Cell Urine 15-25 /hpf (0-5); THC Screen Urine Negative (Negative); WBC Urine 0-4 /hpf (0-5)
[2020-09-11 06:57] VITALS: BP 127/85; PULSE 87; RESP 18; TEMP 36.9; O2SAT 99
[2020-09-11 07:09] VITALS: BP 117/76; PULSE 80; RESP 16; TEMP 37.5; O2SAT 98
--- NOTE | 2020-09-11 11:54 | PM.NHP ---
Providers/Chief Complaint Admitting Physician: Nahun Dewey MD Primary Care Provider: Kam Ramirez MD Chief Complaint: PANIC DISORDER, ANXIETY HPI NPU History of Present Illness Joe Eisenberg is a 25 year old female who presented to the emergency department with the following report: Chief Complaint: Psychiatric Symptoms Stated Complaint: SI/ N/V Time Seen by Provider: 09/11/20 02:51 History of Present Illness: HPI Narrative: 25-year-old female with a history of lupus, and what by history sounds to be cyclic vomiting syndrome. She presents with symptoms of vomiting for the last 2 to 3 hours. She says that she has vomited 4-5 times. She also says that she recently got out of a relationship, and has been significantly depressed. She has had thoughts of harming herself, and thoughts of wanting to . She has no specific plan. She denies any fever. She states she has some diffuse belly pain. No diarrhea. She does state that for the past few days, her fingertips of both hands have been feeling numb. No weakness. MD complaint: suicidal ideation, feels depressed and other Onset (ago): hour(s) Duration: constant History of same: Yes (Distant past) Relieving factors: none Exacerbating factors: none Associated psychiatric symptoms: depression and suicidal ideation Associated symptoms: Reports depression and suicidal ideation; Deny auditory hallucinations, visual hallucinations or delusions Treatments prior to arrival: none If self harm: admits thoughts of self harm. She was admitted to the neuropsychiatric unit for definitive treatment of those issues. Patient presented today reporting that she has not had significant psychiatric inpatient services but has been seen outpatient. She reports that she has been having suicidal thoughts she was in 14 September. She reports multiple suicide attempts including in college. She denies significant alcohol marijuana or any other illicit drug use denies smoking cigarettes, going to rehab DUIs. She reports that she presents today after breaking up with her boyfriend and her being a very convoluted relationship with him texting back and forth since the break-up causing things escalate. She reports that during the 6-month relationship she has been isolative and not doing well from a mental health standpoint. She reports that she see a patient provider regularly and does do think restarting it [id number] when she started having urges for self-injurious behavior and thoughts of suicide though she denies ever really acting or moving forward with any suicidal thoughts. We agreed that I would reach out to her current provider for some thoughts about direction with her current medication. Possibly increasing the Celexa or adding a mood stabilizer. We discussed the risk benefits and alternatives of us going in this direction and she understood and agreed proceed as is documented in this note. An excerpt from her 09/03/2017 outpatient psychiatric evaluation is included as she reports that it is an accurate reflection of her history and for additional context. Per her 09/03/2017 [facility] outpatient psychiatric evaluation: [facility] Psychiatric Evaluation Time In: 10:10 Time Out: 10:50 Chief Complaint: Patient presents for second opinion prior diagnosis of bipolar affective disorder, medication evaluation and adjustments. Patient is accompanied by her mother Mare Cannon History of Present Illness Patient was initially diagnosed with bipolar affective disorder approximately 3 years ago secondary to audible hallucinations.. Patient states she hears multiple voices sounds like chatter of a room full of people, nondescript, none directing and generally unintelligible. Patient's episodes was related to her discharge from hospital for flareup of lupus resulting in renal failure and she was on high doses of prednisone at the time. Patient current medication regimen: Seroquel 50 mg 1 by mouth daily at bedtime (?3 years), Lexapro 40 mg 1 by mouth every morning (?3 years), Ativan 1 mg 1-3 times a day as needed. Patient relates history of anxiety that escalates to panic attacks, patient also notes issues of initial and middle insomnia states often cannot find a comfortable position. Past Psychiatric History: Patient was hospitalized in 2015 inpatient for hallucinations and [facility]. Patient was also seen outpatient in 2016 for hallucinations by psychiatrists in [place]. Family Psychiatric History: Patient mother states she has depression Past Medical History: Patient has medication allergies to morphine, denies food allergies, seasonal allergies. Medical diagnosis: Systemic lupus erythematosus (SLE), hypertension (secondary to SLE. Surgical procedures of appendectomy, tonsillectomy, adenoidectomy cholecystectomy patient has had 2 hospitalizations for renal failure secondary to the SLE.. Substance Use History: Patient denies use of home,, acknowledges trial of cannabis at 19 years of age currently not using, denies amphetamines, wishes prescription medications, nicotine, gambling, patient acknowledged misuse of her pain medication at age 19 prescribed for her lupus (Percocet, hydrocodone was (absent. Social History: [Patient with pulmonary Christina to 2 parents household. Parents when patient was child. Patient has 4 siblings, patient lives with her father in [place] until one month ago. Patient completed high school formed above the level patient is pursuing college through online programs. 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 Patient moved from [place] to [facility] approximately 1 month ago to be with mother and grandfather. Meds NPU Home Medications Medication Instructions Recorded Confirmed Last Taken Type calcium carbonate-vitamin D3 1 tab PO DAILY 05/27/19 08/23/20 06/13/20 History [Calcium 500 + D] ergocalciferol (vitamin D2) See Rx Instructions .ROUTE .COMPLEX 05/27/19 08/23/20 08/21/20 History [Vitamin D2] pantoprazole 40 mg PO DAILY 05/27/19 08/23/20 08/22/20 History cholecalciferol (vitamin D3) 50 mcg PO QAM 11/18/19 08/23/20 08/22/20 History [Vitamin D3] mycophenolate mofetil See Rx Instructions .ROUTE .COMPLEX 11/18/19 08/23/20 08/22/20 History naproxen sodium [Aleve] 440 mg PO PRN 11/18/19 08/23/20 11/16/19 History hydroxychloroquine 200 mg PO BID 12/25/19 08/23/20 08/22/20 History albuterol sulfate 2 inh INHALATION Q4H PRN #8.5 gm 02/03/20 08/23/20 Unknown Rx cyclobenzaprine 10 mg PO TID PRN #10 tab 03/04/20 08/23/20 Unknown Rx ondansetron 4 mg PO Q6H PRN #14 tab 05/31/20 08/23/20 Unknown Rx iron ps [id number] 150 cap PO BID 08/23/20 08/23/20 08/22/20 History [Ferrex 150 Forte] citalopram 20 mg tablet 20 mg PO DAILY@2200 #30 tab 09/06/20 09/06/20 Unknown Rx lorazepam 1 mg tablet 1 mg PO BID PRN #45 tab 09/06/20 09/06/20 Unknown Rx Allergies Allergy/AdvReac Type Severity Reaction Status Date / Time metoclopramide [From Reglan] Allergy ADR-Anxiety Verified 08/23/20 11:26 morphine Allergy ADR-Chest Verified 08/23/20 11:26 Pain PFSH NPU PFSH: Medical History Generalized anxiety disorder Inflammatory bowel disease 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, follows up at [facility] Lupus nephritis Panic disorder [episodic paroxysmal anxiety] Surgical History History of appendectomy [place] Hx of cholecystectomy [place] Status post biopsy of kidney Multiple percutaneous biopsies Status post tonsillectomy and adenoidectomy Family History Mother Juvenile rheumatoid arthritis Social History Smoking and tobacco status: never smoked Alcohol intake: never Household members: family Housing: House Sexually active: Yes Mental Status Exam MSE Comments: This is a well-nourished, well-developed white female with adequate grooming in hospital scrubs with limited eye contact. No abnormal movements except for psychomotor retardation. Cooperative with exam in mild to moderate distress. Speech was slightly decreased rate and volume. Mood described as depressed, affect congruent. Thought process organized. Thought content: Patient denied suicidal or homicidal ideation currently, there were no delusions reported or noted, she denied any auditory or visual hallucinations. Attention and concentration were intact and memory appeared reliable but none were formally tested. He is alert and oriented x3. Insight and judgment. Limited and impulse control is also limited. Vitals/I&O/Wt Last Vital Signs Temp 99.5 F 09/11/20 07:09 Pulse 80 09/11/20 07:09 Resp 16 09/11/20 07:09 BP 117/76 09/11/20 07:09 Pulse Ox 98 09/11/20 07:09 09/10/20 09/11/20 09/11/20 22:59 06:59 14:59 Intake Total 1000 / 1000 Balance 1000 / 1000 Weight last 48 hrs Weight 64.864 kg Data NPU : 09/11/20 03:12 09/11/20 03:12 A&P Assessment and plan (1) Suicidal ideation: Status: Acute (2) Panic disorder [episodic paroxysmal anxiety]: Status: Acute (3) Generalized anxiety disorder: Status: Acute (4) Cluster B personality disorder: Status: Acute (5) Partner relational problem: Status: Acute (6) History of trauma: Status: Acute Additional A&P Information This is a 25-year-old white female with a long history of mental health challenges and intermittent mood dysregulation who presents after recent break-up with significant challenges noted reporting desire for self-injurious behavior and verging on suicidal ideation open to possible medication adjustment. 1. Continue current medication. 2. Continue every 15 minute checks for safety. 3. Encourage individual, group and milieu therapies. 4. Work with her outpatient providers to determine course of action in keeping with been doing over the past 2 years of outpatient treatment at [facility] Involuntary Hold Information 96 Hour Hold: 96 Hour Involuntary Admission: No Attestations NPU Medical Necessity Statement*: Inpatient hospitalization is medically necessary and the clinically appropriate intervention at this time. We will monitor medications and make changes as indicated. Patient will be in the hospital for over two midnights. Likely length of stay 2-4 days. Coding Level of Care Code Acute [employer] Members[employer] Sales Agent for Erin Pelaezd Diagnoses Suicidal ideation R45.851 Panic disorder [episodic paroxysmal anxiety] F41.0 Generalized anxiety disorder F41.1 Cluster B personality disorder F60.89 Partner relational problem Z63.0 History of trauma Z87.828
[2020-09-11 14:00] VITALS: BP 100/65; PULSE 78; RESP 16; TEMP 36.9; O2SAT 97
--- NOTE | 2020-09-11 15:56 | PC.ADMIT ---
[email or web address] Admission Note: The patient,oJe Eisenberg,25 y/o, was given written information regarding hospital policies, unit procedures and contact persons. Patient's smoking status: never smoked. Vital Signs - 8 hr 09/11/20 14:00 Temperature 98.4 F Pulse Rate 78 Respiratory Rate 16 Blood Pressure 100/65 Pulse Oximetry 97
[2020-09-11] MEDS: iron complex forte Capsule 1 EACH PO (17:37)
[2020-09-11] MEDS: hydroxychloroquine 200 mg Tablet PO (17:37)
[2020-09-11] MEDS: ergocalciferol (vitamin D2) 50,000 Unit Capsule 50000 UNIT PO (17:37)
[2020-09-11] MEDS: LORazepam 1 mg Tablet PO (21:47)
[2020-09-11] MEDS: ibuprofen 600 mg Tablet PO (21:47)
[2020-09-11] MEDS: citalopram 20 mg Tablet PO (21:47)
[2020-09-11 22:00] VITALS: BP 114/76; PULSE 82; RESP 17; TEMP 36.8; O2SAT 100
[2020-09-12 06:00] VITALS: BP 118/70; PULSE 74; RESP 17; TEMP 36.9; O2SAT 98
[2020-09-12] MEDS: CALCIUM CARBONATE VITAMIN D3 PO (09:01)
[2020-09-12] MEDS: [UNRECOGNIZED DRUG - OTHER] PO (09:01)
[2020-09-12] MEDS: pantoprazole DR 40 mg Tablet PO (09:02)
[2020-09-12] MEDS: cholecalciferol (vitamin D3) 1,000 unit Tablet 2000 UNIT PO (09:02)
[2020-09-12] MEDS: hydroxychloroquine 200 mg Tablet PO (09:02)
[2020-09-12] MEDS: iron complex forte Capsule 1 EACH PO (09:02)
[2020-09-12] MEDS: nortriptyline 25 mg Capsule PO (11:15)
--- NOTE | 2020-09-12 12:03 | PM.NDC ---
Diagnoses at Discharge Discharge Diagnosis (1) Suicidal ideation: Status: Resolved (2) Panic disorder [episodic paroxysmal anxiety]: Status: Acute (3) Generalized anxiety disorder: Status: Acute (4) Cluster B personality disorder: Status: Acute (5) Partner relational problem: Status: Acute (6) History of trauma: Status: Acute Reason for Visit Reason for Visit: PANIC DISORDER, ANXIETY Brief History: History of Present Illness Joe Eisenberg is a 25 year old female who presented to the emergency department with the following report: Chief Complaint: Psychiatric Symptoms Stated Complaint: SI/ N/V Time Seen by Provider: 09/11/20 02:51 History of Present Illness: HPI Narrative: 25-year-old female with a history of lupus, and what by history sounds to be cyclic vomiting syndrome. She presents with symptoms of vomiting for the last 2 to 3 hours. She says that she has vomited 4-5 times. She also says that she recently got out of a relationship, and has been significantly depressed. She has had thoughts of harming herself, and thoughts of wanting to . She has no specific plan. She denies any fever. She states she has some diffuse belly pain. No diarrhea. She does state that for the past few days, her fingertips of both hands have been feeling numb. No weakness. MD complaint: suicidal ideation, feels depressed and other Onset (ago): hour(s) Duration: constant History of same: Yes (Distant past) Relieving factors: none Exacerbating factors: none Associated psychiatric symptoms: depression and suicidal ideation Associated symptoms: Reports depression and suicidal ideation; Deny auditory hallucinations, visual hallucinations or delusions Treatments prior to arrival: none If self harm: admits thoughts of self harm. She was admitted to the neuropsychiatric unit for definitive treatment of those issues. Patient presented today reporting that she has not had significant psychiatric inpatient services but has been seen outpatient. She reports that she has been having suicidal thoughts she was in 14 September. She reports multiple suicide attempts including in college. She denies significant alcohol marijuana or any other illicit drug use denies smoking cigarettes, going to rehab DUIs. She reports that she presents today after breaking up with her boyfriend and her being a very convoluted relationship with him texting back and forth since the break-up causing things escalate. She reports that during the 6-month relationship she has been isolative and not doing well from a mental health standpoint. She reports that she see a patient provider regularly and does do think restarting it [id number] when she started having urges for self-injurious behavior and thoughts of suicide though she denies ever really acting or moving forward with any suicidal thoughts. We agreed that I would reach out to her current provider for some thoughts about direction with her current medication. Possibly increasing the Celexa or adding a mood stabilizer. We discussed the risk benefits and alternatives of us going in this direction and she understood and agreed proceed as is documented in this note. An excerpt from her 09/03/2017 outpatient psychiatric evaluation is included as she reports that it is an accurate reflection of her history and for additional context. Per her 09/03/2017 [facility] outpatient psychiatric evaluation: [facility] Psychiatric Evaluation Time In: 10:10 Time Out: 10:50 Chief Complaint: Patient presents for second opinion prior diagnosis of bipolar affective disorder, medication evaluation and adjustments. Patient is accompanied by her mother Mare Cannon History of Present Illness Patient was initially diagnosed with bipolar affective disorder approximately 3 years ago secondary to audible hallucinations.. Patient states she hears multiple voices sounds like chatter of a room full of people, nondescript, none directing and generally unintelligible. Patient's episodes was related to her discharge from hospital for flareup of lupus resulting in renal failure and she was on high doses of prednisone at the time. Patient current medication regimen: Seroquel 50 mg 1 by mouth daily at bedtime (?3 years), Lexapro 40 mg 1 by mouth every morning (?3 years), Ativan 1 mg 1-3 times a day as needed. Patient relates history of anxiety that escalates to panic attacks, patient also notes issues of initial and middle insomnia states often cannot find a comfortable position. Past Psychiatric History: Patient was hospitalized in 2015 inpatient for hallucinations and [facility]. Patient was also seen outpatient in 2016 for hallucinations by psychiatrists in [place]. Family Psychiatric History: Patient mother states she has depression Past Medical History: Patient has medication allergies to morphine, denies food allergies, seasonal allergies. Medical diagnosis: Systemic lupus erythematosus (SLE), hypertension (secondary to SLE. Surgical procedures of appendectomy, tonsillectomy, adenoidectomy cholecystectomy patient has had 2 hospitalizations for renal failure secondary to the SLE.. Substance Use History: Patient denies use of home,, acknowledges trial of cannabis at 19 years of age currently not using, denies amphetamines, wishes prescription medications, nicotine, gambling, patient acknowledged misuse of her pain medication at age 19 prescribed for her lupus (Percocet, hydrocodone was (absent. Social History: [Patient with pulmonary Christina to 2 parents household. Parents when patient was child. Patient has 4 siblings, patient lives with her father in [place] until one month ago. Patient completed high school formed above the level patient is pursuing college through online programs. 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 Patient moved from [place] to [facility] approximately 1 month ago to be with mother and grandfather. Hospital Course Hospital Course She presented to the emergency department with concern for lethality and recent difficulties with her significant other and active treatment. She was admitted to the neuropsychiatric unit for definitive treatment of those issues. On the unit she quickly acclimated to the individual, group and milieu therapies provided. Work with her outpatient provider for identify appropriate treatment measures. Also was identified that she likely does have some cluster B pathology. She was started on nortriptyline and showed modest improvement and was able to contract for safety prior to discharge. During the hospitalization, patient had routine laboratory studies which were within normal limits except for few outliers. Additionally there was a general medical evaluation which was also within normal limits and revealed no new acute processes. Discharge Summary: At the time of discharge, she denied psychosis or lethality. Mood and anxiety were well managed. Patient endorsed a plan to follow-up with the aftercare recommendations of the treatment team. Patient was evaluated and deemed to be absent credible lethality, and had achieved the maximum benefit from an inpatient hospitalization, so was discharged. Involuntary Hold Information 96 Hour Hold: 96 Hour Involuntary Admission: No Mental Status Exam MSE Comments: This is a well-nourished, well-developed white female with adequate grooming in hospital scrubs with limited eye contact. No abnormal movements except for resolving psychomotor retardation. Cooperative with exam in no acute distress. Speech was more normal rate and volume. Mood described as better, affect congruent. Thought process organized. Thought content: Patient denied suicidal or homicidal ideation currently, there were no delusions reported or noted, she denied any auditory or visual hallucinations. Attention and concentration were intact and memory appeared reliable but none were formally tested. He is alert and oriented x3. Insight and judgment fair and impulse control is limited. Discharge Data Vitals: Last Vital Signs Temp 98.4 F 09/12/20 06:00 Pulse 74 09/12/20 06:00 Resp 17 09/12/20 06:00 BP 118/70 09/12/20 06:00 Pulse Ox 98 09/12/20 06:00 Discharge Plan Discharge Patient Disposition: Home Condition: Stable Prescriptions: New nortriptyline 25 mg Capsule 25 mg PO DAILY 30 Days Qty: 30 RF: 1 Continued lorazepam 1 mg tablet 1 mg PO BID PRN (Reason: anxiety) Qty: 45 RF: 2 citalopram [Celexa] 20 mg tablet 20 mg PO DAILY@2200 Qty: 30 RF: 2 mycophenolate mofetil 500 mg tablet See Rx Instructions .ROUTE .COMPLEX RF: 0 naproxen sodium [Aleve] 220 mg Tablet 440 mg PO PRN PRN (Reason: Pain, Moderate) RF: 0 cholecalciferol (vitamin D3) [Vitamin D3] 50 mcg (2,000 unit) Tablet 50 mcg PO QAM RF: 0 albuterol sulfate 90 mcg/actuation HFA aerosol inhaler 2 inh INHALATION Q4H PRN (Reason: shortness of breath or wheezing) Qty: 8.5 RF: 0 ondansetron 4 mg tablet,disintegrating 4 mg PO Q6H PRN (Reason: nausea and vomiting) Qty: 14 RF: 0 pantoprazole 40 mg tablet,delayed release (DR/EC) 40 mg PO DAILY RF: 0 ergocalciferol (vitamin D2) [Vitamin D2] 50,000 unit capsule See Rx Instructions .ROUTE .COMPLEX RF: 0 calcium carbonate-vitamin D3 [Calcium 500 + D] 500 mg(1,250mg) -400 unit Tablet 2 tab PO DAILY RF: 0 hydroxychloroquine 200 mg Tablet 200 mg PO BID RF: 0 Ferrex 150 Forte 150-25-1 mg-mcg-mg capsule 150 cap PO BID RF: 0 Nuvigil 150 mg Tablet 150 mg PO QAM RF: 0 Discharge Orders: Discharge Order (Routine); Ordered 09/12/20 Ordered By: Nahun Dewey Referrals: [facility] [Outside] - 09/20/20 11:15 am (June Chou 09/20/20 @ 11:15ilan Cuevas 09/28/20 @ 12:45pm) Kam Ramirez MD [Primary Care Provider] - 09/14/20 1:00 pm Discharge Diet: Regular Discharge Activity: Resume usual activity Patient Instructions: Opioid Safety Discharge Attestations NPU Time Spent in Discharge Care*: less than 30 min Specific Discharge Activities: Specific discharge activities: educating patient, discussing with pcp/other providers, discussing with patient case coordinator/social workers/dc planners, documenting/other paperwork and evaluating patient/reviewing data Status at Discharge: Cognitive status at discharge: cognitively intact, Coding [facility] Diagnoses Suicidal ideation R45.851 Panic disorder [episodic paroxysmal anxiety] F41.0 Generalized anxiety disorder F41.1 Cluster B personality disorder F60.89 Partner relational problem Z63.0 History of trauma Z87.828
[2020-09-12 12:09] VITALS: BP 118/70; PULSE 74; RESP 17; TEMP 36.9; O2SAT 98
== END 2020-09-12 12:53 | disposition home or self-care (01) | DRG 880 ==
LOC: ER 04:23 → NP 05:54
PROVIDERS: Admitting Provider Psychiatry & Neurology Psychiatry; Emergency Provider Emergency Medicine; PCP Family Medicine; Visit Provider Psychiatry & Neurology Psychiatry
DX: F41.1 Generalized anxiety disorder (principal); R45.851 Suicidal ideations; F32.9 Major depressive disorder, single episode, unspecified; M32.10 Systemic lupus erythematosus, organ or system involvement unspecified; Z91.5 Personal history of self-harm; I10 Essential (primary) hypertension; F41.0 Panic disorder [episodic paroxysmal anxiety]; F60.89 Other specific personality disorders; Z63.0 Problems in relationship with spouse or partner; Z87.828 Personal history of other (healed) physical injury and trauma
CPT/HCPCS: 80053; 80306; 80307; 81001; 83690; 84703; 85025; 96361; 96374; 96375; 99285; J2405; J3010; J7030; J7517

== ENCOUNTER → 2020-09-20 11:13 | Outpatient (BNVA) | payer BC, MEDICARE, MEDICAID, SELFPAY | PROVIDERS: PCP Family Medicine; Visit Provider Nurse Practitioner | DX: F41.0 Panic disorder [episodic paroxysmal anxiety] (principal); F41.1 Generalized anxiety disorder | CPT/HCPCS: 99214 ==

== ENCOUNTER → 2020-10-05 09:34 | Outpatient (BNVA) | payer BC, MEDICARE, MEDICAID, SELFPAY | PROVIDERS: PCP Family Medicine; Visit Provider Counselor Professional | DX: F41.1 Generalized anxiety disorder (principal) | CPT/HCPCS: 90834 ==

== ENCOUNTER 2020-12-01 22:06 | Emergency (ER) | payer BC, MEDICARE, MEDICAID, SELFPAY ==
[2020-12-01 22:10] VITALS: BP 132/94; PULSE 130; RESP 16; TEMP 36.9; O2SAT 98; BMI 25.2
--- NOTE | 2020-12-01 22:22 | XRR_ITS ---
PROCEDURE INFORMATION: Exam: XR Chest Exam date and time: 12/01/2020 10:22 PM Age: 25 years old Clinical indication: Shortness of breath; Additional info: SOB TECHNIQUE: Imaging protocol: XR of the chest. Views: 1 view. COMPARISON: 1. CR XR chest 1V portable [id number] 2020-07-19 23:32 2. CR XR chest 1V portable [id number] 2020-06-13 12:40 3. CR XR chest 1V portable [id number] 2020-02-03 22:38 4. CR XR chest 2V* [id number] 2019-06-22 09:43 FINDINGS: Lungs: Unremarkable. No consolidation. Pleural spaces: Unremarkable. No pleural effusion. No pneumothorax. Heart/Mediastinum: Unremarkable. No cardiomegaly. Bones/joints: Unremarkable. XR/XR chest 1V portable [id number] IMPRESSION: No acute findings.
--- NOTE | 2020-12-01 22:29 | W.ED.ARRPALP ---
HPI - Arrhythmia/Palpitations General: Chief Complaint: Arrhythmia/Palpitations Stated Complaint: cp, heart palpitations Time Seen by Provider: 12/01/20 22:22 Source: patient Mode of arrival: ambulatory Limitations: no limitations History of Present Illness: HPI narrative: 25-year-old female who history of anxiety and palpitations the past. States that today though she is monitoring her heart rates been in the 130s she has been having some chest pain. States she also vomited once today and is concerned she may be dehydrated. States she has not felt anxious and this does not like her typical anxiety attack. She history of lupus. States her pain is currently a 1 out of 10. Denies any fevers. Denies any worsening improving factors. Associated symptoms: Deny nausea or vomiting Review of Systems Const: Denies: fever(s), chills, body aches or change in appetite Eyes: Denies: blurry vision or eye discomfort ENMT: Denies: throat pain or dental pain Card: Reports: chest pain and palpitations Resp: Denies: dyspnea GI: Denies: abdominal pain, nausea, vomiting or diarrhea : Denies: dysuria Musc: Denies: neck pain or back pain Skin/Breast: Denies: rash Neuro: Denies: headache(s) Psych: Denies: depression Bobby/Lymph: Denies: easy bruising All/Imm: Denies: urticaria PFSH ED PFSH: Medical History Generalized anxiety disorder Inflammatory bowel disease 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, follows up at [facility] Lupus nephritis Panic disorder [episodic paroxysmal anxiety] Surgical History History of appendectomy [place] Hx of cholecystectomy [place] Status post biopsy of kidney Multiple percutaneous biopsies Status post tonsillectomy and adenoidectomy Family History Mother Juvenile rheumatoid arthritis Social History Smoking and tobacco status: never smoked Alcohol intake: never Household members: family Housing: House Sexually active: Yes Female Reproductive History: Date of last menstrual period: 10/27/20 Physical Exam Const: COMMON NORMALS: no acute distress, patient oriented x3 and healthy appearing HENMT: COMMON NORMALS: normocephalic and atraumatic HEAD & SCALP: normocephalic and atraumatic Eye: COMMON NORMALS: Equal, round and reactive pupils present and EOMs intact bilaterally PUPIL: Yes Equal, round and reactive pupils present Neck/C-Spine: COMMON NORMALS: full ROM and supple Chest: COMMONS NORMALS: normal inspection of the chest and normal palpation of entire chest wall Resp: COMMON NORMALS: normal respiratory effort, No retractions, No use of accessory muscles and clear to auscultation bilaterally AUSCULTATION: clear to auscultation bilaterally Cardio: COMMON NORMALS: regular rhythm and No murmurs present (Cardio) RATE: tachycardic RHYTHM: regular rhythm GI: COMMON NORMALS: Normal to inspection, nondistended, normoactive bowel sounds present, Soft to palpation, non-tender and no masses PALPATION: Yes Soft to palpation Extremity: COMMON NORMALS: normal to inspection and full ROM Neuro: COMMON NORMALS: patient oriented x3, moves all extremities and no focal motor deficits Psych: COMMON NORMALS: mental status grossly normal, Normal thought process present and cooperative THOUGHT PROCESS: Normal thought process present Skin: COMMON NORMALS: no rashes or lesions noted and no wounds GENERAL SKIN EXAM: no rashes or lesions noted Course Vital Signs: Vital signs: Vital Signs Temperature 98.4 F 12/01/20 22:10 Pulse Rate 111 H 12/02/20 02:04 Respiratory Rate 20 H 12/02/20 02:04 Blood Pressure 128/92 12/02/20 02:04 Pulse Oximetry 99 12/02/20 02:04 MDM - Arrhythmia/Palpitations MDM Narrative: Medical decision making narrative: 20 presents for chest pain with palpitations. She had vomiting here that improved after Zofran. CT abdomen here is normal does show some opacities and she could have a slight pneumonia. She had a Covid test earlier today it was negative. Her heart rate here is improved and she feels improved. Troponins and D-dimer are negative. We will start her on antibiotics and she is stable for discharge. She is to follow-up with PCP and return if worsening. Lab Data: Labs: Lab Results 12/01/20 12/01/20 12/01/20 Range/Units 22:32 22:32 22:32 WBC 5.6 (4.0-10.0) 10^3/ uL RBC 4.96 (4.1-5.3) 10^6/u L Hgb 14.8 (11.5-15.3) g/dL Hct 43.6 (37.0-47.0) % MCV 87.9 (81-99) fL MCH 29.8 (28.0-34.0) pg MCHC 33.9 (30.0-36.0) g/dL RDW 12.9 (12.1-15.1) % Plt Count 257 (130-400) 10^3/c mm MPV 10.2 (7.4-10.4) fL Neut % (Auto) 71.0 % Lymph % (Auto) 15.8 % [place] % (Auto) 10.6 % Eos % (Auto) 1.1 % Baso % (Auto) 1.1 % Neut # (Auto) 4.01 (1.8-7.7) 10^3/u L Lymph # (Auto) 0.9 (0.8-4.8) 10^3/u L [place] # (Auto) 0.6 (0.2-0.9) 10^3/u L Eos # (Auto) 0.1 (0.0-0.8) 10^3/u L Baso # (Auto) 0.1 (0.0-0.1) 10^3/u L Nucleated RBC % (a uto) 0 % Nucleated RBCs # 0.0 /100WBC D-Dimer (0-0.59) ug/mIFE U Sodium 140 (136-145) mmol/L Potassium 3.2 L (3.5-5.1) mmol/L Chloride 106 (98-107) mmol/L Carbon Dioxide 17 L (22-29) mmol/L Anion Gap 20.2 H (5-19) BUN 5 L (6-20) mg/dL Creatinine 0.6 (0.5-0.9) mg/dL GFR Calculation 121.8 (90-130) mL/min Glucose 100 (65-115) mg/dL Calculated Osmolal ity 287 (285-295) mOsm/k g Calcium 9.0 (8.5-10.5) mg/dL Total Bilirubin 0.4 (0.15-1.2) mg/dL AST 15 (0-32) U/L ALT 8 (0-33) U/L Alkaline Phosphata se 66 (35-105) IU/L Troponin T Baselin e 6 (0-10) ng/L Troponin T 120 Min [place] (0-10) ng/L Delta Troponin T (0-10) ABS# Total Protein 7.0 (6.6-8.7) g/dL Albumin 4.5 (3.5-5.2) g/dL Globulin 2.5 (1.3-4.6) g/dL Lipase (13-60) U/L 12/01/20 12/02/20 12/02/20 Range/Units 22:42 00:54 00:54 WBC (4.0-10.0) 10^3/ uL RBC (4.1-5.3) 10^6/u L Hgb (11.5-15.3) g/dL Hct (37.0-47.0) % MCV (81-99) fL MCH (28.0-34.0) pg MCHC (30.0-36.0) g/dL RDW (12.1-15.1) % Plt Count (130-400) 10^3/c mm MPV (7.4-10.4) fL Neut % (Auto) % Lymph % (Auto) % [place] % (Auto) % Eos % (Auto) % Baso % (Auto) % Neut # (Auto) (1.8-7.7) 10^3/u L Lymph # (Auto) (0.8-4.8) 10^3/u L [place] # (Auto) (0.2-0.9) 10^3/u L Eos # (Auto) (0.0-0.8) 10^3/u L Baso # (Auto) (0.0-0.1) 10^3/u L Nucleated RBC % (a uto) % Nucleated RBCs # /100WBC D-Dimer 0.29 (0-0.59) ug/mIFE U Sodium (136-145) mmol/L Potassium (3.5-5.1) mmol/L Chloride (98-107) mmol/L Carbon Dioxide (22-29) mmol/L Anion Gap (5-19) BUN (6-20) mg/dL Creatinine (0.5-0.9) mg/dL GFR Calculation (90-130) mL/min Glucose (65-115) mg/dL Calculated Osmolal ity (285-295) mOsm/k g Calcium (8.5-10.5) mg/dL Total Bilirubin (0.15-1.2) mg/dL AST (0-32) U/L ALT (0-33) U/L Alkaline Phosphata se (35-105) IU/L Troponin T Baselin e (0-10) ng/L Troponin T 120 Min [place] 6.00 (0-10) ng/L Delta Troponin T 0 (0-10) ABS# Total Protein (6.6-8.7) g/dL Albumin (3.5-5.2) g/dL Globulin (1.3-4.6) g/dL Lipase 48 (13-60) U/L Imaging Data^: CXR: Attestation: I personally reviewed and interpreted this imaging study as follows: Radiologist's impression: [employer] [address] [address] XRay Report Signed Patient: Joe Eisenberg Unit #: [id number] : 1995 Age/Sex: 25 / F ADM Date: 12/01/20 Loc: ER Room/Bed: Attending Dr: Ordering Provider/Ordering MD: Mela Johnson MD Date of Service: 12/01/20 Procedure(s): XR chest 1V portable [id number] Accession Number(s): [id number] Report Number: [id number] PROCEDURE INFORMATION: Exam: XR Chest Exam date and time: 12/01/2020 10:22 PM Age: 25 years old Clinical indication: Shortness of breath; Additional info: SOB TECHNIQUE: Imaging protocol: XR of the chest. Views: 1 view. COMPARISON: 1. CR XR chest 1V portable [id number] 2020-07-19 23:32 2. CR XR chest 1V portable [id number] 2020-06-13 12:40 3. CR XR chest 1V portable [id number] 2020-02-03 22:38 4. CR XR chest 2V* [id number] 2019-06-22 09:43 FINDINGS: Lungs: Unremarkable. No consolidation. Pleural spaces: Unremarkable. No pleural effusion. No pneumothorax. Heart/Mediastinum: Unremarkable. No cardiomegaly. Bones/joints: Unremarkable. XR/XR chest 1V portable [id number] IMPRESSION: No acute findings. Dictated By: Con Houston MD Signed By: Con Houston MD CT Abd/Pel: Attestation: I personally reviewed and interpreted this imaging study as follows: Radiologist's impression: [address] [address] [address] Scan Report Signed Patient: Joe Eisenberg Unit #: [id number] : 1995 Age/Sex: 25 / F ADM Date: 12/01/20 Loc: ER Room/Bed: Attending Dr: Ordering Provider/Ordering MD: Mela Johnson MD Date of Service: 12/02/20 Procedure(s): CT abdomen pelvis w con* [id number] Accession Number(s): [id number] Report Number: [id number] PROCEDURE INFORMATION: Exam: CT Abdomen And Pelvis With Contrast Exam date and time: 12/02/2020 12:51 AM Age: 25 years old Clinical indication: Nausea; Prior surgery; Surgery type: Gb. Appy. ; Patient HX: N/v. History of lupus. ; Additional info: Vomiting TECHNIQUE: Imaging protocol: Computed tomography of the abdomen and pelvis with contrast. Radiation optimization: All CT scans at this facility use at least one of these dose optimization techniques: automated exposure control; mA and/or kV adjustment per patient size (includes targeted exams where dose is matched to clinical indication); or iterative reconstruction. Contrast material: OMNI 300; Contrast volume: 75 ml; Contrast route: INTRAVENOUS (IV); COMPARISON: 1. CT abdomen pelvis w con* [id number] 2020-01-20 09:[address] abdomen pelvis w con* [id number] 2019-11-18 15:03 RADIATION DOSE METRICS: Total DLP (mGy-cm): 1005.19 FINDINGS: Lungs: Minimal hazy ground-glass lung opacity in the right lung base. Liver: Mild periportal edema. Gallbladder and bile ducts: Cholecystectomy. Pancreas: Normal. No ductal dilation. Spleen: Normal. No splenomegaly. Adrenal glands: Normal. No mass. Kidneys and ureters: Nonobstructing 3 mm right renal calculus. Stomach and bowel: Unremarkable. No obstruction. No mucosal thickening. Appendix: Appendectomy. Intraperitoneal space: Unremarkable. No free air. No significant fluid collection. Vasculature: Unremarkable. No abdominal aortic aneurysm. Lymph nodes: Unremarkable. No enlarged lymph nodes. Urinary bladder: Unremarkable as visualized. Reproductive: Thickened uterine endometrium. Bones/joints: Unremarkable. No acute fracture. Soft tissues: Unremarkable. CT/CT abdomen pelvis w con* [id number] IMPRESSION: Minimal hazy ground-glass lung opacity in the right lung base. Radiation Dose CTDIVOL = (mGy): DLP = 1005.19 (mGy-cm) EKG Data^: EKG 1: Attestation: I personally reviewed and interpreted this EKG as follows: EKG interpretation date: 12/01/20 EKG interpretation time: 22:21 Interpretation: sinus tach hr [address] or t wave abnormalities qrs 86 qtc 379 Other EKG comments: Chest X-Ray 12/01/20 22:22 IMPRESSION: No acute findings. Abdomen/Pelvis CT 12/02/20 00:51 IMPRESSION: Minimal hazy ground-glass lung opacity in the right lung base. Radiation Dose CTDIVOL = (mGy): DLP = 1005.19 (mGy-cm) EKG 2: Attestation: I personally reviewed and interpreted this EKG as follows: EKG interpretation date: 12/02/20 EKG interpretation time: 01:02 Interpretation: sinus tach hr [address] or t wave abnormalities qrs 99 qtc 420 Other EKG comments: Chest X-Ray 12/01/20 22:22 IMPRESSION: No acute findings. Abdomen/Pelvis CT 12/02/20 00:51 IMPRESSION: Minimal hazy ground-glass lung opacity in the right lung base. Radiation Dose CTDIVOL = (mGy): DLP = 1005.19 (mGy-cm) Discharge Plan Discharge Patient Disposition: Home Clinical Impression: Palpitations, Vomiting Chest pain Qualifiers: Chest pain type: unspecified Qualified Code(s): R07.9 - Chest pain, unspecified Condition: Stable Prescriptions: New ondansetron 4 mg tablet,disintegrating 4 mg PO Q6H PRN (Reason: nausea and vomiting) Qty: 14 RF: 0 doxycycline hyclate 100 mg capsule 100 mg PO BID 7 Days Qty: 14 RF: 0 No Action lorazepam 1 mg tablet 1 mg PO BID PRN (Reason: anxiety) Qty: 45 RF: 2 prazosin 1 mg capsule 1 mg PO .HS Qty: 30 RF: 1 nortriptyline 25 mg capsule 25 mg PO DAILY 30 Days Qty: 30 RF: 1 citalopram [Celexa] 20 mg tablet 20 mg PO DAILY@2200 Qty: 30 RF: 1 mycophenolate mofetil 500 mg tablet See Rx Instructions .ROUTE .COMPLEX RF: 0 naproxen sodium [Aleve] 220 mg Tablet 440 mg PO PRN PRN (Reason: Pain, Moderate) RF: 0 cholecalciferol (vitamin D3) [Vitamin D3] 50 mcg (2,000 unit) Tablet 50 mcg PO QAM RF: 0 albuterol sulfate 90 mcg/actuation HFA aerosol inhaler 2 inh INHALATION Q4H PRN (Reason: shortness of breath or wheezing) Qty: 8.5 RF: 0 ondansetron 4 mg tablet,disintegrating 4 mg PO Q6H PRN (Reason: nausea and vomiting) Qty: 14 RF: 0 pantoprazole 40 mg tablet,delayed release (DR/EC) 40 mg PO DAILY RF: 0 ergocalciferol (vitamin D2) [Vitamin D2] 50,000 unit capsule See Rx Instructions .ROUTE .COMPLEX RF: 0 calcium carbonate-vitamin D3 [Calcium 500 + D] 500 mg(1,250mg) -400 unit Tablet 2 tab PO DAILY RF: 0 hydroxychloroquine 200 mg Tablet 200 mg PO BID RF: 0 Ferrex 150 Forte 150-25-1 mg-mcg-mg capsule 150 cap PO BID RF: 0 Nuvigil 150 mg Tablet 150 mg PO QAM RF: 0 Discharge Orders: Discharge ED (Routine); Ordered 12/02/20 Ordered By: Mela Johnson Referrals: Kam Ramirez MD [Primary Care Provider] - 1-3 days Discharge Diet: Advance as tolerated Discharge Activity: Resume usual activity Patient Instructions: Chest Pain (ED), Palpitations (ED) Coding Level of Care Code ED Sports Administrator for Chg Fwd Exam Comprehensive
[2020-12-01] MEDS: LORazepam 2 mg/mL INJ 1 mL 1 MG IVP ×2 (22:35→23:18)
[2020-12-01] MEDS: sodium chloride 0.9% 1,000 ML 999 ML IV ×2 (22:35→23:34)
[2020-12-01 22:46] LABS: Basophils # 0.1 10^3/uL (0.0-0.1); Basophils % 1.1 %; Eosinophils # 0.1 10^3/uL (0.0-0.8); Eosinophils % 1.1 %; Hematocrit 43.6 % (37.0-47.0); Hemoglobin 14.8 g/dL (11.5-15.3); Lymphocytes # 0.9 10^3/uL (0.8-4.8); Lymphocytes % 15.8 %; Mean Corpuscular HGB Conc 33.9 g/dL (30.0-36.0); Mean Corpuscular Hemoglobin 29.8 pg (28.0-34.0); Mean Corpuscular Volume 87.9 fL (81-99); Mean Platelet Volume 10.2 fL (7.4-10.4); Monocytes # 0.6 10^3/uL (0.2-0.9); Monocytes % 10.6 %; Neutrophils # 4.01 10^3/uL (1.8-7.7); Nucleated Red Blood Cells % 0 %; Platelet Count 257 10^3/cmm (130-400); Red Blood Count 4.96 10^6/uL (4.1-5.3); Red Cell Distribution Width 12.9 % (12.1-15.1); White Blood Count 5.6 10^3/uL (4.0-10.0)
[2020-12-01 23:07] LABS: Alanine Aminotransferase 8 U/L (0-33); Albumin Level 4.5 g/dL (3.5-5.2); Alkaline Phosphatase 66 IU/L (35-105); Anion Gap 20.2 (5-19); Aspartate Amino Transferase 15 U/L (0-32); Blood Urea Nitrogen 5 mg/dL (6-20); Carbon Dioxide 17 mmol/L (22-29); Chloride 106 mmol/L (98-107); Globulin 2.5 g/dL (1.3-4.6); Glomerular Filtration Rate 121.8 mL/min (90-130); Glucose 100 mg/dL (65-115); Osmolality Calculated 287 mOsm/kg (285-295); Potassium 3.2 mmol/L (3.5-5.1); Sodium 140 mmol/L (136-145); Total Bilirubin 0.4 mg/dL (0.15-1.2)
[2020-12-01 23:08] LABS: Troponin(5th) Baseline 6 ng/L (0-10)
[2020-12-01] MEDS: ibuprofen 800 mg tablet PO (23:40)
[2020-12-01 23:56] LABS: D Dimer 0.29 ug/mIFEU (0-0.59)
--- NOTE | 2020-12-02 00:33 | ECG_ITS ---
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 Measurements Intervals [place] Rate: 100 P: 25 VT: 155 QRS: 25 QRSD: 99 T: 38 QT: 363 QTc: 468 Interpretive Statements SINUS TACHYCARDIA LOW QRS VOLTAGE IN PRECORDIAL LEADS [QRS DEFLECTION < 1.0 mV IN CHEST LEADS] POSSIBLE RIGHT VENTRICULAR CONDUCTION DELAY [RSR (QR) IN V1/V2] Compared to ECG 06/13/2020 12:25:05 Low QRS voltage now present Sinus rhythm no longer present Incomplete right bundle-branch block no longer present Electronically Signed On 12-03-2020 18:41:54 CDT by Fransisca Marc M.D. [email or web address]
--- NOTE | 2020-12-02 00:51 | CTR_ITS ---
PROCEDURE INFORMATION: Exam: CT Abdomen And Pelvis With Contrast Exam date and time: 12/02/2020 12:51 AM Age: 25 years old Clinical indication: Nausea; Prior surgery; Surgery type: Gb. Appy. ; Patient HX: N/v. History of lupus. ; Additional info: Vomiting TECHNIQUE: Imaging protocol: Computed tomography of the abdomen and pelvis with contrast. Radiation optimization: All CT scans at this facility use at least one of these dose optimization techniques: automated exposure control; mA and/or kV adjustment per patient size (includes targeted exams where dose is matched to clinical indication); or iterative reconstruction. Contrast material: OMNI 300; Contrast volume: 75 ml; Contrast route: INTRAVENOUS (IV); COMPARISON: 1. CT abdomen pelvis w con* [id number] 2020-01-20 09:[address] abdomen pelvis w con* [id number] 2019-11-18 15:03 RADIATION DOSE METRICS: Total DLP (mGy-cm): 1005.19 FINDINGS: Lungs: Minimal hazy ground-glass lung opacity in the right lung base. Liver: Mild periportal edema. Gallbladder and bile ducts: Cholecystectomy. Pancreas: Normal. No ductal dilation. Spleen: Normal. No splenomegaly. Adrenal glands: Normal. No mass. Kidneys and ureters: Nonobstructing 3 mm right renal calculus. Stomach and bowel: Unremarkable. No obstruction. No mucosal thickening. Appendix: Appendectomy. Intraperitoneal space: Unremarkable. No free air. No significant fluid collection. Vasculature: Unremarkable. No abdominal aortic aneurysm. Lymph nodes: Unremarkable. No enlarged lymph nodes. Urinary bladder: Unremarkable as visualized. Reproductive: Thickened uterine endometrium. Bones/joints: Unremarkable. No acute fracture. Soft tissues: Unremarkable. CT/CT abdomen pelvis w con* [id number] IMPRESSION: Minimal hazy ground-glass lung opacity in the right lung base. Radiation Dose CTDIVOL = (mGy): DLP = 1005.19 (mGy-cm)
[2020-12-02] MEDS: ondansetron 2 mg/ML SDV 2 mL 4 MG IVP (00:55)
[2020-12-02] MEDS: labetalol 5 mg/mL SDV 20mL 10 MG IVP (00:55)
[2020-12-02] MEDS: iohexol 300 mg/mL 100 mL Btl IV (01:07)
[2020-12-02 01:34] LABS: Lipase 48 U/L (13-60)
[2020-12-02 01:36] LABS: Troponin 5 2HR Delta 0 ABS# (0-10)
[2020-12-02 02:04] VITALS: BP 128/92; PULSE 111; RESP 20; O2SAT 99
== END 2020-12-02 02:06 | disposition home or self-care (01) ==
PROVIDERS: Emergency Provider Emergency Medicine; PCP Family Medicine
DX: R07.9 Chest pain, unspecified (principal); R00.2 Palpitations; R11.10 Vomiting, unspecified
CPT/HCPCS: 71045; 74177; 80053; 83690; 84484; 85025; 85378; 93005; 96361; 96374; 96375; 96376; 99284; J2060; J2405; J3490; J7030; Q9967

== ENCOUNTER 2021-01-02 21:28 | Emergency (ER) | payer BC, MEDICARE, MEDICAID, SELFPAY ==
--- NOTE | 2021-01-02 21:32 | XRR_ITS ---
PROCEDURE INFORMATION: Exam: XR Chest Exam date and time: 01/02/2021 9:32 PM Age: 25 years old Clinical indication: Cough and shortness of breath; Additional info: Covid symptoms TECHNIQUE: Imaging protocol: XR of the chest. Views: 1 view. COMPARISON: CR (CHEST, ) 12/01/2020 10:39 PM FINDINGS: Lungs: Lungs are clear bilaterally. Pleural spaces: No pleural effusion. No pneumothorax. Heart/Mediastinum: The cardiac silhouette and mediastinal contours are unremarkable. Bones/joints: Unremarkable for age. Organs: Surgical clips in the right upper quadrant, consistent with a previous cholecystectomy. Findings are stable. XR/XR chest 1V portable [id number] IMPRESSION: 1. No acute cardiopulmonary process. 2. Incidental/nonacute findings are listed in the report.
[2021-01-02 21:41] VITALS: BP 125/87; PULSE 104; RESP 18; TEMP 36.8; O2SAT 98; BMI 24.7
[2021-01-02 21:47] VITALS: O2SAT 98
[2021-01-02 22:11] LABS: SARS Covid-2 Antigen Negative (Negative)
--- NOTE | 2021-01-02 22:17 | W.ED.COVID ---
HPI - COVID General: Chief Complaint: COVID symptoms Stated Complaint: having Covid symptoms Time Seen by Provider: 01/02/21 22:17 Triage information: Has fever, cough or shortness of breath. No known COVID + exposure last 14 days History of Present Illness: HPI Narrative: Patient comes in today for illness for 2 days. Patient reports nausea and vomiting, chest discomfort. Patient has had no fever. Patient does have a PCR Covid test outstanding. Patient appears well. Patient appears no acute distress. Patient reports headache and some chest discomfort. Patient states that her biggest concern is the chest discomfort when she takes a deep breath she has pain. COVID 19 common symptoms: positive headache(s) COVID 19 other sytmptoms: positive chest pain COVID Results: SARS-CoV-2 Antigen (Rapid) Negative (Negative) 01/02/21 21:51 01/02/21 SARS-CoV-2 RNA (RT-PCR) Not detected (NOT DETECTED) 01/20/20 06:15 01/20/20 Nasal/Oral Coronavirus 2019 PCR Negative 01/20/20 12:05 01/20/20 Review of Systems General: Reports: 10 or more systems reviewed and unremarkable except in HPI and below Const: Reports: malaise Card: Reports: chest pain Neuro: Reports: headache(s) PFSH ED PFSH: Medical History Generalized anxiety disorder Inflammatory bowel disease 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, follows up at [facility] Lupus nephritis Panic disorder [episodic paroxysmal anxiety] Surgical History History of appendectomy [place] Hx of cholecystectomy [place] Status post biopsy of kidney Multiple percutaneous biopsies Status post tonsillectomy and adenoidectomy Family History Mother Juvenile rheumatoid arthritis Social History Smoking and tobacco status: never smoked Alcohol intake: never Household members: family Housing: House Sexually active: Yes Female Reproductive History: Date of last menstrual period: 10/27/20 Physical Exam Const: COMMON NORMALS: no acute distress and patient oriented x3 GENERAL APPEARANCE: cooperative HENMT: COMMON NORMALS: normocephalic, TM's normal bilaterally and Normal external nose present HEAD & SCALP: normal to inspection and normocephalic NOSE: Normal external nose present TYMPANIC MEMBRANE: TM's normal bilaterally MOUTH: Normal oral and palatal mucosa present THROAT: posterior oropharynx normal Eye: GENERAL EYE: appearance normal, both eyes and all related structures Neck/C-Spine: COMMON NORMALS: full ROM Lymph: LYMPHATIC: no lymphadenopathy noted Chest: COMMONS NORMALS: normal inspection of the chest Resp: COMMON NORMALS: normal respiratory effort and clear to auscultation bilaterally EFFORT & INSPECTION: Yes able to speak in complete sentences AUSCULTATION: clear to auscultation bilaterally Cardio: COMMON NORMALS: regular rate and regular rhythm RATE: regular rate RHYTHM: regular rhythm GI: COMMON NORMALS: non-tender : COMMON NORMALS: Yes no CVA tenderness BLADDER/KIDNEY EXAM: Yes no CVA tenderness Back/Pelvis: COMMON NORMALS: no CVA tenderness and thoracic and lumbar spine normal to inspection Extremity: COMMON NORMALS: normal to inspection Neuro: COMMON NORMALS: patient oriented x3 and moves all extremities Psych: COMMON NORMALS: mental status grossly normal and cooperative Skin: COMMON NORMALS: no rashes or lesions noted GENERAL SKIN EXAM: no rashes or lesions noted Course Vital Signs: Vital signs: Vital Signs Temperature 98.3 F 01/02/21 21:41 Pulse Rate 104 H 01/02/21 21:41 Respiratory Rate 18 01/02/21 21:41 Blood Pressure 125/87 01/02/21 21:41 Pulse Oximetry 98 01/02/21 21:47 MDM - COVID MDM Narrative: Medical decision making narrative: Patient comes in today with some inspiratory chest discomfort and a headache. Patient was tested for PCR Covid test and was waiting on the result. Patient felt worse tonight was concerned that she may be ill. On exam lungs were clear to auscultation. Skin was warm and dry. Vital signs were normal. Differential diagnosis includes but not limited to upper respiratory infection, bronchitis, inspiratory pain, reactive airway. Think patient probably just has maybe a mild bronchitis although there auscultation is much different than normal. Heart tones were also normal with regular rate. We will go ahead and give the patient a dose of dexamethasone to help with inflammation. Patient will await results for COVID-19 testing. Patient should continue for routine care otherwise. Patient was agreeable to plan and recommendations. Lab Data: Labs: Lab Results 01/02/21 Range/Units 21:51 SARS-CoV-2 Ag (Rap id) Negative (Negative) COVID Results: SARS-CoV-2 Antigen (Rapid) Negative (Negative) 01/02/21 21:51 01/02/21 SARS-CoV-2 RNA (RT-PCR) Not detected (NOT DETECTED) 01/20/20 06:15 01/20/20 Nasal/Oral Coronavirus 2019 PCR Negative 01/20/20 12:05 01/20/20 Discharge Plan Discharge Patient Disposition: Home Clinical Impression: Inspiratory pain Headache Qualifiers: Headache type: unspecified Headache chronicity pattern: unspecified pattern Intractability: not intractable Qualified Code(s): R51.9 - Headache, unspecified Condition: Stable Prescriptions: No Action lorazepam 1 mg tablet 1 mg PO BID PRN (Reason: anxiety) Qty: 45 RF: 2 nortriptyline 25 mg capsule 25 mg PO DAILY 30 Days Qty: 30 RF: 1 citalopram [Celexa] 20 mg tablet 20 mg PO DAILY@2200 Qty: 30 RF: 1 prazosin 2 mg capsule 2 mg PO .HS Qty: 30 RF: 1 mycophenolate mofetil 500 mg tablet See Rx Instructions .ROUTE .COMPLEX RF: 0 naproxen sodium [Aleve] 220 mg Tablet 440 mg PO PRN PRN (Reason: Pain, Moderate) RF: 0 cholecalciferol (vitamin D3) [Vitamin D3] 50 mcg (2,000 unit) Tablet 50 mcg PO QAM RF: 0 albuterol sulfate 90 mcg/actuation HFA aerosol inhaler 2 inh INHALATION Q4H PRN (Reason: shortness of breath or wheezing) Qty: 8.5 RF: 0 ondansetron 4 mg tablet,disintegrating 4 mg PO Q6H PRN (Reason: nausea and vomiting) Qty: 14 RF: 0 ondansetron 4 mg tablet,disintegrating 4 mg PO Q6H PRN (Reason: nausea and vomiting) Qty: 14 RF: 0 pantoprazole 40 mg tablet,delayed release (DR/EC) 40 mg PO DAILY RF: 0 ergocalciferol (vitamin D2) [Vitamin D2] 50,000 unit capsule See Rx Instructions .ROUTE .COMPLEX RF: 0 calcium carbonate-vitamin D3 [Calcium 500 + D] 500 mg(1,250mg) -400 unit Tablet 2 tab PO DAILY RF: 0 hydroxychloroquine 200 mg Tablet 200 mg PO BID RF: 0 Ferrex 150 Forte 150-25-1 mg-mcg-mg capsule 150 cap PO BID RF: 0 Nuvigil 150 mg Tablet 150 mg PO QAM RF: 0 Discharge Orders: Discharge ED (Routine); Ordered 01/02/21 Ordered By: Aryan Gale Referrals: Kam Ramirez MD [Primary Care Provider] - Discharge Diet: Usual diet Discharge Activity: Increase activity as tolerated Patient Instructions: Acute Bronchitis (ED), Opioid Safety Activity Restrictions/Additional Instructions: Drink plenty of fluids. Use Tylenol or ibuprofen for pain. Healthy diet and activity. Continue with routine medications as directed. Use albuterol 2 inhalations as needed for respiratory difficulty. Follow-up with primary care regarding your PCR Covid test. Return to the emergency room for worsening symptoms or new concerns. Coding Level of Care Code ED Architectural Project Captain for Erin Fwd Exam Comprehensive
[2021-01-02] MEDS: dexamethasone 10 mg/mL INJ IM (23:17)
[2021-01-02 23:19] VITALS: BP 128/76; PULSE 78; RESP 16; O2SAT 98
== END 2021-01-02 23:20 | disposition home or self-care (01) ==
PROVIDERS: Emergency Provider Nurse Practitioner Family; PCP Family Medicine
DX: R07.89 Other chest pain (principal); R51.9 Headache, unspecified; Z20.822 Contact with and (suspected) exposure to COVID-19
CPT/HCPCS: 71045; 87426; 96372; 99283; J1100

== ENCOUNTER 2021-01-21 01:00 | Emergency (ER) | payer BC, MEDICARE, MEDICAID, SELFPAY ==
[2021-01-21 01:33] VITALS: BP 127/88; PULSE 85; RESP 17; TEMP 36.8; O2SAT 98; BMI 25.6
[2021-01-21 02:35] LABS: Add Urine Microscopic? YES; Bilirubin Urine Neg (Negative); Blood Urine 2+ (Negative); Glucose Urine UA Norm (Normal); Ketones Urine Negative (Negative); Leukocyte Esterase Urine Negative (Negative); Nitrate Urine Negative (Negative); Protein Urine Trace (Negative); Urine Appearance Clear (CLEAR); Urine Color Yellow (Yellow); Urobilinogen Urine Norm (Negative); pH Urine 5 (5-7)
[2021-01-21 02:37] LABS: HCG Qualitative Urine. Negative (Negative)
--- NOTE | 2021-01-21 02:38 | W.ED.BACK ---
HPI - Back Pain/Injury General: Chief Complaint: Back Pain/Injury Stated Complaint: lower back pain Time Seen by Provider: 01/21/21 02:38 History of Present Illness: HPI Narrative: Ms. Eisenberg is a 25-year-old with significant past medical history of lupus with renal involvement who presents to the emergency department due to back pain. Symptom onset was gradual within the past few days. She has bilateral lower back pain. She denies specific provoking traumatic injury. She has associated fatigue and lightheadedness but no specific infectious symptoms. She had mild urinary urgency without pain or hematuria. She presented to a clinic and was started on Bactrim today and reported that if her symptoms worsened, because she had protein in her urine, that she should present to the emergency department. Overall the intensity symptoms is mild to moderate. The course has persisted. No other specific changes in health, medications, provoking, exacerbating, or alleviating factors identified. Review of Systems General: Reports: 10 or more systems reviewed and unremarkable except in HPI and below Narrative: CONSTITUTIONAL: See HPI EYES - denies pain, denies loss of vision EARS - denies ear issues. NOSE - denies congestion or rhinorrhea. THROAT - denies sore throat or difficulty swallowing. CARDIOVASCULAR - denies chest pain and palpitations RESPIRATORY - denies shortness of breath and cough GASTROINTESTINAL - denies abdominal pain, no nausea vomiting, no changes in bowel habits GENITOURINARY - denies dysuria or urinary frequency MUSCULOSKELETAL-see HPI SKIN - denies rashes or new changed skin lesions NEUROLOGIC - denies focal weakness or sensory changes HEMATOLOGIC/LYMPHATIC - denies easy bruising or lymphadenopathy. PFS ED PFSH: Medical History Generalized anxiety disorder Inflammatory bowel disease 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, follows up at [facility] Lupus nephritis Panic disorder [episodic paroxysmal anxiety] Psychiatric care Surgical History History of appendectomy [place] Hx of cholecystectomy [place] Status post biopsy of kidney Multiple percutaneous biopsies Status post tonsillectomy and adenoidectomy Family History Mother Juvenile rheumatoid arthritis Social History Smoking and tobacco status: never smoked Alcohol intake: never Household members: family Housing: House Sexually active: Yes Female Reproductive History: Date of last menstrual period: 10/27/20 Physical Exam Narrative: EXAM NARRATIVE: GENERAL/CONSTITUTIONAL - well-appearing. No acute distress. Eyes - PERRL, no conjunctival injection ENMT - Atraumatic external nose and ears. Moist mucous membranes NECK - supple. trachea midline CARDIOVASCULAR - regular rate and rhythm. Peripheral pulses 2+ and equal RESPIRATORY -clear to auscultation bilaterally. No retractions or accessory muscle use. ABDOMEN/GI - Nontender/Nondistended. No tenderness to percussion or evidence of peritonitis MSK - Extremities without obvious deformity or tenderness to palpation. No CVA tenderness. SKIN - Warm, Dry NEURO - alert and appropriately oriented. strength and sensation intact. Moves all extremities equally. PSYCH - Appropriate mood and affect Course ED course: - Patient was seen and evaluated by me at bedside - Patient placed on cardiac monitors, IV access obtained - Initial evaluation notable for no acute distress, nontoxic appearance. - Labs and imaging obtained and reviewed - Fluids, analgesia given - Labs notable for no significant abnormality to explain patient's symptoms -After discussion of the labs I offered the patient CT imaging for rule out of other diagnoses and after discussion of risks and benefits the patient declined CT imaging at this time. - Upon serial reexamination after treatment the patient was mildly improved - Based on patient history, evaluation, labs, and imaging as interpreted the most likely cause of the patient's condition is unclear - The results of ED evaluation were discussed with the patient including prescriptions and/or symptomatic cares (if applicable) including appropriate and responsible use, followup plan, and return precautions. The patient verbalized understanding and felt safe for discharge. - Patient discharged in satisfactory condition. Vital Signs: Vital signs: Vital Signs Temperature 98.2 F 01/21/21 01:33 Pulse Rate 76 01/21/21 04:43 Respiratory Rate 18 01/21/21 04:43 Blood Pressure 125/86 01/21/21 04:43 Pulse Oximetry 99 01/21/21 04:43 MDM - Back Pain/Injury Medical Records: Attestation: I reviewed the patient's medical records. Lab Data: Attestation: I reviewed the patient's lab results. Labs: Lab Results 01/21/21 01/21/21 01/21/21 Range/Units 02:20 02:20 03:05 WBC Cancelled Corrected WBC Cancelled RBC Cancelled Hgb Cancelled Hct Cancelled MCV Cancelled MCH Cancelled MCHC Cancelled RDW Cancelled Plt Count Cancelled MPV Cancelled Gran % Cancelled Neut % (Auto) Cancelled Lymph % (Auto) Cancelled [place] % (Auto) Cancelled Eos % (Auto) Cancelled Baso % (Auto) Cancelled Neut # (Auto) Cancelled Lymph # (Auto) Cancelled [place] # (Auto) Cancelled Eos # (Auto) Cancelled Baso # (Auto) Cancelled Absolute Gran (aut o) Cancelled Nucleated RBC % (a uto) Cancelled Nucleated RBCs # Cancelled Sodium (136-145) mmol/L Potassium (3.5-5.1) mmol/L Chloride (98-107) mmol/L Carbon Dioxide (22-29) mmol/L Anion Gap (5-19) BUN (6-20) mg/dL Creatinine (0.5-0.9) mg/dL GFR Calculation (90-130) mL/min Glucose (65-115) mg/dL Calculated Osmolal ity (285-295) mOsm/k g Calcium (8.5-10.5) mg/dL Total Bilirubin (0.15-1.2) mg/dL AST (0-32) U/L ALT (0-33) U/L Alkaline Phosphata se (35-105) IU/L Total Protein (6.6-8.7) g/dL Albumin (3.5-5.2) g/dL Globulin (1.3-4.6) g/dL HCG, Qual Negative (Negative) Urine Color Yellow (Yellow) Urine Appearance Clear (CLEAR) Urine pH 5 (5-7) Ur Specific Gravit y 1.020 (1.005-1.030) Urine Protein Trace (Negative) Urine Glucose (UA) Norm (Normal) Urine Ketones Negative (Negative) Urine Blood 2+ H (Negative) Urine Nitrate Negative (Negative) Urine Bilirubin Neg (Negative) Urine Urobilinogen Norm (Negative) mg/dL Ur Leukocyte Natalie ase Negative (Negative) Urine RBC 0-4 H (0-2) /hpf Urine WBC 0-4 H (0-5) /hpf Ur Squamous Epith Cells 5-10 H (0-5) /hpf Amorphous Sediment Not Reportable Urine Bacteria Trace (NONE) /hpf Urine Mucus 3+ /hpf 01/21/21 01/21/21 Range/Units 03:05 03:28 WBC 5.4 Corrected WBC RBC 4.40 Hgb 13.1 Hct 38.3 MCV 87.0 MCH 29.8 MCHC 34.2 RDW 12.8 Plt Count 274 MPV 10.3 Gran % Neut % (Auto) 56.6 Lymph % (Auto) 32.4 [place] % (Auto) 8.6 Eos % (Auto) 1.3 Baso % (Auto) 0.9 Neut # (Auto) 3.08 Lymph # (Auto) 1.8 [place] # (Auto) 0.5 Eos # (Auto) 0.1 Baso # (Auto) 0.1 Absolute Gran (aut o) Nucleated RBC % (a uto) 0 Nucleated RBCs # 0.0 Sodium 136 (136-145) mmol/L Potassium 3.8 (3.5-5.1) mmol/L Chloride 104 (98-107) mmol/L Carbon Dioxide 19 L (22-29) mmol/L Anion Gap 16.8 (5-19) BUN 8 (6-20) mg/dL Creatinine 0.7 (0.5-0.9) mg/dL GFR Calculation 102.0 (90-130) mL/min Glucose 95 (65-115) mg/dL Calculated Osmolal ity 280 L (285-295) mOsm/k g Calcium 8.8 (8.5-10.5) mg/dL Total Bilirubin 0.3 (0.15-1.2) mg/dL AST 24 (0-32) U/L ALT 9 (0-33) U/L Alkaline Phosphata se 58 (35-105) IU/L Total Protein 6.8 (6.6-8.7) g/dL Albumin 4.5 (3.5-5.2) g/dL Globulin 2.3 (1.3-4.6) g/dL HCG, Qual (Negative) Urine Color (Yellow) Urine Appearance (CLEAR) Urine pH (5-7) Ur Specific Gravit y (1.005-1.030) Urine Protein (Negative) Urine Glucose (UA) (Normal) Urine Ketones (Negative) Urine Blood (Negative) Urine Nitrate (Negative) Urine Bilirubin (Negative) Urine Urobilinogen (Negative) mg/dL Ur Leukocyte Natalie ase (Negative) Urine RBC (0-2) /hpf Urine WBC (0-5) /hpf Ur Squamous Epith Cells (0-5) /hpf Amorphous Sediment Urine Bacteria (NONE) /hpf Urine Mucus /hpf Discharge Plan Discharge Patient Disposition: Home Clinical Impression: Back pain, Malaise and fatigue Condition: Stable Prescriptions: No Action loratadine [Allergy Relief (loratadine)] 10 mg tablet 10 mg PO DAILY RF: 0 hydroxyzine HCl 25 mg tablet 25 mg PO .at bed RF: 0 prazosin 2 mg capsule 4 mg PO .HS Qty: 60 RF: 1 citalopram [Celexa] 20 mg tablet 20 mg PO DAILY@2200 Qty: 30 RF: 1 lorazepam 1 mg tablet 1 mg PO BID PRN (Reason: anxiety) Qty: 45 RF: 2 nortriptyline 25 mg capsule 25 mg PO DAILY 30 Days Qty: 30 RF: 1 mycophenolate mofetil 500 mg tablet See Rx Instructions .ROUTE .COMPLEX RF: 0 naproxen sodium [Aleve] 220 mg Tablet 440 mg PO PRN PRN (Reason: Pain, Moderate) RF: 0 cholecalciferol (vitamin D3) [Vitamin D3] 50 mcg (2,000 unit) Tablet 50 mcg PO QAM RF: 0 albuterol sulfate 90 mcg/actuation HFA aerosol inhaler 2 inh INHALATION Q4H PRN (Reason: shortness of breath or wheezing) Qty: 8.5 RF: 0 ondansetron 4 mg tablet,disintegrating 4 mg PO Q6H PRN (Reason: nausea and vomiting) Qty: 14 RF: 0 ondansetron 4 mg tablet,disintegrating 4 mg PO Q6H PRN (Reason: nausea and vomiting) Qty: 14 RF: 0 pantoprazole 40 mg tablet,delayed release (DR/EC) 40 mg PO DAILY RF: 0 ergocalciferol (vitamin D2) [Vitamin D2] 50,000 unit capsule See Rx Instructions .ROUTE .COMPLEX RF: 0 calcium carbonate-vitamin D3 [Calcium 500 + D] 500 mg(1,250mg) -400 unit Tablet 2 tab PO DAILY RF: 0 hydroxychloroquine 200 mg Tablet 200 mg PO BID RF: 0 Ferrex 150 Forte 150-25-1 mg-mcg-mg capsule 150 cap PO BID RF: 0 Nuvigil 150 mg Tablet 150 mg PO QAM RF: 0 Discharge Orders: Discharge ED (Routine); Ordered 01/21/21 Ordered By: Hill Vazquez Referrals: Kam Ramirez MD [Primary Care Provider] - Discharge Diet: Usual diet Discharge Activity: Resume usual activity Patient Instructions: Acute Low Back Pain (ED), Fatigue (ED) Activity Restrictions/Additional Instructions: Thank you for visiting the emergency department. You were seen and evaluated for back pain and generalized symptoms. The exact cause of your symptoms is somewhat unclear. Based on laboratory studies and history it is safe to have you follow-up with your primary care provider. Please follow-up with your your typical specialist. Please return the emergency department for worsening your symptoms or anything else that you are concerned about and feel needs emergency department evaluation. Coding Level of Care Code ED [employer]r for Erin Machado
[2021-01-21 02:41] LABS: Add Urine Culture? No; Bacteria Urine TRACE /hpf; Mucus Urine 3+ /hpf; RBC Urine 0-4 /hpf (0-2); WBC Urine 0-4 /hpf (0-5)
[2021-01-21 03:27] LABS: Albumin Level 4.5 g/dL (3.5-5.2); Alkaline Phosphatase 58 IU/L (35-105); Blood Urea Nitrogen 8 mg/dL (6-20); Calcium 8.8 mg/dL (8.5-10.5); Carbon Dioxide 19 mmol/L (22-29); Chloride 104 mmol/L (98-107); Globulin 2.3 g/dL (1.3-4.6); Glucose 95 mg/dL (65-115); Osmolality Calculated 280 mOsm/kg (285-295); Sodium 136 mmol/L (136-145); Total Bilirubin 0.3 mg/dL (0.15-1.2); Total Protein 6.8 g/dL (6.6-8.7)
[2021-01-21 03:30] LABS: Alanine Aminotransferase 9 U/L (0-33); Anion Gap 16.8 (5-19); Aspartate Amino Transferase 24 U/L (0-32); Potassium 3.8 mmol/L (3.5-5.1)
[2021-01-21 03:33] LABS: Basophils # 0.1 10^3/uL (0.0-0.1); Basophils % 0.9 %; Eosinophils # 0.1 10^3/uL (0.0-0.8); Eosinophils % 1.3 %; Hematocrit 38.3 % (37.0-47.0); Hemoglobin 13.1 g/dL (11.5-15.3); Lymphocytes # 1.8 10^3/uL (0.8-4.8); Lymphocytes % 32.4 %; Mean Corpuscular HGB Conc 34.2 g/dL (30.0-36.0); Mean Corpuscular Hemoglobin 29.8 pg (28.0-34.0); Mean Platelet Volume 10.3 fL (7.4-10.4); Monocytes # 0.5 10^3/uL (0.2-0.9); Monocytes % 8.6 %; Neutrophils # 3.08 10^3/uL (1.8-7.7); Neutrophils % 56.6 %; Nucleated Red Blood Cells % 0 %; Platelet Count 274 10^3/cmm (130-400); Red Cell Distribution Width 12.8 % (12.1-15.1); White Blood Count 5.4 10^3/uL (4.0-10.0)
[2021-01-21] MEDS: lactated ringers 1,000 ML 999 ML IV (03:37)
[2021-01-21] MEDS: acetaminophen 500 mg Tablet 1000 MG PO (03:50)
[2021-01-21 04:43] VITALS: BP 125/86; PULSE 76; RESP 18; O2SAT 99
== END 2021-01-21 04:43 | disposition home or self-care (01) ==
PROVIDERS: Nurse Practitioner Family; Emergency Provider Emergency Medicine; PCP Family Medicine
DX: M54.9 Dorsalgia, unspecified (principal); R53.81 Other malaise; R53.83 Other fatigue; M32.9 Systemic lupus erythematosus, unspecified
CPT/HCPCS: 80053; 81001; 81025; 85025; 96360; 99283

== ENCOUNTER 2021-03-09 15:26 | Emergency (ER) | payer BC, MEDICARE, MEDICAID, SELFPAY ==
[2021-03-09 15:46] VITALS: BP 117/89; PULSE 95; RESP 16; TEMP 36.8; O2SAT 100; BMI 25.6
--- NOTE | 2021-03-09 16:18 | XRR_ITS ---
PROCEDURE INFORMATION: Exam: XR Chest Exam date and time: 03/09/2021 4:18 PM Age: 25 years old Clinical indication: Pain; Angina pectoris; Prior surgery; Surgery type: Gb, appendix, tonsils; Patient HX: Vomitting and sinus infection for 3 days. Patient has lupus. Cp; Additional info: Chest pain TECHNIQUE: Imaging protocol: XR of the chest. Views: 1 view. Total images: 2 COMPARISON: CR XR chest 1V portable [id number] 01/02/2021 10:51 PM FINDINGS: Lungs: No visible active interstitial or alveolar airspace disease. Pleural spaces: Unremarkable. No pleural effusion. No pneumothorax. Heart/Mediastinum: Cardiac structures and configuration within normal limits. Bones/joints: Mild scoliotic curvature of the spine. XR/XR chest 1V portable [id number] IMPRESSION: Nonacute. Radiation Dose CTDIVOL = (mGy): DLP = (mGy-cm)
--- NOTE | 2021-03-09 17:38 | ED_ITS ---
HPI - Nausea/Vomiting/Diarrhea General: Chief complaint: Nausea/Vomiting/Diarrhea Stated complaint: N/V/D; RECENT SINUS INFECTION Time Seen by Provider: 03/09/21 17:38 History of Present Illness: HPI Narrative: 25-year-old female comes in today with nausea vomiting and diarrhea for the last 3 days. Patient states inability to hold anything down today. Patient appears mildly unwell but not toxic. Patient appears in no pain. Patient reports that Friday of last week she felt like she was having a sinus infection come on and was seen at urgent care they had checked her for COVID-19 and it was negative. Patient reports those symptoms have improved but then she started having the nausea vomiting and diarrhea. Patient does have a history of lupus and mental health conditions. MD elicited complaint: nausea, vomiting and diarrhea Associated nausea: Yes Associated symtoms: Reports nausea Review of Systems General: Reports: 10 or more systems reviewed and unremarkable except in HPI and below GI: Reports: nausea, vomiting and diarrhea PFSH ED PFSH: Medical History Generalized anxiety disorder Inflammatory bowel disease 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, follows up at [facility] Lupus nephritis Panic disorder [episodic paroxysmal anxiety] Psychiatric care Surgical History History of appendectomy [place] Hx of cholecystectomy [place] Status post biopsy of kidney Multiple percutaneous biopsies Status post tonsillectomy and adenoidectomy Family History Mother Juvenile rheumatoid arthritis Social History Smoking and tobacco status: never smoked Alcohol intake: never Household members: family Housing: House Sexually active: Yes Female Reproductive History: Date of last menstrual period: 10/27/20 Physical Exam Const: COMMON NORMALS: no acute distress and patient oriented x3 GENERAL APPEARANCE: cooperative HENMT: COMMON NORMALS: normocephalic and Normal external nose present HEAD & SCALP: normal to inspection and normocephalic NOSE: Normal external nose present MOUTH: Normal oral and palatal mucosa present THROAT: posterior oropharynx normal Eye: GENERAL EYE: appearance normal, both eyes and all related structures Neck/C-Spine: COMMON NORMALS: full ROM Lymph: LYMPHATIC: no lymphadenopathy noted Chest: COMMONS NORMALS: normal inspection of the chest Resp: COMMON NORMALS: normal respiratory effort EFFORT & INSPECTION: Yes able to speak in complete sentences Cardio: COMMON NORMALS: regular rate and regular rhythm RATE: regular rate RHYTHM: regular rhythm GI: COMMON NORMALS: Soft to palpation AUSCULTATION: Yes normoactive bowel sounds PALPATION: Yes Soft to palpation, Yes Tenderness to palpation present (GI) (Mild generalized), No Guarding due to palpation present (GI) and No Rebound tenderness present : BLADDER/KIDNEY EXAM: Yes CVA tenderness on the left Back/Pelvis: COMMON NORMALS: thoracic and lumbar spine normal to inspection GENERAL BACK: Yes CVA tenderness Extremity: COMMON NORMALS: normal to inspection Neuro: COMMON NORMALS: patient oriented x3 and moves all extremities Psych: COMMON NORMALS: mental status grossly normal and cooperative Skin: COMMON NORMALS: no rashes or lesions noted GENERAL SKIN EXAM: no rashes or lesions noted Course Vital Signs: Vital signs: Vital Signs Temperature 98.3 F 03/09/21 15:46 Pulse Rate 95 03/09/21 15:46 Respiratory Rate 16 03/09/21 15:46 Blood Pressure 117/89 03/09/21 15:46 Pulse Oximetry 100 03/09/21 15:46 MDM - Nausea/Vomiting/Diarrhea MDM Narrative: Medical decision making narrative: 25-year-old female comes in today with complaints of nausea vomiting and diarrhea for 3 days. Patient reports poor oral intake today. Patient denies any diarrhea today. On exam patient's abdomen is soft with some mild tenderness but no rebound or guarding is noted. Skin is warm and dry. Vital signs are normal. Differential diagnosis includes but not limited to gastroenteritis, urinary tract infection, enterocolitis. Patient denies any recent antibiotic use. Laboratory values were unremarkable except for some elevation in hemoglobin hematocrit. Urine was unremarkable. Patient was given 1 L of IV fluids with improvement of symptoms. Patient will continue with clear liquids for the next 24 hours then increase diet slowly to a bland diet. Reviewed recommendations for return to the ER for worsening symptoms such as high fever or blood in vomit and stool. Recommended [id number] Imodium as needed for diarrhea. Patient reported understanding of care plan and need for follow-up or return to the ER. Lab Data: Labs: Lab Results 10/29/21 10/29/21 10/29/21 18:01 18:01 18:01 WBC 5.4 10^3/uL 10^3/ uL (4.0-10.0) RBC 5.46 10^6/uL H 10 ^6/uL (4.1-5.3) Hgb 15.7 g/dL H g/dL (11.5-15.3) Hct 47.8 % H % (37.0-47.0) MCV 87.5 fl fl (81-99) MCH 28.8 pg pg (28.0-34.0) MCHC 32.8 g/dL g/dL (30.0-36.0) RDW 12.6 % % (12.1-15.1) Plt Count 292 10^3/cmm 10^3 /cmm (130-400) MPV 10.5 fL H fL (7.4-10.4) Neut % (Auto) 65.3 % % Lymph % (Auto) 26.4 % % [place] % (Auto) 7.0 % % Eos % (Auto) 0.2 % % Baso % (Auto) 0.9 % % Neut # (Auto) 3.53 10^3/uL 10^3 /uL (1.8-7.7) Lymph # (Auto) 1.4 10^3/uL 10^3/ uL (0.8-4.8) [place] # (Auto) 0.4 10^3/uL 10^3/ uL (0.2-0.9) Eos # (Auto) 0.0 10^3/uL 10^3/ uL (0.0-0.8) Baso # (Auto) 0.1 10^3/uL 10^3/ uL (0.0-0.1) Nucleated RBC % (a uto) 0 % % Nucleated RBCs # 0.0 /100WBC /100W BC Sodium 138 mmol/L mmol/L (136-145) Potassium 3.7 mmol/L mmol/L (3.5-5.1) Chloride 102 mmol/L mmol/L (98-107) Carbon Dioxide 23 mmol/L mmol/L (22-29) Anion Gap 16.7 (5-19) BUN 10 mg/dL mg/dL (6-20) Creatinine 0.7 mg/dL mg/dL (0.5-0.9) GFR Calculation 102.0 mL/min mL/m in (90-130) Glucose 95 mg/dL mg/dL (65-115) Calculated Osmolal ity 285 mOsm/kg mOsm/ kg (285-295) Calcium 9.7 mg/dL mg/dL (8.5-10.5) Total Bilirubin 0.5 mg/dL mg/dL (0.15-1.2) AST 14 U/L U/L (0-32) ALT 7 U/L U/L (0-33) Alkaline Phosphata se 60 IU/L IU/L (35-105) Total Protein 7.9 g/dL g/dL (6.6-8.7) Albumin 5.2 g/dL g/dL (3.5-5.2) Globulin 2.7 g/dL g/dL (1.3-4.6) HCG, Qual Negative (Negative) Urine Color Urine Appearance Urine pH Ur Specific Gravit y Urine Protein Urine Glucose (UA) Urine Ketones Urine Blood Urine Nitrate Urine Bilirubin Urine Urobilinogen Ur Leukocyte Natalie ase Urine RBC Urine WBC Ur Squamous Epith Cells Amorphous Sediment Urine Bacteria Urine Mucus 03/09/21 18:01 WBC RBC Hgb Hct MCV MCH MCHC RDW Plt Count MPV Neut % (Auto) Lymph % (Auto) [place] % (Auto) Eos % (Auto) Baso % (Auto) Neut # (Auto) Lymph # (Auto) [place] # (Auto) Eos # (Auto) Baso # (Auto) Nucleated RBC % (a uto) Nucleated RBCs # Sodium Potassium Chloride Carbon Dioxide Anion Gap BUN Creatinine GFR Calculation Glucose Calculated Osmolal ity Calcium Total Bilirubin AST ALT Alkaline Phosphata se Total Protein Albumin Globulin HCG, Qual Urine Color Yellow (Yellow) Urine Appearance Clear (CLEAR) Urine pH 5 (5-7) Ur Specific Gravit y 1.020 (1.005-1.030) Urine Protein 1+ H (Negative) Urine Glucose (UA) Norm (Normal) Urine Ketones 1+ H (Negative) Urine Blood Neg (Negative) Urine Nitrate Negative (Negative) Urine Bilirubin 1+ H (Negative) Urine Urobilinogen Norm mg/dL mg/dL (Negative) Ur Leukocyte Natalie ase Negative (Negative) Urine RBC 0-4 /hpf H /hpf (0-2) Urine WBC 0-4 /hpf H /hpf (0-5) Ur Squamous Epith Cells 5-10 /hpf H /hpf (0-5) Amorphous Sediment Not Reportable Urine Bacteria 1+ /hpf H /hpf (NONE) Urine Mucus 1+ /hpf /hpf Discharge Plan Discharge Patient Disposition: Home Clinical Impression: Gastroenteritis, Dehydration Condition: Stable Prescriptions: No Action loratadine [Allergy Relief (loratadine)] 10 mg tablet 10 mg PO DAILY RF: 0 hydroxyzine HCl 25 mg tablet 25 mg PO .at bed RF: 0 prazosin 2 mg capsule 4 mg PO .HS Qty: 60 RF: 1 citalopram [Celexa] 20 mg tablet 20 mg PO DAILY@2200 Qty: 30 RF: 1 lorazepam 1 mg tablet 1 mg PO BID PRN (Reason: anxiety) Qty: 45 RF: 2 nortriptyline 25 mg capsule 25 mg PO DAILY 30 Days Qty: 30 RF: 1 mycophenolate mofetil 500 mg tablet See Rx Instructions .ROUTE .COMPLEX RF: 0 naproxen sodium [Aleve] 220 mg Tablet 440 mg PO PRN PRN (Reason: Pain, Moderate) RF: 0 cholecalciferol (vitamin D3) [Vitamin D3] 50 mcg (2,000 unit) Tablet 50 mcg PO QAM RF: 0 albuterol sulfate 90 mcg/actuation HFA aerosol inhaler 2 inh INHALATION Q4H PRN (Reason: shortness of breath or wheezing) Qty: 8.5 RF: 0 ondansetron 4 mg tablet,disintegrating 4 mg PO Q6H PRN (Reason: nausea and vomiting) Qty: 14 RF: 0 ondansetron 4 mg tablet,disintegrating 4 mg PO Q6H PRN (Reason: nausea and vomiting) Qty: 14 RF: 0 pantoprazole 40 mg tablet,delayed release (DR/EC) 40 mg PO DAILY RF: 0 ergocalciferol (vitamin D2) [Vitamin D2] 50,000 unit capsule See Rx Instructions .ROUTE .COMPLEX RF: 0 calcium carbonate-vitamin D3 [Calcium 500 + D] 500 mg(1,250mg) -400 unit Tablet 2 tab PO DAILY RF: 0 hydroxychloroquine 200 mg Tablet 200 mg PO BID RF: 0 Ferrex 150 Forte 150-25-1 mg-mcg-mg capsule 150 cap PO BID RF: 0 Nuvigil 150 mg Tablet 150 mg PO QAM RF: 0 Discharge Orders: Discharge ED (Routine); Ordered 03/09/21 Ordered By: Aryan Gale Referrals: Kam Ramirez MD [Primary Care Provider] - Discharge Diet: Advance as tolerated Discharge Activity: Increase activity as tolerated Patient Instructions: Dehydration (ED), Opioid Safety Activity Restrictions/Additional Instructions: Home and rest. Drink sips of fluid. Continue with clear liquid diet for the next 24 hours. Then start increasing diet as tolerated to a bland diet. Follow-up with primary care as needed. Return to the emergency department for worsening symptoms such as high fever greater than 100.4, increasing abdominal pain, persistent nausea and vomiting with blood in it. 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
[2021-03-09 18:12] LABS: Basophils # 0.1 10^3/uL (0.0-0.1); Basophils % 0.9 %; Eosinophils % 0.2 %; Hematocrit 47.8 % (37.0-47.0); Hemoglobin 15.7 g/dL (11.5-15.3); Lymphocytes # 1.4 10^3/uL (0.8-4.8); Lymphocytes % 26.4 %; Mean Corpuscular HGB Conc 32.8 g/dL (30.0-36.0); Mean Corpuscular Hemoglobin 28.8 pg (28.0-34.0); Mean Corpuscular Volume 87.5 fl (81-99); Mean Platelet Volume 10.5 fL (7.4-10.4); Monocytes # 0.4 10^3/uL (0.2-0.9); Neutrophils # 3.53 10^3/uL (1.8-7.7); Neutrophils % 65.3 %; Nucleated Red Blood Cells % 0 %; Platelet Count 292 10^3/cmm (130-400); Red Blood Count 5.46 10^6/uL (4.1-5.3); Red Cell Distribution Width 12.6 % (12.1-15.1); White Blood Count 5.4 10^3/uL (4.0-10.0)
[2021-03-09] MEDS: sodium chloride 0.9% 1,000 ML 999 ML IV (18:17)
[2021-03-09 18:29] LABS: Alanine Aminotransferase 7 U/L (0-33); Albumin Level 5.2 g/dL (3.5-5.2); Alkaline Phosphatase 60 IU/L (35-105); Anion Gap 16.7 (5-19); Aspartate Amino Transferase 14 U/L (0-32); Blood Urea Nitrogen 10 mg/dL (6-20); Calcium 9.7 mg/dL (8.5-10.5); Carbon Dioxide 23 mmol/L (22-29); Chloride 102 mmol/L (98-107); Globulin 2.7 g/dL (1.3-4.6); Glucose 95 mg/dL (65-115); Osmolality Calculated 285 mOsm/kg (285-295); Potassium 3.7 mmol/L (3.5-5.1); Sodium 138 mmol/L (136-145); Total Bilirubin 0.5 mg/dL (0.15-1.2); Total Protein 7.9 g/dL (6.6-8.7)
[2021-03-09 18:35] LABS: HCG, Serum Qual Negative (Negative)
[2021-03-09 18:38] LABS: Urine Appearance Clear (CLEAR); Urine Color Yellow (Yellow); pH Urine 5 (5-7)
[2021-03-09 18:39] LABS: Add Urine Microscopic? YES; Bilirubin Urine 1+ (Negative); Blood Urine Neg (Negative); Glucose Urine UA Norm (Normal); Ketones Urine 1+ (Negative); Leukocyte Esterase Urine Negative (Negative); Nitrate Urine Negative (Negative); Protein Urine 1+ (Negative); RBC Urine 0-4 /hpf (0-2); Urobilinogen Urine Norm (Negative); WBC Urine 0-4 /hpf (0-5)
[2021-03-09 18:40] LABS: Add Urine Culture? No; Bacteria Urine 1+ /hpf; Mucus Urine 1+ /hpf
[2021-03-09 19:31] VITALS: PULSE 71; RESP 16; O2SAT 100
== END 2021-03-09 19:31 | disposition home or self-care (01) ==
PROVIDERS: Physician Assistant; Emergency Provider Nurse Practitioner Family; PCP Family Medicine
DX: K52.9 Noninfective gastroenteritis and colitis, unspecified (principal); E86.0 Dehydration
CPT/HCPCS: 71045; 80053; 81001; 84703; 85025; 96360; 99283; J7030

== ENCOUNTER 2021-04-14 19:23 | Emergency (ER) | payer MEDICARE, MEDICAID, SELFPAY ==
[2021-04-14 19:30] VITALS: BP 129/85; PULSE 87; RESP 16; TEMP 36.8; O2SAT 100
--- NOTE | 2021-04-14 20:21 | W.ED.FEMALGU ---
Documented by User: ERIN Naylor 04/15/21 03:23 HPI - Female Genitourinary General: Chief complaint: Urogenital-Female Stated complaint: kidney pains, N/V/D Time Seen by Provider: 04/14/21 20:16 History of Present Illness: HPI Narrative: Patient is a 26-year-old female comes to the ED with UTI symptoms. Patient says UTI symptoms started couple days ago. She was having burning when urinating that is continued for the past couple days. Today she woke up in her right lower back was achy and continued to get worse throughout the day. She says the back pain does not improve or worsen with any movement. She says the pain is just a constant aching pain. She has had similar symptoms like this in the past when she gets a UTI. Endorses nausea but has not had any episodes of emesis. Denies fever, chills, chest pain, shortness of breath, abdominal pain, hematuria. Associated symptoms: Deny abdominal pain, headache(s) or nausea Date of Last Menstrual Period: 10/27/20 Review of Systems Const: Denies: fever(s), chills or fatigue Eyes: Denies: change in vision or eye discomfort ENMT: Denies: throat pain, odynophagia, nasal discharge or nasal congestion Card: Denies: chest pain, palpitations, edema, swelling of feet/ankles, dyspnea on exertion or orthopnea Resp: Denies: dyspnea, productive cough or non-productive cough GI: Denies: abdominal pain, nausea, vomiting, diarrhea, constipation or hematochezia : Reports: flank pain (right lower back) and dysuria (burning); Denies: hematuria Musc: Denies: neck pain, back pain or extremity swelling Skin/Breast: Denies: rash or new lesions Neuro: Denies: headache(s), numbness in extremities or weakness in extremities PFSH ED PFSH: Medical History Generalized anxiety disorder Inflammatory bowel disease 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, follows up at [facility] Lupus nephritis Panic disorder [episodic paroxysmal anxiety] Psychiatric care Surgical History History of appendectomy [place] Hx of cholecystectomy [place] Status post biopsy of kidney Multiple percutaneous biopsies Status post tonsillectomy and adenoidectomy Family History Mother Juvenile rheumatoid arthritis Social History Smoking and tobacco status: never smoked Alcohol intake: never Household members: family Housing: House Sexually active: Yes Female Reproductive History: Date of last menstrual period: 10/27/20 Physical Exam Const: COMMON NORMALS: no acute distress, patient oriented x3, healthy appearing and alert GENERAL APPEARANCE: cooperative and comfortable HENMT: COMMON NORMALS: normocephalic HEAD & SCALP: normocephalic MOUTH: Normal oral and palatal mucosa present THROAT: posterior oropharynx normal and uvula midline Neck/C-Spine: COMMON NORMALS: supple GENERAL: Yes normal visual inspection Resp: COMMON NORMALS: normal respiratory effort, No retractions, No use of accessory muscles and clear to auscultation bilaterally AUSCULTATION: clear to auscultation bilaterally Cardio: COMMON NORMALS: regular rate, regular rhythm, S1 normal heart sound present, S2 normal heart sound present, No gallops present (Cardio), No clicks present (Cardio), No murmurs present (Cardio) and Peripheral pulses 2+ throughout RATE: regular rate RHYTHM: regular rhythm HEART SOUNDS: S1 normal heart sound present and S2 normal heart sound present PERIPHERAL PULSES: Peripheral pulses 2+ throughout GI: COMMON NORMALS: Normal to inspection, nondistended, normoactive bowel sounds present, Soft to palpation, non-tender and no masses PALPATION: Yes Soft to palpation : BLADDER/KIDNEY EXAM: Yes CVA tenderness Back/Pelvis: GENERAL BACK: Yes CVA tenderness CVA tenderness: right Extremity: COMMON NORMALS: normal to inspection Neuro: COMMON NORMALS: patient oriented x3 and moves all extremities SENSORIUM/ORIENTATION: Yes alert Skin: GENERAL SKIN EXAM: dry skin Course Vital Signs: Vital signs: Vital Signs Temperature 98.2 F 04/14/21 19:30 Pulse Rate 70 04/14/21 22:22 Respiratory Rate 16 04/14/21 19:30 Blood Pressure 154/93 04/14/21 22:22 Pulse Oximetry 97 04/14/21 22:22 MDM - Female MDM Narrative: Medical decision making narrative: Patient is a 26-year-old female comes to the ED with UTI symptoms and right flank pain. Patient appears nontoxic and in no acute distress or pain. Vitals are stable. Patient does have some right CVA tenderness. CBC and CMP were unremarkable. UA showed some white blood cells and a lot of red blood cells. CT of abdomen and pelvis showed no kidney stones and no other acute intra-abdominal findings. It did note some mild pericardial thickening. Patient does have history of lupus and this is likely due to her lupus. She is not complaining of any cardiac issues or chest pain. EKG showed normal sinus rhythm, 81 bpm no acute findings noted. Patient diagnosed with a UTI and discharged home with a prescription for Bactrim. Patient has an appointment with her PCP early this week. Patient given return to ED precautions given. Patient understood agree with plan. Lab Data: Attestation: I reviewed the patient's lab results. Labs: Lab Results 04/14/21 04/14/21 04/14/21 20:43 20:50 20:50 WBC 5.7 10^3/uL 10^3/ uL (4.0-10.0) RBC 4.77 10^6/uL 10^6 /uL (4.1-5.3) Hgb 14.2 g/dL g/dL (11.5-15.3) Hct 41.3 % % (37.0-47.0) MCV 86.6 fl fl (81-99) MCH 29.8 pg pg (28.0-34.0) MCHC 34.4 g/dL g/dL (30.0-36.0) RDW 12.5 % % (12.1-15.1) Plt Count 291 10^3/cmm 10^3 /cmm (130-400) MPV 11.2 fL H fL (7.4-10.4) Neut % (Auto) 71.6 % % Lymph % (Auto) 21.4 % % Bacon % (Auto) 5.5 % % Eos % (Auto) 0.2 % % Baso % (Auto) 0.9 % % Neut # (Auto) 4.05 10^3/uL 10^3 /uL (1.8-7.7) Lymph # (Auto) 1.2 10^3/uL 10^3/ uL (0.8-4.8) Bacon # (Auto) 0.3 10^3/uL 10^3/ uL (0.2-0.9) Eos # (Auto) 0.0 10^3/uL 10^3/ uL (0.0-0.8) Baso # (Auto) 0.1 10^3/uL 10^3/ uL (0.0-0.1) Nucleated RBC % (a uto) 0 % % Nucleated RBCs # 0.0 /100WBC /100W BC Sodium Cancelled Potassium Cancelled Chloride Cancelled Carbon Dioxide Cancelled Anion Gap Cancelled BUN Cancelled Creatinine Cancelled GFR Calculation Cancelled Glucose Cancelled Calculated Osmolal ity Cancelled Calcium Cancelled Total Bilirubin Cancelled AST Cancelled ALT Cancelled Alkaline Phosphata se Cancelled Total Protein Cancelled Albumin Cancelled Globulin Cancelled Lipase Cancelled HCG, Qual Urine Color Yellow (Yellow) Urine Appearance Sl cloudy A (CLEAR) Urine pH 6 (5-7) Ur Specific Gravit y 1.015 (1.005-1.030) Urine Protein Trace (Negative) Urine Glucose (UA) Norm (Normal) Urine Ketones 1+ H (Negative) Urine Blood 3+ H (Negative) Urine Nitrate Negative (Negative) Urine Bilirubin Neg (Negative) Urine Urobilinogen Norm mg/dL mg/dL (Negative) Ur Leukocyte Natalie ase Negative (Negative) Urine RBC >100 /hpf H /hpf (0-2) Urine WBC 5-10 /hpf H /hpf (0-5) Ur Squamous Epith Cells 5-10 /hpf H /hpf (0-5) Amorphous Sediment Not Reportable Urine Bacteria 10 /hpf /hpf (NONE) Urine Mucus 3+ /hpf /hpf 04/14/21 04/14/21 20:50 21:46 WBC RBC Hgb Hct MCV MCH MCHC RDW Plt Count MPV Neut % (Auto) Lymph % (Auto) Bacon % (Auto) Eos % (Auto) Baso % (Auto) Neut # (Auto) Lymph # (Auto) Bacon # (Auto) Eos # (Auto) Baso # (Auto) Nucleated RBC % (a uto) Nucleated RBCs # Sodium 138 mmol/L mmol/L (136-145) Potassium 3.6 mmol/L mmol/L (3.5-5.1) Chloride 105 mmol/L mmol/L (98-107) Carbon Dioxide 19 mmol/L L mmol/ L (22-29) Anion Gap 17.6 (5-19) BUN 7 mg/dL mg/dL (6-20) Creatinine 0.7 mg/dL mg/dL (0.5-0.9) GFR Calculation 101.1 mL/min mL/m in (90-130) Glucose 87 mg/dL mg/dL (65-115) Calculated Osmolal ity 283 mOsm/kg L mOs m/kg (285-295) Calcium 9.1 mg/dL mg/dL (8.5-10.5) Total Bilirubin 0.5 mg/dL mg/dL (0.15-1.2) AST 15 U/L U/L (0-32) ALT < 5 U/L U/L (0-33) Alkaline Phosphata se 58 IU/L IU/L (35-105) Total Protein 7.1 g/dL g/dL (6.6-8.7) Albumin 4.8 g/dL g/dL (3.5-5.2) Globulin 2.3 g/dL g/dL (1.3-4.6) Lipase 65 U/L H U/L (13-60) HCG, Qual Negative (Negative) Urine Color Urine Appearance Urine pH Ur Specific Gravit y Urine Protein Urine Glucose (UA) Urine Ketones Urine Blood Urine Nitrate Urine Bilirubin Urine Urobilinogen Ur Leukocyte Natalie ase Urine RBC Urine WBC Ur Squamous Epith Cells Amorphous Sediment Urine Bacteria Urine Mucus Imaging Data: CT Abd/Pel: Attestation: I personally reviewed and interpreted this imaging study as follows: Radiologist's impression: [address] [address] [address] Scan Report Signed Patient: Joe Eisenberg Unit #: [id number] : 1995 Age/Sex: 26 / F ADM Date: 04/14/21 Loc: ER Room/Bed: Attending Dr: Ordering Provider/Ordering MD: Girish Kimball Date of Service: 04/14/21 Procedure(s): CT kidney stone 23665 Accession Number(s): [id number] Report Number: [id number] PROCEDURE INFORMATION: Exam: CT Abdomen And Pelvis Without Contrast Exam date and time: 04/14/2021 9:39 PM Age: 26 years old Clinical indication: Abdominal pain; Right; Prior surgery; Surgery date: 6+ months; Surgery type: Appy, gb; Patient HX: C/O R flank pain nausea and burning when urinating; Additional info: Right flank pain and dysuria TECHNIQUE: Imaging protocol: Computed tomography of the abdomen and pelvis without contrast. Radiation optimization: All CT scans at this facility use at least one of these dose optimization techniques: automated exposure control; mA and/or kV adjustment per patient size (includes targeted exams where dose is matched to clinical indication); or iterative reconstruction. COMPARISON: CT abdomen pelvis w con* [id number] 12/02/2020 1:07 AM RADIATION DOSE METRICS: Total DLP (mGy-cm): 638.84 FINDINGS: Heart: Mild pericardial fluid and/or thickening. Liver: Normal. No mass. Gallbladder and bile ducts: Stable cholecystectomy. Pancreas: Normal. No ductal dilation. Spleen: Normal. No splenomegaly. Adrenal glands: Normal. No mass. Kidneys and ureters: One or more tiny nonobstructing right renal calyceal stones. Stomach and bowel: Unremarkable. No obstruction. No mucosal thickening. Appendix: Previous appendectomy. Intraperitoneal space: Unremarkable. No free air. No significant fluid collection. Vasculature: Unremarkable. No abdominal aortic aneurysm. Lymph nodes: Unremarkable. No enlarged lymph nodes. Urinary bladder: Unremarkable as visualized. Reproductive: Unremarkable as visualized. Bones/joints: Unremarkable. No acute fracture. Soft tissues: Unremarkable. CT/CT kidney stone [id number] IMPRESSION: 1. Mild pericardial fluid and/or thickening. 2. Stable cholecystectomy. 3. One or more tiny nonobstructing right renal calyceal stones. 4. Previous appendectomy. Radiation Dose CTDIVOL = (mGy): DLP = 638.84 (mGy-cm) Dictated By: Tylor Vasquez MD Signed By: Tylor Vasquez MD Signed Date/Time: 04/14/21 7672 DD/ 38 EKG Data: EKG 1: Attestation: I personally reviewed and interpreted this EKG as follows: EKG Data: 04/15/21 Interpretation: Sinus rhythm, 81 bpm, no ST segment elevation or depression seen. Nonacute appearing EKG. Discharge Plan Discharge Patient Disposition: Home Clinical Impression: UTI (urinary tract infection) Qualifiers: Urinary tract infection type: acute cystitis Hematuria presence: with hematuria Qualified Code(s): N30.01 - Acute cystitis with hematuria Condition: Stable Prescriptions: New sulfamethoxazole-trimethoprim 800-160 mg tablet 1 tab PO BID 7 Days Qty: 14 RF: 0 No Action loratadine [Allergy Relief (loratadine)] 10 mg tablet 10 mg PO DAILY RF: 0 hydroxyzine HCl 25 mg tablet 25 mg PO .at bed RF: 0 citalopram [Celexa] 20 mg tablet 20 mg PO DAILY@2200 Qty: 30 RF: 1 lorazepam 1 mg tablet 1 mg PO BID PRN (Reason: anxiety) Qty: 45 RF: 0 prazosin 2 mg capsule 4 mg PO .HS Qty: 60 RF: 1 nortriptyline 25 mg capsule 25 mg PO DAILY 30 Days Qty: 30 RF: 1 mycophenolate mofetil 500 mg tablet See Rx Instructions .ROUTE .COMPLEX RF: 0 naproxen sodium [Aleve] 220 mg Tablet 440 mg PO PRN PRN (Reason: Pain, Moderate) RF: 0 cholecalciferol (vitamin D3) [Vitamin D3] 50 mcg (2,000 unit) Tablet 50 mcg PO QAM RF: 0 albuterol sulfate 90 mcg/actuation HFA aerosol inhaler 2 inh INHALATION Q4H PRN (Reason: shortness of breath or wheezing) Qty: 8.5 RF: 0 ondansetron 4 mg tablet,disintegrating 4 mg PO Q6H PRN (Reason: nausea and vomiting) Qty: 14 RF: 0 ondansetron 4 mg tablet,disintegrating 4 mg PO Q6H PRN (Reason: nausea and vomiting) Qty: 14 RF: 0 pantoprazole 40 mg tablet,delayed release (DR/EC) 40 mg PO DAILY RF: 0 ergocalciferol (vitamin D2) [Vitamin D2] 50,000 unit capsule See Rx Instructions .ROUTE .COMPLEX RF: 0 calcium carbonate-vitamin D3 [Calcium 500 + D] 500 mg(1,250mg) -400 unit Tablet 2 tab PO DAILY RF: 0 hydroxychloroquine 200 mg Tablet 200 mg PO BID RF: 0 Ferrex 150 Forte 150-25-1 mg-mcg-mg capsule 150 cap PO BID RF: 0 Nuvigil 150 mg Tablet 150 mg PO QAM RF: 0 Discharge Orders: Discharge ED (Routine); Ordered 04/15/21 Ordered By: Girish Kimball Referrals: Kam Ramirez MD [Primary Care Provider] - Discharge Diet: Regular Discharge Activity: Resume usual activity Patient Instructions: Urinary Tract Infection in Women (DC), Opioid Safety Activity Restrictions/Additional Instructions: Follow-up with medical provider at your scheduled appointment next week. Take medications as prescribed. You can also take [id number] ibuprofen per bottle instructions to help with any pain. Return to the ER or your medical provider if condition worsens. Please read and understand discharge instructions. Thank you for choosing [facility] for your healthcare needs today. Please realize this is an emergency room and that we are providing you with a medical screening exam and this may not be complete and all inclusive of all the testing and or work up that you may need to determine your ailment or severity of your illness. It is very important that you follow up as instructed or that you return to the Emergency Department should you have concerns or if your condition changes or worsens in any way. Coding Level of Care Code ED Optical Goods Worker for Chg Fwd Exam Comprehensive Documented by User: Cirilo Solano DO 04/15/21 03:40 HPI - Female Genitourinary General: Chief complaint: Urogenital-Female Stated complaint: kidney pains, N/V/D Time Seen by Provider: 04/14/21 20:16 [facility] ED PFSH: Medical History Generalized anxiety disorder Inflammatory bowel disease 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, follows up at [facility] Lupus nephritis Panic disorder [episodic paroxysmal anxiety] Psychiatric care Surgical History History of appendectomy [place] Hx of cholecystectomy [place] Status post biopsy of kidney Multiple percutaneous biopsies Status post tonsillectomy and adenoidectomy Family History Mother Juvenile rheumatoid arthritis Social History Smoking and tobacco status: never smoked Alcohol intake: never Household members: family Housing: House Sexually active: Yes Course Vital Signs: Vital signs: Vital Signs Temperature 98.2 F 04/14/21 19:30 Pulse Rate 70 04/14/21 22:22 Respiratory Rate 16 04/14/21 19:30 Blood Pressure 154/93 04/14/21 22:22 Pulse Oximetry 97 04/14/21 22:22 MDM - Female MDM Narrative: Medical decision making narrative: This patient was originally seen by ERIN Gutierrez-Jeyson. I agree with his history, evaluation, and treatment. Lab Data: Labs: Lab Results 04/14/21 04/14/21 04/14/21 20:43 20:50 20:50 WBC 5.7 10^3/uL 10^3/ uL (4.0-10.0) RBC 4.77 10^6/uL 10^6 /uL (4.1-5.3) Hgb 14.2 g/dL g/dL (11.5-15.3) Hct 41.3 % % (37.0-47.0) MCV 86.6 fl fl (81-99) MCH 29.8 pg pg (28.0-34.0) MCHC 34.4 g/dL g/dL (30.0-36.0) RDW 12.5 % % (12.1-15.1) Plt Count 291 10^3/cmm 10^3 /cmm (130-400) MPV 11.2 fL H fL (7.4-10.4) Neut % (Auto) 71.6 % % Lymph % (Auto) 21.4 % % Bacon % (Auto) 5.5 % % Eos % (Auto) 0.2 % % Baso % (Auto) 0.9 % % Neut # (Auto) 4.05 10^3/uL 10^3 /uL (1.8-7.7) Lymph # (Auto) 1.2 10^3/uL 10^3/ uL (0.8-4.8) Bacon # (Auto) 0.3 10^3/uL 10^3/ uL (0.2-0.9) Eos # (Auto) 0.0 10^3/uL 10^3/ uL (0.0-0.8) Baso # (Auto) 0.1 10^3/uL 10^3/ uL (0.0-0.1) Nucleated RBC % (a uto) 0 % % Nucleated RBCs # 0.0 /100WBC /100W BC Sodium Cancelled Potassium Cancelled Chloride Cancelled Carbon Dioxide Cancelled Anion Gap Cancelled BUN Cancelled Creatinine Cancelled GFR Calculation Cancelled Glucose Cancelled Calculated Osmolal ity Cancelled Calcium Cancelled Total Bilirubin Cancelled AST Cancelled ALT Cancelled Alkaline Phosphata se Cancelled Total Protein Cancelled Albumin Cancelled Globulin Cancelled Lipase Cancelled HCG, Qual Urine Color Yellow (Yellow) Urine Appearance Sl cloudy A (CLEAR) Urine pH 6 (5-7) Ur Specific Gravit y 1.015 (1.005-1.030) Urine Protein Trace (Negative) Urine Glucose (UA) Norm (Normal) Urine Ketones 1+ H (Negative) Urine Blood 3+ H (Negative) Urine Nitrate Negative (Negative) Urine Bilirubin Neg (Negative) Urine Urobilinogen Norm mg/dL mg/dL (Negative) Ur Leukocyte Natalie ase Negative (Negative) Urine RBC >100 /hpf H /hpf (0-2) Urine WBC 5-10 /hpf H /hpf (0-5) Ur Squamous Epith Cells 5-10 /hpf H /hpf (0-5) Amorphous Sediment Not Reportable Urine Bacteria 10 /hpf /hpf (NONE) Urine Mucus 3+ /hpf /hpf 04/14/21 04/14/21 20:50 21:46 WBC RBC Hgb Hct MCV MCH MCHC RDW Plt Count MPV Neut % (Auto) Lymph % (Auto) Bacon % (Auto) Eos % (Auto) Baso % (Auto) Neut # (Auto) Lymph # (Auto) Bacon # (Auto) Eos # (Auto) Baso # (Auto) Nucleated RBC % (a uto) Nucleated RBCs # Sodium 138 mmol/L mmol/L (136-145) Potassium 3.6 mmol/L mmol/L (3.5-5.1) Chloride 105 mmol/L mmol/L (98-107) Carbon Dioxide 19 mmol/L L mmol/ L (22-29) Anion Gap 17.6 (5-19) BUN 7 mg/dL mg/dL (6-20) Creatinine 0.7 mg/dL mg/dL (0.5-0.9) GFR Calculation 101.1 mL/min mL/m in (90-130) Glucose 87 mg/dL mg/dL (65-115) Calculated Osmolal ity 283 mOsm/kg L mOs m/kg (285-295) Calcium 9.1 mg/dL mg/dL (8.5-10.5) Total Bilirubin 0.5 mg/dL mg/dL (0.15-1.2) AST 15 U/L U/L (0-32) ALT < 5 U/L U/L (0-33) Alkaline Phosphata se 58 IU/L IU/L (35-105) Total Protein 7.1 g/dL g/dL (6.6-8.7) Albumin 4.8 g/dL g/dL (3.5-5.2) Globulin 2.3 g/dL g/dL (1.3-4.6) Lipase 65 U/L H U/L (13-60) HCG, Qual Negative (Negative) Urine Color Urine Appearance Urine pH Ur Specific Gravit y Urine Protein Urine Glucose (UA) Urine Ketones Urine Blood Urine Nitrate Urine Bilirubin Urine Urobilinogen Ur Leukocyte Natalie ase Urine RBC Urine WBC Ur Squamous Epith Cells Amorphous Sediment Urine Bacteria Urine Mucus Discharge Plan Discharge Patient Disposition: Home Clinical Impression: UTI (urinary tract infection) Qualifiers: Urinary tract infection type: acute cystitis Hematuria presence: with hematuria Qualified Code(s): N30.01 - Acute cystitis with hematuria Condition: Stable Prescriptions: New sulfamethoxazole-trimethoprim 800-160 mg tablet 1 tab PO BID 7 Days Qty: 14 RF: 0 No Action loratadine [Allergy Relief (loratadine)] 10 mg tablet 10 mg PO DAILY RF: 0 hydroxyzine HCl 25 mg tablet 25 mg PO .at bed RF: 0 citalopram [Celexa] 20 mg tablet 20 mg PO DAILY@2200 Qty: 30 RF: 1 lorazepam 1 mg tablet 1 mg PO BID PRN (Reason: anxiety) Qty: 45 RF: 0 prazosin 2 mg capsule 4 mg PO .HS Qty: 60 RF: 1 nortriptyline 25 mg capsule 25 mg PO DAILY 30 Days Qty: 30 RF: 1 mycophenolate mofetil 500 mg tablet See Rx Instructions .ROUTE .COMPLEX RF: 0 naproxen sodium [Aleve] 220 mg Tablet 440 mg PO PRN PRN (Reason: Pain, Moderate) RF: 0 cholecalciferol (vitamin D3) [Vitamin D3] 50 mcg (2,000 unit) Tablet 50 mcg PO QAM RF: 0 albuterol sulfate 90 mcg/actuation HFA aerosol inhaler 2 inh INHALATION Q4H PRN (Reason: shortness of breath or wheezing) Qty: 8.5 RF: 0 ondansetron 4 mg tablet,disintegrating 4 mg PO Q6H PRN (Reason: nausea and vomiting) Qty: 14 RF: 0 ondansetron 4 mg tablet,disintegrating 4 mg PO Q6H PRN (Reason: nausea and vomiting) Qty: 14 RF: 0 pantoprazole 40 mg tablet,delayed release (DR/EC) 40 mg PO DAILY RF: 0 ergocalciferol (vitamin D2) [Vitamin D2] 50,000 unit capsule See Rx Instructions .ROUTE .COMPLEX RF: 0 calcium carbonate-vitamin D3 [Calcium 500 + D] 500 mg(1,250mg) -400 unit Tablet 2 tab PO DAILY RF: 0 hydroxychloroquine 200 mg Tablet 200 mg PO BID RF: 0 Ferrex 150 Forte 150-25-1 mg-mcg-mg capsule 150 cap PO BID RF: 0 Nuvigil 150 mg Tablet 150 mg PO QAM RF: 0 Discharge Orders: Discharge ED (Routine); Ordered 04/15/21 Ordered By: Girish Kimball Referrals: Kam Ramirez MD [Primary Care Provider] - Discharge Diet: Regular Discharge Activity: Resume usual activity Patient Instructions: Urinary Tract Infection in Women (DC), Opioid Safety Activity Restrictions/Additional Instructions: Follow-up with medical provider at your scheduled appointment next week. Take medications as prescribed. You can also take [id number] ibuprofen per bottle instructions to help with any pain. Return to the ER or your medical provider if condition worsens. Please read and understand discharge instructions. Thank you for choosing [facility] for your healthcare needs today. Please realize this is an emergency room and that we are providing you with a medical screening exam and this may not be complete and all inclusive of all the testing and or work up that you may need to determine your ailment or severity of your illness. It is very important that you follow up as instructed or that you return to the Emergency Department should you have concerns or if your condition changes or worsens in any way. Coding Level of Care Code ED Optical Goods Worker for Chg Fwd Exam Comprehensive
[2021-04-14 21:00] LABS: Basophils # 0.1 10^3/uL (0.0-0.1); Basophils % 0.9 %; Eosinophils % 0.2 %; Hematocrit 41.3 % (37.0-47.0); Hemoglobin 14.2 g/dL (11.5-15.3); Lymphocytes # 1.2 10^3/uL (0.8-4.8); Lymphocytes % 21.4 %; Mean Corpuscular HGB Conc 34.4 g/dL (30.0-36.0); Mean Corpuscular Hemoglobin 29.8 pg (28.0-34.0); Mean Corpuscular Volume 86.6 fl (81-99); Mean Platelet Volume 11.2 fL (7.4-10.4); Monocytes # 0.3 10^3/uL (0.2-0.9); Monocytes % 5.5 %; Neutrophils # 4.05 10^3/uL (1.8-7.7); Neutrophils % 71.6 %; Nucleated Red Blood Cells % 0 %; Platelet Count 291 10^3/cmm (130-400); Red Blood Count 4.77 10^6/uL (4.1-5.3); Red Cell Distribution Width 12.5 % (12.1-15.1); White Blood Count 5.7 10^3/uL (4.0-10.0)
[2021-04-14 21:12] LABS: Add Urine Microscopic? YES; Bilirubin Urine Neg (Negative); Blood Urine 3+ (Negative); Glucose Urine UA Norm (Normal); Ketones Urine 1+ (Negative); Leukocyte Esterase Urine Negative (Negative); Nitrate Urine Negative (Negative); Protein Urine Trace (Negative); Specific Gravity, Urine 1.015 (1.005-1.030); Urine Color Yellow (Yellow); Urobilinogen Urine Norm (Negative); pH Urine 6 (5-7)
[2021-04-14 21:13] LABS: Bacteria Urine 10 /hpf; RBC Urine >100 /hpf (0-2)
[2021-04-14 21:14] LABS: Add Urine Culture? Yes; Mucus Urine 3+ /hpf
[2021-04-14 21:14] LABS: HCG, Serum Qual Negative (Negative)
--- NOTE | 2021-04-14 21:39 | CTR_ITS ---
PROCEDURE INFORMATION: Exam: CT Abdomen And Pelvis Without Contrast Exam date and time: 04/14/2021 9:39 PM Age: 26 years old Clinical indication: Abdominal pain; Right; Prior surgery; Surgery date: 6+ months; Surgery type: Appy, gb; Patient HX: C/O R flank pain nausea and burning when urinating; Additional info: Right flank pain and dysuria TECHNIQUE: Imaging protocol: Computed tomography of the abdomen and pelvis without contrast. Radiation optimization: All CT scans at this facility use at least one of these dose optimization techniques: automated exposure control; mA and/or kV adjustment per patient size (includes targeted exams where dose is matched to clinical indication); or iterative reconstruction. COMPARISON: CT abdomen pelvis w con* [id number] 12/02/2020 1:07 AM RADIATION DOSE METRICS: Total DLP (mGy-cm): 638.84 FINDINGS: Heart: Mild pericardial fluid and/or thickening. Liver: Normal. No mass. Gallbladder and bile ducts: Stable cholecystectomy. Pancreas: Normal. No ductal dilation. Spleen: Normal. No splenomegaly. Adrenal glands: Normal. No mass. Kidneys and ureters: One or more tiny nonobstructing right renal calyceal stones. Stomach and bowel: Unremarkable. No obstruction. No mucosal thickening. Appendix: Previous appendectomy. Intraperitoneal space: Unremarkable. No free air. No significant fluid collection. Vasculature: Unremarkable. No abdominal aortic aneurysm. Lymph nodes: Unremarkable. No enlarged lymph nodes. Urinary bladder: Unremarkable as visualized. Reproductive: Unremarkable as visualized. Bones/joints: Unremarkable. No acute fracture. Soft tissues: Unremarkable. CT/CT kidney stone [id number] IMPRESSION: 1. Mild pericardial fluid and/or thickening. 2. Stable cholecystectomy. 3. One or more tiny nonobstructing right renal calyceal stones. 4. Previous appendectomy. Radiation Dose CTDIVOL = (mGy): DLP = 638.84 (mGy-cm)
[2021-04-14] MEDS: HYDROcodone-acetaminophen 7.5-325 mg Tablet 1 TAB PO (21:42)
[2021-04-14] MEDS: ondansetron 4 MG Tablet PO (21:57)
[2021-04-14 22:15] LABS: Alanine Aminotransferase < 5 U/L (0-33); Albumin Level 4.8 g/dL (3.5-5.2); Alkaline Phosphatase 58 IU/L (35-105); Anion Gap 17.6 (5-19); Aspartate Amino Transferase 15 U/L (0-32); Blood Urea Nitrogen 7 mg/dL (6-20); Calcium 9.1 mg/dL (8.5-10.5); Carbon Dioxide 19 mmol/L (22-29); Chloride 105 mmol/L (98-107); Creatinine Clr Calc Pharmacy 104.8866; Globulin 2.3 g/dL (1.3-4.6); Glomerular Filtration Rate 101.1 mL/min (90-130); Glucose 87 mg/dL (65-115); Lipase 65 U/L (13-60); Osmolality Calculated 283 mOsm/kg (285-295); Potassium 3.6 mmol/L (3.5-5.1); Sodium 138 mmol/L (136-145); Total Bilirubin 0.5 mg/dL (0.15-1.2); Total Protein 7.1 g/dL (6.6-8.7)
[2021-04-14 22:22] VITALS: BP 154/93; PULSE 70; O2SAT 97
[2021-04-14] MEDS: HYDROcodone-acetaminophen 5-325 mg Tablet 1 TAB PO (23:48)
--- NOTE | 2021-04-15 00:08 | ECG_ITS ---
[facility] Test Date: 2021-04-15 Pat Name: Joe Eisenberg Department: Room: Gender: Female Information Systems Security Developer: : 1995 Requested By: Girish Kimball Order Number: [id number] Castaneda MD: Dinesh Boateng M.D. Measurements Intervals [place] Rate: 81 P: 19 AL: 144 QRS: 35 QRSD: 93 T: 42 QT: 403 QTc: 469 Interpretive Statements SINUS RHYTHM POSSIBLE RIGHT VENTRICULAR CONDUCTION DELAY [RSR (QR) IN V1/V2] Compared to ECG 12/02/2020 01:02:13 Sinus tachycardia no longer present Electronically Signed On 04-15-2021 13:16:43 JACK WINDER by Dinesh Boateng M.D. [id number]
== END 2021-04-15 00:43 | disposition home or self-care (01) ==
PROVIDERS: Emergency Provider Physician Assistant; PCP Family Medicine
DX: N30.01 Acute cystitis with hematuria (principal); M32.9 Systemic lupus erythematosus, unspecified
CPT/HCPCS: 36415; 74176; 80053; 81001; 83690; 84703; 85025; 87040; 87086; 93005; 99283; Q0162

== ENCOUNTER 2021-05-07 16:27 | Emergency (ER) | payer MEDICARE, MEDICAID, SELFPAY ==
--- NOTE | 2021-05-07 16:31 | ECG_ITS ---
[facility] Test Date: 2021-05-07 Pat Name: Joe Eisenberg Department: Room: Gender: Female Financial Project Manager: : 1995 Requested By: Maegan Chapman Order Number: [id number] Tonya MD: Fransisca Marc M.D. Measurements Intervals [place] Rate: 95 P: 25 MO: 123 QRS: 41 QRSD: 95 T: 44 QT: 369 QTc: 466 Interpretive Statements SINUS RHYTHM POSSIBLE RIGHT VENTRICULAR CONDUCTION DELAY [RSR (QR) IN V1/V2] Compared to ECG 04/15/2021 00:15:48 No significant changes Electronically Signed On 05-07-2021 22:33:33 ENFORCEMENT SAFETY OFFICER by Fransisca Marc M.D. [email or web address]/NU/[id number] f
--- NOTE | 2021-05-07 16:31 | XRR_ITS ---
PROCEDURE INFORMATION: Exam: XR Chest Exam date and time: 05/07/2021 4:31 PM Age: 26 years old Clinical indication: Pain; Right-sided; Additional info: Right sided chest pain, shortness of breath x3 weeks, worse the last 3 days, previously diagnosed with pericarditis, pain at an 8 on a 1-10 scale TECHNIQUE: Imaging protocol: XR of the chest. Views: 1 view. COMPARISON: CR XR chest 1V portable [id number] 03/09/2021 4:27 PM FINDINGS: Lungs: Unremarkable. No consolidation. Pleural spaces: Unremarkable. No pleural effusion. No pneumothorax. Heart/Mediastinum: Unremarkable. No cardiomegaly. Bones/joints: Unremarkable. XR/XR chest 1V portable [id number] IMPRESSION: No acute findings.
[2021-05-07 17:04] VITALS: BP 131/86; PULSE 89; RESP 18; TEMP 37; O2SAT 100; BMI 24.7
[2021-05-07 19:02] LABS: Basophils % 0.8 %; Eosinophils % 0.6 %; Hematocrit 37.3 % (37.0-47.0); Hemoglobin 12.5 g/dL (11.5-15.3); Lymphocytes # 1.5 10^3/uL (0.8-4.8); Lymphocytes % 28.8 %; Mean Corpuscular HGB Conc 33.5 g/dL (30.0-36.0); Mean Corpuscular Hemoglobin 29.2 pg (28.0-34.0); Mean Corpuscular Volume 87.1 fl (81-99); Mean Platelet Volume 10.9 fL (7.4-10.4); Monocytes # 0.3 10^3/uL (0.2-0.9); Monocytes % 5.3 %; Neutrophils # 3.42 10^3/uL (1.8-7.7); Neutrophils % 64.3 %; Nucleated Red Blood Cells % 0 %; Platelet Count 272 10^3/cmm (130-400); Red Blood Count 4.28 10^6/uL (4.1-5.3); Red Cell Distribution Width 12.5 % (12.1-15.1); White Blood Count 5.3 10^3/uL (4.0-10.0)
[2021-05-07 19:19] LABS: HCG, Serum Qual Negative (Negative)
[2021-05-07 19:28] LABS: Alanine Aminotransferase < 5 U/L (0-33); Albumin Level 4.5 g/dL (3.5-5.2); Alkaline Phosphatase 47 IU/L (35-105); Anion Gap 18.4 (5-19); Aspartate Amino Transferase 12 U/L (0-32); Blood Urea Nitrogen 7 mg/dL (6-20); Calcium 8.8 mg/dL (8.5-10.5); Carbon Dioxide 19 mmol/L (22-29); Chloride 105 mmol/L (98-107); Creatinine Clr Calc Pharmacy 122.3677; Globulin 2.3 g/dL (1.3-4.6); Glomerular Filtration Rate 120.8 mL/min (90-130); Glucose 89 mg/dL (65-115); Osmolality Calculated 285 mOsm/kg (285-295); Potassium 3.4 mmol/L (3.5-5.1); Sodium 139 mmol/L (136-145); Total Bilirubin 0.3 mg/dL (0.15-1.2); Total Protein 6.8 g/dL (6.6-8.7)
[2021-05-07 20:45] LABS: Adenovirus Not Detected (NOT DETECT); Chlamydia Pneumoniae Not Detected (NOT DETECT); Coronavirus 229E,HKU1,NL63,OC4 Not Detected (NOT DETECT); Human Metapneumovirus Not Detected (NOT DETECT); Human Rhinovirus/Enterovirus Not Detected (NOT DETECT); Influenza A Not Detected (NOT DETECT); Influenza A H1 Not Detected (NOT DETECT); Influenza A H1-2009 Not Detected (NOT DETECT); Influenza A H3 Not Detected (NOT DETECT); Influenza B Not Detected (NOT DETECT); Mycoplasma Pneumoniae Not Detected (NOT DETECT); Parainfluenza Virus Type 1 Not Detected (NOT DETECT); Parainfluenza Virus Type 2 Not Detected (NOT DETECT); Parainfluenza Virus Type 3 Not Detected (NOT DETECT); Parainfluenza Virus Type 4 Not Detected (NOT DETECT); Respiratory Syncytial Virus A Not Detected (NOT DETECT); Respiratory Syncytial Virus B Not Detected (NOT DETECT); SARS-COV-2 Not Detected (NOT DETECT)
== END 2021-05-07 21:29 | disposition left against medical advice (07) ==
PROVIDERS: Physician Assistant; Emergency Provider Family Medicine; PCP Family Medicine
DX: Z53.21 Procedure and treatment not carried out due to patient leaving prior to being seen by health care provider (principal)
CPT/HCPCS: 71045; 80053; 84703; 85025; 87635; 93005

== ENCOUNTER 2021-09-28 15:05 | Emergency (ER) | payer BC, MEDICAID, SELFPAY ==
[2021-09-28 15:18] VITALS: BP 120/80; PULSE 108; RESP 16; TEMP 37.9; O2SAT 98; BMI 24.7
--- NOTE | 2021-09-28 15:44 | ED_ITS ---
HPI - Fever General: Chief Complaint: Fever Stated Complaint: fainting/vomiting/body aches/chest pains Time Seen by Provider: 09/28/21 15:27 Source: patient Mode of arrival: ambulatory Limitations: no limitations History of Present Illness: 26-year-old female states that over the last 2 days she been having generalized body aches fevers and cough denies any shortness of breath states she has body aches all with pain she rates a 6 out of 10 states that both of her parents recently tested positive for COVID she is concerned she may have COVID no diarrhea denies any worsening improving factors. Associated symptoms: Deny abdominal pain, chest pain, diarrhea, dysuria, headache(s), nausea or vomiting Review of Systems Const: Reports: fever(s) and body aches Eyes: Denies: blurry vision or eye discomfort ENMT: Denies: throat pain or dental pain Card: Denies: chest pain Resp: Reports: non-productive cough GI: Denies: abdominal pain, nausea, vomiting or diarrhea : Denies: dysuria Musc: Denies: neck pain or back pain Skin/Breast: Denies: rash Neuro: Denies: headache(s) Psych: Denies: depression Bobby/Lymph: Denies: easy bruising All/Imm: Denies: urticaria PFSH ED PFSH: Medical History Generalized anxiety disorder Inflammatory bowel disease 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, follows up at [facility] Lupus nephritis Panic disorder [episodic paroxysmal anxiety] Psychiatric care Surgical History History of appendectomy [place] Hx of cholecystectomy [place] Status post biopsy of kidney Multiple percutaneous biopsies Status post tonsillectomy and adenoidectomy Family History Mother Juvenile rheumatoid arthritis Social History Smoking and tobacco status: never smoked Alcohol intake: never Household members: family Housing: House Sexually active: Yes Female Reproductive History: Date of last menstrual period: 04/11/21 Physical Exam Const: COMMON NORMALS: no acute distress, patient oriented x3 and healthy appearing HENMT: COMMON NORMALS: normocephalic and atraumatic HEAD & SCALP: normocephalic and atraumatic Eye: COMMON NORMALS: Equal, round and reactive pupils present and EOMs intact bilaterally PUPIL: Yes Equal, round and reactive pupils present Neck/C-Spine: COMMON NORMALS: full ROM and supple Chest: COMMONS NORMALS: normal inspection of the chest and normal palpation of entire chest wall Resp: COMMON NORMALS: normal respiratory effort, No retractions, No use of accessory muscles and clear to auscultation bilaterally AUSCULTATION: clear to auscultation bilaterally Cardio: COMMON NORMALS: regular rate, regular rhythm and No murmurs present (Cardio) RATE: regular rate RHYTHM: regular rhythm GI: COMMON NORMALS: Normal to inspection, nondistended, normoactive bowel sounds present, Soft to palpation, non-tender and no masses PALPATION: Yes Soft to palpation Extremity: COMMON NORMALS: normal to inspection and full ROM Neuro: COMMON NORMALS: patient oriented x3, moves all extremities and no focal motor deficits Psych: COMMON NORMALS: mental status grossly normal, Normal thought process present and cooperative THOUGHT PROCESS: Normal thought process present Skin: COMMON NORMALS: no rashes or lesions noted and no wounds GENERAL SKIN EXAM: no rashes or lesions noted Course Vital Signs: Vital signs: Vital Signs Temperature 100.3 F H 09/28/21 15:18 Pulse Rate 100 09/28/21 16:30 Respiratory Rate 16 09/28/21 16:30 Blood Pressure 107/72 09/28/21 16:30 Pulse Oximetry 100 09/28/21 16:30 MDM - Fever Medical Decision Making Patient presents here with fever body aches does have COVID she is well- appearing here no signs of severe distress chest x-ray is clear she is not hypoxic she is stable for discharge follow-up PCP and return if worsening. Lab Data : 09/28/21 16:09 09/28/21 16:09 Radiology Impressions Chest X-Ray 09/28/21 16:32 IMPRESSION: No acute findings. Laboratory Results WBC 5.1 10^3/uL (4.0-10.0) 09/28/21 16:09 RBC 4.21 10^6/uL (4.1-5.3) 09/28/21 16:09 Hgb 12.4 g/dL (11.5-15.3) 09/28/21 16:09 Hct 36.6 % (37.0-47.0) L 09/28/21 16:09 MCV 86.9 fl (81-99) 09/28/21 16:09 MCH 29.5 pg (28.0-34.0) 09/28/21 16:09 MCHC 33.9 g/dL (30.0-36.0) 09/28/21 16:09 RDW 12.8 % (12.1-15.1) 09/28/21 16:09 Plt Count 213 10^3/cmm (130-400) 09/28/21 16:09 MPV 10.7 fL (7.4-10.4) H 09/28/21 16:09 Neut % (Auto) 88.3 % 09/28/21 16:09 Lymph % (Auto) 2.6 % 09/28/21 16:09 [place] % (Auto) 7.5 % 09/28/21 16:09 Eos % (Auto) 0.6 % 09/28/21 16:09 Baso % (Auto) 0.6 % 09/28/21 16:09 Neut # (Auto) 4.48 10^3/uL (1.8-7.7) 09/28/21 16:09 Lymph # (Auto) 0.1 10^3/uL (0.8-4.8) L 09/28/21 16:09 [place] # (Auto) 0.4 10^3/uL (0.2-0.9) 09/28/21 16:09 Eos # (Auto) 0.0 10^3/uL (0.0-0.8) 09/28/21 16:09 Baso # (Auto) 0.0 10^3/uL (0.0-0.1) 09/28/21 16:09 Nucleated RBC % (auto) 0 % 09/28/21 16:09 Nucleated RBCs # 0.0 /100WBC 09/28/21 16:09 Sodium 137 mmol/L (136-145) 09/28/21 16:09 Potassium 3.6 mmol/L (3.5-5.1) 09/28/21 16:09 Chloride 105 mmol/L (98-107) 09/28/21 16:09 Carbon Dioxide 19 mmol/L (22-29) L 09/28/21 16:09 Anion Gap 16.6 (5-19) 09/28/21 16:09 BUN 10 mg/dL (6-20) 09/28/21 16:09 Creatinine 0.8 mg/dL (0.5-0.9) 09/28/21 16:09 GFR Calculation 86.7 mL/min (90-130) L 09/28/21 16:09 Glucose 99 mg/dL (65-115) 09/28/21 16:09 Calculated Osmolality 283 mOsm/kg (285-295) L 09/28/21 16:09 Calcium 8.5 mg/dL (8.5-10.5) 09/28/21 16:09 Total Bilirubin 0.3 mg/dL (0.15-1.2) 09/28/21 16:09 AST 16 U/L (0-32) 09/28/21 16:09 ALT 6 U/L (0-33) 09/28/21 16:09 Alkaline Phosphatase 60 IU/L (35-105) 09/28/21 16:09 Total Protein 6.7 g/dL (6.6-8.7) 09/28/21 16:09 Albumin 4.7 g/dL (3.5-5.2) 09/28/21 16:09 Globulin 2.0 g/dL (1.3-4.6) 09/28/21 16:09 Nasal Influ A H1 2008 PCR Not detected (NOT DETECT) 09/28/21 15:30 Coronavirus 229E (PCR) Not detected (NOT DETECT) 09/28/21 15:30 Influenza A (H1) PCR Not detected (NOT DETECT) 09/28/21 15:30 Influenza A (H3) PCR Not detected (NOT DETECT) 09/28/21 15:30 Influenza Type A (PCR) Not detected (NOT DETECT) 09/28/21 15:30 Influenza Type B (PCR) Not detected (NOT DETECT) 09/28/21 15:30 SARS-CoV-2 (PCR) Detected (NOT DETECT) A 09/28/21 15:30 EKG Data EKG 1: I personally reviewed and interpreted this EKG as follows: EKG interpretation date: 09/28/21 EKG interpretation time: 15:14 Interpretation: sinus tach hr [address] or t wave abnormalities qrs 91 qtc 408 Discharge Plan Discharge Patient Disposition: Home Clinical Impression: COVID-19 Condition: Stable Prescriptions: New Naprosyn 500 mg tablet 500 mg PO BID PRN (Reason: pain) Qty: 20 0RF No Action loratadine [Allergy Relief (loratadine)] 10 mg tablet 10 mg PO DAILY 0RF hydroxyzine HCl 25 mg tablet 25 mg PO .at bed 0RF citalopram [Celexa] 20 mg tablet 20 mg PO DAILY@2200 Qty: 30 1RF lorazepam 1 mg tablet 1 mg PO BID PRN (Reason: anxiety) Qty: 45 0RF prazosin 2 mg capsule 4 mg PO .HS Qty: 60 1RF nortriptyline 25 mg capsule 25 mg PO DAILY 30 Days Qty: 30 1RF mycophenolate mofetil 500 mg tablet See Rx Instructions .ROUTE .COMPLEX 0RF Rx Instructions: 1500mg qam and 1000mg po bedtime naproxen sodium [Aleve] 220 mg Tablet 440 mg PO PRN PRN (Reason: Pain, Moderate) 0RF cholecalciferol (vitamin D3) [Vitamin D3] 50 mcg (2,000 unit) Tablet 50 mcg PO QAM 0RF albuterol sulfate 90 mcg/actuation HFA aerosol inhaler 2 inh INHALATION Q4H PRN (Reason: shortness of breath or wheezing) Qty: 8.5 0RF Rx Instructions: until breathing returns to target peak flow/parameters ondansetron 4 mg tablet,disintegrating 4 mg PO Q6H PRN (Reason: nausea and vomiting) Qty: 14 0RF ondansetron 4 mg tablet,disintegrating 4 mg PO Q6H PRN (Reason: nausea and vomiting) Qty: 14 0RF pantoprazole 40 mg tablet,delayed release (DR/EC) 40 mg PO DAILY 0RF ergocalciferol (vitamin D2) [Vitamin D2] 50,000 unit capsule See Rx Instructions .ROUTE .COMPLEX 0RF Rx Instructions: 50,000 unit orally on MON,WED,FRIDAY calcium carbonate-vitamin D3 [Calcium 500 + D] 500 mg(1,250mg) -400 unit Tablet 2 tab PO DAILY 0RF hydroxychloroquine 200 mg Tablet 200 mg PO BID 0RF Ferrex 150 Forte 150-25-1 mg-mcg-mg capsule 150 cap PO BID 0RF Nuvigil 150 mg Tablet 150 mg PO QAM 0RF Discharge Orders: Discharge ED (Routine); Ordered 09/28/21 Ordered By: Mela Johnson Referrals: Kam Ramirez MD [Primary Care Provider] - 1-3 days Discharge Diet: Advance as tolerated Discharge Activity: Resume usual activity Coding Level of Care Code ED Cabinet And Trim Installer for Chg Fwd Exam Comprehensive
[2021-09-28] MEDS: ondansetron 2 mg/ML SDV 2 mL 4 MG IVP (16:10)
[2021-09-28] MEDS: sodium chloride 0.9% 1,000 ML 999 ML IV (16:10)
[2021-09-28] MEDS: dexamethasone 10 mg/mL INJ 6 MG IVP (16:10)
[2021-09-28 16:17] LABS: Basophils % 0.6 %; Eosinophils % 0.6 %; Hematocrit 36.6 % (37.0-47.0); Hemoglobin 12.4 g/dL (11.5-15.3); Lymphocytes # 0.1 10^3/uL (0.8-4.8); Lymphocytes % 2.6 %; Mean Corpuscular HGB Conc 33.9 g/dL (30.0-36.0); Mean Corpuscular Hemoglobin 29.5 pg (28.0-34.0); Mean Corpuscular Volume 86.9 fl (81-99); Mean Platelet Volume 10.7 fL (7.4-10.4); Monocytes # 0.4 10^3/uL (0.2-0.9); Monocytes % 7.5 %; Neutrophils # 4.48 10^3/uL (1.8-7.7); Neutrophils % 88.3 %; Nucleated Red Blood Cells % 0 %; Platelet Count 213 10^3/cmm (130-400); Red Blood Count 4.21 10^6/uL (4.1-5.3); Red Cell Distribution Width 12.8 % (12.1-15.1); White Blood Count 5.1 10^3/uL (4.0-10.0)
--- NOTE | 2021-09-28 16:25 | ECG_ITS ---
[facility] Test Date: 2021-09-28 Pat Name: Joe Eisenberg Department: Room: Gender: Female Contracts Representative: : 1995 Requested By: Mela Johnson Order Number: [id number] Tonya MD: Fransisca Marc M.D. Measurements Intervals [place] Rate: 106 P: 21 MA: 102 QRS: 34 QRSD: 91 T: 35 QT: 346 QTc: 460 Interpretive Statements SINUS TACHYCARDIA WITH SHORT MA INTERVAL Compared to ECG 05/07/2021 17:12:15 Short MA interval now present Sinus rhythm no longer present Electronically Signed On 09-29-2021 10:22:38 CDT by Fransisca Marc M.D. [email or web address] Partnersforrest general hospitalViaWesttrihealth [facility].[employer]/store/NU/[id number] f
[2021-09-28 16:30] VITALS: BP 107/72; PULSE 100; RESP 16; O2SAT 100
--- NOTE | 2021-09-28 16:32 | XRR_ITS ---
PROCEDURE INFORMATION: Exam: XR Chest Exam date and time: 09/28/2021 4:57 PM Age: 26 years old Clinical indication: Fever TECHNIQUE: Imaging protocol: XR of the chest. Views: 1 view. COMPARISON: CR XR chest 1V portable [id number] 05/07/2021 4:52 PM FINDINGS: Lungs: Unremarkable. No consolidation. Pleural spaces: Unremarkable. No pleural effusion. No pneumothorax. Heart/Mediastinum: Unremarkable. No cardiomegaly. Bones/joints: Unremarkable. XR/XR chest 1V portable [id number] IMPRESSION: No acute findings.
[2021-09-28 16:35] LABS: Alanine Aminotransferase 6 U/L (0-33); Albumin Level 4.7 g/dL (3.5-5.2); Alkaline Phosphatase 60 IU/L (35-105); Anion Gap 16.6 (5-19); Aspartate Amino Transferase 16 U/L (0-32); Blood Urea Nitrogen 10 mg/dL (6-20); Calcium 8.5 mg/dL (8.5-10.5); Carbon Dioxide 19 mmol/L (22-29); Chloride 105 mmol/L (98-107); Glomerular Filtration Rate 86.7 mL/min (90-130); Glucose 99 mg/dL (65-115); Osmolality Calculated 283 mOsm/kg (285-295); Potassium 3.6 mmol/L (3.5-5.1); Sodium 137 mmol/L (136-145); Total Bilirubin 0.3 mg/dL (0.15-1.2); Total Protein 6.7 g/dL (6.6-8.7)
[2021-09-28] MEDS: acetaminophen 325 mg Tablet 650 MG PO (16:38)
[2021-09-28 17:25] LABS: Adenovirus Not Detected (NOT DETECT); Chlamydia Pneumoniae Not Detected (NOT DETECT); Coronavirus 229E,HKU1,NL63,OC4 Not Detected (NOT DETECT); Human Metapneumovirus Not Detected (NOT DETECT); Human Rhinovirus/Enterovirus Not Detected (NOT DETECT); Influenza A Not Detected (NOT DETECT); Influenza A H1 Not Detected (NOT DETECT); Influenza A H1-2009 Not Detected (NOT DETECT); Influenza A H3 Not Detected (NOT DETECT); Influenza B Not Detected (NOT DETECT); Mycoplasma Pneumoniae Not Detected (NOT DETECT); Parainfluenza Virus Type 1 Not Detected (NOT DETECT); Parainfluenza Virus Type 2 Not Detected (NOT DETECT); Parainfluenza Virus Type 3 Not Detected (NOT DETECT); Parainfluenza Virus Type 4 Not Detected (NOT DETECT); Respiratory Syncytial Virus A Not Detected (NOT DETECT); Respiratory Syncytial Virus B Not Detected (NOT DETECT); SARS-COV-2 Detected (NOT DETECT)
[2021-09-28 17:28] LABS: Results from GENMARK
[2021-09-28 17:47] LABS: HCG Qualitative Urine. Negative (Negative)
[2021-09-28 17:53] VITALS: TEMP 37.2
[2021-09-28] MEDS: ketorolac 30 mg/mL INJ IVP (17:57)
== END 2021-09-28 18:24 | disposition home or self-care (01) ==
PROVIDERS: Emergency Provider Emergency Medicine; PCP Family Medicine
DX: U07.1 COVID-19 (principal)
CPT/HCPCS: 71045; 80053; 81025; 85025; 87631; 87635; 93005; 96361; 96374; 96375; 99284; J1100; J1885; J2405; J7030

== ENCOUNTER → 2021-10-02 07:13 | Outpatient (BNVA) | payer BC, MEDICAID, SELFPAY | PROVIDERS: PCP Family Medicine; Visit Provider Nurse Practitioner | DX: F41.0 Panic disorder [episodic paroxysmal anxiety] (principal); F41.1 Generalized anxiety disorder; F33.0 Major depressive disorder, recurrent, mild | CPT/HCPCS: 99214 ==

== ENCOUNTER 2021-11-14 00:46 | Emergency (ER) | payer BC, MEDICAID, SELFPAY ==
[2021-11-14 00:51] VITALS: BP 117/75; PULSE 123; RESP 18; TEMP 36.7; O2SAT 98; BMI 24.7
[2021-11-14 01:13] LABS: Basophils # 0.1 10^3/uL (0.0-0.1); Basophils % 0.9 %; Eosinophils # 0.1 10^3/uL (0.0-0.8); Eosinophils % 1.1 %; Hematocrit 37.5 % (37.0-47.0); Hemoglobin 13.1 g/dL (11.5-15.3); Lymphocytes # 1.7 10^3/uL (0.8-4.8); Lymphocytes % 31.5 %; Mean Corpuscular HGB Conc 34.9 g/dL (30.0-36.0); Mean Platelet Volume 10.6 fL (7.4-10.4); Monocytes # 0.4 10^3/uL (0.2-0.9); Monocytes % 7.2 %; Neutrophils # 3.28 10^3/uL (1.8-7.7); Neutrophils % 59.3 %; Nucleated Red Blood Cells % 0 %; Platelet Count 240 10^3/cmm (130-400); Red Blood Count 4.52 10^6/uL (4.1-5.3); Red Cell Distribution Width 12.2 % (12.1-15.1); White Blood Count 5.5 10^3/uL (4.0-10.0)
[2021-11-14] MEDS: diphenhydrAMINE 50 mg/mL SDV 1mL 25 MG IVP (01:20)
[2021-11-14] MEDS: sodium chloride 0.9% 1,000 ML 999 ML IV (01:20)
--- NOTE | 2021-11-14 01:23 | ED_ITS ---
HPI - Nausea/Vomiting/Diarrhea General: Chief complaint: Nausea/Vomiting/Diarrhea Stated complaint: N\V Time Seen by Provider: 11/14/21 01:05 History of Present Illness: 26-year-old female comes in today with persistent nausea and vomiting. Patient has bilious this vomitus. Patient denies fever. Patient appears nontoxic. Patient has a history of major depressive disorder, personality disorder, anxiety, and lupus nephritis. patient's had previous episodes of recurrent nausea and vomiting. Patient appears in no pain. Associated nausea: Yes Associated symtoms: Reports nausea Review of Systems General: Reports: 10 or more systems reviewed and unremarkable except in HPI and below Const: Denies: fever(s) GI: Reports: nausea and vomiting PFSH ED PFSH: Medical History (Updated 11/14/21 @ 02:37 by MAI Wolfe) Generalized anxiety disorder Inflammatory bowel disease 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, follows up at [facility] Lupus nephritis Major depressive disorder, recurrent, mild Panic disorder [episodic paroxysmal anxiety] Psychiatric care Surgical History History of appendectomy [place] Hx of cholecystectomy [place] Status post biopsy of kidney Multiple percutaneous biopsies Status post tonsillectomy and adenoidectomy Family History Mother Juvenile rheumatoid arthritis Social History Smoking and tobacco status: never smoked Alcohol intake: never Household members: family Housing: House Sexually active: Yes Female Reproductive History: Date of last menstrual period: 10/23/21 Physical Exam Const: COMMON NORMALS: alert HENMT: COMMON NORMALS: normocephalic HEAD & SCALP: normocephalic Neck/C-Spine: COMMON NORMALS: full ROM Resp: COMMON NORMALS: normal respiratory effort and clear to auscultation bilaterally AUSCULTATION: clear to auscultation bilaterally Cardio: COMMON NORMALS: regular rate RATE: regular rate GI: COMMON NORMALS: Soft to palpation AUSCULTATION: Yes normoactive bowel sounds PALPATION: Yes Soft to palpation Extremity: COMMON NORMALS: normal to inspection Neuro: SENSORIUM/ORIENTATION: Yes alert Skin: COMMON NORMALS: no rashes or lesions noted GENERAL SKIN EXAM: no rashes or lesions noted Course Vital Signs: Vital signs: Vital Signs Temperature 98.1 F 11/14/21 00:51 Pulse Rate 105 H 11/14/21 02:18 Respiratory Rate 17 11/14/21 02:18 Blood Pressure 104/77 11/14/21 02:18 Pulse Oximetry 97 11/14/21 02:18 MDM - Nausea/Vomiting/Diarrhea Medical Decision Making 26-year-old female comes in today with complaints of flank pain, with nausea and vomiting. Patient reports a history of prior episodes of intractable vomiting. Patient also has a history of lupus affecting her kidneys and kidney stones. On exam abdomen soft with mild generalized tenderness. No CVA tenderness is noted. Skin is warm and dry. Vital signs are normal. Patient has bilious emesis. Differential diagnosis includes not limited to dehydration, cyclic vomiting syndrome, anxiety, renal calculi. CT noted no obstructing renal calculi or signs of bowel obstruction. Reviewed CT with Dr. Johnson who agreed at this time. Final report will be per radiology. Patient was given 5 mg of Haldol and 25 mg of diphenhydramine with control of emesis. Patient felt had increased anxiety a fter this treatment and was given 2 mg of oral lorazepam. Patient was able to hold the medication down and felt comfortable to go home. Recommended follow-up with primary care for further treatment. Patient was given promethazine rectal suppositories for further episodes. Patient was instructed return to the ER for high fever or worsening symptoms. Patient be notified if any abnormalities on CT scan if needed. Lab Data : 11/14/21 01:09 11/14/21 01:09 Laboratory Results WBC 5.5 10^3/uL (4.0-10.0) 11/14/21 01:09 RBC 4.52 10^6/uL (4.1-5.3) 11/14/21 01:09 Hgb 13.1 g/dL (11.5-15.3) 11/14/21 01:09 Hct 37.5 % (37.0-47.0) 11/14/21 01:09 MCV 83.0 fl (81-99) 11/14/21 01:09 MCH 29.0 pg (28.0-34.0) 11/14/21 01:09 MCHC 34.9 g/dL (30.0-36.0) 11/14/21 01:09 RDW 12.2 % (12.1-15.1) 11/14/21 01:09 Plt Count 240 10^3/cmm (130-400) 11/14/21 01:09 MPV 10.6 fL (7.4-10.4) H 11/14/21 01:09 Neut % (Auto) 59.3 % 11/14/21 01:09 Lymph % (Auto) 31.5 % 11/14/21 01:09 [place] % (Auto) 7.2 % 11/14/21 01:09 Eos % (Auto) 1.1 % 11/14/21 01:09 Baso % (Auto) 0.9 % 11/14/21 01:09 Neut # (Auto) 3.28 10^3/uL (1.8-7.7) 11/14/21 01:09 Lymph # (Auto) 1.7 10^3/uL (0.8-4.8) 11/14/21 01:09 [place] # (Auto) 0.4 10^3/uL (0.2-0.9) 11/14/21 01:09 Eos # (Auto) 0.1 10^3/uL (0.0-0.8) 11/14/21 01:09 Baso # (Auto) 0.1 10^3/uL (0.0-0.1) 11/14/21 01:09 Nucleated RBC % (auto) 0 % 11/14/21 01:09 Nucleated RBCs # 0.0 /100WBC 11/14/21 01:09 Sodium 138 mmol/L (136-145) 11/14/21 01:09 Potassium 3.4 mmol/L (3.5-5.1) L 11/14/21 01:09 Chloride 106 mmol/L (98-107) 11/14/21 01:09 Carbon Dioxide 16 mmol/L (22-29) L 11/14/21 01:09 Anion Gap 19.4 (5-19) H 11/14/21 01:09 BUN 14 mg/dL (6-20) 11/14/21 01:09 Creatinine 0.8 mg/dL (0.5-0.9) 11/14/21 01:09 GFR Calculation 86.7 mL/min (90-130) L 11/14/21 01:09 Glucose 137 mg/dL (65-115) H 11/14/21 01:09 Calculated Osmolality 289 mOsm/kg (285-295) 11/14/21 01:09 Calcium 8.9 mg/dL (8.5-10.5) 11/14/21 01:09 Total Bilirubin 0.3 mg/dL (0.15-1.2) 11/14/21 01:09 AST 18 U/L (0-32) 11/14/21 01:09 ALT 8 U/L (0-33) 11/14/21 01:09 Alkaline Phosphatase 54 IU/L (35-105) 11/14/21 01:09 C-Reactive Protein 3.0 mg/L (0.0-4.9) 11/14/21 01:09 Total Protein 6.9 g/dL (6.6-8.7) 11/14/21 01:09 Albumin 4.5 g/dL (3.5-5.2) 11/14/21 01:09 Globulin 2.4 g/dL (1.3-4.6) 11/14/21 01:09 Lipase 68 U/L (13-60) H 11/14/21 01:09 HCG, Qual Negative (Negative) 11/14/21 01:17 Urine Color Dark yellow (Yellow) 11/14/21 01:17 Urine Appearance Hazy (CLEAR) A 11/14/21 01:17 Urine pH 5 (5-7) 11/14/21 01:17 Ur Specific [place] 1.030 (1.005-1.030) 11/14/21 01:17 Urine Protein 2+ (Negative) H 11/14/21 01:17 Urine Glucose (UA) Norm (Normal) 11/14/21 01:17 Urine Ketones 1+ (Negative) H 11/14/21 01:17 Urine Blood 2+ (Negative) H 11/14/21 01:17 Urine Nitrate Negative (Negative) 11/14/21 01:17 Urine Bilirubin 1+ (Negative) H 11/14/21 01:17 Urine Urobilinogen 1 mg/dL (Negative) H 11/14/21 01:17 Ur Leukocyte Esterase Negative (Negative) 11/14/21 01:17 Urine RBC 0-4 /hpf (0-2) H 11/14/21 01:17 Urine WBC 5-10 /hpf (0-5) H 11/14/21 01:17 Ur Squamous Epith Cells 25-40 /hpf (0-5) H 11/14/21 01:17 Amorphous Sediment 2+ /hpf 11/14/21 01:17 Urine Bacteria 2+ /hpf (NONE) H 11/14/21 01:17 Urine Mucus 3+ /hpf 11/14/21 01:17 Discharge Plan Discharge Patient Disposition: Home Clinical Impression: Dehydration, Cyclic vomiting syndrome, Anxiety Condition: Stable Prescriptions: New Promethegan 25 mg suppository 25 mg NE Q6H PRN (Reason: nausea and vomiting) Qty: 6 0RF No Action loratadine [Allergy Relief (loratadine)] 10 mg tablet 10 mg PO DAILY 0RF hydroxyzine HCl 25 mg tablet 25 mg PO .at bed 0RF citalopram [Celexa] 20 mg tablet 30 mg PO DAILY@2200 Qty: 45 1RF lorazepam 1 mg tablet 1 mg PO DAILY PRN (Reason: anxiety) Qty: 30 0RF nortriptyline 25 mg capsule 25 mg PO DAILY 30 Days Qty: 30 1RF prazosin 2 mg capsule 4 mg PO .HS Qty: 60 1RF mycophenolate mofetil 500 mg tablet See Rx Instructions .ROUTE .COMPLEX 0RF Rx Instructions: 1500mg qam and 1000mg po bedtime naproxen sodium [Aleve] 220 mg Tablet 440 mg PO PRN PRN (Reason: Pain, Moderate) 0RF cholecalciferol (vitamin D3) [Vitamin D3] 50 mcg (2,000 unit) Tablet 50 mcg PO QAM 0RF albuterol sulfate 90 mcg/actuation HFA aerosol inhaler 2 inh INHALATION Q4H PRN (Reason: shortness of breath or wheezing) Qty: 8.5 0RF Rx Instructions: until breathing returns to target peak flow/parameters ondansetron 4 mg tablet,disintegrating 4 mg PO Q6H PRN (Reason: nausea and vomiting) Qty: 14 0RF pantoprazole 40 mg tablet,delayed release (DR/EC) 40 mg PO DAILY 0RF ergocalciferol (vitamin D2) [Vitamin D2] 50,000 unit capsule See Rx Instructions .ROUTE .COMPLEX 0RF Rx Instructions: 50,000 unit orally on MON,WED,CECIL calcium carbonate-vitamin D3 [Calcium 500 + D] 500 mg(1,250mg) -400 unit Tablet 2 tab PO DAILY 0RF hydroxychloroquine 200 mg Tablet 200 mg PO BID 0RF Ferrex 150 Forte 150-25-1 mg-mcg-mg capsule 150 cap PO BID 0RF Nuvigil 150 mg Tablet 150 mg PO QAM 0RF Naprosyn 500 mg tablet 500 mg PO BID PRN (Reason: pain) Qty: 20 0RF Discharge Orders: Discharge ED (Routine); Ordered 11/14/21 Ordered By: Aryan Gale Referrals: Kam Ramirez MD [Primary Care Provider] - Discharge Diet: Usual diet Discharge Activity: Increase activity as tolerated Patient Instructions: Dehydration (ED) Activity Restrictions/Additional Instructions: Drink frequent sips of water to avoid dehydration. Use promethazine rectal suppository as needed for intractable vomiting episodes. Follow-up with primary care for further instruction. Return to ER for fever greater than 100.4, blood in vomit or stool, or uncontrolled symptoms. Coding Level of Care Code ED Associate Dean Of Women for Chg Fwd Exam Comprehensive
[2021-11-14] MEDS: haloperidol inj 5 mg/mL INJ 1 mL IVP (01:25)
--- NOTE | 2021-11-14 01:28 | CTR_ITS ---
PROCEDURE INFORMATION: Exam: CT Abdomen And Pelvis Without Contrast Exam date and time: 11/14/2021 1:52 AM Age: 26 years old Clinical indication: Abdominal pain; Flank; Lower; Prior surgery; Surgery date: 6+ months; Surgery type: Appy and adiel; Additional info: Flank pain TECHNIQUE: Imaging protocol: Computed tomography of the abdomen and pelvis without contrast. Radiation optimization: All CT scans at this facility use at least one of these dose optimization techniques: automated exposure control; mA and/or kV adjustment per patient size (includes targeted exams where dose is matched to clinical indication); or iterative reconstruction. COMPARISON: CT kidney stone [id number] 04/14/2021 10:30 PM RADIATION DOSE METRICS: Total DLP (mGy-cm): 638 FINDINGS: Lungs: The visualized lung bases demonstrate no focal airspace opacification or pleural effusion. Heart: The visualized heart is within normal limits for size. There is no evidence of pericardial abnormality. Liver: The liver is normal in size and contour. Gallbladder and bile ducts: The gallbladder is surgically absent. Pancreas: The pancreas appears normal. Spleen: The spleen appears normal. Adrenal glands: The adrenals appear normal. Kidneys and ureters: The kidneys empty into non-dilated ureters. Punctate nonobstructing right lower pole nephrolithiasis (axial series 3, image 71). No ureteral stones are identified. No perinephric or periureteral fat tissue stranding is identified. Stomach and bowel: The stomach is unremarkable. The small bowel loops are not abnormally dilated. The large bowel loops are not abnormally dilated. Dense material noted in the right lower quadrant bowel likely ingested material. No inflammatory changes identified. Appendix: The appendix is surgically absent. Intraperitoneal space: No ascites or significant fluid collection. Vasculature: The aorta is nonaneurysmal. The IVC appears normal. Lymph nodes: There are no enlarged lymph nodes. Urinary bladder: The urinary bladder is not well distended, therefore not well evaluated. Reproductive: The uterus appears normal. The ovaries appear normal. Bones/joints: Review of the bone windows demonstrates no significant abnormality. Soft tissues: Unremarkable. CT/CT kidney stone [id number] IMPRESSION: 1. No acute abdominopelvic abnormality identified. 2. Punctate nonobstructing right lower pole nephrolithiasis. No signs of urinary obstruction. COMMENTS: Evaluation of solid organs and vascular structures is limited as no IV contrast was administered.
[2021-11-14 01:31] LABS: Alanine Aminotransferase 8 U/L (0-33); Albumin Level 4.5 g/dL (3.5-5.2); Alkaline Phosphatase 54 IU/L (35-105); Anion Gap 19.4 (5-19); Aspartate Amino Transferase 18 U/L (0-32); Blood Urea Nitrogen 14 mg/dL (6-20); Calcium 8.9 mg/dL (8.5-10.5); Carbon Dioxide 16 mmol/L (22-29); Chloride 106 mmol/L (98-107); Globulin 2.4 g/dL (1.3-4.6); Glomerular Filtration Rate 86.7 mL/min (90-130); Glucose 137 mg/dL (65-115); Lipase 68 U/L (13-60); Osmolality Calculated 289 mOsm/kg (285-295); Potassium 3.4 mmol/L (3.5-5.1); Sodium 138 mmol/L (136-145); Total Bilirubin 0.3 mg/dL (0.15-1.2); Total Protein 6.9 g/dL (6.6-8.7)
[2021-11-14 01:40] LABS: Add Urine Culture? No; Add Urine Microscopic? YES; Amorphous Sediment Urine 2+ /hpf; Bacteria Urine 2+ /hpf; Bilirubin Urine 1+ (Negative); Blood Urine 2+ (Negative); Glucose Urine UA Norm (Normal); Ketones Urine 1+ (Negative); Leukocyte Esterase Urine Negative (Negative); Mucus Urine 3+ /hpf; Nitrate Urine Negative (Negative); Protein Urine 2+ (Negative); RBC Urine 0-4 /hpf (0-2); Squamous Epithelial Cell Urine 25-40 /hpf (0-5); Urine Appearance Hazy (CLEAR); Urine Color Dark Yellow (Yellow); Urobilinogen Urine 1 mg/dL (Negative); pH Urine 5 (5-7)
[2021-11-14 01:41] LABS: HCG, Serum Qual Negative (Negative)
[2021-11-14 02:18] VITALS: BP 104/77; PULSE 105; RESP 17; O2SAT 97
[2021-11-14] MEDS: LORazepam 2 mg Tablet PO (02:19)
[2021-11-14 03:22] VITALS: BP 125/83; PULSE 104; RESP 16; O2SAT 96
== END 2021-11-14 03:30 | disposition home or self-care (01) ==
PROVIDERS: Emergency Provider Nurse Practitioner Family; PCP Family Medicine
DX: E86.0 Dehydration (principal); R11.15 Cyclical vomiting syndrome unrelated to migraine; F41.9 Anxiety disorder, unspecified
CPT/HCPCS: 74176; 80053; 81001; 83690; 84703; 85025; 86140; 96361; 96374; 96375; 99284; J1200; J1630; J7030

== ENCOUNTER 2023-04-16 12:59 | Outpatient (CLI) | payer BC, SELFPAY ==
--- NOTE | 2023-04-16 13:05 | CT_ITS ---
WS: [id number] CT ABDOMEN AND PELVIS WITH CONTRAST HISTORY: ELEVATED LIPASE/ABD PAIN TECHNIQUE: Imaging performed of the abdomen and pelvis with IV contrast. Single phase imaging of the abdomen. Coronal and sagittal reformats are submitted. All CT scans at [facility] use at [address] one of these dose optimization techniques: automated exposure control; mA and/or kV adjustment per patient size (includes targeted exams where dose is matched to clinical indication); or iterative re construction. IV CONTRAST: Omnipaque 350; 100 mL IV. Oral contrast: Yes. DLP: 278.20 mGy.cm COMPARISON: 11/14/2021, 12/02/2020 Lower thorax: Lung bases are clear. Heart is normal size. No hiatal hernia. Liver/biliary system: Normal size with no intrahepatic dilatation. Gallbladder: Cholecystectomy. Pancreas: Normal size pancreas and pancreatic duct. No adjacent inflammation. Spleen: Normal size spleen. No mass or infarct. Adrenal glands: Normal. Right kidney: Normal. Left kidney: Normal. Aorta: Normal. Lymphadenopathy: None. Free fluid: None. GI tract: Moderate diffuse constipation throughout the colon. No obstructive pattern. Prior appendect ludin. Abdominal wall: Fat containing umbilical hernia. Pelvis: No free fluid or adenopathy within the pelvis. Dominant follicle LEFT ovary 2.1 x 2.9 cm. Bones: Unremarkable. IMPRESSION: 1. No evidence for pancreatitis. 2. Prior appendectomy and cholecystectomy. 3. Diffuse moderate constipation. 4. No adenopathy or ascites. 5. No bile duct dilatation.
[2023-04-16] MEDS: iohexol 350 mg/mL 500 mL Btl (per mL) PO (14:01)
[2023-04-16] MEDS: iohexol 350 mg/mL 500 mL Btl (per mL) IV (14:24)
== END 2023-04-16 13:00 | disposition home or self-care (01) ==
LOC: RAD 12:59
PROVIDERS: PCP Family Medicine; Visit Provider Family Medicine
DX: R85.0 Abnormal level of enzymes in specimens from digestive organs and abdominal cavity (principal); R10.9 Unspecified abdominal pain; Z90.49 Acquired absence of other specified parts of digestive tract; Z90.89 Acquired absence of other organs; K59.00 Constipation, unspecified
CPT/HCPCS: 74177; Q9967

== ENCOUNTER → 2023-11-12 08:58 | Outpatient (BNVA) | payer BC, SELFPAY | PROVIDERS: PCP Family Medicine; Visit Provider Nurse Practitioner | DX: R82.5 Elevated urine levels of drugs, medicaments and biological substances (principal) | CPT/HCPCS: 80306 ==